=== PATIENT | male | born 1935 | race Caucasian/White ===

== ENCOUNTER → 2016-06-28 | Outpatient (CLI) | payer MEDICARE, OTHER ==
[2016-06-28 11:08] LABS: ALBUMIN 3.5 GM/DL (3.2-5.2); ALBUMIN/GLOBULIN RATIO 1.25 (1.00-1.93); BILIRUBIN,TOTAL 0.3 MG/DL (0.2-1.0); CALCIUM LEVEL 9.2 MG/DL (8.8-10.2); CREATININE FOR GFR 2.53 MG/DL (0.70-1.30); FREE T4 1.12 NG/DL (0.76-1.46); GLOMERULAR FILTRATION RATE 26.1 (>35); POTASSIUM SERUM 4.9 MEQ/L (3.5-5.1); TOTAL PROTEIN 6.3 GM/DL (6.4-8.2)
== END ==
LOC: M LAB 09:52
PROVIDERS: ATTEND Nurse Practitioner Family
DX: N18.4 Chronic kidney disease, stage 4 (severe) (principal); E03.9 Hypothyroidism, unspecified; E11.40 Type 2 diabetes mellitus with diabetic neuropathy, unspecified

== ENCOUNTER → 2016-09-25 | Outpatient (CLI) | payer MEDICARE, OTHER ==
[2016-09-25 10:14] LABS: ALBUMIN 3.7 GM/DL (3.2-5.2); ALBUMIN/GLOBULIN RATIO 1.16 (1.00-1.93); BILIRUBIN,TOTAL 0.4 MG/DL (0.2-1.0); CALCIUM LEVEL 9.8 MG/DL (8.8-10.2); CREATININE FOR GFR 2.59 MG/DL (0.70-1.30); GLOMERULAR FILTRATION RATE 25.4 (>35); TOTAL PROTEIN 6.9 GM/DL (6.4-8.2)
[2016-09-25 10:17] LABS: POTASSIUM SERUM 5.5 MEQ/L (3.5-5.1)
== END ==
LOC: M LAB 09:13
PROVIDERS: ATTEND Nurse Practitioner Family
DX: E11.65 Type 2 diabetes mellitus with hyperglycemia (principal)

== ENCOUNTER → 2017-01-08 | Outpatient (CLI) | payer MEDICARE, OTHER ==
[2017-01-08 10:42] LABS: ALBUMIN 3.5 GM/DL (3.2-5.2); ALBUMIN/GLOBULIN RATIO 1.13 (1.00-1.93); BILIRUBIN,TOTAL 0.3 MG/DL (0.2-1.0); CALCIUM LEVEL 9.1 MG/DL (8.8-10.2); CREATININE FOR GFR 2.41 MG/DL (0.70-1.30); FREE T4 1.2 NG/DL (0.76-1.46); GLOMERULAR FILTRATION RATE 27.6 (>35); POTASSIUM SERUM 4.8 MEQ/L (3.5-5.1); TOTAL PROTEIN 6.6 GM/DL (6.4-8.2)
== END ==
LOC: M LAB 09:41
PROVIDERS: ATTEND Nurse Practitioner Family
DX: E11.65 Type 2 diabetes mellitus with hyperglycemia (principal)

== ENCOUNTER → 2017-04-08 | Outpatient (CLI) | payer MEDICARE, OTHER | LOC: M RAD 10:42 | DX: N18.4 Chronic kidney disease, stage 4 (severe) (principal); E11.22 Type 2 diabetes mellitus with diabetic chronic kidney disease; I15.0 Renovascular hypertension | CPT/HCPCS: 76775 ==

== ENCOUNTER → 2017-04-10 | Outpatient (CLI) | payer MEDICARE, OTHER ==
[2017-04-10 10:01] LABS: HEMOGLOBIN 12.8 g/dl (14.0-18.0); MEAN CORPUSCULAR HEMOGLOBIN 31.8 pg (27.0-33.0); MEAN CORPUSCULAR HGB CONC 33.7 g/dl (32.0-36.5); MEAN CORPUSCULAR VOLUME 94.5 fl (80.0-96.0); PLATELET COUNT, AUTOMATED 323 10^3/uL (150-450); RED BLOOD COUNT 4.02 10^6/uL (4.30-6.10); RED CELL DISTRIBUTION WIDTH 12.9 % (11.5-14.5); WHITE BLOOD COUNT 6.5 10^3/uL (4.0-10.0)
[2017-04-10 10:20] LABS: ALBUMIN 3.8 GM/DL (3.2-5.2); ALBUMIN/GLOBULIN RATIO 1.31 (1.00-1.93); ALKALINE PHOSPHATASE 58 U/L (45-117); ALT/SGPT 26 U/L (12-78); ANION GAP 6 MEQ/L (8-16); AST/SGOT 14 U/L (7-37); BILIRUBIN,TOTAL 0.3 MG/DL (0.2-1.0); BLOOD UREA NITROGEN 57 MG/DL (7-18); CALCIUM LEVEL 9.2 MG/DL (8.8-10.2); CARBON DIOXIDE LEVEL 29 MEQ/L (21-32); CHLORIDE LEVEL 106 MEQ/L (98-107); CHOLESTEROL LEVEL 132 MG/DL (<200); GLOMERULAR FILTRATION RATE 22.2 (>35); GLUCOSE, FASTING 129 MG/DL (83-110); HDL CHOLESTEROL 60 MG/DL (>40); LDL CHOLESTEROL 56.6 MG/DL (<100); NON-HDL-C 72 MG/DL; POTASSIUM SERUM 4.9 MEQ/L (3.5-5.1); SODIUM LEVEL 141 MEQ/L (136-145); TOTAL PROTEIN 6.7 GM/DL (6.4-8.2); TRIGLYCERIDES LEVEL 77 MG/DL (<150)
[2017-04-10 10:51] LABS: ESTIMATED AVERAGE GLUCOSE 148 MG/DL (60-110); HEMOGLOBIN A1c 6.8 %
== END ==
LOC: M LAB 09:22
DX: N18.4 Chronic kidney disease, stage 4 (severe) (principal); E11.65 Type 2 diabetes mellitus with hyperglycemia; M15.0 Primary generalized (osteo)arthritis; E78.4 Other hyperlipidemia
CPT/HCPCS: 80053

== ENCOUNTER → 2017-06-04 | Outpatient (REF) | payer MEDICARE, OTHER ==
[2017-06-04 14:57] LABS: FOLATE > 24.0 NG/ML; VITAMIN B12 LEVEL 522 PG/ML
[2017-06-04 15:02] LABS: FERRITIN 55 NG/ML (26-388); IRON (FE) 97 UG/DL (65-175); PERCENT SATURATION 37.5 % (19.7-50.0); TOTAL IRON BINDING CAPACITY 259 UG/DL (250-450)
== END ==
LOC: M LAB REF 14:13
DX: N18.9 Chronic kidney disease, unspecified (principal); D63.1 Anemia in chronic kidney disease
CPT/HCPCS: 82746

== ENCOUNTER → 2017-08-06 | Outpatient (REF) | payer MEDICARE, OTHER ==
[2017-08-06 14:15] LABS: ANION GAP 9 MEQ/L (8-16); BLOOD UREA NITROGEN 36 MG/DL (7-18); CARBON DIOXIDE LEVEL 29 MEQ/L (21-32); CHLORIDE LEVEL 105 MEQ/L (98-107); CREATININE FOR GFR 2.36 MG/DL (0.70-1.30); FREE T4 1.26 NG/DL (0.76-1.46); GLOMERULAR FILTRATION RATE 28.2 (>35); GLUCOSE, FASTING 104 MG/DL (70-100); POTASSIUM SERUM 4.5 MEQ/L (3.5-5.1); SODIUM LEVEL 143 MEQ/L (136-145); THYROID STIMULATING HORMONE 0.204 uIU/ML (0.358-3.740)
[2017-08-06 14:55] LABS: TOTAL 25(OH) VITAMIN D 31.9 NG/ML (30.0-100.0)
== END ==
LOC: M SFHCPLAZ 11:40
DX: I12.9 Hypertensive chronic kidney disease with stage 1 through stage 4 chronic kidney disease, or unspecified chronic kidney disease (principal); N18.4 Chronic kidney disease, stage 4 (severe); E03.9 Hypothyroidism, unspecified; E83.52 Hypercalcemia
CPT/HCPCS: 84443

== ENCOUNTER 2017-10-29 07:24 | Day surgery (SDC) | payer MEDICARE, OTHER ==
[~2017-10-29 07:24] MED LIST: ACETAMINOPHEN 325 MG TAB PO; PHENYLEPHRINE HCL 10 % OPHTH. SOL 5ML OS
[2017-10-29] MEDS ORDERED: PHENYLEPHRINE 2.5% OPHTH SOL 2ML As Ordered (07:33)
[2017-10-29] MEDS ORDERED: TROPICAMIDE 1% OPHTH SOLN 2ML As Ordered (07:33)
[2017-10-29] MEDS ORDERED: OFLOXACIN 0.3 % (OCUFLOX) OPTH SOL 5ML As Ordered (07:33)
[2017-10-29] MEDS ORDERED: CYCLOPENTOLATE 2% OPHTH SOLN 2ML BTL As Ordered (07:33)
[2017-10-29 07:53] LABS: BEDSIDE GLUCOSE 135 MG/DL (83-110)
[2017-10-29] MEDS: LIDOCAINE 3.5 % 1ML OPHTH TOPICAL GEL OU (07:58)
[2017-10-29] MEDS: TROPICAMIDE 1% OPHTH SOLN 2ML OS (07:58)
[2017-10-29] MEDS: CYCLOPENTOLATE 2% OPHTH SOLN 2ML BTL OS (07:58)
[2017-10-29] MEDS: OFLOXACIN 0.3 % (OCUFLOX) OPTH SOL 5ML OS (07:58)
[2017-10-29] MEDS: PHENYLEPHRINE 2.5% OPHTH SOL 2ML OS (07:59)
[2017-10-29] MEDS: MOXIFLOXACIN IN BSS 0.25MG/0.25ML INTRACAMERAL INJ (OR EYE ONLY)(J2280) As Ordered (08:20)
[2017-10-29] MEDS: HEALON DUET (HEALON 10MG/ML 0.55ML & HEALON ENDOCOAT 30MG/ML 0.85ML) As Ordered (08:20)
[2017-10-29] MEDS: TRIAMCINOLONE PRES FR 40 MG/ML 1ML(TRIESENCE)(OR EYE ONLY)(J3300 PER 1MG) As Ordered (08:20)
[2017-10-29] MEDS: POVIDONE-IODINE 5% OPHTH PREP SOL 30ML As Ordered (08:20)
[2017-10-29] MEDS: LIDOCAINE 1% SDV 5 ML VIAL As Ordered (08:20)
[2017-10-29] MEDS: BSS with VANC/TOB/EPI for EYE CASES IR (08:20)
[2017-10-29] MEDS ORDERED: fentaNYL 100 MCG/2 ML INJECTION (J3010) As Ordered (08:27)
[2017-10-29] MEDS ORDERED: MIDAZOLAM INJ 2 MG/2 ML VIAL (J2250) As Ordered (08:27)
[2017-10-29] MEDS: AcetaZOLAMIDE 500 MG ER CAP PO (09:00)
[2017-10-29] MEDS ORDERED: TRIMETHOBENZAMIDE 300 MG CAP PO (09:00)
== END 2017-10-29 09:16 | disposition home or self-care (01) ==
LOC: M SDC 07:24
DX: H25.9 Unspecified age-related cataract (principal); I10 Essential (primary) hypertension; K21.9 Gastro-esophageal reflux disease without esophagitis; F41.9 Anxiety disorder, unspecified; E11.9 Type 2 diabetes mellitus without complications; E03.9 Hypothyroidism, unspecified; Z79.82 Long term (current) use of aspirin; Z79.899 Other long term (current) drug therapy; Z88.0 Allergy status to penicillin; Z88.8 Allergy status to other drugs, medicaments and biological substances
CPT/HCPCS: 66984

== ENCOUNTER → 2017-11-04 | Outpatient (CLI) | payer MEDICARE, OTHER ==
[2017-11-04 13:11] LABS: TOTAL 25(OH) VITAMIN D 17.6 NG/ML (30.0-100.0)
[2017-11-04 13:12] LABS: ANION GAP 10 MEQ/L (8-16); BLOOD UREA NITROGEN 53 MG/DL (7-18); CALCIUM LEVEL 8.7 MG/DL (8.8-10.2); CARBON DIOXIDE LEVEL 25 MEQ/L (21-32); CHLORIDE LEVEL 107 MEQ/L (98-107); CREATININE FOR GFR 2.62 MG/DL (0.70-1.30); FREE T4 0.98 NG/DL (0.76-1.46); GLUCOSE, FASTING 171 MG/DL (70-100); PTH INTACT 97.2 PG/ML (18.5-88.0); SODIUM LEVEL 142 MEQ/L (136-145); THYROID STIMULATING HORMONE 0.435 uIU/ML (0.358-3.740)
== END ==
LOC: M LAB 12:08
DX: E03.9 Hypothyroidism, unspecified (principal); N18.4 Chronic kidney disease, stage 4 (severe); E83.52 Hypercalcemia
CPT/HCPCS: 84443

== ENCOUNTER → 2018-02-11 | Outpatient (CLI) | payer MEDICARE, OTHER ==
[2018-02-11 15:24] LABS: HEMATOCRIT 38.1 % (42.0-52.0); HEMOGLOBIN 12.8 g/dl (13.5-17.5); MEAN CORPUSCULAR HEMOGLOBIN 31.1 pg (27.0-33.0); MEAN CORPUSCULAR HGB CONC 33.6 g/dl (32.0-36.5); MEAN CORPUSCULAR VOLUME 92.7 fl (80.0-96.0); PLATELET COUNT, AUTOMATED 411 10^3/uL (150-450); RED BLOOD COUNT 4.11 10^6/uL (4.30-6.10); RED CELL DISTRIBUTION WIDTH 12.6 % (11.5-14.5); WHITE BLOOD COUNT 8.4 10^3/uL (4.0-10.0)
[2018-02-11 15:38] LABS: ESTIMATED AVERAGE GLUCOSE 174 MG/DL (60-110); HEMOGLOBIN A1c 7.7 %
[2018-02-11 16:01] LABS: ALBUMIN 3.1 GM/DL (3.2-5.2); ALBUMIN/GLOBULIN RATIO 0.94 (1.00-1.93); ALKALINE PHOSPHATASE 103 U/L (45-117); ALT/SGPT 22 U/L (12-78); ANION GAP 7 MEQ/L (8-16); AST/SGOT 15 U/L (7-37); BILIRUBIN,TOTAL 0.3 MG/DL (0.2-1.0); BLOOD UREA NITROGEN 42 MG/DL (7-18); CALCIUM LEVEL 9.1 MG/DL (8.8-10.2); CARBON DIOXIDE LEVEL 31 MEQ/L (21-32); CHLORIDE LEVEL 98 MEQ/L (98-107); FREE T4 1.06 NG/DL (0.76-1.46); GLOMERULAR FILTRATION RATE 26.4 (>35); GLUCOSE, FASTING 276 MG/DL (70-100); SODIUM LEVEL 136 MEQ/L (136-145); TOTAL PROTEIN 6.4 GM/DL (6.4-8.2)
== END ==
LOC: M LAB 14:49
DX: N18.4 Chronic kidney disease, stage 4 (severe) (principal); I12.9 Hypertensive chronic kidney disease with stage 1 through stage 4 chronic kidney disease, or unspecified chronic kidney disease; E03.9 Hypothyroidism, unspecified; E11.65 Type 2 diabetes mellitus with hyperglycemia; E11.22 Type 2 diabetes mellitus with diabetic chronic kidney disease
CPT/HCPCS: 84443

== ENCOUNTER → 2018-04-20 | Outpatient (CLI) | payer MEDICARE, OTHER ==
[~2018-04-20] MED LIST changes: -ACETAMINOPHEN 325 MG TAB PO; +ASPI1TAB PO; +ATOR40TA75 PO; +BENA25CA4 PO; +BIOT2500 PO; +CALC1CAP31 PO; +CARV3.12 PO; +CLAR10CA3 PO; +CLOB0.0526 EX; +COLA100C5 PO; +CUTI0.053 EX; +ECHI400C2 PO; +EFFE75CA2 PO; +EYECAP PO; +FEBU40TA PO; +FISH7.5C PO; +FLOM0.4C39 PO; +LEVO125T4 PO; +MIRA3350 PO; -PHENYLEPHRINE HCL 10 % OPHTH. SOL 5ML OS; +PREV1CAP PO; +PROB1CAP10 PO; +TIZA4CAP PO; +TORS20TA2 PO; +VANI1CRE5 EX
[2018-04-20 13:13] LABS: FREE T4 1.47 NG/DL (0.76-1.46); THYROID STIMULATING HORMONE 0.058 uIU/ML (0.358-3.740)
== END ==
LOC: M LAB 11:22
PROVIDERS: ATTEND Nurse Practitioner Family
DX: E03.9 Hypothyroidism, unspecified (principal)

== ENCOUNTER → 2018-05-19 | Outpatient (REF) | payer MEDICARE, OTHER | LOC: M LABDRAW1 15:34 → M LAB REF 15:34 | PROVIDERS: ATTEND Internal Medicine Nephrology | DX: Z12.5 Encounter for screening for malignant neoplasm of prostate (principal); M54.5 Low back pain ==

== ENCOUNTER → 2018-05-21 | Outpatient (CLI) | payer MEDICARE, OTHER ==
[2018-05-21 14:26] LABS: ALBUMIN 3.3 GM/DL (3.2-5.2); BILIRUBIN,TOTAL 0.3 MG/DL (0.2-1.0); CALCIUM LEVEL 9.2 MG/DL (8.8-10.2); CREATININE FOR GFR 2.24 MG/DL (0.70-1.30); FREE T4 1.21 NG/DL (0.76-1.46); GLOMERULAR FILTRATION RATE 29.9 (>35); POTASSIUM SERUM 3.9 MEQ/L (3.5-5.1); THYROID STIMULATING HORMONE 0.091 uIU/ML (0.358-3.740); TOTAL PROTEIN 6.2 GM/DL (6.4-8.2)
[2018-05-21 15:10] LABS: HEMOGLOBIN A1c 7.6 %
== END ==
LOC: M LAB 12:31
PROVIDERS: ATTEND Nurse Practitioner Family
DX: E03.9 Hypothyroidism, unspecified (principal); E11.65 Type 2 diabetes mellitus with hyperglycemia; I12.9 Hypertensive chronic kidney disease with stage 1 through stage 4 chronic kidney disease, or unspecified chronic kidney disease; N18.4 Chronic kidney disease, stage 4 (severe)

== ENCOUNTER → 2018-06-04 | Outpatient (REF) | payer MEDICARE, OTHER ==
[2018-06-04 19:13] LABS: ALBUMIN 3.5 GM/DL (3.2-5.2); BILIRUBIN,TOTAL 0.4 MG/DL (0.2-1.0); CALCIUM LEVEL 9.5 MG/DL (8.8-10.2); CREATININE FOR GFR 2.27 MG/DL (0.70-1.30); GLOMERULAR FILTRATION RATE 29.4 (>35); POTASSIUM SERUM 4.4 MEQ/L (3.5-5.1); TOTAL PROTEIN 6.6 GM/DL (6.4-8.2)
[2018-06-04 19:17] LABS: FREE T4 1.33 NG/DL (0.76-1.46); THYROID STIMULATING HORMONE 0.143 uIU/ML (0.358-3.740)
== END ==
LOC: M SFHCPLAZ 15:16
PROVIDERS: ATTEND Nurse Practitioner Family
DX: I12.9 Hypertensive chronic kidney disease with stage 1 through stage 4 chronic kidney disease, or unspecified chronic kidney disease (principal); N18.4 Chronic kidney disease, stage 4 (severe); E11.65 Type 2 diabetes mellitus with hyperglycemia; E03.9 Hypothyroidism, unspecified
CPT/HCPCS: 80053; 83036; 84439; 84443; G0463

== ENCOUNTER → 2018-07-27 | Outpatient (CLI) | payer OTHER ==
[~2018-07-27] MED LIST changes: -ASPI1TAB PO; +ASPI81TA26 PO
--- NOTE | 2018-08-12 01:13 | ECWPNPC ---
PATIENT NAME: FERMIN LEACH : 1935 GENDER: MALE VISIT DATE: 07/27/2018 DISCHARGE DATE: 07/27/18 1450 VISIT LOCKED DATE TIME: PHYSICIAN: LALITA MIDDLETON MD RESOURCE: LALITA MIDDLETON MD REASON FOR APPOINTMENT 1. W/C LBP HISTORY OF PRESENT ILLNESS PAIN SCREENING: PATIENT HAS A COMPLAINT OF ACUTE OR CHRONIC PAIN :YES 83 YEAR OLD MALE PATIENT WITH A HISTORY OF CHRONIC LOW BACK PAIN. THE PATIENT DESCRIBES THE PAIN ACHING, SHARP, AND SHOOTING WITH A PAIN SCORE OF 8-10/10 DEPENDING ON PHYSICAL ACTIVITY. THE PATIENT WAS HURT IN A WORK RELATED INJURY ON 06/29/1986 WHILE WORKING FOR [employer] A [employer] ON [employer] [place] [employer] WHEN HE WAS TRYING TO FIX A MALFUNCTIONING MACHINE AND HE BENT OVER TO FEED SOME STRAPS THROUGH IT, AND HE STRAIGHTENED BACK UP HIS BACK POPPED OUT AND HE HAD DIFFICULTY MOVING. THE PATIENT STATES THE PAIN STARTS IN HIS LOWER BACK AND RADIATES TO HIS RIGHT LEG. THE PATIENT SAYS PHYSICAL THERAPY HELPED IN THE BEGINNING, BUT THE PAIN HAS GOTTEN WORSE. THE PATIENT IS CURRENTLY USING TRAMADOL AND A HEATING PAD TO AID IN PAIN RELIEF. THE PATIENT SAYS THAT HE HAS HAD TROUBLE URINATING RECENTLY. PATIENT DENIES UNEXPLAINABLE WEIGHT LOSS, FEVER, CHILLS, NEW CHANGES ON HIS BOWEL CONTROL. FALL RISK SCREENING: SCREENING :NO FALLS REPORTED IN THE LAST YEAR CURRENT MEDICATIONS TAKING OMEGA 3 1000 MG CAPSULE 1 CAPSULE ORALLY TWICE DAILY TAKING TIZANIDINE HCL 4 MG TABLET 1/2 -1 TABLET NEEDED ORALLY AT BEDTIME, NOTES: NEEDED TAKING ULORIC 40 MG TABLET 1 TABLET ORALLY -- TAKING CALCITRIOL 0.25 MCG CAPSULE 1 CAPSULE ORALLY ONCE A DAY, ,, TAKING PREVACID 30 MG CAPSULE DELAYED RELEASE TAKE ONE CAPSULE BY MOUTH EVERY DAY BEFORE A MEAL TAKING MIRALAX - POWDER 2 TABLESPOON ORALLY DAILY NEEDED TAKING COLACE 100 MG CAPSULE 2-3 CAPSULES ORALLY TWICE A DAY NEEDED TAKING ECHINACEA 400 MG CAPSULE 4 CAPSULES ORALLY THREE TIMES A DAY FOR 2-4 DAYS ON ONSET OF COLD SYMPTOMS, NOTES: NEEDED TAKING CUTIVATE 0.05 % CREAM ARMS AND LEGS EXTERNALLY ONCE A DAY NEEDED TAKING CLOBETASOL PROPIONATE 0.05 % CREAM 1 APPLICATION TO AFFECTED AREA EXTERNALLY AFFECTED AREAS ON BODY ECZEMA TWICE A DAY, NOTES: NEEDED TAKING DIPHENHYDRAMINE . 1 25MG 1 TAB ORAL 2-3 YUNI DAILY NEEDED USE WHEN ALLERGIES ARE BOTHERING HIM, NOTES: NEEDED TAKING BIOTIN 5000 MCG CAPSULE 1 CAPSULE ORALLY ONCE A DAY TAKING AREDS OTC AREDS2- 1 CAP ORALLY TWICE DAILY TAKING DRISDOL 07393 UNIT CAPSULE 1 CAPSULE ORALLY TAKING MAGNESIUM CITRATE - SOLUTION 150 ML ORALLY TWICE A DAY TAKING ASPIRIN 81 MG OTC 1 TAB(S) ORALLY DAILY TAKING TORSEMIDE 20 MG TABLET 1 TABLET ORALLY ONCE A DAY, NOTES: NEPHROLOGY TAKING COREG 3.125MG TABLET ORAL BID TAKING EFFEXOR XR 75 MGS CAPSULE EXTENDED RELEASE 24 HOUR 1 CAPSULE WITH FOOD ORALLY DAILY TAKING LIPITOR 40 MG TABLET 1 TABLET ORALLY ONCE A DAY TAKING FLOMAX 0.4 MG CAPSULE 1 CAPSULE ORALLY ONCE A DAY TAKING TRAMADOL HCL 50 MG TABLET 1 TABLET ORALLY TWICE A DAY NEEDED TAKING SYNTHROID 100 MCG TABLET 1 TABLET ON AN EMPTY STOMACH IN THE MORNING ORALLY ONCE A DAY TAKING LORATADINE 10 MG TABLET 1 TABLET ORALLY ONCE A DAY NOT-TAKING ALPHA LIPOIC ACID 300MGS 1 SOFTGEL TWICE A DAY FOR NEUROPATHY NOT-TAKING VANICREAM OTC CREAM 1 APPLICATION EXTERNALLY NOT ON FACE OVER BODY FOR DRY SKIN NEEDED NOT-TAKING LANCETS - MISCELLANEOUS DIRECTED ONE TOUCH ULTRA DX. 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 HYPERLIPIDEMIA HYPOTHYROIDISM--CENTRAL ( FOLLOW FREE T4, NOT TSH) HYPERTENSION BPH PEYRONIE'S DISEASE ALLERGIES DDD/DJD LOW BACK L/S SPINAL STENOSIS PLASMA CELL GRANULOMA RLL STRESS TEST 2008 VIT D DEFICIENCY ZOSTAVAX 09/17 RT 7TH RIB FX (FALL 06/18, CAT-RELATED) GOUT RT GREAT TOE 11/20 COLOGUARD: NEGATIVE ALLERGIES ZANTAC: CONSTIPATION - SIDE EFFECTS NSAIDS: ELEV BUN, CREAT - SIDE EFFECTS PENICILLIN: HIVES - ALLERGY SURGICAL HISTORY T + A 1947 APPENDECTOMY 1949 TURP 2002 RIGHT SHOULDER REPAIR / 1989 RIGHT LOWER LUNG REMOVAL OF ABSCESS/ 2004 BILATERAL BLEPHAROPLASTY/ 2006 EGD/COLONOSCOPY 2007 RIGHT EYE CATARACT SURGERY 11/2012 CYSTOSCOPY 10/21/2017 LEFT EYE [address] JOHNSON FAMILY HISTORY FATHER: HYPERTENSION, DIAGNOSED WITH HYPERTENSION MOTHER: DIABETES, TYPE II, DIABETES SIBLINGS: BROTHER:DIABETES, TYPE II, BLADER CA, DIABETES, CANCER DAUGHTER(S): DEPRESSION, PSYCHIATRIC CONDITIONS PATERNAL GRAND FATHER: DIABETES, TYPE II, DIABETES REVIEWED, NO CHANGES. SOCIAL HISTORY GENERAL: TOBACCO USE ARE YOU A:FORMER SMOKER FORMER CIGAR SMOKER HOW LONG HAS IT BEEN SINCE YOU LAST SMOKED?1-5 YEARS ADDITIONAL FINDINGS: TOBACCO USERCIGAR SMOKER LATEX QUESTIONNAIRE LATEX ALLERGY : HAVE YOU EVER DEVELOPED ANY TYPE OF REACTION AFTER HANDLING LATEX PRODUCTS SUCH RUBBER GLOVES, CONDOMS, DIAPHRAGMS, BALLOONS, SOCKS, OR UNDERWEAR?NO LATEX ALLERGY : HAVE YOU EVER DEVELOPED ANY TYPE OF REACTION DURING OR AFTER DENTAL APPOINTMENT, VAGINAL/RECTAL EXAMINATION, SURGICAL PROCEDURE, OR ANY OTHER EXPOSURE?NO LATEX RISK : HAVE YOU EVER HAD ANY DIFFICULTY BREATHING OR HIVES AFTER EATING OR HANDLING ANY FRUITS, OR VEGETABLES; SUCH KIWI, BANANAS, STONE FRUITS, OR CHESTNUTSNO LATEX RISK : DO YOU HAVE A PREVIOUS PERSONAL HISTORY OF MORE THAN NINE SURGERIES, SPINA BIFIDA, OR REPEATED CATHERTIZATIONS? NO LATEX RISK : ARE YOU FREQUENTLY EXPOSED TO LATEX PRODUCTS IN YOUR OCCUPATION?NO DATE ASKED : 07/27/2018 LUNG CANCER SCREENING SMOKING STATUS:FORMER SMOKER IS THE PATIENT BETWEEN THE AGE OF 54 AND 76?NO ALCOHOL SCREENING DID YOU HAVE A DRINK CONTAINING ALCOHOL IN THE PAST YEAR?NO POINTS0 INTERPRETATIONNEGATIVE RECREATIONAL DRUG USE DRUG USE?NO CAFFEINE CAFFEINE USE?NO SEXUAL HX HAD SEX IN THE LAST 12 MONTHS (VAGINAL, ORAL, OR ANAL)?NO HAVE YOU EVER HAD AN STD?NO HIV / HEP-C SCREENING HIV TEST OFFERED TO PATIENT:YES DATE OFFERED:07/05/2016 TEST ACCEPTED:NO HEP-C TEST OFFERED TO PATIENT:NO REASON:PATIENT DECLINED CONFUCIANISM CONFUCIANISM NO SAMARITAN BELIEFS THAT WOULD IMPACT HEALTH CARE. LANGUAGE LANGUAGES SPOKEN:PANAMANIAN EDUCATION LEVEL OF EDUCATION:FINISHED HIGH SCHOOL LEARNING BARRIERS / SPECIAL NEEDS CHANGE FROM LAST VISIT?NO BARRIERS TO LEARNING?NO HEARING IMPAIRED?YES VISION IMPAIRED?YES COGNITIVELY IMPAIRED?NO :HEARING AIDES :CORRECTIVE LENSES READINESS TO LEARN?YES LEARNING PREFERENCES?NO LEARNING CAPABILITIES PRESENT?YES EMOTIONAL BARRIERS?NO SPECIAL DEVICES?NO BEHAVIORAL SPECIALIST NEEDED?NO DOMESTIC VIOLENCE DO YOU FEEL SAFE IN YOUR ENVIRONMENT?YES OCCUPATION: RETIRED. DIET: LOW FAT, LOW CHOLESTEROL. EXERCISE: NONE. MARITAL STATUS: --ANIL. OTHERS AT HOME: SPOUSE. PAIN CLINIC PFS, CLERGY, PUBLIC HEALTH REFERRALS HAS THE PATIENT BEEN EDUCATED REGARDING HIS/HER PLAN OF CARE?YES HAS THE PATIENT BEEN EDUCATED REGARDING PAIN, THE RISK FOR PAIN, THE IMPORTANCE OF EFFECTIVE PAIN MANAGEMENT, AND THE PAIN ASSESSMENT PROCESS?YES ADVANCE DIRECTIVE ADVANCE DIRECTIVE DISCUSSED WITH PATIENT:YES HCP IS ANIL LEACH [phone] REVIEWED WITH PATIENT 07/27/18 1224 BV. HOSPITALIZATION/MAJOR DIAGNOSTIC PROCEDURE SURGERY RELATED REVIEW OF SYSTEMS REVIEWED BY: PROVIDER: LALITA MIDDLETON MD . CONSTITUTIONAL: ANY CHANGE IN YOUR MEDICAL CONDITION? NO . CHILLS NO . FEVER NO . INFECTION: DO YOU HAVE NEW INFECTIONS? NO . DO YOU HAVE HISTORY OF MRSA? NO . MUSCULOSKELETAL: ANY NEW PATTERNS OF PAIN OR NUMBNESS? NO . SYTEMIC LUPUS NO . GASTROENTEROLOGY: ANY NEW CHANGE IN BOWEL CONTROL? YES, HAS HAD TROUBLE WITH CONSTIPATION, TAKING OTC CONSTIPATION MEDICATIONS. . BARRETTS ESOPHAGUS NO . CIRRHOSIS NO . HEPATITIS NO . LIVER FAILURE NO . ACID REFLUX YES . UNEXPLAINED WEIGHT LOSS HAS LOST ABOUT 10LBS SINCE JANUARY UNINTENTIONALLY . GENITOURINARY: ANY NEW CHANGE IN BLADDER CONTROL? NO . IS THERE A CHANCE YOU COULD BE ? NO . HEMATOLOGY/LYMPH: DO YOU TAKE ANY BLOOD THINNERS? (FOR EXAMPLE- COUMADIN, PLAVIX, AGGRENOX, PLATEL, PRADAXA, OR XARELTO) NO . WHEN WAS YOUR LAST DOSE? DATE: TIME: . LOW PLATELET COUNT NO . SICKLE CELL DISEASE NO . VON WILLIEBRANDS NO . FACTOR V LEIDEN NO . THALLASEMIA NO . ANEMIA NO . EASY BRUISING NO . NEUROLOGY: HAVE YOU FALLEN IN THE PAST 12 MONTHS? 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 DENIES ANY INJURIES OR ED VISIT. . ANY NEW EXTREMITY NUMBNESS OR WEAKNESS? NO . HEAD INJURY , NO . DEMENTIA NO . CEREBRAL PALSY NO . MULTIPLE SCLEROSIS NO . DIZZINESS NO . HEADACHE NO . STROKES NO . VERTIGO NO . CARDIOLOGY: DO YOU HAVE A PACEMAKER OR DEFIBRILLATOR? NO . ANGINA NO . HEART ATTACK NO . HEART SURGERY NO . CONGESTIVE HEART FAILURE/FLUID OVERLOAD NO . CHEST PAIN NO . HIGH BLOOD PRESSURE NO . IRREGULAR HEART BEAT NO . RESPIRATORY: HAVE YOU BEEN SICK IN THE PAST WEEK? NO . FEVER NO . FLU LIKE SYMPTOMS? NO . CPAP NO . BYPAP NO . ASTHMA NO . EMPHYSEMA NO . CHRONIC LUNG DISEASES NO . SHORTNESS OF BREATH ON EXERTION NO . COUGH NO . SNORING NO . INTEGUMENTARY: DO YOU HAVE ANY RASHES OR OPEN SORES? NO . ALLERGIC/IMMUNO: ARE YOU ALLERGIC TO IV DYE? NO . ANY NEW ALLERGIES? NO . PSYCHIATRIC: DO YOU HAVE THOUGHTS OF HURTING YOURSELF OR SOMEONE ELSE? NO . ARE YOU ABUSED, NEGLECTED, OR IN AN UNSAFE ENVIRONMENT? NO . ENDOCRINOLOGY: ARE YOU DIABETIC? YES, DIET CONTROLLED . THYROID DISORDER HYPOTHYROID . OTHER: DO YOU NEED ANY PRESCRIPTIONS? YES, TRAMADOL . IF YES, PLEASE LIST: ____ . ANY NEW PROBLEMS WITH YOUR MEDICATIONS? NO . WHEN DID YOU LAST EAT? ____ . WHEN DID YOU LAST DRINK? ____ . WHAT DID YOU LAST DRINK? ____ . NAME OF PERSON DRIVING YOU HOME? ____ . DO YOU HAVE ANY OTHER QUESTIONS OR CONCERNS NO . VITAL SIGNS WT 153.4 LBS, HT 67.5 IN, BMI 23.67 INDEX, BP 134/69 MM HG, HR 78 /MIN, RR 18 /MIN, TEMP 97.4 F, OXYGEN SAT % 98%, NA INITIALS SC 12:12, REVIEWED BY: BV. EXAMINATION GENERAL EXAMINATION: PATIENT IS ALERT O X 3 AND COOPERATIVE. LUNGS CLEAR, TO AUSCULTATION. HEART: NO MURMURS OR GALLOPS; FACIAL CRANIAL NERVES ARE GROSSLY NORMAL. GOOD SYMMETRY OF FACIAL MUSCLE MOVEMENT. NORMAL VISUAL MICHELLE. PATIENT IS WALKING SLOWLY. ANTALGIC GAIT. PATIENT IS IN A FLEXED POSITION AND HAS DIFFICULTY STANDING STRAIGHT UP. STRAIGHT LEG RAISE OF THE RIGHT LEG IS POSITIVE AT 50 DEGREES FOR RADICULOPATHY. MRI OF THE LUMBAR SPINE DONE 08/30/2008 SHOWS SEVERE STENOSIS L5-S1, MILD STENOSIS L4-L5 AND BULGING DISCS AT MULTIPLE LEVELS. ASSESSMENTS INTERVERTEBRAL DISC DISORDER WITH RADICULOPATHY OF LUMBAR REGION - M51.16 (PRIMARY) SPINAL STENOSIS OF LUMBAR REGION WITHOUT NEUROGENIC CLAUDICATION - M48.061 TREATMENT INTERVERTEBRAL DISC DISORDER WITH RADICULOPATHY OF LUMBAR REGION CLINICAL NOTES: WE DISCUSSED SEVERAL ISSUES WITH MR. LEACH'S PAIN MANAGEMENT CASE. DUE TO THE LUMBAR RADICULOPATHY, WE DISCUSSED THE OPTION OF DOING A LUMBAR EPIDURAL INJECTION, BUT I WOULD LIKE TO ORDER A NEW LUMBAR MRI FIRST SINCE THE PREVIOUS WAS FROM 10 YEARS AGO. THE PATIENT MAY CONSIDER DIFFERENT MEDICATIONS IN THE FUTURE INCLUDING GABAPENTIN, MOVANTIK, OR INCREASING THE TRAMADOL. THE PATIENT WILL FOLLOW UP IN 1 MONTH TO REVIEW MRI RESULTS AND DISCUSS FURTHER TREATMENT OPTIONS. INSTRUCTIONS WERE GIVEN, QUESTIONS WERE ANSWERED, PATIENT REPORTS UNDERSTANDING AND AGREES WITH THE PLAN. I, JALEEL BRAND, DOCUMENTED THE ABOVE INFORMATION ACTING A SCRIBE FOR DR. MIDDLETON. I HAVE REVIEWED THE ABOVE DOCUMENT, WRITTEN BY JALEEL CASTANEDA AND I VERIFY THAT IT IS ACCURATE.DEAR ROSA VALERA PA-C:THANK YOU FOR YOUR KIND REFERRAL OF FERMIN LEACH. IF YOU WANT TO DISCUSS HER CASE WITH ME, PLEASE CALL ME AT THE PAIN [facility]ENTER [phone].SINCERELY,LALITA MIDDLETON, [facility]. PROCEDURES PN WORKMANS' COMP OPINION IN YOUR OPINION, WAS THE INCIDENT THAT THE PATIENT DESCRIBED THE COMPETENT MEDICAL CAUSE OF THIS INJURY/ILLNESS? YES ARE THE PATIENT'S COMPLAINTS CONSISTENT WITH HIS/HER HISTORY OF THE INJURY/ILLNESS? YES IS THE PATIENT'S HISTORY OF THE INJURY/ILLNESS CONSISTENT WITH YOUR OBJECTIVE FINDING? YES WHAT IS THE PERCENTAGE OF TEMPORARY IMPAIRMENT? MODERATE TO MARKED = 66.7% IS THE PATIENT WORKING? NO DOCTOR ON SITE: LALITA GIRON MD PROCEDURE CODES FA211 ESTABILISHED PATIENT [facility] FACILITY CHARGE G8427 CURRENT MEDS W/DOSAGES DOCUMENTED G8730 PAIN ASSESS POS TOOL F/U PLAN DOC DISPOSITION & COMMUNICATION FOLLOW UP 4 WEEKS (REASON: W/C LOW BACK REVIEW MRI) ELECTRONICALLY SIGNED BY LALITA MIDDLETON MD, MD ON 08/10/2018 AT 06:56 PM EDT DISCLAIMER : THIS IS A VISIT SUMMARY EXTRACTED FROM THE [employer] CHART. IT IS NOT A COPY OF THE [employer] PROGRESS NOTE. MTDD
== END ==
LOC: M PAIN 11:30
PROVIDERS: ATTEND Anesthesiology
DX: M51.16 Intervertebral disc disorders with radiculopathy, lumbar region (principal); M48.061 Spinal stenosis, lumbar region without neurogenic claudication; G89.29 Other chronic pain; E11.22 Type 2 diabetes mellitus with diabetic chronic kidney disease; N18.4 Chronic kidney disease, stage 4 (severe); I12.9 Hypertensive chronic kidney disease with stage 1 through stage 4 chronic kidney disease, or unspecified chronic kidney disease; E03.9 Hypothyroidism, unspecified; E55.9 Vitamin D deficiency, unspecified; K21.9 Gastro-esophageal reflux disease without esophagitis; Z79.82 Long term (current) use of aspirin; Z79.899 Other long term (current) drug therapy; Z88.0 Allergy status to penicillin; Z88.6 Allergy status to analgesic agent; Z88.8 Allergy status to other drugs, medicaments and biological substances; Z87.891 Personal history of nicotine dependence; Z87.39 Personal history of other diseases of the musculoskeletal system and connective tissue

== ENCOUNTER → 2018-08-22 | Outpatient (CLI) | payer OTHER ==
--- NOTE | 2018-08-24 09:20 | REP ---
MR LUMBAR SPINE WITHOUT CONTRAST: HISTORY: Radiculopathy. Decreased signal intensity on T2-weighted images is present in the L2-3 through L5-S1 intervertebral discs. The discs are decreased in height. These findings are consistent with disc degeneration. There is no disc bulge or herniation at the L1-2 level. The L1 nerves exit then neural foramina without compression. A diffuse disc bulge is present at the L2-3 level. There is hypertrophy of the ligamenta flava and posterior articulating facets. These findings produce minimal central canal stenosis. The L2 nerves exit the neural foramina without compression. A diffuse disc bulge and small right paracentral disc protrusion are present at the L3-4 level. There is hypertrophy of the ligamenta flava and posterior articulating facets. These findings produce mild central canal stenosis. The L3 nerves exit the neural foramina without compression. A diffuse disc bulge is present at the L4-5 level. There is hypertrophy of the ligamenta flava and posterior articulating facets. There are two synovial cysts medial to the right L4-5 facet joint. These measure 4 and 5 mm in width. These findings produce severe central canal stenosis. A mild-size right intraforaminal and lateral disc protrusion is present. There is compression of the right L4 nerve in the neural foramen. The left L4 nerve exits the neural foramen without compression. A diffuse disc bulge is present at the L5-S1 level. There is hypertrophy of the ligamenta flava and posterior articulating facets. There are 6 mm of grade 1 spondylolisthesis of L5 on S1. These findings produce severe central canal stenosis. Bilateral L5 pars defects are present. There is compression of the L5 nerves in the neural foramina. The conus medullaris is normal in appearance terminating at the level of the L1-2 intervertebral disc. There is an old compression fracture of the L5 vertebral body with mild height loss. Increased signal intensity on T2-weighted images is present in the endplates of the L2 through L1 vertebral bodies. This represents degenerative change. IMPRESSION: 1. Minimal central canal stenosis at the L2-3 level secondary to disc bulge, ligamentous and facet hypertrophy. 2. Mild central canal stenosis at the L3-4 level secondary to disc bulge, disc protrusion, ligamentous and facet hypertrophy. 3. Severe central canal stenosis at the L4-5 level secondary to disc bulge, ligamentous and facet hypertrophy and synovial cysts. A mild size right intraforaminal and lateral disc protrusion is present. There is compression of the right L4 nerve in the neural foramen. 4. Severe central canal stenosis at the L5-S1 level secondary to disc bulge, ligamentous and facet hypertrophy and grade 1 spondylolisthesis. There is compression of the L5 nerves in the neural foramina. Electronically Signed by Andrzej Churchill MD 08/24/2018 09:47 A
== END ==
LOC: M RAD 08:52
PROVIDERS: ATTEND Anesthesiology
DX: M48.061 Spinal stenosis, lumbar region without neurogenic claudication (principal); M51.26 Other intervertebral disc displacement, lumbar region

== ENCOUNTER → 2018-09-01 | Outpatient (CLI) | payer MEDICARE, OTHER ==
[2018-09-01 11:25] LABS: HEMOGLOBIN A1c 6.7 %
[2018-09-01 11:42] LABS: ALBUMIN 3.2 GM/DL (3.2-5.2); BILIRUBIN,TOTAL 0.4 MG/DL (0.2-1.0); CHOLESTEROL RISK RATIO 2.067 (<5); CREATININE FOR GFR 2.33 MG/DL (0.70-1.30); FREE T4 0.95 NG/DL (0.76-1.46); GLOMERULAR FILTRATION RATE 28.6 (>35); POTASSIUM SERUM 4.4 MEQ/L (3.5-5.1); THYROID STIMULATING HORMONE 5.21 uIU/ML (0.358-3.740); TOTAL PROTEIN 6.7 GM/DL (6.4-8.2)
== END ==
LOC: M LAB 10:35
PROVIDERS: ATTEND Nurse Practitioner Family
DX: Z23 Encounter for immunization (principal); I12.9 Hypertensive chronic kidney disease with stage 1 through stage 4 chronic kidney disease, or unspecified chronic kidney disease; N18.4 Chronic kidney disease, stage 4 (severe); E11.65 Type 2 diabetes mellitus with hyperglycemia; E03.9 Hypothyroidism, unspecified

== ENCOUNTER → 2018-09-14 | Outpatient (CLI) | payer OTHER, MEDICARE ==
--- NOTE | 2018-09-26 23:39 | ECWPNPC ---
PATIENT NAME: FERMIN LEACH : 1935 GENDER: MALE VISIT DATE: 09/14/2018 DISCHARGE DATE: 09/14/18 1231 VISIT LOCKED DATE TIME: PHYSICIAN: LALITA MIDDLETON MD RESOURCE: LALITA MIDDLETON MD REASON FOR APPOINTMENT 1. W/C, REVIEW MRI HISTORY OF PRESENT ILLNESS HISTORY OF PRESENT ILLNESS: PAIN THE PATIENT DESCRIBES THE PAIN... 83 YEAR OLD MALE PATIENT WITH A HISTORY OF CHRONIC LOW BACK AND LEG PAIN. THE PATIENT DESCRIBES THE PAIN BURNING, SHOOTING, SHARP, DAILY, AND INTERMITTENT WITH A PAIN SCORE OF 1-10/10 DEPENDING ON PHYSICAL ACTIVITY. 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 THE PATIENT SAYS HE WAS BENT OVER TO FEED STRAPS THROUGH THE MACHINE AND WHEN HE STRAIGHTENED UP, HIS BACK POPPED OUT AND HE HAD DIFFICULTY MOVING AFTERWARD. THE PATIENT STATES THE PAIN STARTS IN HIS LOW BACK AND RADIATES TO BOTH LEGS. THE PATIENT SAYS THE PAIN HAS BEEN GETTING WORSE SINCE JANUARY 2018. THE PATIENT MENTIONS HE HAS BEEN HAVING TROUBLE URINATING AND DEFECATING. PATIENT DENIES UNEXPLAINABLE WEIGHT LOSS, FEVER, CHILLS, NEW CHANGES ON HIS URINARY OR BOWEL CONTROL. FALL RISK SCREENING: SCREENING :NO FALLS REPORTED IN THE LAST YEAR CURRENT MEDICATIONS TAKING COREG 3.125MG TABLET ORAL BID TAKING TORSEMIDE 20 MG TABLET 1 TABLET ORALLY ONCE A DAY, NOTES: NEPHROLOGY TAKING ASPIRIN 81 MG OTC 1 TAB(S) ORALLY DAILY TAKING LIPITOR 40 MG TABLET 1 TABLET ORALLY ONCE A DAY TAKING OMEGA 3 1000 MG CAPSULE 1 CAPSULE ORALLY TWICE DAILY TAKING EFFEXOR XR 75 MGS CAPSULE EXTENDED RELEASE 24 HOUR 1 CAPSULE WITH FOOD ORALLY DAILY TAKING TIZANIDINE HCL 4 MG TABLET 1/2 -1 TABLET NEEDED ORALLY AT BEDTIME, NOTES: NEEDED TAKING FLOMAX 0.4 MG CAPSULE 1 CAPSULE ORALLY ONCE A DAY TAKING ULORIC 40 MG TABLET 1 TABLET ORALLY -- TAKING PREVACID 30 MG CAPSULE DELAYED RELEASE TAKE ONE CAPSULE BY MOUTH EVERY DAY BEFORE A MEAL TAKING MAGNESIUM CITRATE - SOLUTION 150 ML ORALLY DAILY NEEDED TAKING DRISDOL 52407 UNIT CAPSULE 1 CAPSULE ORALLY TAKING CALCITRIOL 0.25 MCG CAPSULE 1 CAPSULE ORALLY ONCE A DAY, ,, TAKING MIRALAX - POWDER 2 TABLESPOON ORALLY DAILY NEEDED TAKING LORATADINE 10 MG TABLET 1 TABLET ORALLY ONCE A DAY TAKING DIPHENHYDRAMINE . 1 25MG 1 TAB ORAL 2-3 YUNI DAILY NEEDED USE WHEN ALLERGIES ARE BOTHERING HIM, NOTES: NEEDED TAKING ECHINACEA 400 MG CAPSULE 4 CAPSULES ORALLY THREE TIMES A DAY FOR 2-4 DAYS ON ONSET OF COLD SYMPTOMS, NOTES: NEEDED TAKING CUTIVATE 0.05 % CREAM ARMS AND LEGS EXTERNALLY ONCE A DAY NEEDED TAKING CLOBETASOL PROPIONATE 0.05 % CREAM 1 APPLICATION TO AFFECTED AREA EXTERNALLY AFFECTED AREAS ON BODY ECZEMA TWICE A DAY, NOTES: NEEDED TAKING BIOTIN 5000 MCG CAPSULE 1 CAPSULE ORALLY ONCE A DAY TAKING AREDS OTC AREDS2- 1 CAP ORALLY TWICE DAILY TAKING TRAMADOL HCL 50 MG TABLET 1 TABLET ORALLY THREE TIMES A DAY TAKING LANCETS - MISCELLANEOUS DIRECTED ONE TOUCH ULTRA DX. 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 HYPERLIPIDEMIA HYPOTHYROIDISM--CENTRAL ( FOLLOW FREE T4, NOT TSH) HYPERTENSION BPH PEYRONIE'S DISEASE ALLERGIES DDD/DJD LOW BACK L/S SPINAL STENOSIS PLASMA CELL GRANULOMA RLL 4 STRESS TEST 2008 VIT D DEFICIENCY ZOSTAVAX 09/17 RT 7TH RIB FX (FALL 06/18, CAT-RELATED) GOUT RT GREAT TOE 11/20 COLOGUARD: NEGATIVE ALLERGIES ZANTAC: CONSTIPATION - SIDE EFFECTS NSAIDS: ELEV BUN, CREAT - SIDE EFFECTS PENICILLIN: HIVES - ALLERGY SURGICAL HISTORY T + A 1948 APPENDECTOMY 1950 TURP 2002 RIGHT SHOULDER REPAIR / 1989 RIGHT LOWER LUNG REMOVAL OF ABSCESS/ 2004 BILATERAL BLEPHAROPLASTY/ 2006 EGD/COLONOSCOPY 2007 RIGHT EYE CATARACT SURGERY 11/2012 CYSTOSCOPY 10/21/2017 LEFT EYE CATARACT [address]ERY [address]. JOHNSON TOENAIL 1/19 FAMILY HISTORY FATHER: HYPERTENSION, DIAGNOSED WITH HYPERTENSION MOTHER: DIABETES, TYPE II, DIABETES SIBLINGS: BROTHER:DIABETES, TYPE II, BLADER CA, DIABETES, CANCER DAUGHTER(S): DEPRESSION, PSYCHIATRIC CONDITIONS PATERNAL GRAND FATHER: DIABETES, TYPE II, DIABETES REVIEWED, NO CHANGES. SOCIAL HISTORY GENERAL: TOBACCO USE ARE YOU A:FORMER SMOKER FORMER CIGAR SMOKER HOW LONG HAS IT BEEN SINCE YOU LAST SMOKED?1-5 YEARS ADDITIONAL FINDINGS: TOBACCO USERCIGAR SMOKER HIV / HEP-C SCREENING HIV TEST OFFERED TO PATIENT:YES DATE OFFERED:07/05/2016 TEST ACCEPTED:NO HEP-C TEST OFFERED TO PATIENT:NO REASON:PATIENT DECLINED OTHERS AT HOME: SPOUSE. EDUCATION LEVEL OF EDUCATION:FINISHED HIGH SCHOOL DIET: LOW FAT, LOW CHOLESTEROL. LANGUAGE LANGUAGES SPOKEN:MACEDONIAN DOMESTIC VIOLENCE DO YOU FEEL SAFE IN YOUR ENVIRONMENT?YES RECREATIONAL DRUG USE DRUG USE?NO EXERCISE: NONE. LEARNING BARRIERS / SPECIAL NEEDS CHANGE FROM LAST VISIT?NO BARRIERS TO LEARNING?NO HEARING IMPAIRED?YES VISION IMPAIRED?YES COGNITIVELY IMPAIRED?NO :HEARING AIDES :CORRECTIVE LENSES READINESS TO LEARN?YES LEARNING PREFERENCES?NO LEARNING CAPABILITIES PRESENT?YES EMOTIONAL BARRIERS?NO SPECIAL DEVICES?NO CAR BARN LABORER NEEDED?NO LUNG CANCER SCREENING SMOKING STATUS:FORMER SMOKER IS THE PATIENT BETWEEN THE AGE OF 54 AND 76?NO PAIN CLINIC PFS, CLERGY, PUBLIC HEALTH REFERRALS HAS THE PATIENT BEEN EDUCATED REGARDING HIS/HER PLAN OF CARE?YES HAS THE PATIENT BEEN EDUCATED REGARDING PAIN, THE RISK FOR PAIN, THE IMPORTANCE OF EFFECTIVE PAIN MANAGEMENT, AND THE PAIN ASSESSMENT PROCESS?YES LATEX QUESTIONNAIRE LATEX ALLERGY : HAVE YOU EVER DEVELOPED ANY TYPE OF REACTION AFTER HANDLING LATEX PRODUCTS SUCH RUBBER GLOVES, CONDOMS, DIAPHRAGMS, BALLOONS, SOCKS, OR UNDERWEAR?NO LATEX ALLERGY : HAVE YOU EVER DEVELOPED ANY TYPE OF REACTION DURING OR AFTER DENTAL APPOINTMENT, VAGINAL/RECTAL EXAMINATION, SURGICAL PROCEDURE, OR ANY OTHER EXPOSURE?NO DATE ASKED : 07/27/2018 LATEX RISK : HAVE YOU EVER HAD ANY DIFFICULTY BREATHING OR HIVES AFTER EATING OR HANDLING ANY FRUITS, OR VEGETABLES; SUCH KIWI, BANANAS, STONE FRUITS, OR CHESTNUTSNO LATEX RISK : DO YOU HAVE A PREVIOUS PERSONAL HISTORY OF MORE THAN NINE SURGERIES, SPINA BIFIDA, OR REPEATED CATHERTIZATIONS? NO LATEX RISK : ARE YOU FREQUENTLY EXPOSED TO LATEX PRODUCTS IN YOUR OCCUPATION?NO CAFFEINE CAFFEINE USE?NO ADVANCE DIRECTIVE ADVANCE DIRECTIVE DISCUSSED WITH PATIENT:YES HCP IS ANIL LEACH [phone] UATSDIN UATSDIN NO ANGLICAN BELIEFS THAT WOULD IMPACT HEALTH CARE. MARITAL STATUS: --ANIL. ALCOHOL SCREENING DID YOU HAVE A DRINK CONTAINING ALCOHOL IN THE PAST YEAR?NO POINTS0 INTERPRETATIONNEGATIVE OCCUPATION: RETIRED. SEXUAL HX HAD SEX IN THE LAST 12 MONTHS (VAGINAL, ORAL, OR ANAL)?NO HAVE YOU EVER HAD AN STD?NO REVIEWED WITH PATIENT 07/27/18 1224 BV. HOSPITALIZATION/MAJOR DIAGNOSTIC PROCEDURE SURGERY RELATED REVIEW OF SYSTEMS REVIEWED BY: PROVIDER: LALITA MIDDLETON MD . CONSTITUTIONAL: ANY CHANGE IN YOUR MEDICAL CONDITION? NO . CHILLS NO . FEVER NO . INFECTION: DO YOU HAVE NEW INFECTIONS? NO . DO YOU HAVE HISTORY OF MRSA? NO . MUSCULOSKELETAL: ANY NEW PATTERNS OF PAIN OR NUMBNESS? YES, LBP RADIATING DOWN LEGS IS WORSE . GASTROENTEROLOGY: ANY NEW CHANGE IN BOWEL CONTROL? NO . GENITOURINARY: ANY NEW CHANGE IN BLADDER CONTROL? NO . IS THERE A CHANCE YOU COULD BE ? NO . HEMATOLOGY/LYMPH: DO YOU TAKE ANY BLOOD THINNERS? (FOR EXAMPLE- COUMADIN, PLAVIX, AGGRENOX, PLATEL, PRADAXA, OR XARELTO) NO . WHEN WAS YOUR LAST DOSE? DATE: TIME: . NEUROLOGY: HAVE YOU FALLEN IN THE PAST 12 MONTHS? YES, FELL LAST MONTH FROM LOSS OF BALANCE, PT DENIES SEEKING TX . ANY NEW EXTREMITY NUMBNESS OR WEAKNESS? NO . CARDIOLOGY: DO YOU HAVE A PACEMAKER OR DEFIBRILLATOR? NO . RESPIRATORY: HAVE YOU BEEN SICK IN THE PAST WEEK? NO . FEVER NO . FLU LIKE SYMPTOMS? NO . COUGH NO . INTEGUMENTARY: DO YOU HAVE ANY RASHES OR OPEN SORES? NO . ALLERGIC/IMMUNO: ARE YOU ALLERGIC TO IV DYE? NO . ANY NEW ALLERGIES? NO . PSYCHIATRIC: DO YOU HAVE THOUGHTS OF HURTING YOURSELF OR SOMEONE ELSE? NO . ARE YOU ABUSED, NEGLECTED, OR IN AN UNSAFE ENVIRONMENT? NO . ENDOCRINOLOGY: ARE YOU DIABETIC? YES . OTHER: DO YOU NEED ANY PRESCRIPTIONS? YES . IF YES, PLEASE LIST: TRAMADOL 50 MG (3) TIMES A DAY . ANY NEW PROBLEMS WITH YOUR MEDICATIONS? NO . WHEN DID YOU LAST EAT? ____ . WHEN DID YOU LAST DRINK? ____ . WHAT DID YOU LAST DRINK? ____ . NAME OF PERSON DRIVING YOU HOME? ____ . DO YOU HAVE ANY OTHER QUESTIONS OR CONCERNS YES - HOW SOON CAN I EXPECT ACTUAL TREATMENT/PAIN RELIEF TO START? . VITAL SIGNS WT 162.2 LBS, HT 67.5 IN, BMI 25.03 INDEX, BP 136/70 MM HG, HR 76 /MIN, RR 18 /MIN, TEMP 97.6 F, OXYGEN SAT % 96%, NA INITIALS AW 1121, REVIEWED BY: LS. EXAMINATION GENERAL EXAMINATION: PATIENT IS ALERT O X 3 AND COOPERATIVE. ANTALGIC WALK. PATIENT REMAINS IN FLEX POSITION, WITH INCREASED PAIN WHEN STRAIGHT POSITION IS ATTEMPTED. TENDERNESS IN THE LUMBAR SPINE. MRI OF THE LUMBAR SPINE DONE ON 08/22/2018 SHOWS SEVERE SPINAL STENOSIS AT L4-L5 AND L5-S1 LEVELS, BULGING DISCS, AND FACET ARTHROPATHY CHANGES AT MULTIPLE LEVELS. ASSESSMENTS INTERVERTEBRAL DISC DISORDER WITH RADICULOPATHY OF LUMBAR REGION - M51.16 (PRIMARY) INTERVERTEBRAL DISC DISORDER WITH RADICULOPATHY OF LUMBOSACRAL REGION - M51.17 SPINAL STENOSIS OF LUMBAR REGION, UNSPECIFIED WHETHER NEUROGENIC CLAUDICATION PRESENT - M48.061 TREATMENT INTERVERTEBRAL DISC DISORDER WITH RADICULOPATHY OF LUMBAR REGION CLINICAL NOTES: WE DISCUSSED SEVERAL ISSUES WITH MR. LEACH'S PAIN MANAGEMENT CASE. DUE TO THE LUMBAR RADICULOPATHY, I WOULD LIKE TO MOVE FORWARD WITH A LUMBAR EPIDURAL STEROID INJECTION AT THIS TIME. WE DISCUSSED THE BENEFITS, RISKS, AND ALTERNATIVES OF THE INJECTION AND THE PATIENT WOULD LIKE TO PROCEED. I AM LOOKING FOR LONG LASTING PAIN RELIEF FOR THE PATIENT WITH THIS PROCEDURE. THE PATIENT WILL FOLLOW UP IN SEVERAL WEEKS AFTER THE INJECTION. INSTRUCTIONS WERE GIVEN, QUESTIONS WERE ANSWERED, PATIENT REPORTS UNDERSTANDING AND AGREES WITH THE PLAN. I, RANDEE GARCIAS, DOCUMENTED THE ABOVE INFORMATION ACTING A SCRIBE FOR DR. MIDDLETON. I HAVE REVIEWED THE ABOVE DOCUMENT, WRITTEN BY RANDEE CASTANEDA AND I VERIFY THAT IT IS ACCURATE. . PROCEDURES PN WORKMANS' COMP OPINION IN YOUR OPINION, WAS THE INCIDENT THAT THE PATIENT DESCRIBED THE COMPETENT MEDICAL CAUSE OF THIS INJURY/ILLNESS? YES ARE THE PATIENT'S COMPLAINTS CONSISTENT WITH HIS/HER HISTORY OF THE INJURY/ILLNESS? YES IS THE PATIENT'S HISTORY OF THE INJURY/ILLNESS CONSISTENT WITH YOUR OBJECTIVE FINDING? YES WHAT IS THE PERCENTAGE OF TEMPORARY IMPAIRMENT? MODERATE TO MARKED = 66.7% IS THE PATIENT WORKING? NO DOCTOR ON SITE: LALITA GIRON MD PROCEDURE CODES FA211 ESTABILISHED PATIENT [facility] FACILITY CHARGE G8427 CURRENT MEDS W/DOSAGES DOCUMENTED G8730 PAIN ASSESS POS TOOL F/U PLAN DOC DISPOSITION & COMMUNICATION FOLLOW UP 4 WEEKS (REASON: LESI) ELECTRONICALLY SIGNED BY LALITA MIDDLETON MD, MD ON 09/26/2018 AT 04:59 PM EDT DISCLAIMER : THIS IS A VISIT SUMMARY EXTRACTED FROM THE [employer] CHART. IT IS NOT A COPY OF THE [employer] PROGRESS NOTE. AUBREY
== END ==
LOC: M PAIN 11:15
PROVIDERS: ATTEND Anesthesiology
DX: M51.16 Intervertebral disc disorders with radiculopathy, lumbar region (principal); M51.17 Intervertebral disc disorders with radiculopathy, lumbosacral region; M48.061 Spinal stenosis, lumbar region without neurogenic claudication; E11.9 Type 2 diabetes mellitus without complications; E03.9 Hypothyroidism, unspecified; Z79.891 Long term (current) use of opiate analgesic; Z79.899 Other long term (current) drug therapy; Z88.0 Allergy status to penicillin; Z88.8 Allergy status to other drugs, medicaments and biological substances; Z87.891 Personal history of nicotine dependence

== ENCOUNTER → 2018-10-29 | Outpatient (CLI) | payer OTHER ==
[~2018-10-29] MED LIST changes: +ISOVUE-M 200 41% 20ML VIAL (Q9966) As Ordered ONE; +LIDOCAINE 1% SDV INJ 30 ML VIAL As Ordered ONE; +diazePAM 5 MG TAB As Ordered ONE; +methylPREDNISolone SUSP 40 MG/ML (DEPO-medrol) VIAL (J1030) As Ordered ONE
--- NOTE | 2018-10-29 15:07 | REP ---
C-ARM VIEWS, LUMBAR SPINE: CLINICAL HISTORY: Pain. Three C-arm views lumbar spine performed during left lumbar epidural steroid injection by Dr. Barbour. Needle is seen at the lumbosacral junction. A small amount of contrast is injected. 11 seconds fluoroscopy time utilized. Electronically Signed by Tal Farris MD 10/29/2018 05:45 P
--- NOTE | 2018-11-07 00:44 | ECWPNPC ---
PATIENT NAME: FERMIN LEACH : 1935 GENDER: MALE VISIT DATE: 10/29/2018 DISCHARGE DATE: 10/29/18 1325 VISIT LOCKED DATE TIME: PHYSICIAN: LALITA MIDDLETON MD RESOURCE: LALITA MIDDLETON MD REASON FOR APPOINTMENT 1. JACOBO W/C HISTORY OF PRESENT ILLNESS HISTORY OF PRESENT ILLNESS: PAIN THE PATIENT DESCRIBES THE PAIN... FALL RISK SCREENING: SCREENING :NO FALLS REPORTED IN THE LAST YEAR CURRENT MEDICATIONS TAKING COREG 3.125MG TABLET ORAL BID, NOTES: 10-28-181899 TAKING TORSEMIDE 20 MG TABLET 1 TABLET ORALLY ONCE A DAY, NOTES: 10-28-18699 NEPHROLOGY TAKING ASPIRIN 81 MG OTC 1 TAB(S) ORALLY DAILY, NOTES: 1899 TAKING LIPITOR 40 MG TABLET 1 TABLET ORALLY ONCE A DAY, NOTES: 10-28-181899 TAKING OMEGA 3 1000 MG CAPSULE 1 CAPSULE ORALLY TWICE DAILY, NOTES: 10-28-181899 TAKING EFFEXOR XR 75 MGS CAPSULE EXTENDED RELEASE 24 HOUR 1 CAPSULE WITH FOOD ORALLY DAILY, NOTES: 10-28-18699 TAKING FLOMAX 0.4 MG CAPSULE 1 CAPSULE ORALLY ONCE A DAY, NOTES: 10-28-18699 TAKING ULORIC 40 MG TABLET 1 TABLET ORALLY --, NOTES: 10-23-18 TAKING PREVACID 30 MG CAPSULE DELAYED RELEASE TAKE ONE CAPSULE BY MOUTH EVERY DAY BEFORE A MEAL , NOTES: 10-29-18699 TAKING MAGNESIUM CITRATE - SOLUTION 150 ML ORALLY DAILY NEEDED, NOTES: 10-27-18 TAKING DRISDOL 27672 UNIT CAPSULE 1 CAPSULE ORALLY WEEKLY, NOTES: 10-25-18 TAKING CALCITRIOL 0.25 MCG CAPSULE 1 CAPSULE ORALLY ONCE A DAY, ,,, NOTES: 10-28-18699 TAKING DIPHENHYDRAMINE . 1 25MG 1 TAB ORAL 2-3 YUNI DAILY NEEDED USE WHEN ALLERGIES ARE BOTHERING HIM, NOTES: NONE RECENTLY - NEEDED TAKING ECHINACEA 400 MG CAPSULE 4 CAPSULES ORALLY THREE TIMES A DAY FOR 2-4 DAYS ON ONSET OF COLD SYMPTOMS, NOTES: NONE RECENTLY - NEEDED TAKING CUTIVATE 0.05 % CREAM ARMS AND LEGS EXTERNALLY ONCE A DAY NEEDED, NOTES: NONE RECENTLY TAKING CLOBETASOL PROPIONATE 0.05 % CREAM 1 APPLICATION TO AFFECTED AREA EXTERNALLY AFFECTED AREAS ON BODY ECZEMA TWICE A DAY, NOTES: NONE RERCENTLY - NEEDED TAKING BIOTIN 5000 MCG CAPSULE 1 CAPSULE ORALLY ONCE A DAY, NOTES: 10-28-18 0700 TAKING AREDS OTC AREDS2- 1 CAP ORALLY TWICE DAILY, NOTES: 10-28-18 1900 TAKING TRAMADOL HCL 50 MG TABLET 1 TABLET ORALLY THREE TIMES A DAY, NOTES: 10-28-18 1800 TAKING LANCETS - MISCELLANEOUS DIRECTED ONE TOUCH ULTRA DX. E11.65, TEST ONCE DAILY TAKING LEVOTHYROXINE SODIUM 112 MCG TABLET 1 TABLET ON AN EMPTY STOMACH IN THE MORNING ORALLY ONCE A DAY, NOTES: 10-29-18 0600 TAKING VANICREAM - CREAM DIRECTED EXTERNALLY AFTER SHOWER, NOTES: 10-28-18 0800 TAKING SYSTANE 0.4-0.3 % SOLUTION DIRECTED OPHTHALMIC , NOTES: MORE THAN A WEEK NOT-TAKING TIZANIDINE HCL 4 MG TABLET 1/2 -1 TABLET NEEDED ORALLY AT BEDTIME, NOTES: NEEDED NOT-TAKING MIRALAX - POWDER 2 TABLESPOON ORALLY DAILY NEEDED NOT-TAKING LORATADINE 10 MG TABLET 1 TABLET ORALLY ONCE A DAY NOT-TAKING ALPHA LIPOIC ACID 200 MG CAPSULE DIRECTED ORALLY NOT-TAKING COLACE 100 MG CAPSULE 2-3 CAPSULES ORALLY TWICE A DAY NEEDED NOT-TAKING ONE TOUCH ULTRA BLUE STRIPS DIRECTED ONE TOUCH ULTRA TEST STRIPS, DXE11.65 TEST ONCE DAILY NOT-TAKING GLUCOMETER DIRECTED ONE TOUCH ULTRA DX.E11.65, TEST ONCE DAILY MEDICATION LIST REVIEWED AND RECONCILED WITH THE PATIENT PAST MEDICAL HISTORY 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 HYPERLIPIDEMIA HYPOTHYROIDISM--CENTRAL ( FOLLOW FREE T4, NOT TSH) HYPERTENSION BPH PEYRONIE'S DISEASE ALLERGIES DDD/DJD LOW BACK L/S SPINAL STENOSIS PLASMA CELL GRANULOMA RLL STRESS TEST 2008 VIT D DEFICIENCY ZOSTAVAX 09/17 RT 7TH RIB FX (FALL 06/18, CAT-RELATED) GOUT RT GREAT TOE 11/20 COLOGUARD: NEGATIVE ALLERGIES ZANTAC: CONSTIPATION - SIDE EFFECTS NSAIDS: ELEV BUN, CREAT - SIDE EFFECTS PENICILLIN: HIVES - ALLERGY SURGICAL HISTORY T + A 194 APPENDECTOMY 1950 TURP 2002 RIGHT SHOULDER REPAIR / 1989 RIGHT LOWER LUNG REMOVAL OF ABSCESS/ 2004 BILATERAL BLEPHAROPLASTY/ 2006 EGD/COLONOSCOPY 2008 RIGHT EYE CATARACT SURGERY 11/2012 CYSTOSCOPY 10/21/[address] JOHNSON TOENAIL 04/25 FAMILY HISTORY FATHER: HYPERTENSION, DIAGNOSED WITH HYPERTENSION MOTHER: DIABETES, TYPE II, DIABETES SIBLINGS: BROTHER:DIABETES, TYPE II, BLADDER CA, DIABETES, CANCER DAUGHTER(S): DEPRESSION, PSYCHIATRIC CONDITIONS PATERNAL GRAND FATHER: DIABETES, TYPE II, DIABETES REVIEWED, NO CHANGES. SOCIAL HISTORY GENERAL: TOBACCO USE ARE YOU A:FORMER SMOKER FORMER CIGAR SMOKER HOW LONG HAS IT BEEN SINCE YOU LAST SMOKED?1-5 YEARS ADDITIONAL FINDINGS: TOBACCO USERCIGAR SMOKER HIV / HEP-C SCREENING HIV TEST OFFERED TO PATIENT:YES DATE OFFERED:07/05/2016 TEST ACCEPTED:NO HEP-C TEST OFFERED TO PATIENT:NO REASON:PATIENT DECLINED OTHERS AT HOME: SPOUSE. EDUCATION LEVEL OF EDUCATION:FINISHED HIGH SCHOOL DIET: LOW FAT, LOW CHOLESTEROL, LOW SODIUM, LOW POTASSIUM. LANGUAGE LANGUAGES SPOKEN:PERUVIAN DOMESTIC VIOLENCE DO YOU FEEL SAFE IN YOUR ENVIRONMENT?YES RECREATIONAL DRUG USE DRUG USE?NO EXERCISE: NONE. LEARNING BARRIERS / SPECIAL NEEDS CHANGE FROM LAST VISIT?NO BARRIERS TO LEARNING?NO HEARING IMPAIRED?YES VISION IMPAIRED?YES COGNITIVELY IMPAIRED?NO :HEARING AIDES :CORRECTIVE LENSES READINESS TO LEARN?YES LEARNING PREFERENCES?NO LEARNING CAPABILITIES PRESENT?YES EMOTIONAL BARRIERS?NO SPECIAL DEVICES?NO ELECTRICAL INTEGRATOR NEEDED?NO LUNG CANCER SCREENING SMOKING STATUS:FORMER SMOKER IS THE PATIENT BETWEEN THE AGE OF 54 AND 76?NO PAIN CLINIC PFS, CLERGY, PUBLIC HEALTH REFERRALS HAS THE PATIENT BEEN EDUCATED REGARDING HIS/HER PLAN OF CARE?YES HAS THE PATIENT BEEN EDUCATED REGARDING PAIN, THE RISK FOR PAIN, THE IMPORTANCE OF EFFECTIVE PAIN MANAGEMENT, AND THE PAIN ASSESSMENT PROCESS?YES LATEX QUESTIONNAIRE LATEX ALLERGY : HAVE YOU EVER DEVELOPED ANY TYPE OF REACTION AFTER HANDLING LATEX PRODUCTS SUCH RUBBER GLOVES, CONDOMS, DIAPHRAGMS, BALLOONS, SOCKS, OR UNDERWEAR?NO LATEX ALLERGY : HAVE YOU EVER DEVELOPED ANY TYPE OF REACTION DURING OR AFTER DENTAL APPOINTMENT, VAGINAL/RECTAL EXAMINATION, SURGICAL PROCEDURE, OR ANY OTHER EXPOSURE?NO DATE ASKED : 07/27/2018 LATEX RISK : HAVE YOU EVER HAD ANY DIFFICULTY BREATHING OR HIVES AFTER EATING OR HANDLING ANY FRUITS, OR VEGETABLES; SUCH KIWI, BANANAS, STONE FRUITS, OR CHESTNUTSNO LATEX RISK : DO YOU HAVE A PREVIOUS PERSONAL HISTORY OF MORE THAN NINE SURGERIES, SPINA BIFIDA, OR REPEATED CATHERIZATIONS? NO LATEX RISK : ARE YOU FREQUENTLY EXPOSED TO LATEX PRODUCTS IN YOUR OCCUPATION?NO CAFFEINE CAFFEINE USE?NO ADVANCE DIRECTIVE ADVANCE DIRECTIVE DISCUSSED WITH PATIENT:YES HCP IS ANIL LEACH [phone] HINDU [id number] UNITARIAN NO DENOMINATIONAL BELIEFS THAT WOULD IMPACT HEALTH CARE. MARITAL STATUS: --ANIL. ALCOHOL SCREENING DID YOU HAVE A DRINK CONTAINING ALCOHOL IN THE PAST YEAR?NO POINTS0 INTERPRETATIONNEGATIVE OCCUPATION: RETIRED. SEXUAL HX HAD SEX IN THE LAST 12 MONTHS (VAGINAL, ORAL, OR ANAL)?NO HAVE YOU EVER HAD AN STD?NO REVIEWED WITH PATIENT 07/27/18 1224 BV. HOSPITALIZATION/MAJOR DIAGNOSTIC PROCEDURE SURGERY RELATED REVIEW OF SYSTEMS REVIEWED BY: PROVIDER: . CONSTITUTIONAL: ANY CHANGE IN YOUR MEDICAL CONDITION? NO . CHILLS NO . FEVER NO . INFECTION: DO YOU HAVE NEW INFECTIONS? NO . DO YOU HAVE HISTORY OF MRSA? NO . MUSCULOSKELETAL: ANY NEW PATTERNS OF PAIN OR NUMBNESS? YES - PAIN IN LEGS IS WORSE . GASTROENTEROLOGY: ANY NEW CHANGE IN BOWEL CONTROL? YES - CONSTIPATION, MANAGED BY OTHER PROVIDERS . GENITOURINARY: ANY NEW CHANGE IN BLADDER CONTROL? YES - INTERMITTENT INCONTINENCE, FOLLOWED BY PRIMARY CARE PROVIDER . IS THERE A CHANCE YOU COULD BE ? NO . HEMATOLOGY/LYMPH: DO YOU TAKE ANY BLOOD THINNERS? (FOR EXAMPLE- COUMADIN, PLAVIX, AGGRENOX, PLATEL, PRADAXA, OR XARELTO) NO . WHEN WAS YOUR LAST DOSE? DATE: TIME: . NEUROLOGY: HAVE YOU FALLEN IN THE PAST 12 MONTHS? YES . ANY NEW EXTREMITY NUMBNESS OR WEAKNESS? NO . CARDIOLOGY: DO YOU HAVE A PACEMAKER OR DEFIBRILLATOR? NO . RESPIRATORY: HAVE YOU BEEN SICK IN THE PAST WEEK? NO - STATES HAS HAD SINUS CONGESTION FOR ABOUT A MONTH BUT DOES NOT FEEL ILL . FEVER NO . FLU LIKE SYMPTOMS? NO . COUGH NO . INTEGUMENTARY: DO YOU HAVE ANY RASHES OR OPEN SORES? YES - REDDENED AREA BELOW COCCYX . ALLERGIC/IMMUNO: ARE YOU ALLERGIC TO IV DYE? NO . ANY NEW ALLERGIES? NO . PSYCHIATRIC: DO YOU HAVE THOUGHTS OF HURTING YOURSELF OR SOMEONE ELSE? NO . ARE YOU ABUSED, NEGLECTED, OR IN AN UNSAFE ENVIRONMENT? NO . ENDOCRINOLOGY: ARE YOU DIABETIC? YES, FSBS 133 AT 0530 . OTHER: DO YOU NEED ANY PRESCRIPTIONS? NO . IF YES, PLEASE LIST: ____ . ANY NEW PROBLEMS WITH YOUR MEDICATIONS? NO . WHEN DID YOU LAST EAT? 10-28-18 1900 . WHEN DID YOU LAST DRINK? 10-29-18 0800 . WHAT DID YOU LAST DRINK? WATER . NAME OF PERSON DRIVING YOU HOME? ANIL LEACH . DO YOU HAVE ANY OTHER QUESTIONS OR CONCERNS YES - WILL TODAY'S TREATMENT AFFECT MY ABILITY TO WALK? . VITAL SIGNS WT 158.8 LBS, HT 67.5 IN, BMI 24.50 INDEX, BP 141/67 MM HG, HR 79 /MIN, RR 18 /MIN, TEMP 97.4 F, OXYGEN SAT % 99%, NA INITIALS SC 10:14, REVIEWED BY: ABRAHAN. ASSESSMENTS INTERVERTEBRAL DISC DISORDER WITH RADICULOPATHY OF LUMBOSACRAL REGION - M51.17 (PRIMARY) LUMBOSACRAL SPINAL STENOSIS - M48.07 PROCEDURES PN WORKMANS' COMP OPINION IN YOUR OPINION, WAS THE INCIDENT THAT THE PATIENT DESCRIBED THE COMPETENT MEDICAL CAUSE OF THIS INJURY/ILLNESS? YES ARE THE PATIENT'S COMPLAINTS CONSISTENT WITH HIS/HER HISTORY OF THE INJURY/ILLNESS? YES IS THE PATIENT'S HISTORY OF THE INJURY/ILLNESS CONSISTENT WITH YOUR OBJECTIVE FINDING? YES WHAT IS THE PERCENTAGE OF TEMPORARY IMPAIRMENT? MODERATE TO MARKED = 66.7% IS THE PATIENT WORKING? NO DOCTOR ON SITE: LALITA GIRON MD PRE PROCEDURE DIAGNOSIS LUMBOSACRAL DISC DISORDER WITH RADICULOPATHY, LUMBOSACRAL SPINAL STENOSIS POST PROCEDURE DIAGNOSIS LUMBOSACRAL DISC DISORDER WITH RADICULOPATHY , LUMBOSACRAL SPINAL STENOSIS PROCEDURE LUMBAR EPIDURAL STEROID INJECTION UNDER FLUOROSCOPIC GUIDANCE SURGEON DR. LALITA MIDDLETON CARDIAC SPECIALIST NONE ANESTHESIA LOCAL PRE PROCEDURE NOTE THE PATIENT HAS A HISTORY OF CHRONIC LOW BACK PAIN. I EVALUATE THE PATIENT AND REVIEWED THE CHART. I WENT OVER THE RISKS, ALTERNATIVES, AND BENEFITS ASSOCIATED WITH THIS PROCEDURE. THE PATIENT WOULD LIKE TO PROCEED AND GIVE CONSENT TO PERFORMED THE PROCEDURE. THE PATIENT DENIES UNEXPLAINABLE WEIGHT LOSS, FEVER, CHILLS, OR NEW CHANGES IN URINARY OR BOWEL CONTROL. DESCRIPTION OF PROCEDURE THE PATIENT WAS BROUGHT TO THE PROCEDURE ROOM AND PLACED IN THE PRONE POSITION. THE LUMBOSACRAL AREA WAS CLEANED WITH BETADINE SOLUTION AND DRAPED ASEPTICALLY. THE PROCEDURE WAS DONE UNDER STERILE CONDITIONS. I CHECKED LATERALITY AND THE LEVEL WHERE THE PROCEDURE WAS GOING TO BE PERFORMED WITH THE PATIENT AND THE SUPPORTING STAFF AT THE MOMENT OF THE TIME OUT IN THE PROCEDURE ROOM. UNDER FLUOROSCOPIC GUIDANCE, THE TARGET POINT WAS SELECTED AT THE INTERLAMINAR LEVEL OF L5-S1. LIDOCAINE WAS USED TO NUMB THE SKIN AND THE SUBCUTANEOUS TISSUE BELOW IT. EPIDURAL TUOHY NEEDLE, 17-GAUGE, WAS ADVANCED UNDER FLUOROSCOPIC GUIDANCE AND FOLLOWING PATIENT FEEDBACK UNTIL THE EPIDURAL SPACE WAS REACHED, 7 CM DEEP INTO THE SKIN BY THE LOSS OF RESISTANCE TECHNIQUE. ISOVUE M-200 DYE WAS INJECTED SHOWING ADEQUATE SPREAD OF THE DYE. THEN, A SOLUTION OF 3 ML OF NORMAL SALINE WITH DEPO-MEDROL 60 MG WAS INJECTED SLOWLY FOLLOWING PATIENT FEEDBACK. THERE WAS NO EVIDENCE OF BLOOD, PARESTHESIA OR CEREBROSPINAL FLUID DURING THE PROCEDURE. THE PATIENT WAS SENT TO THE RECOVERY ROOM. THE PATIENT WAS MOVING THE EXTREMITIES AND DOING WELL. THERE WAS NO COMPLICATION DURING THE PROCEDURE. FLUOROSCOPY TIME WAS 11 SECONDS. POST PROCEDURE NOTE THE PATIENT WILL BE SEEN IN A FOLLOW UP IN THE NEXT FEW WEEKS. INSTRUCTIONS WERE GIVEN, QUESTIONS WERE ANSWERED, AND THE PATIENT EXPRESSED UNDERSTANDING AND AGREES WITH THE PLAN. I, IZZY BARNETT, DOCUMENTED THE ABOVE INFORMATION ACTING A SCRIBE FOR DR. MIDDLETON. I HAVE REVIEWED THE ABOVE DOCUMENT, WRITTEN BY IZZY CASTANEDA AND I VERIFY THAT IT IS ACCURATE. DIAGNOSTIC IMAGING [facility] FLUORO GUIDE SPINE INJECTION (PAIN)[id number] PROCEDURE CODES 6045F RADXPS IN END [id number] PXD [id number] LUMBAR/SACRAL W/ IMAGING DISPOSITION & COMMUNICATION FOLLOW UP 2 WEEKS ELECTRONICALLY SIGNED BY LALITA MIDDLETON MD, MD ON 11/06/2018 AT 02:11 PM EDT DISCLAIMER : THIS IS A VISIT SUMMARY EXTRACTED FROM THE [employer] CHART. IT IS NOT A COPY OF THE [employer] PROGRESS NOTE. MTDD
== END ==
LOC: M PAIN 10:15
PROVIDERS: ATTEND Anesthesiology
DX: M51.17 Intervertebral disc disorders with radiculopathy, lumbosacral region (principal); M48.07 Spinal stenosis, lumbosacral region; E11.22 Type 2 diabetes mellitus with diabetic chronic kidney disease; N18.4 Chronic kidney disease, stage 4 (severe); E78.5 Hyperlipidemia, unspecified; E03.9 Hypothyroidism, unspecified; M10.071 Idiopathic gout, right ankle and foot; I12.9 Hypertensive chronic kidney disease with stage 1 through stage 4 chronic kidney disease, or unspecified chronic kidney disease; N40.0 Benign prostatic hyperplasia without lower urinary tract symptoms; N48.6 Induration penis plastica; E55.9 Vitamin D deficiency, unspecified; Z87.81 Personal history of (healed) traumatic fracture; Z87.891 Personal history of nicotine dependence; Z98.41 Cataract extraction status, right eye; Z90.49 Acquired absence of other specified parts of digestive tract; Z98.42 Cataract extraction status, left eye; Z88.0 Allergy status to penicillin; Z88.6 Allergy status to analgesic agent; Z88.8 Allergy status to other drugs, medicaments and biological substances; Z79.82 Long term (current) use of aspirin; Z79.891 Long term (current) use of opiate analgesic; Z79.899 Other long term (current) drug therapy
CPT/HCPCS: 62323; J1030; Q9966

== ENCOUNTER → 2018-11-09 | Outpatient (CLI) | payer OTHER ==
[~2018-11-09] MED LIST changes: -FEBU40TA PO; +FEBU40TA4 PO; -ISOVUE-M 200 41% 20ML VIAL (Q9966) As Ordered ONE; -LIDOCAINE 1% SDV INJ 30 ML VIAL As Ordered ONE; -diazePAM 5 MG TAB As Ordered ONE; -methylPREDNISolone SUSP 40 MG/ML (DEPO-medrol) VIAL (J1030) As Ordered ONE
--- NOTE | 2018-11-18 00:33 | ECWPNPC ---
PATIENT NAME: FERMIN LEACH : 1935 GENDER: MALE VISIT DATE: 11/09/2018 DISCHARGE DATE: 11/09/18 1540 VISIT LOCKED DATE TIME: PHYSICIAN: LALITA MIDDLETON MD RESOURCE: LALITA MIDDLETON MD REASON FOR APPOINTMENT 1. W/C, POST PROCEDURE HISTORY OF PRESENT ILLNESS HISTORY OF PRESENT ILLNESS: PAIN THE PATIENT DESCRIBES THE PAIN... 83 YEAR OLD MALE PATIENT WITH A HISTORY OF CHRONIC LOW BACK AND LEG PAIN. THE PATIENT DESCRIBES THE PAIN ACHING, TENDER, DAILY, AND BRIEF WITH A PAIN SCORE OF 4-6/10 DEPENDING ON PHYSICAL ACTIVITY. 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 THE PATIENT STATES HE WAS BENT OVER TO FEED STRAPS THROUGH THE MACHINE AND WHEN HE STRAIGHTENED UP, HIS BACK POPPED OUT AND HE HAD DIFFICULTY MOVING AFTERWARD. THE PATIENT SAYS HIS PAIN BEGINS IN HIS LOW BACK AND RADIATES DOWN BOTH LEGS, BUT HIS RIGHT LEG IS AFFECTED MORE. THE PATIENT RECEIVED A L5-S1 LUMBAR EPIDURAL STEROID INJECTION ON 10/29/2018, WHICH HE SAYS THE INJECTION HAS IMPROVED HIS CONDITION BY MORE THAN 50 PERCENT, WITH INCREASED FUNCTIONALITY AND MOBILITY. PATIENT DENIES UNEXPLAINABLE WEIGHT LOSS, FEVER, CHILLS, NEW CHANGES ON HIS URINARY OR BOWEL CONTROL. FALL RISK SCREENING: SCREENING :ONE FALL WITHOUT INJURY IN THE PAST YEAR STEPPED OFF A CURB CURRENT MEDICATIONS TAKING COREG 3.125MG TABLET ORAL BID, NOTES: 10-28-181899 TAKING TORSEMIDE 20 MG TABLET 1 TABLET ORALLY ONCE A DAY MAY USE IF THERE IS A 3# WT. GAIN, NOTES: 10-28-18699 NEPHROLOGY TAKING ASPIRIN 81 MG OTC 1 TAB(S) ORALLY DAILY, NOTES: 1899 TAKING LIPITOR 40 MG TABLET 1 TABLET ORALLY ONCE A DAY, NOTES: 10-28-181899 TAKING OMEGA 3 1000 MG CAPSULE 1 CAPSULE ORALLY TWICE DAILY, NOTES: 10-28-181899 TAKING EFFEXOR XR 75 MGS CAPSULE EXTENDED RELEASE 24 HOUR 1 CAPSULE WITH FOOD ORALLY DAILY, NOTES: 10-28-18699 TAKING FLOMAX 0.4 MG CAPSULE 1 CAPSULE ORALLY ONCE A DAY, NOTES: 10-28-18699 TAKING ULORIC 40 MG TABLET 1 TABLET ORALLY --, NOTES: 10-23-18 TAKING PREVACID 30 MG CAPSULE DELAYED RELEASE TAKE ONE CAPSULE BY MOUTH EVERY DAY BEFORE A MEAL , NOTES: 10-29-18699 TAKING MAGNESIUM CITRATE - SOLUTION 150 ML ORALLY DAILY NEEDED, NOTES: 10-27-18 TAKING DRISDOL 20418 UNIT CAPSULE 1 CAPSULE ORALLY WEEKLY, NOTES: 10-25-18 TAKING CALCITRIOL 0.25 MCG CAPSULE 1 CAPSULE ORALLY ONCE A DAY, ,,, NOTES: 10-28-18699 TAKING DIPHENHYDRAMINE . 1 25MG 1 TAB ORAL 2-3 YUNI DAILY NEEDED USE WHEN ALLERGIES ARE BOTHERING HIM, NOTES: NONE RECENTLY - NEEDED TAKING ECHINACEA 400 MG CAPSULE 4 CAPSULES ORALLY THREE TIMES A DAY FOR 2-4 DAYS ON ONSET OF COLD SYMPTOMS, NOTES: NONE RECENTLY - NEEDED TAKING CUTIVATE 0.05 % CREAM ARMS AND LEGS EXTERNALLY ONCE A DAY NEEDED, NOTES: NONE RECENTLY TAKING CLOBETASOL PROPIONATE 0.05 % CREAM 1 APPLICATION TO AFFECTED AREA EXTERNALLY AFFECTED AREAS ON BODY ECZEMA TWICE A DAY, NOTES: NONE RERCENTLY - NEEDED TAKING BIOTIN 5000 MCG CAPSULE 1 CAPSULE ORALLY ONCE A DAY, NOTES: 10-28-18699 TAKING AREDS OTC AREDS2- 1 CAP ORALLY TWICE DAILY, NOTES: 10-28-18 190 TAKING TRAMADOL HCL 50 MG TABLET 1 TABLET ORALLY THREE TIMES DAILY NEEDED, NOTES: 10-28-18 1800 TAKING LANCETS - MISCELLANEOUS DIRECTED ONE TOUCH ULTRA DX. E11.65, TEST ONCE DAILY TAKING LEVOTHYROXINE SODIUM 112 MCG TABLET 1 TABLET ON AN EMPTY STOMACH IN THE MORNING ORALLY ONCE A DAY, NOTES: 10-29-18 06 TAKING VANICREAM - CREAM DIRECTED EXTERNALLY AFTER SHOWER, NOTES: 10-28-18 08 TAKING SYSTANE 0.4-0.3 % SOLUTION DIRECTED OPHTHALMIC , NOTES: MORE THAN A WEEK TAKING MIRALAX - POWDER 2 TABLESPOON ORALLY DAILY NEEDED TAKING LORATADINE 10 MG TABLET 1 TABLET ORALLY ONCE A DAY TAKING ONE TOUCH ULTRA BLUE STRIPS DIRECTED ONE TOUCH ULTRA TEST STRIPS, DXE11.65 TEST ONCE DAILY TAKING GLUCOMETER DIRECTED ONE TOUCH ULTRA DX.E11.65, TEST ONCE DAILY DISCONTINUED TIZANIDINE HCL 4 MG TABLET 1/2 -1 TABLET NEEDED ORALLY AT BEDTIME, NOTES: NEEDED DISCONTINUED ALPHA LIPOIC ACID 200 MG CAPSULE DIRECTED ORALLY DISCONTINUED COLACE 100 MG CAPSULE 2-3 CAPSULES ORALLY TWICE A DAY NEEDED MEDICATION LIST REVIEWED AND RECONCILED WITH THE PATIENT PAST MEDICAL HISTORY 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 HYPERLIPIDEMIA HYPOTHYROIDISM--CENTRAL ( FOLLOW FREE T4, NOT TSH) HYPERTENSION BPH PEYRONIE'S DISEASE ALLERGIES DDD/DJD LOW BACK L/S SPINAL STENOSIS PLASMA CELL GRANULOMA RLL STRESS TEST 2008 VIT D DEFICIENCY ZOSTAVAX 09/17 RT 7TH RIB FX (FALL 06/18, CAT-RELATED) GOUT RT GREAT TOE 11/20 COLOGUARD: NEGATIVE ALLERGIES ZANTAC: CONSTIPATION - SIDE EFFECTS NSAIDS: ELEV BUN, CREAT - SIDE EFFECTS PENICILLIN: HIVES - ALLERGY SURGICAL HISTORY T + A 1947 APPENDECTOMY 1949 TURP 2002 RIGHT SHOULDER REPAIR / 1989 RIGHT LOWER LUNG REMOVAL OF ABSCESS/ 2004 BILATERAL BLEPHAROPLASTY/ 2006 EGD/COLONOSCOPY 2007 RIGHT EYE CATARACT SURGERY 11/2012 CYSTOSCOPY 10/21/[address] JOHNSON TOENAIL 04/25 FAMILY HISTORY FATHER: HYPERTENSION, DIAGNOSED WITH HYPERTENSION MOTHER: DIABETES, TYPE II, DIABETES SIBLINGS: BROTHER:DIABETES, TYPE II, BLADDER CA, DIABETES, CANCER DAUGHTER(S): DEPRESSION, PSYCHIATRIC CONDITIONS PATERNAL GRAND FATHER: DIABETES, TYPE II, DIABETES REVIEWED, NO CHANGES. SOCIAL HISTORY GENERAL: TOBACCO USE ARE YOU A:FORMER SMOKER FORMER CIGAR SMOKER HOW LONG HAS IT BEEN SINCE YOU LAST SMOKED?1-5 YEARS ADDITIONAL FINDINGS: TOBACCO USERCIGAR SMOKER HIV / HEP-C SCREENING HIV TEST OFFERED TO PATIENT:YES DATE OFFERED:07/05/2016 TEST ACCEPTED:NO HEP-C TEST OFFERED TO PATIENT:NO REASON:PATIENT DECLINED OTHERS AT HOME: SPOUSE. EDUCATION LEVEL OF EDUCATION:FINISHED HIGH SCHOOL DIET: LOW FAT, LOW CHOLESTEROL, LOW SODIUM, LOW POTASSIUM. LANGUAGE LANGUAGES SPOKEN:AZERI DOMESTIC VIOLENCE DO YOU FEEL SAFE IN YOUR ENVIRONMENT?YES RECREATIONAL DRUG USE DRUG USE?NO EXERCISE: NONE. LEARNING BARRIERS / SPECIAL NEEDS CHANGE FROM LAST VISIT?NO BARRIERS TO LEARNING?NO HEARING IMPAIRED?YES VISION IMPAIRED?YES COGNITIVELY IMPAIRED?NO :HEARING AIDES :CORRECTIVE LENSES READINESS TO LEARN?YES LEARNING PREFERENCES?NO LEARNING CAPABILITIES PRESENT?YES EMOTIONAL BARRIERS?NO SPECIAL DEVICES?NO CLIENT RELATIONSHIP EXECUTIVE NEEDED?NO LUNG CANCER SCREENING SMOKING STATUS:FORMER SMOKER IS THE PATIENT BETWEEN THE AGE OF 54 AND 77?NO PAIN CLINIC PFS, CLERGY, PUBLIC HEALTH REFERRALS HAS THE PATIENT BEEN EDUCATED REGARDING HIS/HER PLAN OF CARE?YES HAS THE PATIENT BEEN EDUCATED REGARDING PAIN, THE RISK FOR PAIN, THE IMPORTANCE OF EFFECTIVE PAIN MANAGEMENT, AND THE PAIN ASSESSMENT PROCESS?YES LATEX QUESTIONNAIRE LATEX ALLERGY : HAVE YOU EVER DEVELOPED ANY TYPE OF REACTION AFTER HANDLING LATEX PRODUCTS SUCH RUBBER GLOVES, CONDOMS, DIAPHRAGMS, BALLOONS, SOCKS, OR UNDERWEAR?NO LATEX ALLERGY : HAVE YOU EVER DEVELOPED ANY TYPE OF REACTION DURING OR AFTER DENTAL APPOINTMENT, VAGINAL/RECTAL EXAMINATION, SURGICAL PROCEDURE, OR ANY OTHER EXPOSURE?NO LATEX RISK : HAVE YOU EVER HAD ANY DIFFICULTY BREATHING OR HIVES AFTER EATING OR HANDLING ANY FRUITS, OR VEGETABLES; SUCH KIWI, BANANAS, STONE FRUITS, OR CHESTNUTSNO LATEX RISK : DO YOU HAVE A PREVIOUS PERSONAL HISTORY OF MORE THAN NINE SURGERIES, SPINA BIFIDA, OR REPEATED CATHERIZATIONS? NO LATEX RISK : ARE YOU FREQUENTLY EXPOSED TO LATEX PRODUCTS IN YOUR OCCUPATION?NO DATE ASKED : 11/09/2018 CAFFEINE CAFFEINE USE?NO ADVANCE DIRECTIVE ADVANCE DIRECTIVE DISCUSSED WITH PATIENT:YES HCP IS ANIL HANY [phone] SCIENTOLOGIST [id number] UNITARIAN NO ISLAM BELIEFS THAT WOULD IMPACT HEALTH CARE. MARITAL STATUS: --ANIL. ALCOHOL SCREENING DID YOU HAVE A DRINK CONTAINING ALCOHOL IN THE PAST YEAR?NO POINTS0 INTERPRETATIONNEGATIVE OCCUPATION: RETIRED. SEXUAL HX HAD SEX IN THE LAST 12 MONTHS (VAGINAL, ORAL, OR ANAL)?NO HAVE YOU EVER HAD AN STD?NO REVIEWED WITH PATIENT 07/27/18 1224 BV. HOSPITALIZATION/MAJOR DIAGNOSTIC PROCEDURE SURGERY RELATED REVIEW OF SYSTEMS REVIEWED BY: PROVIDER: LALITA MIDDLETON MD . CONSTITUTIONAL: ANY CHANGE IN YOUR MEDICAL CONDITION? NO . CHILLS NO . FEVER NO . INFECTION: DO YOU HAVE NEW INFECTIONS? NO . DO YOU HAVE HISTORY OF MRSA? NO . MUSCULOSKELETAL: ANY NEW PATTERNS OF PAIN OR NUMBNESS? YES, NOT SEVERE . GASTROENTEROLOGY: ANY NEW CHANGE IN BOWEL CONTROL? YES . GENITOURINARY: ANY NEW CHANGE IN BLADDER CONTROL? YES,URGENCY . IS THERE A CHANCE YOU COULD BE ? NO . HEMATOLOGY/LYMPH: DO YOU TAKE ANY BLOOD THINNERS? (FOR EXAMPLE- COUMADIN, PLAVIX, AGGRENOX, PLATEL, PRADAXA, OR XARELTO) NO . WHEN WAS YOUR LAST DOSE? DATE: TIME: . NEUROLOGY: HAVE YOU FALLEN IN THE PAST 12 MONTHS? NO . ANY NEW EXTREMITY NUMBNESS OR WEAKNESS? NO . CARDIOLOGY: DO YOU HAVE A PACEMAKER OR DEFIBRILLATOR? NO . RESPIRATORY: HAVE YOU BEEN SICK IN THE PAST WEEK? NO . FEVER NO . FLU LIKE SYMPTOMS? NO . COUGH NO . INTEGUMENTARY: DO YOU HAVE ANY RASHES OR OPEN SORES? NO . ALLERGIC/IMMUNO: ARE YOU ALLERGIC TO IV DYE? NO . ANY NEW ALLERGIES? NO . PSYCHIATRIC: DO YOU HAVE THOUGHTS OF HURTING YOURSELF OR SOMEONE ELSE? NO . ARE YOU ABUSED, NEGLECTED, OR IN AN UNSAFE ENVIRONMENT? NO . ENDOCRINOLOGY: ARE YOU DIABETIC? YES . OTHER: DO YOU NEED ANY PRESCRIPTIONS? YES . IF YES, PLEASE LIST: ____TRAMADOL . ANY NEW PROBLEMS WITH YOUR MEDICATIONS? NO . WHEN DID YOU LAST EAT? ____ . WHEN DID YOU LAST DRINK? ____ . WHAT DID YOU LAST DRINK? ____ . NAME OF PERSON DRIVING YOU HOME? ____ . DO YOU HAVE ANY OTHER QUESTIONS OR CONCERNS CAN'T REMEMBER . VITAL SIGNS WT 158.8 LBS, HT 67.5 IN, BMI 24.50 INDEX, BP 134/68 MM HG, HR 68 /MIN, RR 18 /MIN, TEMP 97.6 F, OXYGEN SAT % 96%, SAFE IN ENV? (Y/N) YES, NA INITIALS AW 1421, REVIEWED BY: VD. EXAMINATION GENERAL EXAMINATION: PATIENT IS ALERT O X 3 AND COOPERATIVE. MRI OF THE LUMBAR SPINE DONE ON 08/22/2018 SHOWS DISC PROTRUSION AND SPINAL STENOSIS. ASSESSMENTS SPINAL STENOSIS OF LUMBAR REGION, UNSPECIFIED WHETHER NEUROGENIC CLAUDICATION PRESENT - M48.061 (PRIMARY) INTERVERTEBRAL DISC DISORDER WITH RADICULOPATHY OF LUMBAR REGION - M51.16 INTERVERTEBRAL DISC DISORDER WITH RADICULOPATHY OF LUMBOSACRAL REGION - M51.17 TREATMENT SPINAL STENOSIS OF LUMBAR REGION, UNSPECIFIED WHETHER NEUROGENIC CLAUDICATION PRESENT CLINICAL NOTES: WE DISCUSSED SEVERAL ISSUES WITH MR. LEACH'S PAIN MANAGEMENT CASE. THE PATIENT SAYS HE HAS TRIED PHYSICAL THERAPY AND WAS INSTRUCTED OF EXERCISES HE CAN DO AT HOME, WHICH HE SAYS IS HELPING WITH HIS PAIN. THE PATIENT IS RECEIVING GOOD PAIN RELIEF FROM THE LUMBAR EPIDURAL INJECTION DONE ON 10/29/2018, AND HE SAYS HE DOES NOT NEED ANY FURTHER INTERVENTION FOR THE MOMENT. THE PATIENT WILL FOLLOW UP WITH THE NURSE PRACTITIONER IN 2 MONTHS, BUT WAS ADVISED TO CALL IF HE NEEDS TO BE SEEN SOONER. INSTRUCTIONS WERE GIVEN, QUESTIONS WERE ANSWERED, PATIENT REPORTS UNDERSTANDING AND AGREES WITH THE PLAN. I, RANDEE GARCIAS, DOCUMENTED THE ABOVE INFORMATION ACTING A SCRIBE FOR DR. MIDDLETON. I HAVE REVIEWED THE ABOVE DOCUMENT, WRITTEN BY RANDEE CASTANEDA AND I VERIFY THAT IT IS ACCURATE. . PROCEDURES PN WORKMANS' COMP OPINION IN YOUR OPINION, WAS THE INCIDENT THAT THE PATIENT DESCRIBED THE COMPETENT MEDICAL CAUSE OF THIS INJURY/ILLNESS? YES ARE THE PATIENT'S COMPLAINTS CONSISTENT WITH HIS/HER HISTORY OF THE INJURY/ILLNESS? YES IS THE PATIENT'S HISTORY OF THE INJURY/ILLNESS CONSISTENT WITH YOUR OBJECTIVE FINDING? YES WHAT IS THE PERCENTAGE OF TEMPORARY IMPAIRMENT? MODERATE TO MARKED = 66.7% IS THE PATIENT WORKING? NO DOCTOR ON SITE: LALITA GIRON MD PROCEDURE CODES FA211 ESTABILISHED PATIENT [facility] FACILITY CHARGE G8427 CURRENT MEDS W/DOSAGES DOCUMENTED G8730 PAIN ASSESS POS TOOL F/U PLAN DOC DISPOSITION & COMMUNICATION FOLLOW UP 2 MONTHS (REASON: W/ MANAGER LPN) ELECTRONICALLY SIGNED BY LALITA MIDDLETON MD, MD ON 11/17/2018 AT 12:53 PM EDT DISCLAIMER : THIS IS A VISIT SUMMARY EXTRACTED FROM THE [employer] CHART. IT IS NOT A COPY OF THE [employer] PROGRESS NOTE. AUBREY
== END ==
LOC: M PAIN 14:15
PROVIDERS: ATTEND Anesthesiology
DX: M48.061 Spinal stenosis, lumbar region without neurogenic claudication (principal); M51.16 Intervertebral disc disorders with radiculopathy, lumbar region; M51.17 Intervertebral disc disorders with radiculopathy, lumbosacral region; G89.29 Other chronic pain; E11.9 Type 2 diabetes mellitus without complications; I12.9 Hypertensive chronic kidney disease with stage 1 through stage 4 chronic kidney disease, or unspecified chronic kidney disease; N18.4 Chronic kidney disease, stage 4 (severe); E78.5 Hyperlipidemia, unspecified; E03.9 Hypothyroidism, unspecified; E55.9 Vitamin D deficiency, unspecified; Z87.891 Personal history of nicotine dependence; Z88.0 Allergy status to penicillin; Z88.6 Allergy status to analgesic agent; Z88.8 Allergy status to other drugs, medicaments and biological substances; Z79.82 Long term (current) use of aspirin; Z79.899 Other long term (current) drug therapy

== ENCOUNTER → 2019-01-08 | Outpatient (CLI) | payer MEDICARE, OTHER ==
[~2019-01-08] MED LIST changes: +SYST1SOL4 OP; +TRAM50TA2 PO; +VITA1CAP25 PO; +magnesium citrate PO
[2019-01-08 12:42] LABS: CALCIUM LEVEL 9.3 MG/DL (8.8-10.2); CREATININE FOR GFR 2.3 MG/DL (0.70-1.30); FREE T4 1.11 NG/DL (0.76-1.46); POTASSIUM SERUM 4.3 MEQ/L (3.5-5.1); THYROID STIMULATING HORMONE 0.728 uIU/ML (0.358-3.740)
== END ==
LOC: M LAB 09:27
PROVIDERS: ATTEND Family Medicine
DX: E03.8 Other specified hypothyroidism (principal); E11.40 Type 2 diabetes mellitus with diabetic neuropathy, unspecified

== ENCOUNTER 2019-01-11 17:45 | Emergency (ER) | payer MEDICARE, OTHER ==
[~2019-01-11] VITALS: Ht 177.8 cm; Wt 75.2 kg
[~2019-01-11 17:45] MED LIST changes: -SYST1SOL4 OP; -TRAM50TA2 PO; -VITA1CAP25 PO; -magnesium citrate PO
[2019-01-11] MEDS ORDERED: VITA1CAP25 PO (18:50)
[2019-01-11] MEDS ORDERED: magnesium citrate PO (18:50)
[2019-01-11] MEDS ORDERED: SYST1SOL4 OP (18:50)
[2019-01-11] MEDS ORDERED: TRAM50TA2 PO (18:50)
[2019-01-11 19:06] LABS: BASO % 0.3 % (0.0-1.0); EOS # 0.5 10^3/uL (0.0-0.5); HEMOGLOBIN 12.1 g/dl (13.5-17.5); LYMPH # 1.4 10^3/uL (1.5-5.0); LYMPH % 20.7 % (24.0-44.0); MEAN CORPUSCULAR HEMOGLOBIN 32.1 pg (27.0-33.0); MEAN CORPUSCULAR HGB CONC 33.6 g/dl (32.0-36.5); MEAN CORPUSCULAR VOLUME 95.5 fl (80.0-96.0); MONO # 0.6 10^3/uL (0.0-0.8); NEUTROPHILS # 4.2 10^3/uL (1.5-8.5); NEUTROPHILS % 62.7 % (36.0-66.0); PLATELET COUNT, AUTOMATED 279 10^3/uL (150-450); RED BLOOD COUNT 3.77 10^6/uL (4.30-6.10); WHITE BLOOD COUNT 6.7 10^3/uL (4.0-10.0)
[2019-01-11 19:20] LABS: INR 1.08; PROTHROMBIN TIME 13.7 SECONDS (11.8-14.0)
[2019-01-11 19:21] LABS: PARTIAL THROMBOPLASTIN TIME 25.9 SECONDS (25.0-38.4)
[2019-01-11 19:37] LABS: ALBUMIN 3.1 GM/DL (3.2-5.2); ALT/SGPT 28 U/L (12-78); BILIRUBIN,DIRECT < 0.1 MG/DL (0.0-0.2); BILIRUBIN,TOTAL 0.2 MG/DL (0.2-1.0); BLOOD UREA NITROGEN 45 MG/DL (7-18); CALCIUM LEVEL 8.7 MG/DL (8.8-10.2); CARBON DIOXIDE LEVEL 35 MEQ/L (21-32); CHLORIDE LEVEL 100 MEQ/L (98-107); CK-MB VALUE MASS 2.8 NG/ML (<3.6); CPK CREATINE PHOSPHOKINASE 54 U/L (39-308); CREATININE FOR GFR 2.36 MG/DL (0.70-1.30); FREE T4 1.06 NG/DL (0.76-1.46); GLOMERULAR FILTRATION RATE 28.1 (>35); GLUCOSE, FASTING 187 MG/DL (70-100); MB/CK RELATIVE INDEX 5.19 (< OR =4); NT-PRO BNP 147 PG/ML (<450); POTASSIUM SERUM 3.8 MEQ/L (3.5-5.1); SODIUM LEVEL 141 MEQ/L (136-145); THYROID STIMULATING HORMONE 0.543 uIU/ML (0.358-3.740); TOTAL PROTEIN 6.3 GM/DL (6.4-8.2); TROPONIN I < 0.02 NG/ML (< 0.10)
[2019-01-11 19:45] VITALS: BP 158/70
--- NOTE | 2019-01-12 01:00 | ECGEPIP ---
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
--- NOTE | 2019-01-12 08:06 | REP ---
PA and lateral chest: Comparison is 02/01/2007. There are postsurgical changes on the right compatible with right lower lobectomy, unchanged, consisting of right hilar, suprahilar clips, right rib deformities and volume loss and the thorax. The lung waddell are clear. Cardiac size is normal. The liam, mediastinum, skeletal structures otherwise are unremarkable. Impression: There are no acute cardiopulmonary findings. Right lower lobectomy postsurgical changes are unchanged. Electronically Signed by Tal Avendano MD 01/12/2019 07:57 A
== END 2019-01-11 20:04 | disposition home or self-care (01) ==
LOC: M ED 17:45
DX: N18.9 Chronic kidney disease, unspecified (principal); I12.9 Hypertensive chronic kidney disease with stage 1 through stage 4 chronic kidney disease, or unspecified chronic kidney disease; M54.9 Dorsalgia, unspecified; G89.29 Other chronic pain; N40.0 Benign prostatic hyperplasia without lower urinary tract symptoms; Z85.46 Personal history of malignant neoplasm of prostate; Z90.89 Acquired absence of other organs; Z79.899 Other long term (current) drug therapy; Z88.6 Allergy status to analgesic agent; Z88.0 Allergy status to penicillin; Z88.8 Allergy status to other drugs, medicaments and biological substances

== ENCOUNTER → 2019-01-12 | Outpatient (CLI) | payer OTHER ==
[~2019-01-12] MED LIST changes: +SYST1SOL4 OP; +TRAM50TA2 PO; +VITA1CAP25 PO; +magnesium citrate PO
--- NOTE | 2019-01-25 11:35 | ECWPNPC ---
PATIENT NAME: FERMIN LEACH : 1935 GENDER: MALE VISIT DATE: 01/12/2019 DISCHARGE DATE: 01/12/19 1400 VISIT LOCKED DATE TIME: PHYSICIAN: HOLLIE PARDO RESOURCE: HOLLIE PARDO REASON FOR APPOINTMENT 1. W/C BACK HISTORY OF PRESENT ILLNESS HISTORY OF PRESENT ILLNESS: PAIN THE PATIENT DESCRIBES THE PAIN... THE PATIENT DESCRIBES THE PAIN... 83-YEAR-OLD MALE IN FOR 2 MONTHS POST LESI FOLLOW-UP. HE RATES HIS PAIN CURRENTLY AT A 3 OUT OF 10 AND DESCRIBES IT ACHING AND TENDER. HE FEELS THE LESI WAS HELPFUL IN ALLEVIATING HIS SYMPTOMS FOR THE PAST FEW MONTHS. HE DOES ADMIT THAT HIS PAIN IS STARTING TO RETURN. 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 THE PATIENT STATES HE WAS BENT OVER TO FEED STRAPS THROUGH THE MACHINE AND WHEN HE STRAIGHTENED UP, HIS BACK POPPED OUT AND HE HAD DIFFICULTY MOVING AFTERWARD. THE PATIENT SAYS HIS PAIN BEGINS IN HIS LOW BACK AND RADIATES DOWN BOTH LEGS, BUT HIS RIGHT LEG IS AFFECTED MORE. THE PATIENT RECEIVED A L5-S1 LUMBAR EPIDURAL STEROID INJECTION ON 10/29/2018, WHICH HE SAYS THE INJECTION HAS IMPROVED HIS CONDITION BY MORE THAN 50 PERCENT, WITH INCREASED FUNCTIONALITY AND MOBILITY. FALL RISK SCREENING: SCREENING :NO FALLS REPORTED IN THE LAST YEAR CURRENT MEDICATIONS TAKING COREG 3.125MG TABLET ORAL BID TAKING TORSEMIDE 20 MG TABLET 1 TABLET ORALLY ONCE A DAY MAY USE IF THERE IS A 3# WT. GAIN TAKING ASPIRIN 81 MG OTC 1 TAB(S) ORALLY DAILY TAKING LIPITOR 40 MG TABLET 1 TABLET ORALLY ONCE A DAY TAKING OMEGA 3 1000 MG CAPSULE 1 CAPSULE ORALLY TWICE DAILY TAKING LEVOTHYROXINE SODIUM 112 MCG TABLET 1 TABLET ON AN EMPTY STOMACH IN THE MORNING ORALLY ONCE A DAY TAKING TRAMADOL HCL 50 MG TABLET 1 TABLET ORALLY THREE TIMES DAILY NEEDED TAKING EFFEXOR XR 75 MGS CAPSULE EXTENDED RELEASE 24 HOUR 1 CAPSULE WITH FOOD ORALLY DAILY TAKING FLOMAX 0.4 MG CAPSULE 1 CAPSULE ORALLY ONCE A DAY TAKING ULORIC 40 MG TABLET 1 TABLET ORALLY -- TAKING PREVACID 30 MG CAPSULE DELAYED RELEASE TAKE ONE CAPSULE BY MOUTH EVERY DAY BEFORE A MEAL TAKING MAGNESIUM CITRATE - SOLUTION 150 ML ORALLY DAILY NEEDED TAKING MIRALAX - POWDER 2 TABLESPOON ORALLY DAILY NEEDED TAKING DRISDOL 58559 UNIT CAPSULE 1 CAPSULE ORALLY WEEKLY TAKING CALCITRIOL 0.25 MCG CAPSULE 1 CAPSULE ORALLY ONCE A DAY, M,W,F TAKING CLOBETASOL PROPIONATE 0.05 % CREAM 1 APPLICATION TO AFFECTED AREA EXTERNALLY AFFECTED AREAS ON BODY ECZEMA TWICE A DAY TAKING LORATADINE 10 MG TABLET 1 TABLET ORALLY ONCE A DAY TAKING DIPHENHYDRAMINE . 1 25MG 1 TAB ORAL 2-3 YUNI DAILY NEEDED USE WHEN ALLERGIES ARE BOTHERING HIM TAKING ECHINACEA 400 MG CAPSULE 4 CAPSULES ORALLY THREE TIMES A DAY FOR 2-4 DAYS ON ONSET OF COLD SYMPTOMS TAKING CUTIVATE 0.05 % CREAM ARMS AND LEGS EXTERNALLY ONCE A DAY NEEDED TAKING BIOTIN 5000 MCG CAPSULE 1 CAPSULE ORALLY ONCE A DAY TAKING AREDS OTC AREDS2- 1 CAP ORALLY TWICE DAILY TAKING SYSTANE 0.4-0.3 % SOLUTION DIRECTED OPHTHALMIC TAKING VANICREAM - CREAM DIRECTED EXTERNALLY AFTER SHOWER TAKING GLUCOMETER DIRECTED ONE TOUCH ULTRA DX.E11.65, TEST ONCE DAILY TAKING ONE TOUCH ULTRA BLUE STRIPS DIRECTED - ONE TOUCH ULTRA TEST STRIPS, DXE11.65 TEST ONCE DAILY TAKING LANCETS - MISCELLANEOUS DIRECTED ONE TOUCH ULTRA DX. 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 HYPERLIPIDEMIA HYPOTHYROIDISM--CENTRAL ( FOLLOW FREE T4, NOT TSH) HYPERTENSION BPH PEYRONIE'S DISEASE ALLERGIES DDD/DJD LOW BACK L/S SPINAL STENOSIS PLASMA CELL GRANULOMA RLL 4 STRESS TEST 2008 VIT D DEFICIENCY ZOSTAVAX 09/17 RT 7TH RIB FX (FALL 06/18, CAT-RELATED) GOUT RT GREAT TOE 11/20 COLOGUARD: NEGATIVE ALLERGIES ZANTAC: CONSTIPATION - SIDE EFFECTS NSAIDS: ELEV BUN, CREAT - SIDE EFFECTS PENICILLIN: HIVES - ALLERGY SURGICAL HISTORY T + A 1948 APPENDECTOMY 1950 TURP 2002 RIGHT SHOULDER REPAIR / 1989 RIGHT LOWER LUNG REMOVAL OF ABSCESS/ 2004 BILATERAL BLEPHAROPLASTY/ 2006 EGD/COLONOSCOPY 2007 RIGHT EYE CATARACT SURGERY 11/2012 CYSTOSCOPY 10/21/2017 LEFT EYE [address]AR[address]ERY [address]. JOHNSON TOENAIL 04/25 FAMILY HISTORY FATHER: HYPERTENSION, DIAGNOSED WITH HYPERTENSION MOTHER: DIABETES, TYPE II, DIABETES SIBLINGS: BROTHER:DIABETES, TYPE II, BLADDER CA, DIABETES, OTHER MALIGNANT NEOPLASM OF UNSPECIFIED SITE DAUGHTER(S): DEPRESSION, UNSPECIFIED NONPSYCHOTIC MENTAL DISORDER FOLLOWING ORGANIC BRAIN DAMAGE PATERNAL GRAND FATHER: DIABETES, TYPE II, DIABETES REVIEWED, NO CHANGES. SOCIAL HISTORY GENERAL: TOBACCO USE ARE YOU A:FORMER SMOKER FORMER CIGAR SMOKER HOW LONG HAS IT BEEN SINCE YOU LAST SMOKED?1-5 YEARS ADDITIONAL FINDINGS: TOBACCO USERCIGAR SMOKER HIV / HEP-C SCREENING HIV TEST OFFERED TO PATIENT:YES DATE OFFERED:07/05/2016 TEST ACCEPTED:NO HEP-C TEST OFFERED TO PATIENT:NO REASON:PATIENT DECLINED OTHERS AT HOME: SPOUSE. EDUCATION LEVEL OF EDUCATION:FINISHED HIGH SCHOOL DIET: LOW FAT, LOW CHOLESTEROL, LOW SODIUM, LOW POTASSIUM. LANGUAGE LANGUAGES SPOKEN:MACANESE DOMESTIC VIOLENCE DO YOU FEEL SAFE IN YOUR ENVIRONMENT?YES RECREATIONAL DRUG USE DRUG USE?NO EXERCISE: NONE. LEARNING BARRIERS / SPECIAL NEEDS CHANGE FROM LAST VISIT?NO BARRIERS TO LEARNING?NO HEARING IMPAIRED?YES VISION IMPAIRED?YES COGNITIVELY IMPAIRED?NO :HEARING AIDES :CORRECTIVE LENSES READINESS TO LEARN?YES LEARNING PREFERENCES?NO LEARNING CAPABILITIES PRESENT?YES EMOTIONAL BARRIERS?NO SPECIAL DEVICES?NO FAA CERTIFIED POWERPLANT MECHANIC NEEDED?NO LUNG CANCER SCREENING SMOKING STATUS:FORMER SMOKER IS THE PATIENT BETWEEN THE AGE OF 54 AND 76?NO PAIN CLINIC PFS, CLERGY, PUBLIC HEALTH REFERRALS HAS THE PATIENT BEEN EDUCATED REGARDING HIS/HER PLAN OF CARE?YES HAS THE PATIENT BEEN EDUCATED REGARDING PAIN, THE RISK FOR PAIN, THE IMPORTANCE OF EFFECTIVE PAIN MANAGEMENT, AND THE PAIN ASSESSMENT PROCESS?YES LATEX QUESTIONNAIRE LATEX ALLERGY : HAVE YOU EVER DEVELOPED ANY TYPE OF REACTION AFTER HANDLING LATEX PRODUCTS SUCH RUBBER GLOVES, CONDOMS, DIAPHRAGMS, BALLOONS, SOCKS, OR UNDERWEAR?NO LATEX ALLERGY : HAVE YOU EVER DEVELOPED ANY TYPE OF REACTION DURING OR AFTER DENTAL APPOINTMENT, VAGINAL/RECTAL EXAMINATION, SURGICAL PROCEDURE, OR ANY OTHER EXPOSURE?NO DATE ASKED : 11/09/2018 LATEX RISK : HAVE YOU EVER HAD ANY DIFFICULTY BREATHING OR HIVES AFTER EATING OR HANDLING ANY FRUITS, OR VEGETABLES; SUCH KIWI, BANANAS, STONE FRUITS, OR CHESTNUTSNO LATEX RISK : DO YOU HAVE A PREVIOUS PERSONAL HISTORY OF MORE THAN NINE SURGERIES, SPINA BIFIDA, OR REPEATED CATHERIZATIONS? NO LATEX RISK : ARE YOU FREQUENTLY EXPOSED TO LATEX PRODUCTS IN YOUR OCCUPATION?NO CAFFEINE CAFFEINE USE?NO ADVANCE DIRECTIVE ADVANCE DIRECTIVE DISCUSSED WITH PATIENT:YES HCP IS ANIL LEACH [phone] [employer] [id number] UNITARIAN NO LATTER-DAY BELIEFS THAT WOULD IMPACT HEALTH CARE. MARITAL STATUS: --ANIL. ALCOHOL SCREENING DID YOU HAVE A DRINK CONTAINING ALCOHOL IN THE PAST YEAR?NO POINTS0 INTERPRETATIONNEGATIVE OCCUPATION: RETIRED. SEXUAL HX HAD SEX IN THE LAST 12 MONTHS (VAGINAL, ORAL, OR ANAL)?NO HAVE YOU EVER HAD AN STD?NO REVIEWED WITH PATIENT 07/27/18 1224 BV REVIEWED WITH PT 01/12/19 1323 NLJ. HOSPITALIZATION/MAJOR DIAGNOSTIC PROCEDURE SURGERY RELATED REVIEW OF SYSTEMS REVIEWED BY: PROVIDER: NOMI PARDO ELECTROPHYSIOLOGIST-Enzo . CONSTITUTIONAL: ANY CHANGE IN YOUR MEDICAL CONDITION? NO . CHILLS NO . FEVER NO . INFECTION: DO YOU HAVE NEW INFECTIONS? NO . DO YOU HAVE HISTORY OF MRSA? NO . MUSCULOSKELETAL: ANY NEW PATTERNS OF PAIN OR NUMBNESS? YES- STATES THE PAIN IS STARTING TO COME BACK TO PRE LESI STATUS, SATTES IT IS NOT YET BACK TO PRE PROCEDURE LEVEL . GASTROENTEROLOGY: ANY NEW CHANGE IN BOWEL CONTROL? NO . GENITOURINARY: ANY NEW CHANGE IN BLADDER CONTROL? YES- STATES HE WAS SEEN IN THE ER YESTERDAY FOR INABILITY TO URINATE, STATES HE IS ABLE TO GO NOW LONG HE CONCENTRATES ON RELAXING TO GO . IS THERE A CHANCE YOU COULD BE ? NO . HEMATOLOGY/LYMPH: DO YOU TAKE ANY BLOOD THINNERS? (FOR EXAMPLE- COUMADIN, PLAVIX, AGGRENOX, PLATEL, PRADAXA, OR XARELTO) NO . WHEN WAS YOUR LAST DOSE? DATE: TIME: . NEUROLOGY: HAVE YOU FALLEN IN THE PAST 12 MONTHS? YES- STATES HE HAS FALLEN BUT STATES HE HAS HAD NO INJURIES . ANY NEW EXTREMITY NUMBNESS OR WEAKNESS? NO . CARDIOLOGY: DO YOU HAVE A PACEMAKER OR DEFIBRILLATOR? NO . RESPIRATORY: HAVE YOU BEEN SICK IN THE PAST WEEK? NO . FEVER NO . FLU LIKE SYMPTOMS? NO . COUGH NO . INTEGUMENTARY: DO YOU HAVE ANY RASHES OR OPEN SORES? NO . ALLERGIC/IMMUNO: ARE YOU ALLERGIC TO IV DYE? NO . ANY NEW ALLERGIES? NO . PSYCHIATRIC: DO YOU HAVE THOUGHTS OF HURTING YOURSELF OR SOMEONE ELSE? NO . ARE YOU ABUSED, NEGLECTED, OR IN AN UNSAFE ENVIRONMENT? NO . ENDOCRINOLOGY: ARE YOU DIABETIC? YES . OTHER: DO YOU NEED ANY PRESCRIPTIONS? YES . IF YES, PLEASE LIST: ____TRAMADOL . ANY NEW PROBLEMS WITH YOUR MEDICATIONS? NO . WHEN DID YOU LAST EAT? ____ . WHEN DID YOU LAST DRINK? ____ . WHAT DID YOU LAST DRINK? ____ . NAME OF PERSON DRIVING YOU HOME? ____ . DO YOU HAVE ANY OTHER QUESTIONS OR CONCERNS YES- FLU SHOT DEC 2018, STATES HE IS INTERSTED IN HAVING ANOTHER LESI . VITAL SIGNS WT 163.8 LBS, HT 67.5 IN, BMI 25.27 INDEX, BP 122/61 MM HG, HR 71 /MIN, RR 18 /MIN, TEMP 96.8 F, OXYGEN SAT % 98%, SAFE IN ENV? (Y/N) YES, NA INITIALS AW 1327, REVIEWED BY: NLSimone. EXAMINATION GENERAL EXAMINATION: GENERALNO ACUTE DISTRESS, WELL NOURISHED AND HYDRATED. PSYCHAPPROPRIATE MOOD AND AFFECT . LUNGS:CLEAR TO AUSCULTATION BILATERALLY, NO WHEEZES, RHONCHI, RALES. HEART:NO MURMURS, REGULAR RATE AND RHYTHM. BACK:DENIES POINT TENDERNESS ALONG LUMBAR SPINE, STARTING SKIN SHOWS NO ERYTHEMA, ECCHYMOSIS, INCREASED WARMTH, AND/OR SKIN RASHES NOTED. . MUSCULOSKELETAL:EQUAL STRENGTH OF THE LOWER EXTREMITY BILATERALLY . ASSESSMENTS INTERVERTEBRAL DISC DISORDER WITH RADICULOPATHY OF LUMBOSACRAL REGION - M51.17 (PRIMARY) TREATMENT INTERVERTEBRAL DISC DISORDER WITH RADICULOPATHY OF LUMBOSACRAL REGION NOTES: LESI L5-S1 . CLINICAL NOTES: 83-YEAR-OLD MALE IN FOR POST LESI FOLLOW-UP. GIVEN PRESENTING SYMPTOMS AND RESULTS OF PHYSICAL EXAMINATION RECOMMENDED REPEAT LESI WITH POSTPROCEDURAL FOLLOW-UP. PATIENT HAS EXPRESSED UNDERSTANDING OF AND WAS IN AGREEMENT WITH TREATMENT PLAN. GIVEN TIME TO ASK QUESTIONS AND EXPRESS CONCERNS.. PROCEDURES PN WORKMANS' COMP OPINION IN YOUR OPINION, WAS THE INCIDENT THAT THE PATIENT DESCRIBED THE COMPETENT MEDICAL CAUSE OF THIS INJURY/ILLNESS? YES ARE THE PATIENT'S COMPLAINTS CONSISTENT WITH HIS/HER HISTORY OF THE INJURY/ILLNESS? YES IS THE PATIENT'S HISTORY OF THE INJURY/ILLNESS CONSISTENT WITH YOUR OBJECTIVE FINDING? YES WHAT IS THE PERCENTAGE OF TEMPORARY IMPAIRMENT? MODERATE TO MARKED = 66.7% IS THE PATIENT WORKING? NO DOCTOR ON SITE: LALITA GIRON MD PREVENTIVE MEDICINE PAIN CLINIC TEACHING: PROCEDURE TEACHING LUMBAR EPIDURAL STEROID INJECTION INFORMATION PRINTED AND REVIEWED WITH PT 01/12/19 0112 FELIX. PROCEDURE CODES FA211 ESTABILISHED PATIENT [facility]AC[facility] CHARGE DISPOSITION & COMMUNICATION FOLLOW UP POSTPROCEDURE (REASON: LESI L5-S1) ELECTRONICALLY SIGNED BY SOFÍA BARRON ON 01/13/2019 AT 09:20 AM EDT DISCLAIMER : THIS IS A VISIT SUMMARY EXTRACTED FROM THE [email or web address] CHART. IT IS NOT A COPY OF THE [email or web address] PROGRESS NOTE. AUBREY
== END ==
LOC: M PAIN 13:00
PROVIDERS: ATTEND Family Medicine
DX: M51.17 Intervertebral disc disorders with radiculopathy, lumbosacral region (principal); E11.9 Type 2 diabetes mellitus without complications; E78.5 Hyperlipidemia, unspecified; E03.9 Hypothyroidism, unspecified; I10 Essential (primary) hypertension; E55.9 Vitamin D deficiency, unspecified; Z87.891 Personal history of nicotine dependence; Z88.0 Allergy status to penicillin; Z88.6 Allergy status to analgesic agent; Z88.8 Allergy status to other drugs, medicaments and biological substances; Z79.82 Long term (current) use of aspirin; Z79.899 Other long term (current) drug therapy

== ENCOUNTER → 2019-03-18 | Outpatient (CLI) | payer OTHER ==
[~2019-03-18] MED LIST changes: +ISOVUE-M 300 61% 15ML VIAL (Q9967) As Ordered ONE; +LIDOCAINE 1% SDV INJ 30 ML VIAL As Ordered ONE; +diazePAM 5 MG TAB As Ordered ONE; +methylPREDNISolone SUSP 40 MG/ML (DEPO-medrol) VIAL (J1030) As Ordered ONE
--- NOTE | 2019-03-18 14:11 | REP ---
Partial lumbar spine series: Three views . History: Injection procedure for pain. 16 seconds of fluoroscopy time is reported. Findings: A sequence of three fluoroscopically obtained last image hold procedural spot radiographs of the lumbar spine document needle position and contrast injection associated with injection procedure. Electronically Signed by Lester Kauffman MD 03/18/2019 02:03 P
--- NOTE | 2019-03-24 03:38 | ECWPNPC ---
PATIENT NAME: FERMIN LEACH : 1935 GENDER: MALE VISIT DATE: 03/18/2019 DISCHARGE DATE: 03/18/19 1401 VISIT LOCKED DATE TIME: PHYSICIAN: LALITA MIDDLETON MD RESOURCE: LALITA MIDDLETON MD REASON FOR APPOINTMENT 1. LESI L4-L5 HISTORY OF PRESENT ILLNESS HISTORY OF PRESENT ILLNESS: PAIN THE PATIENT DESCRIBES THE PAIN... FALL RISK SCREENING: SCREENING :NO FALLS REPORTED IN THE LAST YEAR CURRENT MEDICATIONS TAKING COREG 3.125MG TABLET ORAL BID, NOTES: 03/17/19 TAKING TORSEMIDE 20 MG TABLET 1 TABLET ORALLY ONCE A DAY MAY USE IF THERE IS A 3# WT. GAIN, NOTES: 03/17/19 TAKING LIPITOR 40 MG TABLET 1 TABLET ORALLY ONCE A DAY, NOTES: 03/17/19 TAKING OMEGA 3 1000 MG CAPSULE 1 CAPSULE ORALLY TWICE DAILY, NOTES: NONE LATELY TAKING LEVOTHYROXINE SODIUM 112 MCG TABLET 1 TABLET ON AN EMPTY STOMACH IN THE MORNING ORALLY ONCE A DAY, NOTES: 03/17/19 TAKING EFFEXOR XR 75 MGS CAPSULE EXTENDED RELEASE 24 HOUR 1 CAPSULE WITH FOOD ORALLY DAILY, NOTES: 03/17/19 TAKING ULORIC 40 MG TABLET 1 TABLET ORALLY M-W-, NOTES: 3 DAYS AGO TAKING PREVACID 30 MG CAPSULE DELAYED RELEASE TAKE ONE CAPSULE BY MOUTH EVERY DAY BEFORE A MEAL , NOTES: 03/17/19 TAKING MAGNESIUM CITRATE - SOLUTION 150 ML ORALLY DAILY NEEDED, NOTES: TAKING DRISDOL 24882 UNIT CAPSULE 1 CAPSULE ORALLY WEEKLY, NOTES: FRIDAY TAKING CALCITRIOL 0.25 MCG CAPSULE 1 CAPSULE ORALLY ONCE A DAY, M,W,F, NOTES: 03/17/19 TAKING CLOBETASOL PROPIONATE 0.05 % CREAM 1 APPLICATION TO AFFECTED AREA EXTERNALLY AFFECTED AREAS ON BODY ECZEMA TWICE A DAY, NOTES: NONE LATELY TAKING ECHINACEA 400 MG CAPSULE 4 CAPSULES ORALLY THREE TIMES A DAY FOR 2-4 DAYS ON ONSET OF COLD SYMPTOMS, NOTES: 03/17/19 TAKING CUTIVATE 0.05 % CREAM ARMS AND LEGS EXTERNALLY ONCE A DAY NEEDED, NOTES: NONE LATELY TAKING BIOTIN 5000 MCG CAPSULE 1 CAPSULE ORALLY ONCE A DAY, NOTES: 03/17/19 TAKING AREDS OTC AREDS2- 1 CAP ORALLY TWICE DAILY, NOTES: 03/17/19 TAKING SYSTANE 0.4-0.3 % SOLUTION DIRECTED OPHTHALMIC , NOTES: 03/16/19 TAKING VANICREAM - CREAM DIRECTED EXTERNALLY AFTER SHOWER, NOTES: NONE LATELY TAKING GLUCOMETER DIRECTED ONE TOUCH ULTRA DX.E11.65, TEST ONCE DAILY TAKING ONE TOUCH ULTRA BLUE STRIPS DIRECTED - ONE TOUCH ULTRA TEST STRIPS, DXE11.65 TEST ONCE DAILY TAKING LANCETS - MISCELLANEOUS DIRECTED ONE TOUCH ULTRA DX. E11.65 , TEST ONCE DAILY TAKING FLOMAX 0.4 MG CAPSULE TAKE ONE CAPSULE BY MOUTH ONCE A DAY , NOTES: 03/17/19 TAKING TRAMADOL HCL 50 MG TABLET 1 TABLET ORALLY, WORKER'S COMPENSATION THREE TIMES A DAY NEEDED, MDD=3, NOTES: 03/17/19 TAKING MIRALAX - POWDER 2 TABLESPOON ORALLY DAILY NEEDED, NOTES: NONE LATELY TAKING LORATADINE 10 MG TABLET 1 TABLET ORALLY ONCE A DAY, NOTES: NONE LATELY TAKING DIPHENHYDRAMINE . 1 25MG 1 TAB ORAL 2-3 YUNI DAILY NEEDED USE WHEN ALLERGIES ARE BOTHERING HIM, NOTES: NONE LATELY TAKING MOVANTIK 12.5 MG TABLET 1 TABLET IN THE MORNING ORALLY ONCE A DAY NEEDED, NOTES: NONE LATELY NOT-TAKING ASPIRIN 81 MG OTC 1 TAB(S) ORALLY DAILY DISCONTINUED EFFEXOR XR 75 MG CAPSULE EXTENDED RELEASE 24 HOUR TAKE ONE CAPSULE BY MOUTH DAILY WITH FOOD , NOTES: DUPLICATE DISCONTINUED MIRALAX - POWDER 1 CAP ORALLY TWICE DAILY NEEDED DISCONTINUED SENOKOT S 8.6-50 MG TABLET 1 TABLET IN THE EVENING NEEDED ORALLY TWICE DAILY NEEDED MEDICATION LIST REVIEWED AND RECONCILED WITH THE PATIENT PAST MEDICAL HISTORY 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 HYPERLIPIDEMIA HYPOTHYROIDISM--CENTRAL ( FOLLOW FREE T4, NOT TSH) HYPERTENSION BPH PEYRONIE'S DISEASE ALLERGIES DDD/DJD LOW BACK L/S SPINAL STENOSIS PLASMA CELL GRANULOMA RLL 4/00 STRESS TEST 2008 VIT D DEFICIENCY ZOSTAVAX 09/17 RT 7TH RIB FX (FALL 06/18, CAT-RELATED) GOUT RT GREAT TOE 11/20 COLOGUARD: NEGATIVE PRE-CANCER LESIONS REMOVED FROM BILAT EARS ALLERGIES ZANTAC: CONSTIPATION - SIDE EFFECTS NSAIDS: ELEV BUN, CREAT - SIDE EFFECTS PENICILLIN: HIVES - ALLERGY SURGICAL HISTORY T + A 194 APPENDECTOMY 1950 TURP 2002 RIGHT SHOULDER REPAIR / 1989 RIGHT LOWER LUNG REMOVAL OF ABSCESS/ 2004 BILATERAL BLEPHAROPLASTY/ 2006 EGD/COLONOSCOPY 2007 RIGHT EYE CATARACT SURGERY 11/2012 CYSTOSCOPY 10/21/[address]YE [address] JOHNSON TOENAIL 04/25 FAMILY HISTORY FATHER: , HYPERTENSION, DIAGNOSED WITH HYPERTENSION MOTHER: , DIABETES, TYPE II, DIABETES SIBLINGS: BROTHER:DIABETES, TYPE II, BLADDER CA, DIABETES, OTHER MALIGNANT NEOPLASM OF UNSPECIFIED SITE DAUGHTER(S): DEPRESSION, UNSPECIFIED NONPSYCHOTIC MENTAL DISORDER FOLLOWING ORGANIC BRAIN DAMAGE PATERNAL GRAND FATHER: DIABETES, TYPE II, DIABETES REVIEWED, NO CHANGES. SOCIAL HISTORY GENERAL: TOBACCO USE ARE YOU A:FORMER SMOKER FORMER CIGAR SMOKER HOW LONG HAS IT BEEN SINCE YOU LAST SMOKED?1-5 YEARS ADDITIONAL FINDINGS: TOBACCO USERCIGAR SMOKER HIV / HEP-C SCREENING HIV TEST OFFERED TO PATIENT:YES DATE OFFERED:07/05/2016 TEST ACCEPTED:NO HEP-C TEST OFFERED TO PATIENT:NO REASON:PATIENT DECLINED OTHERS AT HOME: SPOUSE. EDUCATION LEVEL OF EDUCATION:FINISHED HIGH SCHOOL DIET: LOW FAT, LOW CHOLESTEROL, LOW SODIUM, LOW POTASSIUM. LANGUAGE LANGUAGES SPOKEN:LITHUANIAN DOMESTIC VIOLENCE DO YOU FEEL SAFE IN YOUR ENVIRONMENT?YES RECREATIONAL DRUG USE DRUG USE?NO EXERCISE: NONE. LEARNING BARRIERS / SPECIAL NEEDS CHANGE FROM LAST VISIT?NO BARRIERS TO LEARNING?NO HEARING IMPAIRED?YES VISION IMPAIRED?YES COGNITIVELY IMPAIRED?NO :HEARING AIDES :CORRECTIVE LENSES READINESS TO LEARN?YES LEARNING PREFERENCES?NO LEARNING CAPABILITIES PRESENT?YES EMOTIONAL BARRIERS?NO SPECIAL DEVICES?NO MATCH UP PERSON NEEDED?NO LUNG CANCER SCREENING SMOKING STATUS:FORMER SMOKER IS THE PATIENT BETWEEN THE AGE OF 54 AND 76?NO PAIN CLINIC PFS, CLERGY, PUBLIC HEALTH REFERRALS HAS THE PATIENT BEEN EDUCATED REGARDING HIS/HER PLAN OF CARE?YES HAS THE PATIENT BEEN EDUCATED REGARDING PAIN, THE RISK FOR PAIN, THE IMPORTANCE OF EFFECTIVE PAIN MANAGEMENT, AND THE PAIN ASSESSMENT PROCESS?YES LATEX QUESTIONNAIRE LATEX ALLERGY : HAVE YOU EVER DEVELOPED ANY TYPE OF REACTION AFTER HANDLING LATEX PRODUCTS SUCH RUBBER GLOVES, CONDOMS, DIAPHRAGMS, BALLOONS, SOCKS, OR UNDERWEAR?NO LATEX ALLERGY : HAVE YOU EVER DEVELOPED ANY TYPE OF REACTION DURING OR AFTER DENTAL APPOINTMENT, VAGINAL/RECTAL EXAMINATION, SURGICAL PROCEDURE, OR ANY OTHER EXPOSURE?NO LATEX RISK : HAVE YOU EVER HAD ANY DIFFICULTY BREATHING OR HIVES AFTER EATING OR HANDLING ANY FRUITS, OR VEGETABLES; SUCH KIWI, BANANAS, STONE FRUITS, OR CHESTNUTSNO LATEX RISK : DO YOU HAVE A PREVIOUS PERSONAL HISTORY OF MORE THAN NINE SURGERIES, SPINA BIFIDA, OR REPEATED CATHERIZATIONS? NO LATEX RISK : ARE YOU FREQUENTLY EXPOSED TO LATEX PRODUCTS IN YOUR OCCUPATION?NO DATE ASKED : 11/09/2018 CAFFEINE CAFFEINE USE?NO ADVANCE DIRECTIVE ADVANCE DIRECTIVE DISCUSSED WITH PATIENT:YES HCP IS ANIL LEACH [phone] [employer] [id number] UNITARIAN NO PENTECOSTALISM BELIEFS THAT WOULD IMPACT HEALTH CARE. MARITAL STATUS: --ANIL. ALCOHOL SCREENING DID YOU HAVE A DRINK CONTAINING ALCOHOL IN THE PAST YEAR?NO POINTS0 INTERPRETATIONNEGATIVE OCCUPATION: RETIRED. SEXUAL HX HAD SEX IN THE LAST 12 MONTHS (VAGINAL, ORAL, OR ANAL)?NO HAVE YOU EVER HAD AN STD?NO REVIEWED WITH PATIENT 07/27/18 1224 BV REVIEWED WITH PT 01/12/19 1323 NLPRESCREENING 03-09-19 KEG. HOSPITALIZATION/MAJOR DIAGNOSTIC PROCEDURE SURGERY RELATED PNEUMONIA 1974 REVIEW OF SYSTEMS REVIEWED BY: PROVIDER: . CONSTITUTIONAL: ANY CHANGE IN YOUR MEDICAL CONDITION? NO . CHILLS NO . FEVER NO . INFECTION: DO YOU HAVE NEW INFECTIONS? NO . DO YOU HAVE HISTORY OF MRSA? NO . MUSCULOSKELETAL: ANY NEW PATTERNS OF PAIN OR NUMBNESS? NO . GASTROENTEROLOGY: ANY NEW CHANGE IN BOWEL CONTROL? NO . GENITOURINARY: ANY NEW CHANGE IN BLADDER CONTROL? NO . IS THERE A CHANCE YOU COULD BE ? NO . HEMATOLOGY/LYMPH: DO YOU TAKE ANY BLOOD THINNERS? (FOR EXAMPLE- COUMADIN, PLAVIX, AGGRENOX, PLATEL, PRADAXA, OR XARELTO) NO . WHEN WAS YOUR LAST DOSE? DATE: TIME: . NEUROLOGY: HAVE YOU FALLEN IN THE PAST 12 MONTHS? YES, PRIOR TO LAST VISIT . ANY NEW EXTREMITY NUMBNESS OR WEAKNESS? NO . CARDIOLOGY: DO YOU HAVE A PACEMAKER OR DEFIBRILLATOR? NO . RESPIRATORY: HAVE YOU BEEN SICK IN THE PAST WEEK? NO . FEVER NO . FLU LIKE SYMPTOMS? NO . COUGH NO . INTEGUMENTARY: DO YOU HAVE ANY RASHES OR OPEN SORES? YES, LEFT EAR LESION REMOVED 03/15/19. DR. MIDDLETON EXAMINED AND OKAY TO PROCEED WITH THE PROCEDURE . ALLERGIC/IMMUNO: ARE YOU ALLERGIC TO IV DYE? NO . ANY NEW ALLERGIES? NO . PSYCHIATRIC: DO YOU HAVE THOUGHTS OF HURTING YOURSELF OR SOMEONE ELSE? NO . ARE YOU ABUSED, NEGLECTED, OR IN AN UNSAFE ENVIRONMENT? NO . ENDOCRINOLOGY: ARE YOU DIABETIC? YES, FS 133 03/18/19 AM . OTHER: DO YOU NEED ANY PRESCRIPTIONS? NO . IF YES, PLEASE LIST: ____ . ANY NEW PROBLEMS WITH YOUR MEDICATIONS? NO . WHEN DID YOU LAST EAT? 03/17/19 1545 . WHEN DID YOU LAST DRINK? 03/18/19 0800 . WHAT DID YOU LAST DRINK? WATER . NAME OF PERSON DRIVING YOU HOME? ANIL . DO YOU HAVE ANY OTHER QUESTIONS OR CONCERNS NO . VITAL SIGNS WT 167.6 LBS, HT 67.5 IN, BMI 25.86 INDEX, BP 126/59 MM HG, HR 77 /MIN, RR 18 /MIN, TEMP 97.7 F, OXYGEN SAT % 99%, NA INITIALS SC 11:11, REVIEWED BY: ANKIT. ASSESSMENTS INTERVERTEBRAL DISC DISORDERS WITH RADICULOPATHY, LUMBAR REGION - M51.16 (PRIMARY) PROCEDURES PRE PROCEDURE DIAGNOSIS LUMBAR DISC DISORDER WITH RADICULOPATHY POST PROCEDURE DIAGNOSIS LUMBAR DISC DISORDER WITH RADICULOPATHY PROCEDURE LUMBAR EPIDURAL STEROID INJECTION UNDER FLUOROSCOPIC GUIDANCE SURGEON DR. LALITA MIDDLETON DEBEAKER NONE ANESTHESIA LOCAL PRE PROCEDURE NOTE THE PATIENT HAS A HISTORY OF CHRONIC LOW BACK PAIN. I EVALUATED THE PATIENT AND REVIEWED THE CHART. I WENT OVER THE RISKS, ALTERNATIVES, AND BENEFITS ASSOCIATED WITH THIS PROCEDURE. THE PATIENT WOULD LIKE TO PROCEED AND GIVES CONSENT TO PERFORM THE PROCEDURE. THE PATIENT DENIES UNEXPLAINABLE WEIGHT LOSS, FEVER, CHILLS, OR NEW CHANGES IN URINARY OR BOWEL CONTROL. DESCRIPTION OF PROCEDURE THE PATIENT WAS BROUGHT TO THE PROCEDURE ROOM AND PLACED IN THE PRONE POSITION. THE LUMBOSACRAL AREA WAS CLEANED WITH BETADINE SOLUTION AND DRAPED ASEPTICALLY. THE PROCEDURE WAS DONE UNDER STERILE CONDITIONS. I CHECKED LATERALITY AND THE LEVEL WHERE THE PROCEDURE WAS GOING TO BE PERFORMED WITH THE PATIENT AND THE SUPPORTING STAFF AT THE MOMENT OF THE TIME OUT IN THE PROCEDURE ROOM. UNDER FLUOROSCOPIC GUIDANCE, THE TARGET POINT WAS SELECTED AT THE INTERLAMINAR LEVEL OF L4-L5. LIDOCAINE WAS USED TO NUMB THE SKIN AND THE SUBCUTANEOUS TISSUE BELOW IT. EPIDURAL TUOHY NEEDLE, 17-GAUGE, WAS ADVANCED UNDER FLUOROSCOPIC GUIDANCE AND FOLLOWING PATIENT FEEDBACK UNTIL THE EPIDURAL SPACE WAS REACHED, 7 CM DEEP INTO THE SKIN BY THE LOSS OF RESISTANCE TECHNIQUE. ISOVUE M DYE 30%, 0.25 ML, WAS INJECTED SHOWING ADEQUATE SPREAD OF THE DYE. THEN, A SOLUTION OF 3 ML OF NORMAL SALINE WITH DEPO-MEDROL 60 MG WAS INJECTED SLOWLY FOLLOWING PATIENT FEEDBACK. THERE WAS NO EVIDENCE OF BLOOD, PARESTHESIA OR CEREBROSPINAL FLUID DURING THE PROCEDURE. THE PATIENT WAS SENT TO THE RECOVERY ROOM. THE PATIENT WAS MOVING THE EXTREMITIES AND DOING WELL. THERE WAS NO COMPLICATION DURING THE PROCEDURE. FLUOROSCOPY TIME WAS 15 SECONDS. POST PROCEDURE NOTE I AM LOOKING FOR LONG LASTING PAIN RELIEF WITH THIS INTERVENTION. THE PATIENT WILL BE SEEN IN A FOLLOW UP IN THE NEXT FEW WEEKS. INSTRUCTIONS WERE GIVEN, QUESTIONS WERE ANSWERED, AND THE PATIENT EXPRESSED UNDERSTANDING AND AGREES WITH THE PLAN. I, RANDEE GARCIAS, DOCUMENTED THE ABOVE INFORMATION ACTING A SCRIBE FOR DR. MIDDLETON. I HAVE REVIEWED THE ABOVE DOCUMENT, WRITTEN BY RANDEE GARCIAS SCRIBRoz AND I VERIFY THAT IT IS ACCURATE. DIAGNOSTIC IMAGING [facility] FLUORO GUIDE SPINE INJECTION (PAIN)[id number] PROCEDURE CODES 28561 LUMBAR/SACRAL W/ IMAGING 6045F RADXPS IN END [id number] PXD DISPOSITION & COMMUNICATION FOLLOW UP 2 WEEKS ELECTRONICALLY SIGNED BY LALITA MIDDLETON MD, MD ON 03/23/2019 AT 03:32 PM EST DISCLAIMER : THIS IS A VISIT SUMMARY EXTRACTED FROM THE [employer] CHART. IT IS NOT A COPY OF THE [employer] PROGRESS NOTE. MTDD
== END ==
LOC: M PAIN 10:30
PROVIDERS: ATTEND Anesthesiology
DX: M51.16 Intervertebral disc disorders with radiculopathy, lumbar region (principal); E11.9 Type 2 diabetes mellitus without complications; E78.5 Hyperlipidemia, unspecified; E03.9 Hypothyroidism, unspecified; I10 Essential (primary) hypertension; E55.9 Vitamin D deficiency, unspecified; F17.290 Nicotine dependence, other tobacco product, uncomplicated; Z88.0 Allergy status to penicillin; Z88.6 Allergy status to analgesic agent; Z88.8 Allergy status to other drugs, medicaments and biological substances; Z79.899 Other long term (current) drug therapy
CPT/HCPCS: 62323; J1030; Q9967

== ENCOUNTER → 2019-04-12 | Outpatient (CLI) | payer OTHER ==
[~2019-04-12] MED LIST changes: -ISOVUE-M 300 61% 15ML VIAL (Q9967) As Ordered ONE; -LIDOCAINE 1% SDV INJ 30 ML VIAL As Ordered ONE; -diazePAM 5 MG TAB As Ordered ONE; -methylPREDNISolone SUSP 40 MG/ML (DEPO-medrol) VIAL (J1030) As Ordered ONE
--- NOTE | 2019-04-14 03:13 | ECWPNPC ---
PATIENT NAME: FERMIN LEACH : 1935 GENDER: MALE VISIT DATE: 04/12/2019 DISCHARGE DATE: 04/12/19 1114 VISIT LOCKED DATE TIME: PHYSICIAN: HOLLIE PARDO RESOURCE: HOLLIE PARDO REASON FOR APPOINTMENT 1. POST LESI HISTORY OF PRESENT ILLNESS HISTORY OF PRESENT ILLNESS: PAIN THE PATIENT DESCRIBES THE PAIN... 84-YEAR-OLD MALE IN FOR POST LESI FOLLOW-UP. HE RATES HIS PAIN CURRENTLY AT A 2-3 OUT OF 10 AND DECRIBES IT ACHING, AND SORE. HE RATES HIS PAIN PREPROCEDURE AT A 4/10 AND POSTPROCEDURE AT A 1/2-2 OUT OF 10. HE FURTHER STATES THE PROCEDURE CONTINUES TO HELP HIM TODAY. FALL RISK SCREENING: SCREENING :NO FALLS REPORTED IN THE LAST YEAR CURRENT MEDICATIONS TAKING COREG 3.125MG TABLET ORAL BID, NOTES: 03/17/19 TAKING TORSEMIDE 20 MG TABLET 1 TABLET ORALLY ONCE A DAY MAY USE IF THERE IS A 3# WT. GAIN, NOTES: 03/17/19 TAKING LIPITOR 40 MG TABLET 1 TABLET ORALLY ONCE A DAY, NOTES: 03/17/19 TAKING OMEGA 3 1000 MG CAPSULE 1 CAPSULE ORALLY TWICE DAILY, NOTES: NONE LATELY TAKING LEVOTHYROXINE SODIUM 112 MCG TABLET 1 TABLET ON AN EMPTY STOMACH IN THE MORNING ORALLY ONCE A DAY, NOTES: 03/17/19 TAKING EFFEXOR XR 75 MGS CAPSULE EXTENDED RELEASE 24 HOUR 1 CAPSULE WITH FOOD ORALLY DAILY, NOTES: 03/17/19 TAKING ULORIC 40 MG TABLET 1 TABLET ORALLY --, NOTES: 3 DAYS AGO TAKING PREVACID 30 MG CAPSULE DELAYED RELEASE TAKE ONE CAPSULE BY MOUTH EVERY DAY BEFORE A MEAL , NOTES: 03/17/19 TAKING MAGNESIUM CITRATE - SOLUTION 150 ML ORALLY DAILY NEEDED, NOTES: TAKING DRISDOL 38853 UNIT CAPSULE 1 CAPSULE ORALLY WEEKLY, NOTES: FRIDAY TAKING CALCITRIOL 0.25 MCG CAPSULE 1 CAPSULE ORALLY ONCE A DAY, M,,F, NOTES: 03/17/19 TAKING CLOBETASOL PROPIONATE 0.05 % CREAM 1 APPLICATION TO AFFECTED AREA EXTERNALLY AFFECTED AREAS ON BODY ECZEMA TWICE A DAY, NOTES: NONE LATELY TAKING ECHINACEA 400 MG CAPSULE 4 CAPSULES ORALLY THREE TIMES A DAY FOR 2-4 DAYS ON ONSET OF COLD SYMPTOMS, NOTES: 03/17/19 TAKING CUTIVATE 0.05 % CREAM ARMS AND LEGS EXTERNALLY ONCE A DAY NEEDED, NOTES: NONE LATELY TAKING BIOTIN 5000 MCG CAPSULE 1 CAPSULE ORALLY ONCE A DAY, NOTES: 03/17/19 TAKING AREDS OTC AREDS2- 1 CAP ORALLY TWICE DAILY, NOTES: 03/17/19 TAKING SYSTANE 0.4-0.3 % SOLUTION DIRECTED OPHTHALMIC , NOTES: 03/16/19 TAKING VANICREAM - CREAM DIRECTED EXTERNALLY AFTER SHOWER, NOTES: NONE LATELY TAKING GLUCOMETER DIRECTED ONE TOUCH ULTRA DX.E11.65, TEST ONCE DAILY TAKING ONE TOUCH ULTRA BLUE STRIPS DIRECTED - ONE TOUCH ULTRA TEST STRIPS, DXE11.65 TEST ONCE DAILY TAKING LANCETS - MISCELLANEOUS DIRECTED ONE TOUCH ULTRA DX. E11.65 , TEST ONCE DAILY TAKING FLOMAX 0.4 MG CAPSULE TAKE ONE CAPSULE BY MOUTH ONCE A DAY , NOTES: 03/17/19 TAKING TRAMADOL HCL 50 MG TABLET 1 TABLET ORALLY, WORKER'S COMPENSATION THREE TIMES A DAY NEEDED, MDD=3, NOTES: 03/17/19 TAKING LORATADINE 10 MG TABLET 1 TABLET ORALLY ONCE A DAY, NOTES: NONE LATELY TAKING DIPHENHYDRAMINE . 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 HYPERLIPIDEMIA HYPOTHYROIDISM--CENTRAL ( FOLLOW FREE T4, NOT TSH) HYPERTENSION BPH PEYRONIE'S DISEASE ALLERGIES DDD/DJD LOW BACK L/S SPINAL STENOSIS PLASMA CELL GRANULOMA RLL STRESS TEST 2008 VIT D DEFICIENCY ZOSTAVAX 09/17 RT 7TH RIB FX (FALL 06/18, CAT-RELATED) GOUT RT GREAT TOE 11/20 COLOGUARD: NEGATIVE PRE-CANCER LESIONS REMOVED FROM BILAT EARS ALLERGIES ZANTAC: CONSTIPATION - SIDE EFFECTS NSAIDS: ELEV BUN, CREAT - SIDE EFFECTS PENICILLIN: HIVES - ALLERGY SURGICAL HISTORY T + A 1947 APPENDECTOMY 1949 TURMyriam BRAMBILA 2002 RIGHT SHOULDER REPAIR / 1989 RIGHT LOWER LUNG REMOVAL OF ABSCESS/ 2004 BILATERAL BLEPHAROPLASTY/ 2006 EGD/COLONOSCOPY 2007 RIGHT EYE CATARACT SURGERY 11/2012 CYSTOSCOPY 10/21/[address] JOHNSON TOENAIL 04/25 FAMILY HISTORY FATHER: , HYPERTENSION, DIAGNOSED WITH HYPERTENSION MOTHER: , DIABETES, TYPE II, DIABETES SIBLINGS: BROTHER:DIABETES, TYPE II, BLADDER CA, DIABETES, OTHER MALIGNANT NEOPLASM OF UNSPECIFIED SITE DAUGHTER(S): DEPRESSION, UNSPECIFIED NONPSYCHOTIC MENTAL DISORDER FOLLOWING ORGANIC BRAIN DAMAGE PATERNAL GRAND FATHER: DIABETES, TYPE II, DIABETES REVIEWED, NO CHANGES. SOCIAL HISTORY GENERAL: TOBACCO USE ARE YOU A:FORMER SMOKER FORMER CIGAR SMOKER HOW LONG HAS IT BEEN SINCE YOU LAST SMOKED?1-5 YEARS ADDITIONAL FINDINGS: TOBACCO USERCIGAR SMOKER HIV / HEP-C SCREENING HIV TEST OFFERED TO PATIENT:YES DATE OFFERED:07/05/2016 TEST ACCEPTED:NO HEP-C TEST OFFERED TO PATIENT:NO REASON:PATIENT DECLINED OTHERS AT HOME: SPOUSE. EDUCATION LEVEL OF EDUCATION:FINISHED HIGH SCHOOL DIET: LOW FAT, LOW CHOLESTEROL, LOW SODIUM, LOW POTASSIUM. LANGUAGE LANGUAGES SPOKEN:MACEDONIAN DOMESTIC VIOLENCE DO YOU FEEL SAFE IN YOUR ENVIRONMENT?YES RECREATIONAL DRUG USE DRUG USE?NO EXERCISE: NONE. LEARNING BARRIERS / SPECIAL NEEDS CHANGE FROM LAST VISIT?NO BARRIERS TO LEARNING?NO HEARING IMPAIRED?YES VISION IMPAIRED?YES COGNITIVELY IMPAIRED?NO :HEARING AIDES :CORRECTIVE LENSES READINESS TO LEARN?YES LEARNING PREFERENCES?NO LEARNING CAPABILITIES PRESENT?YES EMOTIONAL BARRIERS?NO SPECIAL DEVICES?NO SUPERVISOR FISH BAIT PROCESSING NEEDED?NO LUNG CANCER SCREENING SMOKING STATUS:FORMER SMOKER IS THE PATIENT BETWEEN THE AGE OF 54 AND 76?NO PAIN CLINIC PFS, CLERGY, PUBLIC HEALTH REFERRALS HAS THE PATIENT BEEN EDUCATED REGARDING HIS/HER PLAN OF CARE?YES HAS THE PATIENT BEEN EDUCATED REGARDING PAIN, THE RISK FOR PAIN, THE IMPORTANCE OF EFFECTIVE PAIN MANAGEMENT, AND THE PAIN ASSESSMENT PROCESS?YES LATEX QUESTIONNAIRE LATEX ALLERGY : HAVE YOU EVER DEVELOPED ANY TYPE OF REACTION AFTER HANDLING LATEX PRODUCTS SUCH RUBBER GLOVES, CONDOMS, DIAPHRAGMS, BALLOONS, SOCKS, OR UNDERWEAR?NO LATEX ALLERGY : HAVE YOU EVER DEVELOPED ANY TYPE OF REACTION DURING OR AFTER DENTAL APPOINTMENT, VAGINAL/RECTAL EXAMINATION, SURGICAL PROCEDURE, OR ANY OTHER EXPOSURE?NO DATE ASKED : 11/09/2018 LATEX RISK : HAVE YOU EVER HAD ANY DIFFICULTY BREATHING OR HIVES AFTER EATING OR HANDLING ANY FRUITS, OR VEGETABLES; SUCH KIWI, BANANAS, STONE FRUITS, OR CHESTNUTSNO LATEX RISK : DO YOU HAVE A PREVIOUS PERSONAL HISTORY OF MORE THAN NINE SURGERIES, SPINA BIFIDA, OR REPEATED CATHERIZATIONS? NO LATEX RISK : ARE YOU FREQUENTLY EXPOSED TO LATEX PRODUCTS IN YOUR OCCUPATION?NO CAFFEINE CAFFEINE USE?NO ADVANCE DIRECTIVE ADVANCE DIRECTIVE DISCUSSED WITH PATIENT:YES HCP IS ANIL LEACH [phone] JEW [id number] UNITARIAN NO MANDAEISM BELIEFS THAT WOULD IMPACT HEALTH CARE. MARITAL STATUS: --ANIL. ALCOHOL SCREENING DID YOU HAVE A DRINK CONTAINING ALCOHOL IN THE PAST YEAR?NO POINTS0 INTERPRETATIONNEGATIVE OCCUPATION: RETIRED. SEXUAL HX HAD SEX IN THE LAST 12 MONTHS (VAGINAL, ORAL, OR ANAL)?NO HAVE YOU EVER HAD AN STD?NO REVIEWED WITH PATIENT 07/27/18 1224 BV REVIEWED WITH PT 01/12/19 1323 NLPRESCREENING 03-09-19 KEG REVIEWED WITH PATIENT 04/12/2019 LAS. HOSPITALIZATION/MAJOR DIAGNOSTIC PROCEDURE SURGERY RELATED PNEUMONIA 1974 REVIEW OF SYSTEMS REVIEWED BY: PROVIDER: NOMI PARDO LEAD MANUFACTURING ENGINEERING TECH-Enzo . CONSTITUTIONAL: ANY CHANGE IN YOUR MEDICAL CONDITION? NO . CHILLS NO . FEVER NO . INFECTION: DO YOU HAVE NEW INFECTIONS? NO . DO YOU HAVE HISTORY OF MRSA? NO . MUSCULOSKELETAL: ANY NEW PATTERNS OF PAIN OR NUMBNESS? NO . GASTROENTEROLOGY: ANY NEW CHANGE IN BOWEL CONTROL? NO . GENITOURINARY: ANY NEW CHANGE IN BLADDER CONTROL? NO . IS THERE A CHANCE YOU COULD BE ? NO . HEMATOLOGY/LYMPH: DO YOU TAKE ANY BLOOD THINNERS? (FOR EXAMPLE- COUMADIN, PLAVIX, AGGRENOX, PLATEL, PRADAXA, OR XARELTO) NO . WHEN WAS YOUR LAST DOSE? DATE: TIME: . NEUROLOGY: HAVE YOU FALLEN IN THE PAST 12 MONTHS? YES PT REPORTS HE FELL LAST FALL, ALREADY REPORTED. . ANY NEW EXTREMITY NUMBNESS OR WEAKNESS? NO . CARDIOLOGY: DO YOU HAVE A PACEMAKER OR DEFIBRILLATOR? NO . RESPIRATORY: HAVE YOU BEEN SICK IN THE PAST WEEK? NO . FEVER NO . FLU LIKE SYMPTOMS? NO . COUGH NO . INTEGUMENTARY: DO YOU HAVE ANY RASHES OR OPEN SORES? NO . ALLERGIC/IMMUNO: ARE YOU ALLERGIC TO IV DYE? NO . ANY NEW ALLERGIES? NO . PSYCHIATRIC: DO YOU HAVE THOUGHTS OF HURTING YOURSELF OR SOMEONE ELSE? NO . ARE YOU ABUSED, NEGLECTED, OR IN AN UNSAFE ENVIRONMENT? NO . ENDOCRINOLOGY: ARE YOU DIABETIC? NO . OTHER: DO YOU NEED ANY PRESCRIPTIONS? NO . IF YES, PLEASE LIST: ____ . ANY NEW PROBLEMS WITH YOUR MEDICATIONS? NO . WHEN DID YOU LAST EAT? ____ . WHEN DID YOU LAST DRINK? ____ . WHAT DID YOU LAST DRINK? ____ . NAME OF PERSON DRIVING YOU HOME? ____ . DO YOU HAVE ANY OTHER QUESTIONS OR CONCERNS NO . VITAL SIGNS WT 168.2 LBS, HT 67.5 IN, BMI 25.95 INDEX, BP 139/83 MM HG, HR 75 /MIN, RR 18 /MIN, TEMP 96.1 F, OXYGEN SAT % 98%, SAFE IN ENV? (Y/N) YES, REVIEWED BY: AKIKO. EXAMINATION GENERAL EXAMINATION: GENERALNO ACUTE DISTRESS, WELL NOURISHED AND HYDRATED. PSYCHAPPROPRIATE MOOD AND AFFECT . LUNGS:CLEAR TO AUSCULTATION BILATERALLY, NO WHEEZES, RHONCHI, RALES. HEART:NO MURMURS, REGULAR RATE AND RHYTHM. ASSESSMENTS INTERVERTEBRAL DISC DISORDER WITH RADICULOPATHY OF LUMBAR REGION - M51.16 (PRIMARY) TREATMENT INTERVERTEBRAL DISC DISORDER WITH RADICULOPATHY OF LUMBAR REGION CLINICAL NOTES: 84-YEAR-OLD MALE IN FOR POST LESI FOLLOW-UP. GIVEN PRESENTING SYMPTOMS AND RESULTS OF PHYSICAL EXAMINATION RECOMMENDED FOLLOW-UP IN ONE MONTH. PATIENT WILL CALL SHOULD HE FEEL THE APPOINTMENT HAS NOT NEEDED. PATIENT HAS EXPRESSED UNDERSTANDING OF AND WAS IN AGREEMENT WITH TREATMENT PLAN. GIVEN TIME TO ASK QUESTIONS AND EXPRESS CONCERNS. PROCEDURE CODES FA211 ESTABILISHED PATIENT [facility] CHARGE DISPOSITION & COMMUNICATION FOLLOW UP 4 WEEKS (REASON: LOW BACK PAIN) ELECTRONICALLY SIGNED BY SOFÍA BARRON ON 04/13/2019 AT 09:22 AM EST DISCLAIMER : THIS IS A VISIT SUMMARY EXTRACTED FROM THE [employer] CHART. IT IS NOT A COPY OF THE [employer] PROGRESS NOTE. AUBREY
== END ==
LOC: M PAIN 10:15
PROVIDERS: ATTEND Family Medicine
DX: M51.16 Intervertebral disc disorders with radiculopathy, lumbar region (principal)

== ENCOUNTER → 2019-05-12 | Outpatient (CLI) | payer OTHER ==
--- NOTE | 2019-05-13 23:55 | ECWPNPC ---
PATIENT NAME: FERMIN LEACH : 1935 GENDER: MALE VISIT DATE: 05/12/2019 DISCHARGE DATE: 05/12/19 1213 VISIT LOCKED DATE TIME: PHYSICIAN: HOLLIE PARDO RESOURCE: HOLLIE PARDO REASON FOR APPOINTMENT 1. W/C LOW BACK HISTORY OF PRESENT ILLNESS HISTORY OF PRESENT ILLNESS: PAIN THE PATIENT DESCRIBES THE PAIN... 84 YEAR OLD MALE IN FOR WORKERS COMP CHORNIC PAIN FOLLOW UP. HE RATES HIS PAIN AT A 5/10 CURRENTLY AND DESCRIBES IT ACHING, SORE, AND TENDER. HE WOULD LIKE TO DISCUSS A REPEAT LESI HIS PAIN IS STARTING TO RETURN. 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 THE PATIENT STATES HE WAS BENT OVER TO FEED STRAPS THROUGH THE MACHINE AND WHEN HE STRAIGHTENED UP, HIS BACK POPPED OUT AND HE HAD DIFFICULTY MOVING AFTERWARD. THE PATIENT SAYS HIS PAIN BEGINS IN HIS LOW BACK AND RADIATES DOWN BOTH LEGS, BUT HIS RIGHT LEG IS AFFECTED MORE. THE PATIENT RECEIVED A L5-S1 LUMBAR EPIDURAL STEROID INJECTION ON03/18/19, WHICH HE SAYS THE INJECTION HAS IMPROVED HIS CONDITION BY MORE THAN 50 PERCENT, WITH INCREASED FUNCTIONALITY AND MOBILITY. FALL RISK SCREENING: SCREENING :NO FALLS REPORTED IN THE LAST YEAR CURRENT MEDICATIONS TAKING COREG 3.125MG TABLET ORAL BID TAKING TORSEMIDE 20 MG TABLET 1 TABLET ORALLY ONCE A DAY MAY USE IF THERE IS A 3# WT. GAIN TAKING OMEGA 3 1000 MG CAPSULE 1 CAPSULE ORALLY TWICE DAILY TAKING LEVOTHYROXINE SODIUM 112 MCG TABLET 1 TABLET ON AN EMPTY STOMACH IN THE MORNING ORALLY ONCE A DAY TAKING EFFEXOR XR 75 MGS CAPSULE EXTENDED RELEASE 24 HOUR 1 CAPSULE WITH FOOD ORALLY DAILY TAKING ULORIC 40 MG TABLET 1 TABLET ORALLY -- TAKING MAGNESIUM CITRATE - SOLUTION 150 ML ORALLY DAILY NEEDED TAKING DRISDOL 73050 UNIT CAPSULE 1 CAPSULE ORALLY WEEKLY TAKING CALCITRIOL 0.25 MCG CAPSULE 1 CAPSULE ORALLY ONCE A DAY, M,W,F TAKING CLOBETASOL PROPIONATE 0.05 % CREAM 1 APPLICATION TO AFFECTED AREA EXTERNALLY AFFECTED AREAS ON BODY ECZEMA TWICE A DAY TAKING ECHINACEA 400 MG CAPSULE 4 CAPSULES ORALLY THREE TIMES A DAY FOR 2-4 DAYS ON ONSET OF COLD SYMPTOMS TAKING CUTIVATE 0.05 % CREAM ARMS AND LEGS EXTERNALLY ONCE A DAY NEEDED TAKING BIOTIN 5000 MCG CAPSULE 1 CAPSULE ORALLY ONCE A DAY TAKING AREDS OTC AREDS2- 1 CAP ORALLY TWICE DAILY TAKING SYSTANE 0.4-0.3 % SOLUTION DIRECTED OPHTHALMIC TAKING VANICREAM - CREAM DIRECTED EXTERNALLY AFTER SHOWER TAKING GLUCOMETER DIRECTED ONE TOUCH ULTRA DX.E11.65, TEST ONCE DAILY TAKING ONE TOUCH ULTRA BLUE STRIPS DIRECTED - ONE TOUCH ULTRA TEST STRIPS, DXE11.65 TEST ONCE DAILY TAKING LANCETS - MISCELLANEOUS DIRECTED ONE TOUCH ULTRA DX. E11.65 , TEST ONCE DAILY TAKING FLOMAX 0.4 MG CAPSULE TAKE ONE CAPSULE BY MOUTH ONCE A DAY TAKING TRAMADOL HCL 50 MG TABLET 1 TABLET ORALLY, WORKER'S COMPENSATION THREE TIMES A DAY NEEDED, MDD=3 TAKING LORATADINE 10 MG TABLET 1 TABLET ORALLY ONCE A DAY TAKING DIPHENHYDRAMINE . 1 25MG 1 TAB ORAL 2-3 YUNI DAILY NEEDED USE WHEN ALLERGIES ARE BOTHERING HIM TAKING ASPIRIN 81 MG OTC 1 TAB(S) ORALLY DAILY TAKING LIPITOR 40 MG TABLET TAKE ONE TABLET BY MOUTH DAILY TAKING PREVACID 30 MG CAPSULE DELAYED RELEASE TAKE ONE CAPSULE BY MOUTH EVERY DAY BEFORE A MEAL TAKING FLUTICASONE PROPIONATE 0.05 % CREAM 1 APPLICATION EXTERNALLY ONCE A DAY TAKING ASPIR-LOW 81 MG TABLET DELAYED RELEASE DIRECTED ORALLY NOT-TAKING MIRALAX - POWDER 2 TABLESPOON ORALLY DAILY NEEDED, NOTES: NONE LATELY NOT-TAKING MOVANTIK 12.5 MG TABLET 1 TABLET IN THE MORNING ORALLY ONCE A DAY NEEDED, NOTES: NONE LATELY MEDICATION LIST REVIEWED AND RECONCILED WITH THE PATIENT PAST MEDICAL HISTORY 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 HYPERLIPIDEMIA HYPOTHYROIDISM--CENTRAL ( FOLLOW FREE T4, NOT TSH) HYPERTENSION BPH PEYRONIE'S DISEASE ALLERGIES DDD/DJD LOW BACK L/S SPINAL STENOSIS PLASMA CELL GRANULOMA RLL 4 STRESS TEST 2008 VIT D DEFICIENCY ZOSTAVAX 09/17 RT 7TH RIB FX (FALL 06/18, CAT-RELATED) GOUT RT GREAT TOE 11/20 COLOGUARD: NEGATIVE PRE-CANCER LESIONS REMOVED FROM BILAT EARS ALLERGIES ZANTAC: CONSTIPATION - SIDE EFFECTS NSAIDS: ELEV BUN, CREAT - SIDE EFFECTS PENICILLIN: HIVES - ALLERGY SURGICAL HISTORY T + A 1947 APPENDECTOMY 1949 TURP 2002 RIGHT SHOULDER REPAIR / 1989 RIGHT LOWER LUNG REMOVAL OF ABSCESS/ 2004 BILATERAL BLEPHAROPLASTY/ 2006 EGD/COLONOSCOPY 2007 RIGHT EYE CATARACT SURGERY 11/2012 CYSTOSCOPY 10/21/[address] LEFT EYE CAT[address]ERY [address]. JOHNSON TOENAIL 04/25 BACK SKIN BX 04/2019 FAMILY HISTORY FATHER: , HYPERTENSION, DIAGNOSED WITH HYPERTENSION MOTHER: , DIABETES, TYPE II, DIABETES SIBLINGS: BROTHER:DIABETES, TYPE II, BLADDER CA, DIABETES, OTHER MALIGNANT NEOPLASM OF UNSPECIFIED SITE DAUGHTER(S): DEPRESSION, UNSPECIFIED NONPSYCHOTIC MENTAL DISORDER FOLLOWING ORGANIC BRAIN DAMAGE PATERNAL GRAND FATHER: DIABETES, TYPE II, DIABETES REVIEWED, NO CHANGES. SOCIAL HISTORY GENERAL: TOBACCO USE ARE YOU A:FORMER SMOKER FORMER CIGAR SMOKER HOW LONG HAS IT BEEN SINCE YOU LAST SMOKED?1-5 YEARS ADDITIONAL FINDINGS: TOBACCO USERCIGAR SMOKER HIV / HEP-C SCREENING HIV TEST OFFERED TO PATIENT:YES DATE OFFERED:07/05/2016 TEST ACCEPTED:NO HEP-C TEST OFFERED TO PATIENT:NO REASON:PATIENT DECLINED OTHERS AT HOME: SPOUSE. EDUCATION LEVEL OF EDUCATION:FINISHED HIGH SCHOOL DIET: LOW FAT, LOW CHOLESTEROL, LOW SODIUM, LOW POTASSIUM. LANGUAGE LANGUAGES SPOKEN:KHMER DOMESTIC VIOLENCE DO YOU FEEL SAFE IN YOUR ENVIRONMENT?YES RECREATIONAL DRUG USE DRUG USE?NO EXERCISE: NONE. LEARNING BARRIERS / SPECIAL NEEDS CHANGE FROM LAST VISIT?NO BARRIERS TO LEARNING?NO HEARING IMPAIRED?YES VISION IMPAIRED?YES COGNITIVELY IMPAIRED?NO :HEARING AIDES :CORRECTIVE LENSES READINESS TO LEARN?YES LEARNING PREFERENCES?NO LEARNING CAPABILITIES PRESENT?YES EMOTIONAL BARRIERS?NO SPECIAL DEVICES?NO CURRICULUM MANAGER NEEDED?NO LUNG CANCER SCREENING SMOKING STATUS:FORMER SMOKER IS THE PATIENT BETWEEN THE AGE OF 54 AND 76?NO PAIN CLINIC PFS, CLERGY, PUBLIC HEALTH REFERRALS HAS THE PATIENT BEEN EDUCATED REGARDING HIS/HER PLAN OF CARE?YES HAS THE PATIENT BEEN EDUCATED REGARDING PAIN, THE RISK FOR PAIN, THE IMPORTANCE OF EFFECTIVE PAIN MANAGEMENT, AND THE PAIN ASSESSMENT PROCESS?YES LATEX QUESTIONNAIRE LATEX ALLERGY : HAVE YOU EVER DEVELOPED ANY TYPE OF REACTION AFTER HANDLING LATEX PRODUCTS SUCH RUBBER GLOVES, CONDOMS, DIAPHRAGMS, BALLOONS, SOCKS, OR UNDERWEAR?NO LATEX ALLERGY : HAVE YOU EVER DEVELOPED ANY TYPE OF REACTION DURING OR AFTER DENTAL APPOINTMENT, VAGINAL/RECTAL EXAMINATION, SURGICAL PROCEDURE, OR ANY OTHER EXPOSURE?NO DATE ASKED : 11/09/2018 LATEX RISK : HAVE YOU EVER HAD ANY DIFFICULTY BREATHING OR HIVES AFTER EATING OR HANDLING ANY FRUITS, OR VEGETABLES; SUCH KIWI, BANANAS, STONE FRUITS, OR CHESTNUTSNO LATEX RISK : DO YOU HAVE A PREVIOUS PERSONAL HISTORY OF MORE THAN NINE SURGERIES, SPINA BIFIDA, OR REPEATED CATHERIZATIONS? NO LATEX RISK : ARE YOU FREQUENTLY EXPOSED TO LATEX PRODUCTS IN YOUR OCCUPATION?NO CAFFEINE CAFFEINE USE?NO ADVANCE DIRECTIVE ADVANCE DIRECTIVE DISCUSSED WITH PATIENT:YES HCP IS ANIL LEACH [phone] CHURCH [id number] UNITARIAN NO BAPTIST BELIEFS THAT WOULD IMPACT HEALTH CARE. MARITAL STATUS: --ANIL. ALCOHOL SCREENING DID YOU HAVE A DRINK CONTAINING ALCOHOL IN THE PAST YEAR?NO POINTS0 INTERPRETATIONNEGATIVE OCCUPATION: RETIRED. SEXUAL HX HAD SEX IN THE LAST 12 MONTHS (VAGINAL, ORAL, OR ANAL)?NO HAVE YOU EVER HAD AN STD?NO REVIEWED WITH PATIENT 07/27/18 1224 BV REVIEWED WITH PT 01/12/19 1323 NLPRESCREENING 03-09-19 KEG REVIEWED WITH PATIENT 04/12/2019 LAS. HOSPITALIZATION/MAJOR DIAGNOSTIC PROCEDURE SURGERY RELATED PNEUMONIA 1974 REVIEW OF SYSTEMS REVIEWED BY: PROVIDER: NOMI PARDO EVENT MARKETING INTERN-C . CONSTITUTIONAL: ANY CHANGE IN YOUR MEDICAL CONDITION? NO . CHILLS NO . FEVER NO . INFECTION: DO YOU HAVE NEW INFECTIONS? NO . DO YOU HAVE HISTORY OF MRSA? NO . MUSCULOSKELETAL: ANY NEW PATTERNS OF PAIN OR NUMBNESS? NO . GASTROENTEROLOGY: ANY NEW CHANGE IN BOWEL CONTROL? NO . GENITOURINARY: ANY NEW CHANGE IN BLADDER CONTROL? NO . IS THERE A CHANCE YOU COULD BE ? NO . HEMATOLOGY/LYMPH: DO YOU TAKE ANY BLOOD THINNERS? (FOR EXAMPLE- COUMADIN, PLAVIX, AGGRENOX, PLATEL, PRADAXA, OR XARELTO) NO . WHEN WAS YOUR LAST DOSE? DATE: TIME: . NEUROLOGY: HAVE YOU FALLEN IN THE PAST 12 MONTHS? YES, PRIOR TO LAST VISIT . ANY NEW EXTREMITY NUMBNESS OR WEAKNESS? NO . CARDIOLOGY: DO YOU HAVE A PACEMAKER OR DEFIBRILLATOR? NO . RESPIRATORY: HAVE YOU BEEN SICK IN THE PAST WEEK? NO . FEVER NO . FLU LIKE SYMPTOMS? NO . COUGH NO . INTEGUMENTARY: DO YOU HAVE ANY RASHES OR OPEN SORES? YES, HEALING INCISION TO BACK . ALLERGIC/IMMUNO: ARE YOU ALLERGIC TO IV DYE? NO . ANY NEW ALLERGIES? NO . PSYCHIATRIC: DO YOU HAVE THOUGHTS OF HURTING YOURSELF OR SOMEONE ELSE? NO . ARE YOU ABUSED, NEGLECTED, OR IN AN UNSAFE ENVIRONMENT? NO . ENDOCRINOLOGY: ARE YOU DIABETIC? YES . OTHER: DO YOU NEED ANY PRESCRIPTIONS? YES, TRAMADOL? . IF YES, PLEASE LIST: ____ . ANY NEW PROBLEMS WITH YOUR MEDICATIONS? NO . WHEN DID YOU LAST EAT? ____ . WHEN DID YOU LAST DRINK? ____ . WHAT DID YOU LAST DRINK? ____ . NAME OF PERSON DRIVING YOU HOME? ____ . DO YOU HAVE ANY OTHER QUESTIONS OR CONCERNS WHAT IS MY TX PLAN MOVING FORWARD? . VITAL SIGNS WT 168 LBS, HT 67.5 IN, BMI 25.92 INDEX, BP 135/60 MM HG, HR 73 /MIN, RR 16 /MIN, TEMP 97.8 F, OXYGEN SAT % 97, REVIEWED BY: ANKIT. EXAMINATION GENERAL EXAMINATION: GENERALNO ACUTE DISTRESS, WELL NOURISHED AND HYDRATED. PSYCHAPPROPRIATE MOOD AND AFFECT . LUNGS:CLEAR TO AUSCULTATION BILATERALLY, NO WHEEZES, RHONCHI, RALES. HEART:NO MURMURS, REGULAR RATE AND RHYTHM. BACK:POINT TENDER ALONG LUMBAR SPINE, SURROUNDING SKIN SHOWS NO ERYTHEMA, ECCHYMOSIS, INCREASED WARMTH, AND/OR SKIN ERUPTIONS NOTED. . MUSCULOSKELETAL:WEAKNESS OF THE LEFT LLE NOTED. RLE WNL . ASSESSMENTS INTERVERTEBRAL DISC DISORDER WITH RADICULOPATHY OF LUMBOSACRAL REGION - M51.17 (PRIMARY) TREATMENT INTERVERTEBRAL DISC DISORDER WITH RADICULOPATHY OF LUMBOSACRAL REGION NOTES: LESI L5-S1. CLINICAL NOTES: 84-YEAR-OLD MALE IN FOR CHRONIC PAIN FOLLOW-UP. GIVEN PRESENTING SYMPTOMS AND RESULTS OF PHYSICAL EXAMINATION RECOMMENDED LESI L5-S1 WITH POSTPROCEDURAL FOLLOW-UP. PATIENT HAS EXPRESSED UNDERSTANDING OF AND WAS IN AGREEMENT WITH TREATMENT PLAN. GIVEN TIME TO ASK QUESTIONS AND EXPRESS CONCERNS., ISTOP REGISTRY REVIEWED AND DEMONSTRATES COMPLLIANCE. (REF # [id number] ) BRINGS IN MEDICATIONS WHICH IS APPROPRIATE FOR WHAT WAS DISPENSED. RECENT URINE TOXICOLOGY REVIEWED. NO UNAUTHORIZED MEDICATIONS. NO ILLICIT SUBSTANCES AND PRESCRIBED MEDICATIONS WERE PRESENT. PROCEDURES PN WORKMANS' COMP OPINION IN YOUR OPINION, WAS THE INCIDENT THAT THE PATIENT DESCRIBED THE COMPETENT MEDICAL CAUSE OF THIS INJURY/ILLNESS? YES ARE THE PATIENT'S COMPLAINTS CONSISTENT WITH HIS/HER HISTORY OF THE INJURY/ILLNESS? YES IS THE PATIENT'S HISTORY OF THE INJURY/ILLNESS CONSISTENT WITH YOUR OBJECTIVE FINDING? YES WHAT IS THE PERCENTAGE OF TEMPORARY IMPAIRMENT? MODERATE TO MARKED = 66.7% IS THE PATIENT WORKING? NO DOCTOR ON SITE: LALITA GIRON MD PROCEDURE CODES FA211 ESTABILISHED PATIENT [facility] CHARGE DISPOSITION & COMMUNICATION FOLLOW UP POSTPROCEDURE (REASON: LESI L5-S1) ELECTRONICALLY SIGNED BY SOFÍA BARRON ON 05/13/2019 AT 08:49 AM EST DISCLAIMER : THIS IS A VISIT SUMMARY EXTRACTED FROM THE [employer] CHART. IT IS NOT A COPY OF THE [employer] PROGRESS NOTE. AUBREY
== END ==
LOC: M PAIN 11:30
PROVIDERS: ATTEND Family Medicine
DX: M51.17 Intervertebral disc disorders with radiculopathy, lumbosacral region (principal); G89.29 Other chronic pain; E11.9 Type 2 diabetes mellitus without complications; E78.5 Hyperlipidemia, unspecified; E03.9 Hypothyroidism, unspecified; I10 Essential (primary) hypertension; E55.9 Vitamin D deficiency, unspecified; F17.290 Nicotine dependence, other tobacco product, uncomplicated; Z88.0 Allergy status to penicillin; Z88.6 Allergy status to analgesic agent; Z88.8 Allergy status to other drugs, medicaments and biological substances; Z79.82 Long term (current) use of aspirin; Z79.899 Other long term (current) drug therapy

== ENCOUNTER → 2019-06-22 | Outpatient (CLI) | payer OTHER ==
[~2019-06-22] MED LIST changes: +ISOVUE-M 300 61% 15ML VIAL (Q9967) As Ordered ONE; +LIDOCAINE 1% SDV INJ 30 ML VIAL As Ordered ONE; +diazePAM 2 MG TAB As Ordered ONE; +methylPREDNISolone SUSP 40 MG/ML (DEPO-medrol) VIAL (J1030) As Ordered ONE
--- NOTE | 2019-06-22 16:30 | REP ---
Partial lumbar spine series: Three views . History: Injection procedure for pain. 10 seconds of fluoroscopy time is reported. Findings: A sequence of three fluoroscopically obtained last image hold procedural spot radiographs of the lumbar spine document needle position and contrast injection associated with injection procedure. Electronically Signed by Lester Kauffman MD 06/22/2019 04:21 P
--- NOTE | 2019-07-02 02:59 | ECWPNPC ---
PATIENT NAME: FERMIN LEACH : 1935 GENDER: MALE VISIT DATE: 06/22/2019 DISCHARGE DATE: 06/22/19 1551 VISIT LOCKED DATE TIME: PHYSICIAN: LALITA MIDDLETON MD RESOURCE: LALITA MIDDLETON MD REASON FOR APPOINTMENT 1. W/C LESI L4-L5 HISTORY OF PRESENT ILLNESS HISTORY OF PRESENT ILLNESS: PAIN THE PATIENT DESCRIBES THE PAIN... FALL RISK SCREENING: SCREENING :NO FALLS REPORTED IN THE LAST YEAR CURRENT MEDICATIONS TAKING COREG 3.125MG TABLET ORAL BID, NOTES: 06/22/19699 TAKING TORSEMIDE 20 MG TABLET 1 TABLET ORALLY ONCE A DAY MAY USE IF THERE IS A 3# WT. GAIN, NOTES: 06/22/19699 TAKING OMEGA 3 1000 MG CAPSULE 1 CAPSULE ORALLY TWICE DAILY, NOTES: 2-3 DAYS TAKING LEVOTHYROXINE SODIUM 112 MCG TABLET 1 TABLET ON AN EMPTY STOMACH IN THE MORNING ORALLY ONCE A DAY, NOTES: 06/22/19699 TAKING EFFEXOR XR 75 MGS CAPSULE EXTENDED RELEASE 24 HOUR 1 CAPSULE WITH FOOD ORALLY DAILY, NOTES: 06/22/19699 TAKING ULORIC 40 MG TABLET 1 TABLET ORALLY M-W-F, NOTES: 06/21/19699 TAKING MAGNESIUM CITRATE - SOLUTION 150 ML ORALLY DAILY NEEDED, NOTES: 06/21/19699 TAKING DRISDOL 67534 UNIT CAPSULE 1 CAPSULE ORALLY WEEKLY, NOTES: 06/20/19 TAKING CALCITRIOL 0.25 MCG CAPSULE 1 CAPSULE ORALLY ONCE A DAY, M,W,F, NOTES: 06/20/19 TAKING CLOBETASOL PROPIONATE 0.05 % CREAM 1 APPLICATION TO AFFECTED AREA EXTERNALLY AFFECTED AREAS ON BODY ECZEMA TWICE A DAY, NOTES: NONE RECENTLY TAKING ECHINACEA 400 MG CAPSULE 4 CAPSULES ORALLY THREE TIMES A DAY FOR 2-4 DAYS ON ONSET OF COLD SYMPTOMS, NOTES: 06/21/191999 TAKING CUTIVATE 0.05 % CREAM ARMS AND LEGS EXTERNALLY ONCE A DAY NEEDED, NOTES: NONE RECENTLY TAKING BIOTIN 5000 MCG CAPSULE 1 CAPSULE ORALLY ONCE A DAY, NOTES: 06/22/19699 TAKING AREDS OTC AREDS2- 1 CAP ORALLY TWICE DAILY, NOTES: 06/22/19699 TAKING SYSTANE 0.4-0.3 % SOLUTION DIRECTED OPHTHALMIC , NOTES: NONE RECENTLY TAKING VANICREAM - CREAM DIRECTED EXTERNALLY AFTER SHOWER, NOTES: 06/21/19 0800 TAKING GLUCOMETER DIRECTED ONE TOUCH ULTRA DX.E11.65, TEST ONCE DAILY TAKING FLOMAX 0.4 MG CAPSULE TAKE ONE CAPSULE BY MOUTH ONCE A DAY , NOTES: 06/21/191999 TAKING TRAMADOL HCL 50 MG TABLET 1 TABLET ORALLY, WORKER'S COMPENSATION THREE TIMES A DAY NEEDED, MDD=3, NOTES: 06/22/19 0700 TAKING LORATADINE 10 MG TABLET 1 TABLET ORALLY ONCE A DAY, NOTES: NONE ARECENTLY TAKING ASPIRIN 81 MG OTC 1 TAB(S) ORALLY DAILY, NOTES: 2-3 DAYS AGO TAKING LIPITOR 40 MG TABLET TAKE ONE TABLET BY MOUTH DAILY , NOTES: 06/21/191999 TAKING PREVACID 30 MG CAPSULE DELAYED RELEASE TAKE ONE CAPSULE BY MOUTH EVERY DAY BEFORE A MEAL , NOTES: 06/22/19699 TAKING FLUTICASONE PROPIONATE 0.05 % CREAM 1 APPLICATION EXTERNALLY ONCE A DAY, NOTES: NONE RECENTLY TAKING LANCETS - MISCELLANEOUS DIRECTED ONE TOUCH ULTRA DX. E11.65 , TEST ONCE DAILY TAKING ONE TOUCH ULTRA BLUE STRIPS DIRECTED - ONE TOUCH ULTRA TEST STRIPS, DXE11.65 TEST ONCE DAILY NOT-TAKING DIPHENHYDRAMINE . 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 HYPERLIPIDEMIA HYPOTHYROIDISM--CENTRAL ( FOLLOW FREE T4, NOT TSH) HYPERTENSION BPH PEYRONIE'S DISEASE ALLERGIES DDD/DJD LOW BACK L/S SPINAL STENOSIS PLASMA CELL GRANULOMA RLL 4 STRESS TEST 2008 VIT D DEFICIENCY ZOSTAVAX 09/17 RT 7TH RIB FX (FALL 06/18, CAT-RELATED) GOUT RT GREAT TOE 11/20 COLOGUARD: NEGATIVE PRE-CANCER LESIONS REMOVED FROM BILAT EARS ALLERGIES ZANTAC: CONSTIPATION - SIDE EFFECTS NSAIDS: ELEV BUN, CREAT - SIDE EFFECTS PENICILLIN: HIVES - ALLERGY SURGICAL HISTORY T + A 1948 APPENDECTOMY 1950 TURP 2002 RIGHT SHOULDER REPAIR / 1989 RIGHT LOWER LUNG REMOVAL OF ABSCESS/ 2004 BILATERAL BLEPHAROPLASTY/ 2006 EGD/COLONOSCOPY 2007 RIGHT EYE CATARACT SURGERY 11/2012 CYSTOSCOPY 10/21/2017 LEFT EYE CATARACT SURGERY DR. JOHNSON TOENAIL 04/25 BACK SKIN BX 04/2019 FAMILY HISTORY FATHER: , HYPERTENSION, DIAGNOSED WITH HYPERTENSION MOTHER: , DIABETES, TYPE II, DIABETES SIBLINGS: BROTHER:DIABETES, TYPE II, BLADDER CA, OTHER MALIGNANT NEOPLASM OF UNSPECIFIED SITE, DIABETES DAUGHTER(S): DEPRESSION, UNSPECIFIED NONPSYCHOTIC MENTAL DISORDER FOLLOWING ORGANIC BRAIN DAMAGE PATERNAL GRAND FATHER: DIABETES, TYPE II, DIABETES REVIEWED, NO CHANGES. SOCIAL HISTORY GENERAL: TOBACCO USE ARE YOU A:FORMER SMOKER FORMER CIGAR SMOKER HOW LONG HAS IT BEEN SINCE YOU LAST SMOKED?1-5 YEARS ADDITIONAL FINDINGS: TOBACCO USERCIGAR SMOKER HIV / HEP-C SCREENING HIV TEST OFFERED TO PATIENT:YES DATE OFFERED:07/05/2016 TEST ACCEPTED:NO HEP-C TEST OFFERED TO PATIENT:NO REASON:PATIENT DECLINED OTHERS AT HOME: SPOUSE. EDUCATION LEVEL OF EDUCATION:FINISHED HIGH SCHOOL DIET: LOW FAT, LOW CHOLESTEROL, LOW SODIUM, LOW POTASSIUM. LANGUAGE LANGUAGES SPOKEN:[place] DOMESTIC VIOLENCE DO YOU FEEL SAFE IN YOUR ENVIRONMENT?YES RECREATIONAL DRUG USE DRUG USE?NO EXERCISE: NONE. LEARNING BARRIERS / SPECIAL NEEDS CHANGE FROM LAST VISIT?NO BARRIERS TO LEARNING?NO HEARING IMPAIRED?YES VISION IMPAIRED?YES COGNITIVELY IMPAIRED?NO :HEARING AIDES :CORRECTIVE LENSES READINESS TO LEARN?YES LEARNING PREFERENCES?NO LEARNING CAPABILITIES PRESENT?YES EMOTIONAL BARRIERS?NO SPECIAL DEVICES?NO COTTON BAG SEWER NEEDED?NO LUNG CANCER SCREENING SMOKING STATUS:FORMER SMOKER IS THE PATIENT BETWEEN THE AGE OF 54 AND 76?NO PAIN CLINIC PFS, CLERGY, PUBLIC HEALTH REFERRALS HAS THE PATIENT BEEN EDUCATED REGARDING HIS/HER PLAN OF CARE?YES HAS THE PATIENT BEEN EDUCATED REGARDING PAIN, THE RISK FOR PAIN, THE IMPORTANCE OF EFFECTIVE PAIN MANAGEMENT, AND THE PAIN ASSESSMENT PROCESS?YES LATEX QUESTIONNAIRE LATEX ALLERGY : HAVE YOU EVER DEVELOPED ANY TYPE OF REACTION AFTER HANDLING LATEX PRODUCTS SUCH RUBBER GLOVES, CONDOMS, DIAPHRAGMS, BALLOONS, SOCKS, OR UNDERWEAR?NO LATEX ALLERGY : HAVE YOU EVER DEVELOPED ANY TYPE OF REACTION DURING OR AFTER DENTAL APPOINTMENT, VAGINAL/RECTAL EXAMINATION, SURGICAL PROCEDURE, OR ANY OTHER EXPOSURE?NO DATE ASKED : 11/09/2018 LATEX RISK : HAVE YOU EVER HAD ANY DIFFICULTY BREATHING OR HIVES AFTER EATING OR HANDLING ANY FRUITS, OR VEGETABLES; SUCH KIWI, BANANAS, STONE FRUITS, OR CHESTNUTSNO LATEX RISK : DO YOU HAVE A PREVIOUS PERSONAL HISTORY OF MORE THAN NINE SURGERIES, SPINA BIFIDA, OR REPEATED CATHERIZATIONS? NO LATEX RISK : ARE YOU FREQUENTLY EXPOSED TO LATEX PRODUCTS IN YOUR OCCUPATION?NO CAFFEINE CAFFEINE USE?NO ADVANCE DIRECTIVE ADVANCE DIRECTIVE DISCUSSED WITH PATIENT:YES HCP IS ANIL LEACH [phone] HINDU [id number] UNITARIAN NO UATSDIN BELIEFS THAT WOULD IMPACT HEALTH CARE. MARITAL STATUS: --ANIL. ALCOHOL SCREENING DID YOU HAVE A DRINK CONTAINING ALCOHOL IN THE PAST YEAR?NO POINTS0 INTERPRETATIONNEGATIVE OCCUPATION: RETIRED. SEXUAL HX HAD SEX IN THE LAST 12 MONTHS (VAGINAL, ORAL, OR ANAL)?NO HAVE YOU EVER HAD AN STD?NO REVIEWED WITH PATIENT 07/27/18 1224 BV REVIEWED WITH PT 01/12/19 1323 NLPRESCREENING 03-09-19 KEG REVIEWED WITH PATIENT 04/12/2019 LAS. HOSPITALIZATION/MAJOR DIAGNOSTIC PROCEDURE SURGERY RELATED PNEUMONIA 1974 REVIEW OF SYSTEMS REVIEWED BY: PROVIDER: . CONSTITUTIONAL: ANY CHANGE IN YOUR MEDICAL CONDITION? NO . CHILLS NO . FEVER NO . INFECTION: DO YOU HAVE NEW INFECTIONS? NO . DO YOU HAVE HISTORY OF MRSA? NO . MUSCULOSKELETAL: ANY NEW PATTERNS OF PAIN OR NUMBNESS? YES - LEFT HIP PAIN . GASTROENTEROLOGY: ANY NEW CHANGE IN BOWEL CONTROL? NO . GENITOURINARY: ANY NEW CHANGE IN BLADDER CONTROL? NO . IS THERE A CHANCE YOU COULD BE ? NO . HEMATOLOGY/LYMPH: DO YOU TAKE ANY BLOOD THINNERS? (FOR EXAMPLE- COUMADIN, PLAVIX, AGGRENOX, PLATEL, PRADAXA, OR XARELTO) NO . WHEN WAS YOUR LAST DOSE? DATE: TIME: . NEUROLOGY: HAVE YOU FALLEN IN THE PAST 12 MONTHS? YES . ANY NEW EXTREMITY NUMBNESS OR WEAKNESS? NO . CARDIOLOGY: DO YOU HAVE A PACEMAKER OR DEFIBRILLATOR? NO . RESPIRATORY: HAVE YOU BEEN SICK IN THE PAST WEEK? NO . FEVER NO . FLU LIKE SYMPTOMS? NO . COUGH NO . INTEGUMENTARY: DO YOU HAVE ANY RASHES OR OPEN SORES? NO . ALLERGIC/IMMUNO: ARE YOU ALLERGIC TO IV DYE? NO . ANY NEW ALLERGIES? NO . PSYCHIATRIC: DO YOU HAVE THOUGHTS OF HURTING YOURSELF OR SOMEONE ELSE? NO . ARE YOU ABUSED, NEGLECTED, OR IN AN UNSAFE ENVIRONMENT? NO . ENDOCRINOLOGY: ARE YOU DIABETIC? YES . OTHER: DO YOU NEED ANY PRESCRIPTIONS? NO . IF YES, PLEASE LIST: ____ . ANY NEW PROBLEMS WITH YOUR MEDICATIONS? NO . WHEN DID YOU LAST EAT? 06/22/19 0700 . WHEN DID YOU LAST DRINK? 06/22/1999 0700 . WHAT DID YOU LAST DRINK? WATER . NAME OF PERSON DRIVING YOU HOME? ANILLOU LEACH . DO YOU HAVE ANY OTHER QUESTIONS OR CONCERNS NO . VITAL SIGNS WT 167.8 LBS, HT 67.5 IN, BMI 25.89 INDEX, BP 146/66 MM HG, HR 69 /MIN, RR 16 /MIN, TEMP 97.2 F, OXYGEN SAT % 100, REVIEWED BY: ABRAHAN. ASSESSMENTS INTERVERTEBRAL DISC DISORDERS WITH RADICULOPATHY, LUMBAR REGION - M51.16 (PRIMARY) PROCEDURES PN WORKMANS' COMP OPINION IN YOUR OPINION, WAS THE INCIDENT THAT THE PATIENT DESCRIBED THE COMPETENT MEDICAL CAUSE OF THIS INJURY/ILLNESS? YES ARE THE PATIENT'S COMPLAINTS CONSISTENT WITH HIS/HER HISTORY OF THE INJURY/ILLNESS? YES IS THE PATIENT'S HISTORY OF THE INJURY/ILLNESS CONSISTENT WITH YOUR OBJECTIVE FINDING? YES WHAT IS THE PERCENTAGE OF TEMPORARY IMPAIRMENT? MODERATE TO MARKED = 66.7% IS THE PATIENT WORKING? NO DOCTOR ON SITE: LALITA GIRON MD PRE PROCEDURE DIAGNOSIS LUMBAR SPINAL STENOSIS, LUMBAR DISC DISORDER WITH RADICULOPATHY POST PROCEDURE DIAGNOSIS LUMBAR SPINAL STENOSIS, LUMBAR DISC DISORDER WITH RADICULOPATHY PROCEDURE LUMBAR EPIDURAL STEROID INJECTION UNDER FLUOROSCOPIC GUIDANCE SURGEON DR. LALITA MIDDLETON DROP SHIPMENT CLERK NONE ANESTHESIA LOCAL PRE PROCEDURE NOTE THE PATIENT HAS A HISTORY OF CHRONIC LOW BACK PAIN. I EVALUATED THE PATIENT AND REVIEWED THE CHART. I WENT OVER THE RISKS, ALTERNATIVES, AND BENEFITS ASSOCIATED WITH THIS PROCEDURE. THE PATIENT WOULD LIKE TO PROCEED AND GIVE CONSENT TO PERFORMED THE PROCEDURE. THE PATIENT DENIES UNEXPLAINABLE WEIGHT LOSS, FEVER, CHILLS, OR NEW CHANGES IN URINARY OR BOWEL CONTROL. DESCRIPTION OF PROCEDURE THE PATIENT WAS BROUGHT TO THE PROCEDURE ROOM AND PLACED IN THE PRONE POSITION. THE LUMBOSACRAL AREA WAS CLEANED WITH BETADINE SOLUTION AND DRAPED ASEPTICALLY. THE PROCEDURE WAS DONE UNDER STERILE CONDITIONS. I CHECKED LATERALITY AND THE LEVEL WHERE THE PROCEDURE WAS GOING TO BE PERFORMED WITH THE PATIENT AND THE SUPPORTING STAFF AT THE MOMENT OF THE TIME OUT IN THE PROCEDURE ROOM. UNDER FLUOROSCOPIC GUIDANCE, THE TARGET POINT WAS SELECTED AT THE INTERLAMINAR LEVEL OF L4-L5. LIDOCAINE WAS USED TO NUMB THE SKIN AND THE SUBCUTANEOUS TISSUE BELOW IT. EPIDURAL TUOHY NEEDLE, 17-GAUGE, WAS ADVANCED UNDER FLUOROSCOPIC GUIDANCE AND FOLLOWING PATIENT FEEDBACK UNTIL THE EPIDURAL SPACE WAS REACHED, 7 CM DEEP INTO THE SKIN BY THE LOSS OF RESISTANCE TECHNIQUE. ISOVUE M DYE 30%, 0.25 ML, WAS INJECTED SHOWING ADEQUATE SPREAD OF THE DYE. THEN, A SOLUTION OF 3 ML OF NORMAL SALINE WITH DEPO-MEDROL 60 MG WAS INJECTED SLOWLY FOLLOWING PATIENT FEEDBACK. THERE WAS NO EVIDENCE OF BLOOD, PARESTHESIA OR CEREBROSPINAL FLUID DURING THE PROCEDURE. THE PATIENT WAS SENT TO THE RECOVERY ROOM. THE PATIENT WAS MOVING THE EXTREMITIES AND DOING WELL. THERE WAS NO COMPLICATION DURING THE PROCEDURE. FLUOROSCOPY TIME WAS 10 SECONDS. POST PROCEDURE NOTE THE PATIENT WILL BE SEEN IN A FOLLOW UP IN THE NEXT FEW WEEKS. I AM LOOKING FOR LONG LASTING PAIN RELIEF FOR THE PATIENT WITH THIS INJECTION. INSTRUCTIONS WERE GIVEN, QUESTIONS WERE ANSWERED, AND THE PATIENT EXPRESSED UNDERSTANDING AND AGREES WITH THE PLAN. I, RANDEE GARCIAS, DOCUMENTED THE ABOVE INFORMATION ACTING A SCRIBE FOR DR. MIDDLETON. I HAVE REVIEWED THE ABOVE DOCUMENT, WRITTEN BY RANDEE CASTANEDA AND I VERIFY THAT IT IS ACCURATE. DIAGNOSTIC IMAGING [facility] FLUORO GUIDE SPINE INJECTION (PAIN)[id number] PROCEDURE CODES 73678 LUMBAR/SACRAL W/ IMAGING 6045F RADXPS IN END [id number] PXD DISPOSITION & COMMUNICATION FOLLOW UP 2 WEEKS ELECTRONICALLY SIGNED BY LALITA MIDDLETON MD, MD ON 07/01/2019 AT 12:36 PM EDT DISCLAIMER : THIS IS A VISIT SUMMARY EXTRACTED FROM THE [employer] CHART. IT IS NOT A COPY OF THE [employer] PROGRESS NOTE. MTDD
== END ==
LOC: M PAIN 13:00
PROVIDERS: ATTEND Anesthesiology
DX: M51.16 Intervertebral disc disorders with radiculopathy, lumbar region (principal); E11.9 Type 2 diabetes mellitus without complications; E78.5 Hyperlipidemia, unspecified; E03.9 Hypothyroidism, unspecified; I10 Essential (primary) hypertension; E55.9 Vitamin D deficiency, unspecified; Z87.891 Personal history of nicotine dependence; Z88.0 Allergy status to penicillin; Z88.6 Allergy status to analgesic agent; Z88.8 Allergy status to other drugs, medicaments and biological substances; Z79.82 Long term (current) use of aspirin; Z79.899 Other long term (current) drug therapy
CPT/HCPCS: 62323; J1030; Q9967

== ENCOUNTER → 2019-06-24 | Outpatient (CLI) | payer MEDICARE, OTHER ==
[~2019-06-24] MED LIST changes: -ISOVUE-M 300 61% 15ML VIAL (Q9967) As Ordered ONE; -LIDOCAINE 1% SDV INJ 30 ML VIAL As Ordered ONE; -diazePAM 2 MG TAB As Ordered ONE; -methylPREDNISolone SUSP 40 MG/ML (DEPO-medrol) VIAL (J1030) As Ordered ONE
--- NOTE | 2019-06-26 00:41 | ECGEPIP ---
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
== END ==
LOC: M EKG 14:20
PROVIDERS: ATTEND Anesthesiology
DX: I49.9 Cardiac arrhythmia, unspecified (principal)

== ENCOUNTER → 2019-07-09 | Outpatient (CLI) | payer OTHER | LOC: M PAIN 11:45 | PROVIDERS: ATTEND Family Medicine | DX: Z53.20 Procedure and treatment not carried out because of patient's decision for unspecified reasons (principal) ==

== ENCOUNTER → 2019-07-26 | Outpatient (CLI) | payer MEDICARE, OTHER ==
[2019-07-26 12:24] LABS: HEMOGLOBIN 13.8 g/dl (13.5-17.5); MEAN CORPUSCULAR HEMOGLOBIN 32.1 pg (27.0-33.0); MEAN CORPUSCULAR HGB CONC 34.5 g/dl (32.0-36.5); PLATELET COUNT, AUTOMATED 294 10^3/uL (150-450)
[2019-07-26 12:47] LABS: ALBUMIN 3.5 GM/DL (3.2-5.2); BILIRUBIN,TOTAL 0.4 MG/DL (0.2-1.0); CALCIUM LEVEL 9.2 MG/DL (8.8-10.2); CHOLESTEROL RISK RATIO 2.056 (<5); CREATININE FOR GFR 2.54 MG/DL (0.70-1.30); GLOMERULAR FILTRATION RATE 25.8 (>35); POTASSIUM SERUM 4.4 MEQ/L (3.5-5.1); TOTAL PROTEIN 6.9 GM/DL (6.4-8.2)
[2019-07-26 12:53] LABS: HEMOGLOBIN A1c 7.3 %
== END ==
LOC: M LAB 12:02
PROVIDERS: ATTEND Family Medicine
DX: N18.4 Chronic kidney disease, stage 4 (severe) (principal); E11.40 Type 2 diabetes mellitus with diabetic neuropathy, unspecified; E78.2 Mixed hyperlipidemia

== ENCOUNTER → 2019-08-10 | Outpatient (CLI) | payer OTHER ==
[~2019-08-10] MED LIST changes: +ASPI-161 PO; +BACI1CAP PO; +BIOT1CAP PO; +CIPR-249 PO; +CIPR-250 PO; +CLOB5CR TOP; -CUTI0.053 EX; +CUTI0.053 EXT; +FEBU40TA2; +FINA5TAB2; +FINA5TAB2 PO; +MAGN1.743 PO; +OMEG100010 PO; +PRES10CA2 PO; +SYNT112T2 PO; -SYST1SOL4 OP; +SYST1SOL4 OU; -VANI1CRE5 EX; +VANI1CRE5 EXT; +VITA1CAP25; +VITA50005 PO
--- NOTE | 2019-08-12 01:03 | ECWPNPC ---
PATIENT NAME: FERMIN LEACH : 1935 GENDER: MALE VISIT DATE: 08/10/2019 DISCHARGE DATE: 08/10/19 1203 VISIT LOCKED DATE TIME: PHYSICIAN: HOLLIE PARDO RESOURCE: HOLLIE PARDO REASON FOR APPOINTMENT 1. [id number]. PAT COMPLETED HISTORY OF PRESENT ILLNESS HISTORY OF PRESENT ILLNESS: PAIN THE PATIENT DESCRIBES THE PAINDURING THE LAST MONTH SEVERITY - PAIN SCORE OF4/10 LOCATIONSLOWER BACK QUALITYACHING DURATIONINTERMITTENT PAIN IS INCREASED BY:ACTIVITIES, PROLONGED STANDING PAIN IS DECREASED BY:SITTING TRAMADOL PERMISSION REQUESTED AND RECEIVED FROM PATIENT TO PERFORM TELEHEALTH VISIT. 84-YEAR-OLD MALE IN FOR WORKER'S COMP. CHRONIC PAIN FOLLOW-UP. PATIENT HAD A RECENT LESI AND RATED HIS PAIN PREPROCEDURE AT A 4-5 OUT OF 10 AND POSTPROCEDURE AT A 2 AND HALF TO 3 OUT OF 10. HE FURTHER STATES HE FEELS LIKE IT HELPED HIS RIGHT SIDE. 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 FALL RISK SCREENING: SCREENING :NO FALLS REPORTED IN THE LAST YEAR CURRENT MEDICATIONS TAKING COREG 3.125MG TABLET ORAL BID, NOTES: 06/22/19699 TAKING TORSEMIDE 20 MG TABLET 1 TABLET ORALLY ONCE A DAY MAY USE IF THERE IS A 3# WT. GAIN, NOTES: 06/22/19699 TAKING OMEGA 3 1000 MG CAPSULE 1 CAPSULE ORALLY TWICE DAILY, NOTES: 2-3 DAYS TAKING EFFEXOR XR 75 MGS CAPSULE EXTENDED RELEASE 24 HOUR 1 CAPSULE WITH FOOD ORALLY DAILY, NOTES: 06/22/19699 TAKING ULORIC 40 MG TABLET 1 TABLET ORALLY -W-, NOTES: 06/21/19699 TAKING MAGNESIUM CITRATE - SOLUTION 150 ML ORALLY DAILY NEEDED, NOTES: 06/21/19699 TAKING DRISDOL 42819 UNIT CAPSULE 1 CAPSULE ORALLY WEEKLY, NOTES: 06/20/19 TAKING CALCITRIOL 0.25 MCG CAPSULE 1 CAPSULE ORALLY ONCE A DAY, M,W,F, NOTES: 06/20/19 TAKING CLOBETASOL PROPIONATE 0.05 % CREAM 1 APPLICATION TO AFFECTED AREA EXTERNALLY AFFECTED AREAS ON BODY ECZEMA TWICE A DAY, NOTES: NONE RECENTLY TAKING ECHINACEA 400 MG CAPSULE 4 CAPSULES ORALLY THREE TIMES A DAY FOR 2-4 DAYS ON ONSET OF COLD SYMPTOMS, NOTES: 06/21/191999 TAKING CUTIVATE 0.05 % CREAM ARMS AND LEGS EXTERNALLY ONCE A DAY NEEDED, NOTES: NONE RECENTLY TAKING BIOTIN 5000 MCG CAPSULE 1 CAPSULE ORALLY ONCE A DAY, NOTES: 06/22/19699 TAKING AREDS OTC AREDS2- 1 CAP ORALLY TWICE DAILY, NOTES: 06/22/19699 TAKING SYSTANE 0.4-0.3 % SOLUTION DIRECTED OPHTHALMIC , NOTES: NONE RECENTLY TAKING VANICREAM - CREAM DIRECTED EXTERNALLY AFTER SHOWER, NOTES: 06/21/19799 TAKING GLUCOMETER DIRECTED ONE TOUCH ULTRA DX.E11.65, TEST ONCE DAILY TAKING FLOMAX 0.4 MG CAPSULE TAKE ONE CAPSULE BY MOUTH ONCE A DAY , NOTES: 06/21/191999 TAKING TRAMADOL HCL 50 MG TABLET 1 TABLET ORALLY, WORKER'S COMPENSATION THREE TIMES A DAY NEEDED, MDD=3, NOTES: 06/22/19699 TAKING LORATADINE 10 MG TABLET 1 TABLET ORALLY ONCE A DAY, NOTES: NONE ARECENTLY TAKING ASPIRIN 81 MG OTC 1 TAB(S) ORALLY DAILY, NOTES: 2-3 DAYS AGO TAKING LIPITOR 40 MG TABLET TAKE ONE TABLET BY MOUTH DAILY , NOTES: 06/21/191999 TAKING PREVACID 30 MG CAPSULE DELAYED RELEASE TAKE ONE CAPSULE BY MOUTH EVERY DAY BEFORE A MEAL , NOTES: 06/22/19699 TAKING FLUTICASONE PROPIONATE 0.05 % CREAM 1 APPLICATION EXTERNALLY ONCE A DAY, NOTES: NONE RECENTLY TAKING LANCETS - MISCELLANEOUS DIRECTED ONE TOUCH ULTRA DX. E11.65 , TEST ONCE DAILY TAKING ONE TOUCH ULTRA BLUE STRIPS DIRECTED - ONE TOUCH ULTRA TEST STRIPS, DXE11.65 TEST ONCE DAILY TAKING LEVOTHYROXINE SODIUM 112 MCG TABLET 1 TABLET ON AN EMPTY STOMACH IN THE MORNING ORALLY ONCE A DAY TAKING PROSCAR 5 MG TABLET 1 TABLET ORALLY ONCE A DAY NOT-TAKING DIPHENHYDRAMINE . 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 HYPERLIPIDEMIA HYPOTHYROIDISM--CENTRAL ( FOLLOW FREE T4, NOT TSH) HYPERTENSION BPH PEYRONIE'S DISEASE ALLERGIES DDD/DJD LOW BACK L/S SPINAL STENOSIS PLASMA CELL GRANULOMA RLL STRESS TEST 2009 VIT D DEFICIENCY ZOSTAVAX 09/17 RT 7TH RIB FX (FALL 06/18, CAT-RELATED) GOUT RT GREAT TOE 11/20 COLOGUARD: NEGATIVE PRE-CANCER LESIONS REMOVED FROM BILAT EARS ALLERGIES ZANTAC: CONSTIPATION - SIDE EFFECTS NSAIDS: ELEV BUN, CREAT - SIDE EFFECTS PENICILLIN: HIVES - ALLERGY SURGICAL HISTORY T + A 194 APPENDECTOMY 1950 TURP 2002 RIGHT SHOULDER REPAIR / 1989 RIGHT LOWER LUNG REMOVAL OF ABSCESS/ 2004 BILATERAL BLEPHAROPLASTY/ 2006 EGD/COLONOSCOPY 2007 RIGHT EYE CATARACT SURGERY 11/2012 CYSTOSCOPY 10/21/2017 LEFT EYE CATARACT SUR[address]ERY DR. JOHNSON TOENAIL 04/25 BACK SKIN BX 04/2019 FAMILY HISTORY FATHER: , HYPERTENSION, DIAGNOSED WITH HYPERTENSION MOTHER: , DIABETES, TYPE II, DIABETES SIBLINGS: BROTHER:DIABETES, TYPE II, BLADDER CA, DIABETES, OTHER MALIGNANT NEOPLASM OF UNSPECIFIED SITE DAUGHTER(S): DEPRESSION, UNSPECIFIED NONPSYCHOTIC MENTAL DISORDER FOLLOWING ORGANIC BRAIN DAMAGE PATERNAL GRAND FATHER: DIABETES, TYPE II, DIABETES REVIEWED, NO CHANGES. SOCIAL HISTORY GENERAL: TOBACCO USE ARE YOU A:FORMER SMOKER FORMER CIGAR SMOKER HOW LONG HAS IT BEEN SINCE YOU LAST SMOKED?1-5 YEARS ADDITIONAL FINDINGS: TOBACCO USERCIGAR SMOKER LATEX QUESTIONNAIRE LATEX ALLERGY : HAVE YOU EVER DEVELOPED ANY TYPE OF REACTION AFTER HANDLING LATEX PRODUCTS SUCH RUBBER GLOVES, CONDOMS, DIAPHRAGMS, BALLOONS, SOCKS, OR UNDERWEAR?NO LATEX ALLERGY : HAVE YOU EVER DEVELOPED ANY TYPE OF REACTION DURING OR AFTER DENTAL APPOINTMENT, VAGINAL/RECTAL EXAMINATION, SURGICAL PROCEDURE, OR ANY OTHER EXPOSURE?NO DATE ASKED : 11/09/2018 LATEX RISK : HAVE YOU EVER HAD ANY DIFFICULTY BREATHING OR HIVES AFTER EATING OR HANDLING ANY FRUITS, OR VEGETABLES; SUCH KIWI, BANANAS, STONE FRUITS, OR CHESTNUTSNO LATEX RISK : DO YOU HAVE A PREVIOUS PERSONAL HISTORY OF MORE THAN NINE SURGERIES, SPINA BIFIDA, OR REPEATED CATHERIZATIONS? NO LATEX RISK : ARE YOU FREQUENTLY EXPOSED TO LATEX PRODUCTS IN YOUR OCCUPATION?NO LUNG CANCER SCREENING SMOKING STATUS:FORMER SMOKER IS THE PATIENT BETWEEN THE AGE OF 54 AND 76?NO ALCOHOL SCREENING DID YOU HAVE A DRINK CONTAINING ALCOHOL IN THE PAST YEAR?NO POINTS0 INTERPRETATIONNEGATIVE RECREATIONAL DRUG USE DRUG USE?NO CAFFEINE CAFFEINE USE?NO SEXUAL HX HAD SEX IN THE LAST 12 MONTHS (VAGINAL, ORAL, OR ANAL)?NO HAVE YOU EVER HAD AN STD?NO HIV / HEP-C SCREENING HIV TEST OFFERED TO PATIENT:YES DATE OFFERED:07/05/2016 TEST ACCEPTED:NO HEP-C TEST OFFERED TO PATIENT:NO REASON:PATIENT DECLINED MUSLIM [id number] UNITARIAN NO RESTORATIONIST BELIEFS THAT WOULD IMPACT HEALTH CARE. LANGUAGE LANGUAGES SPOKEN:[place]OLOF EDUCATION LEVEL OF EDUCATION:FINISHED HIGH SCHOOL LEARNING BARRIERS / SPECIAL NEEDS CHANGE FROM LAST VISIT?NO BARRIERS TO LEARNING?NO HEARING IMPAIRED?YES VISION IMPAIRED?YES COGNITIVELY IMPAIRED?NO :HEARING AIDES :CORRECTIVE LENSES READINESS TO LEARN?YES LEARNING PREFERENCES?NO LEARNING CAPABILITIES PRESENT?YES EMOTIONAL BARRIERS?NO SPECIAL DEVICES?NO LOCKSTITCH HEMMER NEEDED?NO DOMESTIC VIOLENCE DO YOU FEEL SAFE IN YOUR ENVIRONMENT?YES OCCUPATION: RETIRED. DIET: LOW FAT, LOW CHOLESTEROL, LOW SODIUM, LOW POTASSIUM. EXERCISE: NONE. MARITAL STATUS: --ANIL. OTHERS AT HOME: SPOUSE. PAIN CLINIC PFS, CLERGY, PUBLIC HEALTH REFERRALS HAS THE PATIENT BEEN EDUCATED REGARDING HIS/HER PLAN OF CARE?YES HAS THE PATIENT BEEN EDUCATED REGARDING PAIN, THE RISK FOR PAIN, THE IMPORTANCE OF EFFECTIVE PAIN MANAGEMENT, AND THE PAIN ASSESSMENT PROCESS?YES ADVANCE DIRECTIVE ADVANCE DIRECTIVE DISCUSSED WITH PATIENT:YES HCP IS ANIL LEACH [phone] REVIEWED WITH PATIENT 07/27/18 1224 BV REVIEWED WITH PT 01/12/19 1323 NLPRESCREENING 03-09-19 KEG REVIEWED WITH PATIENT 04/12/2019 LAS. HOSPITALIZATION/MAJOR DIAGNOSTIC PROCEDURE SURGERY RELATED PNEUMONIA 1974 REVIEW OF SYSTEMS REVIEWED BY: PROVIDER: NOMI PARDO SIGNAL TOWER DIRECTOR-C . CONSTITUTIONAL: ANY CHANGE IN YOUR MEDICAL CONDITION? NO . CHILLS NO . FEVER NO . INFECTION: DO YOU HAVE NEW INFECTIONS? NO . DO YOU HAVE HISTORY OF MRSA? NO . MUSCULOSKELETAL: ANY NEW PATTERNS OF PAIN OR NUMBNESS? NO . GASTROENTEROLOGY: ANY NEW CHANGE IN BOWEL CONTROL? NO . GENITOURINARY: ANY NEW CHANGE IN BLADDER CONTROL? NO . IS THERE A CHANCE YOU COULD BE ? NO . HEMATOLOGY/LYMPH: DO YOU TAKE ANY BLOOD THINNERS? (FOR EXAMPLE- COUMADIN, PLAVIX, AGGRENOX, PLATEL, PRADAXA, OR XARELTO) NO . WHEN WAS YOUR LAST DOSE? DATE: TIME: . NEUROLOGY: HAVE YOU FALLEN IN THE PAST 12 MONTHS? NO . ANY NEW EXTREMITY NUMBNESS OR WEAKNESS? NO . CARDIOLOGY: DO YOU HAVE A PACEMAKER OR DEFIBRILLATOR? NO . RESPIRATORY: HAVE YOU BEEN SICK IN THE PAST WEEK? NO . FEVER NO . FLU LIKE SYMPTOMS? NO . COUGH NO . INTEGUMENTARY: DO YOU HAVE ANY RASHES OR OPEN SORES? NO . ALLERGIC/IMMUNO: ARE YOU ALLERGIC TO IV DYE? NO . ANY NEW ALLERGIES? NO . PSYCHIATRIC: DO YOU HAVE THOUGHTS OF HURTING YOURSELF OR SOMEONE ELSE? NO . ARE YOU ABUSED, NEGLECTED, OR IN AN UNSAFE ENVIRONMENT? NO . ENDOCRINOLOGY: ARE YOU DIABETIC? NO . OTHER: DO YOU NEED ANY PRESCRIPTIONS? NO . IF YES, PLEASE LIST: ____ . ANY NEW PROBLEMS WITH YOUR MEDICATIONS? NO . WHEN DID YOU LAST EAT? ____ . WHEN DID YOU LAST DRINK? ____ . WHAT DID YOU LAST DRINK? ____ . NAME OF PERSON DRIVING YOU HOME? ____ . DO YOU HAVE ANY OTHER QUESTIONS OR CONCERNS NO . EXAMINATION GENERAL EXAMINATION: GENERALNO ACUTE DISTRESS, WELL NOURISHED AND HYDRATED. PSYCHAPPROPRIATE MOOD AND AFFECT , ORIENTED X 3. ASSESSMENTS INTERVERTEBRAL DISC DISORDERS WITH RADICULOPATHY, LUMBAR REGION - M51.16 (PRIMARY) TREATMENT INTERVERTEBRAL DISC DISORDERS WITH RADICULOPATHY, LUMBAR REGION CLINICAL NOTES: 84-YEAR-OLD MALE IN FOR WORKER'S COMP. POST LESI FOLLOW-UP. GIVEN PRESENTING SYMPTOMS RECOMMEND FOLLOW-UP IN CLINIC IN 4 WEEKS. PATIENT HAS EXPRESSED UNDERSTANDING OF AND WAS IN AGREEMENT WITH TREATMENT PLAN. GIVEN TIME TO ASK QUESTIONS AND EXPRESS CONCERNS. TELEHEALTH VISIT PERFORMED VIA ZOOM. TIME SPENT WITH PATIENT 10 MINUTES. OTHERS NOTES: VITALS NOT OBTAINED DUE TO VIRTUAL VISIT, PRE SCREENING COMPLETED 08/09/19, NA. PROCEDURES PN WORKMANS' COMP OPINION IN YOUR OPINION, WAS THE INCIDENT THAT THE PATIENT DESCRIBED THE COMPETENT MEDICAL CAUSE OF THIS INJURY/ILLNESS? YES ARE THE PATIENT'S COMPLAINTS CONSISTENT WITH HIS/HER HISTORY OF THE INJURY/ILLNESS? YES IS THE PATIENT'S HISTORY OF THE INJURY/ILLNESS CONSISTENT WITH YOUR OBJECTIVE FINDING? YES WHAT IS THE PERCENTAGE OF TEMPORARY IMPAIRMENT? MODERATE TO MARKED = 66.7% IS THE PATIENT WORKING? NO DOCTOR ON SITE: LALITA GIRON MD DISPOSITION & COMMUNICATION FOLLOW UP 4 WEEKS (REASON: BACK PAIN/WORKER'S COMP., IN CLINIC) ELECTRONICALLY SIGNED BY SOFÍA BARRON ON 08/11/2019 AT 11:18 AM EDT DISCLAIMER : THIS IS A VISIT SUMMARY EXTRACTED FROM THE [employer] CHART. IT IS NOT A COPY OF THE [employer] PROGRESS NOTE. AUBREY
== END ==
LOC: M PAIN 10:45 → M TMPAIN 10:45
PROVIDERS: ATTEND Family Medicine
DX: M51.16 Intervertebral disc disorders with radiculopathy, lumbar region (principal); E11.9 Type 2 diabetes mellitus without complications; E03.9 Hypothyroidism, unspecified; N18.4 Chronic kidney disease, stage 4 (severe); Z79.82 Long term (current) use of aspirin; Z79.891 Long term (current) use of opiate analgesic; Z79.899 Other long term (current) drug therapy; Z88.0 Allergy status to penicillin; Z88.8 Allergy status to other drugs, medicaments and biological substances; Z87.891 Personal history of nicotine dependence

== ENCOUNTER → 2019-09-06 | Outpatient (CLI) | payer OTHER ==
[~2019-09-06] MED LIST changes: -ASPI-161 PO; -BACI1CAP PO; -BIOT1CAP PO; -CIPR-249 PO; -CIPR-250 PO; -CLOB5CR TOP; +CUTI0.053 EX; -CUTI0.053 EXT; -FEBU40TA2; -FINA5TAB2; -FINA5TAB2 PO; -MAGN1.743 PO; -OMEG100010 PO; -PRES10CA2 PO; -SYNT112T2 PO; +SYST1SOL4 OP; -SYST1SOL4 OU; +VANI1CRE5 EX; -VANI1CRE5 EXT; -VITA1CAP25; -VITA50005 PO
--- NOTE | 2019-09-08 01:41 | ECWPNPC ---
PATIENT NAME: FERMIN LEACH : 1935 GENDER: MALE VISIT DATE: 09/06/2019 DISCHARGE DATE: 09/06/19 1203 VISIT LOCKED DATE TIME: PHYSICIAN: HOLLIE PARDO RESOURCE: HOLLIE PARDO REASON FOR APPOINTMENT 1. W/C BACK PAIN HISTORY OF PRESENT ILLNESS GENERAL: -84-YEAR-OLD MALE IN FOR WORKER'S COMP. CHRONIC PAIN FOLLOW-UP. HE RATES HIS PAIN CURRENTLY AT A 2-3 OUT OF 10 AND DESCRIBES IT AN ACHE. HE CONTINUES TO FEEL LIKE THE PROCEDURE HE HAD BACK IN MARCH CONTINUES TO HELP HIM TODAY. 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 PAIN SCREENING: PATIENT HAS A COMPLAINT OF ACUTE OR CHRONIC PAIN :YES LOCATION OF PAIN:LOW BACK INTENSITY OF PAIN (SCALE OF 1 TO 10):3 WHAT DOES YOUR PAIN FEEL LIKE:ACHING DURATION:CONTINOUS, CONSTANT, ALL DAY, MAINLY DURING THE NIGHT PAIN IS INCREASED BY:ACTIVITIES PAIN IS DECREASED BY:USE OF PAIN MEDICATIONS LEVEL OF RELIEF FROM PAIN TREATMENTS IN THE PAST:50% PAIN HAS INTERFERED WITH THE FOLLOWING:BATHING/DRESSING, MOOD, WALKING ABILITY, RELATIONSHIP WITH OTHERS, ENJOYMENT OF LIFE PLAN/GOALS/TREATMENT/INTERVENTION/FOLLOW UP:SEE PLAN FALL RISK SCREENING: SCREENING :NO FALLS REPORTED IN THE LAST YEAR DEPRESSION SCREENING: PHQ-2 (2015 EDITION) LITTLE INTEREST OR PLEASURE IN DOING THINGS?NOT AT ALL FEELING DOWN, DEPRESSED, OR HOPELESS?NOT AT ALL TOTAL SCORE0 PAIN CENTER INTAKE QUESTIONS: DO YOU HAVE A HISTORY OF MRSA? :NO DO YOU TAKE A BLOOD THINNERS? :NO DO YOU HAVE ANY BLEEDING DISORDERS? :NO ANY NEW NUMBNESS OR WEAKNESS IN YOUR LEGS OR ARMS? :NO ANY PACEMAKER,DEFIBRILLATOR, OR DORSAL COLUMN STIMULATOR? :NO DO YOU HAVE ANY RASHES OR OPEN SORES? :NO ARE YOU ALLERGIC TO IV DYE? :NO ARE YOU DIABETIC? :YES ANY NEW PROBLEMS WITH YOUR MEDICATIONS? :NO HAVE YOU RECEIVED A VACCINE IN THE PAST 30 DAYS? :NO DO YOU PLAN TO RECEIVE A VACCINE IN THE NEXT 21 DAYS? :NO DO YOU NEED ANY PRESCRIPTION? :YES TRAMADOL DO YOU TAKE ANY IMMUNOSUPPRESSIVE MEDICATIONS? :NO NURSING NOTE: -. CURRENT MEDICATIONS TAKING COREG 3.125MG TABLET ORAL BID TAKING TORSEMIDE 20 MG TABLET 1 TABLET ORALLY ONCE A DAY MAY USE IF THERE IS A 3# WT. GAIN TAKING ASPIRIN 81 MG OTC 1 TABLET ORALLY ONCE A DAY TAKING LIPITOR 40 MG TABLET 1 TABLET ORALLY ONCE A DAY TAKING OMEGA 3 1000 MG CAPSULE 1 CAPSULE ORALLY TWICE A DAY TAKING LEVOTHYROXINE SODIUM 112 MCG TABLET 1 TABLET ON AN EMPTY STOMACH IN THE MORNING ORALLY ONCE A DAY TAKING EFFEXOR XR 75 MGS CAPSULE EXTENDED RELEASE 24 HOUR 1 CAPSULE WITH FOOD ORALLY ONCE A DAY TAKING TRAMADOL HCL 50 MG TABLET 1 TABLET ORALLY, WORKER'S COMPENSATION THREE TIMES A DAY NEEDED, MDD=3 TAKING ULORIC 40 MG TABLET 1 TABLET ORALLY -- TAKING FLOMAX 0.4 MG CAPSULE 1 CAPSULE ORALLY ONCE A DAY TAKING PROSCAR 5 MG TABLET 1 TABLET ORALLY ONCE A DAY TAKING DRISDOL 10704 UNIT CAPSULE 1 CAPSULE ORALLY ONCE A WEEK TAKING CALCITRIOL 0.25 MCG CAPSULE 1 CAPSULE ORALLY ONCE A DAY, M, TAKING MAGNESIUM CITRATE - SOLUTION 150 ML ORALLY DAILY NEEDED TAKING PREVACID 30 MG CAPSULE DELAYED RELEASE 1 CAPSULE ORALLY ONCE A DAY TAKING LORATADINE 10 MG TABLET 1 TABLET ORALLY ONCE A DAY TAKING FLUTICASONE PROPIONATE 0.05 % CREAM 1 APPLICATION EXTERNALLY ONCE A DAY TAKING VANICREAM - CREAM DIRECTED EXTERNALLY AFTER SHOWER TAKING CLOBETASOL PROPIONATE 0.05 % CREAM 1 APPLICATION TO AFFECTED AREA EXTERNALLY AFFECTED AREAS ON BODY ECZEMA TWICE A DAY TAKING ECHINACEA 400 MG CAPSULE 4 CAPSULES ORALLY THREE TIMES A DAY FOR 2-4 DAYS ON ONSET OF COLD SYMPTOMS TAKING CUTIVATE 0.05 % CREAM ARMS AND LEGS EXTERNALLY ONCE A DAY NEEDED TAKING BIOTIN 5000 MCG CAPSULE 1 CAPSULE ORALLY ONCE A DAY TAKING AREDS OTC AREDS2- 1 CAP ORALLY TWICE A DAY TAKING SYSTANE 0.4-0.3 % SOLUTION DIRECTED OPHTHALMIC TAKING LANCETS - MISCELLANEOUS DIRECTED ONE TOUCH ULTRA DX. E11.65 , TEST ONCE DAILY TAKING GLUCOMETER DIRECTED ONE TOUCH ULTRA DX.E11.65, TEST ONCE DAILY TAKING ONE TOUCH ULTRA BLUE STRIPS DIRECTED - ONE TOUCH ULTRA TEST STRIPS, DXE11.65 TEST ONCE DAILY TAKING PROSCAR 5 MG TABLET 1 TABLET ORALLY ONCE A DAY NOT-TAKING DIPHENHYDRAMINE . 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 JOHNSON TOENAIL 04/25 BACK SKIN BX 04/2019 FAMILY HISTORY FATHER: , HYPERTENSION, DIAGNOSED WITH HYPERTENSION MOTHER: , DIABETES, TYPE II, DIABETES SIBLINGS: BROTHER:DIABETES, TYPE II, BLADDER CA, DIABETES, OTHER MALIGNANT NEOPLASM OF UNSPECIFIED SITE DAUGHTER(S): DEPRESSION, UNSPECIFIED NONPSYCHOTIC MENTAL DISORDER FOLLOWING ORGANIC BRAIN DAMAGE PATERNAL GRAND FATHER: DIABETES, TYPE II, DIABETES REVIEWED, NO CHANGES. SOCIAL HISTORY GENERAL: TOBACCO USE ARE YOU A:FORMER SMOKER FORMER CIGAR SMOKER HOW LONG HAS IT BEEN SINCE YOU LAST SMOKED?1-5 YEARS ADDITIONAL FINDINGS: TOBACCO USERCIGAR SMOKER LATEX QUESTIONNAIRE LATEX ALLERGY : HAVE YOU EVER DEVELOPED ANY TYPE OF REACTION AFTER HANDLING LATEX PRODUCTS SUCH RUBBER GLOVES, CONDOMS, DIAPHRAGMS, BALLOONS, SOCKS, OR UNDERWEAR?NO LATEX ALLERGY : HAVE YOU EVER DEVELOPED ANY TYPE OF REACTION DURING OR AFTER DENTAL APPOINTMENT, VAGINAL/RECTAL EXAMINATION, SURGICAL PROCEDURE, OR ANY OTHER EXPOSURE?NO DATE ASKED : 11/09/2018 LATEX RISK : HAVE YOU EVER HAD ANY DIFFICULTY BREATHING OR HIVES AFTER EATING OR HANDLING ANY FRUITS, OR VEGETABLES; SUCH KIWI, BANANAS, STONE FRUITS, OR CHESTNUTSNO LATEX RISK : DO YOU HAVE A PREVIOUS PERSONAL HISTORY OF MORE THAN NINE SURGERIES, SPINA BIFIDA, OR REPEATED CATHERIZATIONS? NO LATEX RISK : ARE YOU FREQUENTLY EXPOSED TO LATEX PRODUCTS IN YOUR OCCUPATION?NO LUNG CANCER SCREENING SMOKING STATUS:FORMER SMOKER IS THE PATIENT BETWEEN THE AGE OF 54 AND 76?NO ALCOHOL SCREENING DID YOU HAVE A DRINK CONTAINING ALCOHOL IN THE PAST YEAR?NO POINTS0 INTERPRETATIONNEGATIVE RECREATIONAL DRUG USE DRUG USE?NO CAFFEINE CAFFEINE USE?NO SEXUAL HX HAD SEX IN THE LAST 12 MONTHS (VAGINAL, ORAL, OR ANAL)?NO HAVE YOU EVER HAD AN STD?NO HIV / HEP-C SCREENING HIV TEST OFFERED TO PATIENT:YES DATE OFFERED:07/05/2016 TEST ACCEPTED:NO HEP-C TEST OFFERED TO PATIENT:NO REASON:PATIENT DECLINED SIKHISM [id number] UNITARIAN NO SCIENTOLOGY BELIEFS THAT WOULD IMPACT HEALTH CARE. LANGUAGE LANGUAGES SPOKEN:LUXEMBOURGER EDUCATION LEVEL OF EDUCATION:FINISHED HIGH SCHOOL LEARNING BARRIERS / SPECIAL NEEDS CHANGE FROM LAST VISIT?NO BARRIERS TO LEARNING?NO HEARING IMPAIRED?YES VISION IMPAIRED?YES COGNITIVELY IMPAIRED?NO :HEARING AIDES :CORRECTIVE LENSES READINESS TO LEARN?YES LEARNING PREFERENCES?NO LEARNING CAPABILITIES PRESENT?YES EMOTIONAL BARRIERS?NO SPECIAL DEVICES?NO NURSING HOME ASSISTANT ADMINISTRATOR NEEDED?NO DOMESTIC VIOLENCE DO YOU FEEL SAFE IN YOUR ENVIRONMENT?YES OCCUPATION: RETIRED. DIET: LOW FAT, LOW CHOLESTEROL, LOW SODIUM, LOW POTASSIUM. EXERCISE: NONE. MARITAL STATUS: --ANIL. OTHERS AT HOME: SPOUSE. PAIN CLINIC PFS, CLERGY, PUBLIC HEALTH REFERRALS HAS THE PATIENT BEEN EDUCATED REGARDING HIS/HER PLAN OF CARE?YES HAS THE PATIENT BEEN EDUCATED REGARDING PAIN, THE RISK FOR PAIN, THE IMPORTANCE OF EFFECTIVE PAIN MANAGEMENT, AND THE PAIN ASSESSMENT PROCESS?YES ADVANCE DIRECTIVE ADVANCE DIRECTIVE DISCUSSED WITH PATIENT:YES HCP IS ANIL LEACH [phone] HOSPITALIZATION/MAJOR DIAGNOSTIC PROCEDURE SURGERY RELATED PNEUMONIA 1974 REVIEW OF SYSTEMS CONSTITUTIONAL: ANY RECENT FEVER OR ILLNESS NO . CHILLS NO . GASTROENTEROLOGY: BOWEL INCONTINENCE NO . ANY NEW CHANGE IN BOWEL CONTROL? NO . ABDOMINAL PAIN NO . CONSTIPATION NO . GENITOURINARY: ANY NEW CHANGE IN BLADDER CONTROL? NO . IS THERE A CHANCE YOU COULD BE ? NO . URINARY INCONTINENCE NO . CARDIOLOGY: CHEST PRESSURE NO . CHEST PAIN NO . RESPIRATORY: COUGH NO . SHORTNESS OF BREATH NO . VITAL SIGNS WT 165.8 LBS, HT 67.5 IN, BMI 25.58 INDEX, BP 138/66 MM HG, HR 75 /MIN, RR 18 /MIN, TEMP 96.5 F, OXYGEN SAT % 99%, BLOOD GLUCOSE LEVEL 178 THIS AM, SAFE IN ENV? (Y/N) YES, [place] INITIALS TL [id number] [place]UMADU LEARNING SPECIALIST. EXAMINATION GENERAL EXAMINATION: GENERALNO ACUTE DISTRESS, WELL NOURISHED AND HYDRATED. PSYCHAPPROPRIATE MOOD AND AFFECT . LUNGS:CLEAR TO AUSCULTATION BILATERALLY, NO WHEEZES, RHONCHI, RALES. HEART:NO MURMURS, REGULAR RATE AND RHYTHM. ASSESSMENTS INTERVERTEBRAL DISC DISORDER WITH RADICULOPATHY OF LUMBOSACRAL REGION - M51.17 (PRIMARY) TREATMENT INTERVERTEBRAL DISC DISORDER WITH RADICULOPATHY OF LUMBOSACRAL REGION CLINICAL NOTES: 84-YEAR-OLD MALE IN FOR WORKER'S COMP. CHRONIC PAIN FOLLOW-UP. GIVEN PRESENTING SYMPTOMS RECOMMEND FOLLOW-UP IN CLINIC IN 2 MONTHS. PATIENT HAS EXPRESSED UNDERSTANDING OF AND WAS IN AGREEMENT WITH TREATMENT PLAN. GIVEN TIME TO ASK QUESTIONS AND EXPRESS CONCERNS. PROCEDURES PN WORKMANS' COMP OPINION IN YOUR OPINION, WAS THE INCIDENT THAT THE PATIENT DESCRIBED THE COMPETENT MEDICAL CAUSE OF THIS INJURY/ILLNESS? YES ARE THE PATIENT'S COMPLAINTS CONSISTENT WITH HIS/HER HISTORY OF THE INJURY/ILLNESS? YES IS THE PATIENT'S HISTORY OF THE INJURY/ILLNESS CONSISTENT WITH YOUR OBJECTIVE FINDING? YES WHAT IS THE PERCENTAGE OF TEMPORARY IMPAIRMENT? MODERATE TO MARKED = 66.7% IS THE PATIENT WORKING? NO DOCTOR ON SITE: LALITA GIRON MD DISPOSITION & COMMUNICATION FOLLOW UP 2 MONTHS (REASON: WORKER'S COMP. BACK PAIN) ELECTRONICALLY SIGNED BY SOFÍA BARRON ON 09/07/2019 AT 02:39 PM EDT DISCLAIMER : THIS IS A VISIT SUMMARY EXTRACTED FROM THE [employer] CHART. IT IS NOT A COPY OF THE [email or web address] PROGRESS NOTE. AUBREY
== END ==
LOC: M PAIN 11:15
PROVIDERS: ATTEND Family Medicine
DX: M51.17 Intervertebral disc disorders with radiculopathy, lumbosacral region (principal); E11.9 Type 2 diabetes mellitus without complications; Z79.891 Long term (current) use of opiate analgesic; Z79.899 Other long term (current) drug therapy; Z88.0 Allergy status to penicillin; Z88.8 Allergy status to other drugs, medicaments and biological substances; Z87.891 Personal history of nicotine dependence

== ENCOUNTER 2019-10-19 13:44 | Inpatient (IN) | payer MEDICARE, OTHER ==
[~2019-10-19] VITALS: Ht 177.8 cm; Wt 76.0 kg
[~2019-10-19 13:44] MED LIST changes: -CUTI0.053 EX; +CUTI0.053 EXT; -SYST1SOL4 OP; +SYST1SOL4 OU; -VANI1CRE5 EX; +VANI1CRE5 EXT
[2019-10-19] MEDS ORDERED: FEBU40TA2 (14:17)
[2019-10-19] MEDS ORDERED: FINA5TAB2 (14:17)
[2019-10-19] MEDS ORDERED: VITA1CAP25 (14:17)
[2019-10-19 15:44] LABS: HEMOGLOBIN 13.2 g/dl (13.5-17.5); MEAN CORPUSCULAR HEMOGLOBIN 30.9 pg (27.0-33.0); MEAN CORPUSCULAR VOLUME 93.7 fl (80.0-96.0); PLATELET COUNT, AUTOMATED 288 10^3/uL (150-450); RED BLOOD COUNT 4.27 10^6/uL (4.30-6.10); WHITE BLOOD COUNT 6.4 10^3/uL (4.0-10.0)
[2019-10-19] MEDS ORDERED: CIPR-249 PO (18:31)
[2019-10-19] MEDS ORDERED: NS 1,000 ML IV ONE (19:30)
[2019-10-19] MEDS: CARVedilol 3.125 MG TAB PO SCH (21:00)
--- NOTE | 2019-10-20 01:13 | HPEPDOC ---
General Date of Admission Oct 19, 2019 at 13:45 Date of Service: Oct 20, 2019 Chief Complaint The patient is a 84-year-old male who presented to the hospital with left groin pain History of Present Illness Patient is an 84-year-old male with a PMHx of HTN, DLP, DM2 (not on medications), Hypothyroidism, CKD3, BPH, Chronic back pain, Vitamin D deficiency, Gout, Hx of Plasma cell granuloma / Lung abscess s/p RLL resection, who presented to the hospital with complaints of left groin pain. Patient reported that he has been experiencing left groin pain since yesterday. Noted the pain started upper abdomen and radiated down to left groin. He notes discomfort with urination that started today. Patient denies any blood in his urine. Denies any recent fevers or chills. Patient reported associated nausea without vomiting. Denies any chest pain, shortness of breath or palpitations. Denies any constipation or diarrhea. Is unsure of any changes in his weight or appetite. ER providers had initially contacted urology for instructions, patient was instructed to have follow-up with urologys office and continue with oral hydration. However, upon discharge patient was having difficulty with ambulation and hospitalist service was contacted for admission. Patient is a poor historian and the majority of information was collected from medical record as well as his , who was present at the bedside. Home Medications Scheduled Aspirin (Aspirin EC) 81 Mg Tab, 81 MG PO DAILY, (Reported) Atorvastatin Calcium (Atorvastatin Calcium) 40 Mg Tab, 40 MG PO DAILY, (Reported) Biotin (Biotin) 2,500 Mcg Cap, 5,000 MCG PO DAILY, (Reported) Calcitriol (Calcitriol) 0.25 Mcg Cap, 0.25 MCG PO --, (Reported) Carvedilol (Carvedilol) 3.125 Mg Tab, 3.125 MG PO BID, (Reported) Cholecalciferol (Vitamin D3) (Vitamin D3) 50,000 Unit Capsule, 1 CAP PO Q7D, (Reported) Ciprofloxacin HCl (Cipro) 500 Mg Tablet, 500 MG PO DAILY Clobetasol Propionate (Clobetasol Propionate) 0.05 % Aer, 0.05 % EX BIDP, (Reported) Lansoprazole (Prevacid) 30 Mg Cap, 30 MG PO DAILY, (Reported) Levothyroxine Sodium (Levothyroxine Sodium) 125 Mcg Tab, 112 MCG PO DAILY, (Reported) Multivitamins (Eye Vitamins) 1 Cap Cap, 1 CAP PO BID, (Reported) [place]-3/Dha/Epa/Fish Oil (Fish Oil EC 1,000 mg Softgel) 1 Cap Cap, 1 CAP PO BID, (Reported) Tamsulosin HCl (Flomax) 0.4 Mg Cap, 0.4 MG PO DAILY, (Reported) Torsemide (Torsemide) 20 Mg Tab, 20 MG PO DAILY, (Reported) Venlafaxine HCl (Effexor Xr) 75 Mg Cap, 75 MG PO DAILY, (Reported) Scheduled PRN Diphenhydramine HCl (Benadryl) 25 Mg Cap, 25 MG PO BIDP PRN for RASH/ITCHING, (Reported) Echinacea (Echinacea) 400 Mg Cap, 400 MG PO QIDP PRN for COLD SX, (Reported) Emollient Base (Vanicream) 1 Cre Cre, 1 CRE EX DAILYPRN PRN for DRY SKIN, (Reported) Fluticasone Propionate (Cutivate) 0.05 % Lot, 0.05 % EX BIDP PRN for RASH, (Reported) Loratadine (Claritin) 10 Mg Cap, 10 MG PO DAILYPRN PRN for CONGESTION, (Rep orted) Propylene Glycol/Peg 400/Pf (Systane 0.3-0.4% Eye Drop) 1 Each Droperette, 1 DROP OP QID PRN for DRY EYES, (Reported) Tramadol HCl (Tramadol HCl) 50 Mg Tablet, 1 TAB PO TIDP PRN for pain, (Reported) [magnesium citrate] , 6 OZ PO DAILYPRN PRN for CONSTIPATION, (Reported) Miscellaneous Medications Cholecalciferol (Vitamin D3) (Vitamin D3) 1,250 Mcg Capsule, (Reported) Febuxostat (Febuxostat) 40 Mg Tablet, (Reported) Finasteride (Finasteride) 5 Mg Tablet, (Reported) Allergies Coded Allergies: Penicillins (Verified Allergy, Intermediate, RASH, 01/11/19) NSAIDS (Non-Steroidal Anti-Inflamma (Verified Adverse Reaction, Intermediate, DESTROYED HIS KIDNEYS, 01/11/19) ranitidine (Verified Adverse Reaction, Mild, CONSTIPATION, 01/11/19) Past Medical History Medical History HTN, DLP, DM2 (not on medications), Hypothyroidism, CKD3, BPH, Chronic back pain, Vitamin D deficiency, Gout, 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 Brown 2004 Bilateral blepharoplasty 2006 EGD and colonoscopy 2008 Left cataract surgery 2018 Right cataract surgery 2012 Back skin biopsy 2019 Family History - Family history was reviewed and is noncontributory Social History - Denies the use of alcohol, tobacco or illicit drugs - Denies recent travel or sick contacts - Lives with [] - Occupation [] Review of Systems Other systems 10 point review of systems complete, all negative otherwise stated in HPI Vital Signs - Vitals: BP 106/51, HR 92, RR 16, Sat 96%RA, Temp 98.3 - General: Sitting up in commode, Speaking in full sentences, AAOx3 - HEENT: NC, AT, PERRLA - CVS: RRR, +S1S2 - Lungs: Fair air entry bilaterally, No appreciable wheezing / rales / rhonchi - Abdomen: Soft, Non-distended, Non-tender - Extremities: 1-2+ pitting edema bilaterally, No calf tenderness - Neuro: No focal motor or sensory deficit - Skin: No visible rashes Laboratory Data Labs 24H Laboratory Tests 2 10/19/19 15:10: Nucleated Red Blood Cells % (auto) 0.0 10/19/19 15:15: VR-Rsy-P-Type Natriuretic Peptide 186 10/19/19 15:56: POC Glucose (Misc Panel) 167H, POC Sodium (Misc Panel) 140, POC Potassium (Misc Panel) 4.0, POC Chloride (Misc Panel) 97L, POC Total CO2 (Misc Panel) 29.0H, POC Blood Urea Nitrogen (Misc Panel 38H, POC Ionized Calcium (Misc Panel) 4.9, POC Creatinine (Misc Panel) 2.6H, POC Hematocrit (Misc Panel) 42.0 10/19/19 16:47: Urine Color STRAW, Urine Appearance CLEAR, Urine pH 7.0, Urine Specific [place] 1.004, Urine Protein NEGATIVE, Urine Glucose (UA) NEGATIVE, Urine Ketones NEGATIVE, Urine Blood 3+H, Urine Nitrite NEGATIVE, Urine Bilirubin NEGATIVE, Urine Urobilinogen 0.2, Urine Leukocyte Esterase 3+H, Urine WBC (Auto) 82H, Urine RBC (Auto) 115H, Urine Hyaline Casts (Auto) 1, Urine Bacteria (Auto) 1+H, Urine Squamous Epithelial Cells 0, Urine Sperm (Auto) 10/19/19 21:41: Bedside Glucose (Misc Panel) 131H CBC/BMP Laboratory Tests 10/19/19 15:10 Microbiology Microbiology 10/19/19 Urine Culture, Received Pending Plan / VTE VTE Prophylaxis Ordered?: Yes Plan Plan Left inguinal pain - likely 2/2 ureteral stone with mild left sided hydronephrosis - Patient presented to the emergency room with complaints of left-sided inguinal pain - Currently hemodynamically stable and afebrile - No leukocytosis - UA consistent with stone / possible infection - CT abdomen / pelvis 10/19: 5mm stone distal left ureter with mild left hydro - Will check Urine cultures / Blood cultures - Will c/w IV fluid hydration and empirically start Ceftriaxone - c/w Tamsulosin / Dutasteride - Will adjust dose of Tramadol from outpatient setting - Case discussed with urology; currently no indications for intervention at this time Weakness / Instability - Orthostatic vital signs were negative - Will c/w gentle IV fluid hydration - Will start PT / OT in AM - Patients was present at the bedside was provided information about his baseline activity - Patient has chronic back pain and received joint injections and uses 2 canes to ambulate LE swelling - Patient was advised by his primary care provider that he may have congestive heart failure - BNP normal - Will check CXR / ECHO - Hold diuretics for now; will need to be resumed within 24 hours HTN - BP at lower limits of normal - Hold Torsemide - Will c/w BP medications with hold parameters DLP - Continue with statin DM2 - Currently not on medications - c/ consistent carbohydrate diet Hypothyroidism - c/w Levothyroxine CKD3 - Cr baseline of 2.3 2.5; currently at 2.6 - Will avoid nephrotoxic medications - c/w Gentle IV fluid hydration BPH - Continue with tamsulosin and dutasteride Chronic back pain - Patient follows with the pain clinic as an outpatient - Will adjust dose of tramadol Vitamin D deficiency - Continue with supplementation Gout - c/w Allopurinol Hx of Plasma cell granuloma / Lung abscess - s/p RLL resection with Dr. Brown GERD - Will c/w PPI DVT prophylaxis - Will start Heparin LANDEN ROSSI MD Oct 20, 2019 01:12
[2019-10-20] MEDS ORDERED: BIOT1CAP PO (01:36)
[2019-10-20] MEDS ORDERED: OMEG100010 PO (01:36)
[2019-10-20] MEDS ORDERED: TORS20TA2 PO (01:36)
[2019-10-20] MEDS ORDERED: FINA5TAB2 PO (01:36)
[2019-10-20] MEDS ORDERED: SYNT112T2 PO (01:36)
[2019-10-20] MEDS ORDERED: PRES10CA2 PO (01:36)
[2019-10-20] MEDS ORDERED: ASPI-161 PO (01:36)
[2019-10-20] MEDS ORDERED: FEBU40TA4 PO (01:36)
[2019-10-20] MEDS ORDERED: VITA50005 PO (01:36)
[2019-10-20] MEDS ORDERED: TRAM50TA2 PO (01:36)
[2019-10-20] MEDS ORDERED: MAGN1.743 PO (01:36)
[2019-10-20] MEDS ORDERED: CLOB5CR TOP (01:36)
[2019-10-20] MEDS: NS 1,000 ML IV SCH ×2 (01:58→13:21)
[2019-10-20] MEDS: cefTRIAXone SOD 1 GM in D5W MINI-BAG PLUS 50 ML IV SCH (01:58)
--- NOTE | 2019-10-20 02:10 | REP ---
CT ABDOMEN AND PELVIS WITHOUT CONTRAST: CT abdomen and pelvis performed without oral or IV contrast. Sagittal and coronal reconstruction images are performed. Calcified granulomas seen in the left lower lobe. There are interstitial fibrotic changes bilaterally. Several tiny calcified granulomas are seen in the liver and spleen. Adrenal glands demonstrate no mass. Pancreas is grossly unremarkable. There are three calcific densities in the right pelvicalyceal system measuring up to 8 mm in diameter. There are four calcific densities in the left pelvicalyceal system with maximum diameter 6 mm. There is a 5 mm calculus in the distal left ureter with mild left hydroureteronephrosis. Bladder is moderately distended with no calculus or wall thickening. There is mild atherosclerotic calcification of the abdominal aorta without aneurysm. There is no adenopathy. There is no free air or free fluid. There is no bowel wall thickening. There is sigmoid diverticulosis without evidence of acute diverticulitis. There are degenerative changes of the spine. There is an old compression deformity of L5. There is an area of smooth pleural thickening and mild calcification posteriorly inferiorly right hemithorax. IMPRESSION: 5 mm calculus distal left ureter with mild left hydroureteronephrosis. Bilateral intrarenal calculi. Electronically Signed by Tal Farris MD 10/20/2019 10:55 P
[2019-10-20] MEDS ORDERED: LORATADINE 10 MG TAB PO PRN (02:15)
[2019-10-20] MEDS ORDERED: VANICREAM MOISTURIZING SKIN CREAM 113GM TUBE TOP PRN (02:15)
[2019-10-20] MEDS ORDERED: MAGNESIUM CITRATE 300 ML BTL PO PRN (02:15)
[2019-10-20] MEDS ORDERED: CLOBETASOL PROPIONATE EMOLLIENT 0.05% CR 60 GM TOP PRN (02:15)
[2019-10-20 02:25] VITALS: BP 119/58
[2019-10-20 03:19] LABS: CALCIUM LEVEL 8.7 MG/DL (8.8-10.2); CREATININE FOR GFR 2.78 MG/DL (0.70-1.30); GLOMERULAR FILTRATION RATE 23.2 (>35); POTASSIUM SERUM 3.7 MEQ/L (3.5-5.1)
[2019-10-20] MEDS: FINASTERIDE 5 MG TAB PO SCH ×2 (03:19→21:11)
[2019-10-20] MEDS: traMADol 50 MG TAB PO PRN ×2 (03:20→21:12)
[2019-10-20] MEDS: TAMSULOSIN 0.4 MG CAP PO SCH ×2 (03:20→21:11)
[2019-10-20] MEDS: ASPIRIN 81 MG ENTERIC TAB PO SCH ×2 (03:20→21:11)
[2019-10-20] MEDS: ATORVASTATIN 20 MG TAB PO SCH ×2 (03:20→21:11)
[2019-10-20] MEDS: LEVOTHYROXINE 112MCG TABLET (0.112MG) PO SCH (05:43)
[2019-10-20] MEDS: HEPARIN SOD (PORCINE) 5000UNITS/ML VIAL (J1644 PER 1000UNITS) SC SCH ×3 (05:43→21:11)
[2019-10-20 06:00] VITALS: BP 117/59
[2019-10-20] MEDS ORDERED: ACETAMINOPHEN TAB 650MG DOSE (2X325MG) PO PRN (06:00)
[2019-10-20] MEDS: CARVedilol 3.125 MG TAB PO SCH ×2 (08:24→21:12)
[2019-10-20] MEDS: OMEPRAZOLE 20 MG CAP PO SCH (08:25)
[2019-10-20] MEDS: FEBUXOSTAT 40 MG TABLET (ULORIC) PO SCH (08:25)
[2019-10-20] MEDS: VENLAFAXINE **XR** 75MG CAPSULE PO SCH (08:25)
--- NOTE | 2019-10-20 10:21 | REP ---
CHEST, TWO VIEWS: COMPARISON: 01/11/2019 Two views of the chest are performed. There is mild elevation of the right hemidiaphragm with mild bibasilar fibrotic scarring. No acute infiltrate is seen. The heart is normal in size. The mediastinal silhouette is unchanged. There are multiple mediastinal clips present. There are degenerative changes of the spine. IMPRESSION: Stable chronic findings with no evidence of acute pulmonary disease. Electronically Signed by Tal Farris MD 10/20/2019 11:19 P
[2019-10-20 14:00] VITALS: BP 103/55
--- NOTE | 2019-10-20 20:29 | IPNPDOC ---
Text Note Date of Service The patient was seen on 10/20/19. NOTE Called and informed about positive blood cultures at 8:15PM; gram positive cocci in chains - Called lab and confirmed only 1 of 2 bottles positive - Patient is hemodynamically stable / Afebrile currently - No leukocytosis on admission - Will continue with current antibiotics; Ceftriaxone - Will repeat blood cultures x 2 sets now / CBC / Lactic acid VS,Fishbone, I+O VS, Fishbone, I+O Laboratory Tests 10/20/19 02:51 Vital Signs Date Time Temp Pulse Resp B/P (MAP) Pulse Ox O2 Delivery O2 Flow Rate FiO2 10/20/19 14:00 97.5 83 17 103/55 (71) 96 Room Air I&O- Last 24 Hours up to 6 AM 10/20/19 06:00 Intake Total 2120 ml Output Total 1650 ml Balance 470 ml LANDEN ROSSI MD Oct 20, 2019 20:29
[2019-10-20 22:00] VITALS: BP 127/62
[2019-10-21] MEDS: NS 1,000 ML IV SCH (01:30)
[2019-10-21] MEDS: cefTRIAXone SOD 1 GM in D5W MINI-BAG PLUS 50 ML IV SCH (01:31)
[2019-10-21] MEDS: LEVOTHYROXINE 112MCG TABLET (0.112MG) PO SCH (06:19)
[2019-10-21] MEDS: HEPARIN SOD (PORCINE) 5000UNITS/ML VIAL (J1644 PER 1000UNITS) SC SCH ×3 (06:19→21:51)
[2019-10-21] MEDS: traMADol 50 MG TAB PO PRN (06:19)
[2019-10-21 06:26] VITALS: BP 120/57
[2019-10-21] MEDS: CARVedilol 3.125 MG TAB PO SCH ×2 (07:48→21:51)
[2019-10-21] MEDS: VENLAFAXINE **XR** 75MG CAPSULE PO SCH (07:48)
[2019-10-21] MEDS: OMEPRAZOLE 20 MG CAP PO SCH (07:48)
[2019-10-21 07:57] LABS: BASO % 0.1 % (0.0-1.0); EOS # 0.1 10^3/uL (0.0-0.5); EOS % 0.5 % (0.0-3.0); HEMATOCRIT 35.2 % (42.0-52.0); HEMOGLOBIN 11.8 g/dl (13.5-17.5); LYMPH # 0.3 10^3/uL (1.5-5.0); LYMPH % 3.2 % (24.0-44.0); MEAN CORPUSCULAR HEMOGLOBIN 31.4 pg (27.0-33.0); MEAN CORPUSCULAR HGB CONC 33.5 g/dl (32.0-36.5); MEAN CORPUSCULAR VOLUME 93.6 fl (80.0-96.0); MONO # 0.3 10^3/uL (0.0-0.8); MONO % 3.2 % (0.0-5.0); NEUTROPHILS # 9.7 10^3/uL (1.5-8.5); NEUTROPHILS % 91.2 % (36.0-66.0); PLATELET COUNT, AUTOMATED 198 10^3/uL (150-450); RED BLOOD COUNT 3.76 10^6/uL (4.30-6.10); WHITE BLOOD COUNT 10.6 10^3/uL (4.0-10.0)
[2019-10-21 08:06] LABS: CALCIUM LEVEL 8.3 MG/DL (8.8-10.2); CREATININE FOR GFR 2.53 MG/DL (0.70-1.30); GLOMERULAR FILTRATION RATE 25.9 (>35); MAGNESIUM LEVEL 2.2 MG/DL (1.8-2.4); POTASSIUM SERUM 4.7 MEQ/L (3.5-5.1)
[2019-10-21 14:00] VITALS: BP 135/80
--- NOTE | 2019-10-21 14:02 | IPNPDOC ---
Date Seen The patient was seen on 10/21/19. Progress Note 84 y/o M initially presented to hospital for left groin area pain, found to have small renal stone, was admitted for UTI and found to have bacteremia. Pt was seen and examined at bedside. Pt c/o generalized weakness PHYSICAL EXAMINATION: GENERAL: Comfortable Neck- supple CARDIOVASCULAR: Regular rate and rhythm RESPIRATORY: clear to ascultation ABDOMINAL:soft, non tender, bowel sounds + EXTREMITIES: mild b/l lower extremities edema NEUROLOGICAL: No focal deficit PSYCHOLOGICAL: mood normal ASSESSMENT AND PLAN: 84 y/o M with nephrolithiasis, UTI, one episode of urinary retention and bacteremia Labs and imaging studies reviewed Plan 1. UTI will continue iv ceftriaxone for now 2. Bacteremia suspected source UTI iv ceftriaxone will f/u final and repeat blood culture 3. episode of urinary retention s/p gaona catheter will perform voiding trials 4. Left inguinal pain - likely 2/2 ureteral stone with mild left sided hydronephrosis passed stone during this hospitalization sent to lab o/p urology referral c/w Tamsulosin / Dutasteride Will adjust dose of Tramadol from outpatient setting Case discussed with urology; currently no indications for intervention at this time 5. Weakness / Instability Orthostatic vital signs were negative PT / OT 6. chronic back pain home meds 7. LE swelling Patient was advised by his primary care provider that he may have congestive heart failure BNP normal Hold diuretics for now; will need to be resumed 8. HTN Hold Torsemide Will c/w BP medications with hold parameters 9. DLP Continue with statin 10. DM2 Currently not on medications c/ consistent carbohydrate diet 11. Hypothyroidism Levothyroxine 12. CKD3 avoid nephrotoxic medications 13. BPH Continue with tamsulosin and dutasteride 14. 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 GERD PPI DVT prophylaxis - Heparin VS, I&O, 24H, Fishbone Vital Signs/I&O Vital Signs Date Time Temp Pulse Resp B/P (MAP) Pulse Ox O2 Delivery O2 Flow Rate FiO2 10/21/19 07:48 80 120/57 10/21/19 06:49 18 Room Air 10/21/19 06:26 99.6 96 I&O- Last 24 Hours up to 6 AM 10/21/19 06:00 Intake Total 2170 ml Output Total 400 ml Balance 1770 ml Laboratory Data 24H LABS Laboratory Tests 2 10/20/19 21:21: Lactic Acid Level 1.7 10/20/19 22:10: Methicillin-Resist S.aureus DNA PCR NOT DETECTED 10/21/19 06:49: Anion Gap 8, Glomerular Filtration Rate 25.9L, Calcium Level 8.3L, Magnesium Level 2.2 10/21/19 07:41: Immature Granulocyte % (Auto) 1.8, Neutrophils (%) (Auto) 91.2H, Lymphocytes (%) (Auto) 3.2L, Monocytes (%) (Auto) 3.2, Eosinophils (%) (Auto) 0.5, Basophils (%) (Auto) 0.1, Neutrophils # (Auto) 9.7H, Lymphocytes # (Auto) 0.3L, Monocytes # (Auto) 0.3, Eosinophils # (Auto) 0.1, Basophils # (Auto) 0.0, Nucleated Red Blood Cells % (auto) 0.0 CBC/BMP Laboratory Tests 10/21/19 06:49 10/21/19 07:41 Microbiology Microbiology 10/20/19 Blood Culture, Received Pending 10/20/19 Blood Culture, Received Pending 10/20/19 Blood Culture - Preliminary, Resulted 10/20/19 Blood Culture - Preliminary, Resulted No growth after 24 hours . All specim... 10/19/19 Urine Culture - Final, Complete Enterococcus Faecalis JENNY FERGUSON MD Oct 21, 2019 14:02
[2019-10-21 20:00] VITALS: BP 137/81
[2019-10-21] MEDS: TAMSULOSIN 0.4 MG CAP PO SCH (21:50)
[2019-10-21] MEDS: ATORVASTATIN 20 MG TAB PO SCH (21:50)
[2019-10-21] MEDS: ASPIRIN 81 MG ENTERIC TAB PO SCH (21:50)
[2019-10-21] MEDS: FINASTERIDE 5 MG TAB PO SCH (21:50)
[2019-10-22] MEDS: cefTRIAXone SOD 1 GM in D5W MINI-BAG PLUS 50 ML IV SCH (00:59)
[2019-10-22 04:59] VITALS: BP 134/68
[2019-10-22] MEDS: HEPARIN SOD (PORCINE) 5000UNITS/ML VIAL (J1644 PER 1000UNITS) SC SCH ×2 (05:42→14:00)
[2019-10-22] MEDS: LEVOTHYROXINE 112MCG TABLET (0.112MG) PO SCH (05:42)
[2019-10-22 07:35] LABS: BASO % 0.2 % (0.0-1.0); EOS # 0.4 10^3/uL (0.0-0.5); HEMATOCRIT 32.6 % (42.0-52.0); HEMOGLOBIN 10.7 g/dl (13.5-17.5); LYMPH # 0.8 10^3/uL (1.5-5.0); LYMPH % 13.1 % (24.0-44.0); MEAN CORPUSCULAR HEMOGLOBIN 30.7 pg (27.0-33.0); MEAN CORPUSCULAR HGB CONC 32.8 g/dl (32.0-36.5); MEAN CORPUSCULAR VOLUME 93.4 fl (80.0-96.0); MONO # 0.4 10^3/uL (0.0-0.8); MONO % 6.8 % (0.0-5.0); NEUTROPHILS # 4.6 10^3/uL (1.5-8.5); NEUTROPHILS % 73.3 % (36.0-66.0); PLATELET COUNT, AUTOMATED 177 10^3/uL (150-450); RED BLOOD COUNT 3.49 10^6/uL (4.30-6.10); WHITE BLOOD COUNT 6.2 10^3/uL (4.0-10.0)
[2019-10-22 07:58] LABS: CALCIUM LEVEL 8.7 MG/DL (8.8-10.2); CREATININE FOR GFR 2.35 MG/DL (0.70-1.30); GLOMERULAR FILTRATION RATE 28.2 (>35); MAGNESIUM LEVEL 2.1 MG/DL (1.8-2.4); POTASSIUM SERUM 4.1 MEQ/L (3.5-5.1)
[2019-10-22 08:14] VITALS: BP 134/68
[2019-10-22] MEDS: CARVedilol 3.125 MG TAB PO SCH (08:14)
[2019-10-22] MEDS: FEBUXOSTAT 40 MG TABLET (ULORIC) PO SCH (08:16)
[2019-10-22] MEDS: VENLAFAXINE **XR** 75MG CAPSULE PO SCH (08:16)
[2019-10-22] MEDS: OMEPRAZOLE 20 MG CAP PO SCH (08:16)
[2019-10-22] MEDS: traMADol 50 MG TAB PO PRN (08:17)
[2019-10-22] MEDS ORDERED: CALCITRIOL 0.25 MCG CAP (S0169) PO SCH (09:00)
[2019-10-22] MEDS ORDERED: CIPROFLOXACIN 200 MG in IV 1 EA IV SCH (11:00)
[2019-10-22] MEDS ORDERED: BACI1CAP PO ×2 (11:40→15:22)
[2019-10-22] MEDS ORDERED: CIPR-250 PO ×2 (11:40→15:22)
[2019-10-22 14:00] VITALS: BP 139/68
--- NOTE | 2019-10-23 14:14 | ECHO ---
DATE OF STUDY: 10/21/2019 DATE OF : 1935 REFERRING PROVIDER: Dr. Shawn Tompkins PATIENT LOCATION: Room 5143 REASON FOR STUDY: Edema. 2-D MEASUREMENTS: IVS: 1.2 cm LVPW: 1.2 cm LV: 3.7 cm Aorta: 3.5 cm LA: 3.3 cm IVC: 1.2 cm DOPPLER MEASUREMENTS: Peak velocity across the aortic valve: 1.1 m/s Peak velocity across the LVOT: 0.6 m/s 2-D COMMENTS: 1. Normal left ventricular size, wall thickness, and normal global left ventricular systolic function. The estimated left ventricular systolic ejection fraction is 60-65%. 2. Normal left atrium. Normal right atrium and right ventricle. 3. The atrial septum appeared to be normal without evidence of defect or shunt. 4. Normal aortic root. 5. No pericardial effusion seen. 6. The aortic valve, mitral valve and tricuspid valve appeared to be normal. The pulmonic valve also appeared to be normal in limited views. The proximal pulmonary artery branches were not well visualized. 7. The inferior vena cava was normal in size, central venous pressure is most likely normal. DOPPLER: Only trace mitral regurgitation detected. Abnormal relaxation pattern was noted across the mitral valve leaflets as well as the mitral annulus consistent with features of grade 1 left ventricular diastolic dysfunction. IMPRESSION: 1. Normal global left ventricular systolic function. There are some features of grade 1 left ventricular diastolic dysfunction manifested by abnormal relaxation. 2. Trace mitral regurgitation. 3. The study was technically limited due to poor acoustic window.
== END 2019-10-22 15:35 | disposition home or self-care (01) | DRG 690 ==
LOC: M ED 13:44 → M ED INP 13:45 → ENRESERV 10-20 01:53 → M MS5PR 10-20 02:26 → OBSVTOIN 10-21 13:49 → INTOOBSV 10-21 13:49
PROVIDERS: ADMIT Internal Medicine; ATTEND Internal Medicine
DX: N39.0 Urinary tract infection, site not specified (principal); R78.81 Bacteremia; I12.9 Hypertensive chronic kidney disease with stage 1 through stage 4 chronic kidney disease, or unspecified chronic kidney disease; R53.1 Weakness; E78.5 Hyperlipidemia, unspecified; E11.9 Type 2 diabetes mellitus without complications; E03.9 Hypothyroidism, unspecified; N18.3 Chronic kidney disease, stage 3 (moderate); N40.1 Benign prostatic hyperplasia with lower urinary tract symptoms; N13.1 Hydronephrosis with ureteral stricture, not elsewhere classified; E55.9 Vitamin D deficiency, unspecified; M10.9 Gout, unspecified; R33.9 Retention of urine, unspecified; B95.2 Enterococcus as the cause of diseases classified elsewhere; Z79.899 Other long term (current) drug therapy; Z88.0 Allergy status to penicillin; Z88.5 Allergy status to narcotic agent; Z79.82 Long term (current) use of aspirin; Z88.8 Allergy status to other drugs, medicaments and biological substances; Z90.2 Acquired absence of lung [part of]; Z98.41 Cataract extraction status, right eye; Z98.42 Cataract extraction status, left eye

== ENCOUNTER → 2019-11-03 | Outpatient (CLI) | payer MEDICARE, OTHER ==
[~2019-11-03] MED LIST changes: +ASPI-161 PO; +BACI1CAP PO; +BIOT1CAP PO; +CIPR-249 PO; +CIPR-250 PO; +CLOB5CR TOP; +FEBU40TA2; +FINA5TAB2; +FINA5TAB2 PO; +MAGN1.743 PO; +OMEG100010 PO; +PRES10CA2 PO; +SYNT112T2 PO; +VITA1CAP25; +VITA50005 PO
[2019-11-29 16:04] LABS: HEMATOCRIT 38.3 % (42.0-52.0); HEMOGLOBIN 12.2 g/dl (13.5-17.5); MEAN CORPUSCULAR HEMOGLOBIN 31.2 pg (27.0-33.0); MEAN CORPUSCULAR HGB CONC 31.9 g/dl (32.0-36.5); PLATELET COUNT, AUTOMATED 447 10^3/uL (150-450); RED BLOOD COUNT 3.91 10^6/uL (4.30-6.10); WHITE BLOOD COUNT 6.5 10^3/uL (4.0-10.0)
[2019-12-12 13:30] LABS: ALBUMIN 3.3 GM/DL (3.2-5.2); BILIRUBIN,TOTAL 0.3 MG/DL (0.2-1.0); CREATININE FOR GFR 2.5 MG/DL (0.70-1.30); FREE T4 1.07 NG/DL (0.76-1.46); GLOMERULAR FILTRATION RATE 26.3 (>35); HEMOGLOBIN A1c 6.9 %; POTASSIUM SERUM 4.3 MEQ/L (3.5-5.1); THYROID STIMULATING HORMONE 2.38 uIU/ML (0.358-3.740); TOTAL PROTEIN 6.6 GM/DL (6.4-8.2)
== END ==
LOC: M LAB 11:19
PROVIDERS: ATTEND Family Medicine
DX: R41.3 Other amnesia (principal); E11.40 Type 2 diabetes mellitus with diabetic neuropathy, unspecified; E03.8 Other specified hypothyroidism

== ENCOUNTER → 2019-11-08 | Outpatient (CLI) | payer MEDICARE, OTHER | LOC: M PAIN 09:45 | PROVIDERS: ATTEND Family Medicine | DX: M51.17 Intervertebral disc disorders with radiculopathy, lumbosacral region (principal) ==

== ENCOUNTER → 2019-12-03 | Outpatient (REF) | payer MEDICARE, OTHER ==
[2019-12-03 18:31] LABS: APPEARANCE, URINE CLEAR (CLEAR); BACTERIA, URINE AUTO NEGATIVE (NEGATIVE); BILIRUBIN, URINE AUTO NEGATIVE (NEGATIVE); BLOOD, URINE BLOOD NEGATIVE (NEGATIVE); COLOR, URINE STRAW (YELLOW); GLUCOSE, URINE (UA) AUTO 1+ mg/dL (NEGATIVE); KETONE, URINE AUTO NEGATIVE (NEGATIVE); LEUKOCYTE ESTERASE, URINE AUTO 1+ (NEGATIVE); MUCUS, URINE SMALL (NEGATIVE); NITRITE, URINE AUTO NEGATIVE (NEGATIVE); PROTEIN, URINE AUTO NEGATIVE (NEGATIVE); RBC, URINE AUTO 2 /HPF (0-3); SPECIFIC GRAVITY URINE AUTO 1.005 (1.002-1.035); SQUAMOUS EPITHELIAL CELL UR AU 0 /HPF (0-6); UROBILINOGEN, URINE AUTO 0.2 mg/dL (0.0-2.0); WBC, URINE AUTO 19 /HPF (0-3)
== END ==
LOC: M SMT 17:24
PROVIDERS: ATTEND Nurse Practitioner Women's Health
DX: N20.0 Calculus of kidney (principal)

== ENCOUNTER → 2019-12-07 | Outpatient (CLI) | payer MEDICARE, OTHER ==
--- NOTE | 2020-01-03 10:37 | REP ---
ABDOMINAL RADIOGRAPH: CLINICAL: Renal calculus. TECHNIQUE: Single supine view of the abdomen and pelvis. FINDINGS: Evaluation of the urinary tract system is severely limited due to overlying bowel gas pattern. Moderate fecal stasis noted. No obvious urinary tract calcifications identified. Skeletal structures demonstrate age related degenerative changes. IMPRESSION: 1. Moderate fecal stasis. 2. Limited evaluation of the urinary tract system cannot exclude small intrarenal calculi. MTDD
== END ==
LOC: M RAD 13:40
PROVIDERS: ATTEND Nurse Practitioner Women's Health
DX: N20.0 Calculus of kidney (principal)

== ENCOUNTER → 2019-12-23 | Outpatient (CLI) | payer MEDICARE, OTHER | LOC: M PAIN 13:12 | PROVIDERS: ATTEND Family Medicine | DX: M51.17 Intervertebral disc disorders with radiculopathy, lumbosacral region (principal) ==

== ENCOUNTER → 2019-12-31 | Outpatient (REF) | payer MEDICARE, OTHER ==
[2019-12-31 14:26] LABS: APPEARANCE, URINE CLEAR (CLEAR); BACTERIA, URINE AUTO NEGATIVE (NEGATIVE); BILIRUBIN, URINE AUTO NEGATIVE (NEGATIVE); BLOOD, URINE BLOOD NEGATIVE (NEGATIVE); COLOR, URINE STRAW (YELLOW); GLUCOSE, URINE (UA) AUTO NEGATIVE (NEGATIVE); KETONE, URINE AUTO NEGATIVE (NEGATIVE); LEUKOCYTE ESTERASE, URINE AUTO 1+ (NEGATIVE); MUCUS, URINE SMALL (NEGATIVE); NITRITE, URINE AUTO NEGATIVE (NEGATIVE); PROTEIN, URINE AUTO NEGATIVE (NEGATIVE); RBC, URINE AUTO 1 /HPF (0-3); SPECIFIC GRAVITY URINE AUTO 1.006 (1.002-1.035); SQUAMOUS EPITHELIAL CELL UR AU 0 /HPF (0-6); UROBILINOGEN, URINE AUTO 0.2 mg/dL (0.0-2.0); WBC, URINE AUTO 3 /HPF (0-3)
== END ==
LOC: M SMT 13:06
PROVIDERS: ATTEND Nurse Practitioner Family
DX: R30.0 Dysuria (principal)

== ENCOUNTER → 2020-01-20 | Outpatient (CLI) | payer OTHER ==
--- NOTE | 2020-01-24 09:46 | ECWPNPC ---
PATIENT NAME: FERMIN LEACH : 1935 GENDER: MALE VISIT DATE: 01/20/2020 DISCHARGE DATE: 01/20/20 1201 VISIT LOCKED DATE TIME: PHYSICIAN: HOLLIE PARDO PHYSICIAN PAGER NO: ACTIVE RESOURCE: HOLLIE PARDO REASON FOR APPOINTMENT 1. BACK HISTORY OF PRESENT ILLNESS GENERAL: - 84-YEAR-OLD MALE IN FOR CHRONIC PAIN FOLLOW-UP. HE RATES HIS PAIN CURRENTLY AT A 1 OUT OF 10 AND DESCRIBES IT ACHING. 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 FALL RISK SCREENING: SCREENING :ONE FALL WITHOUT INJURY IN THE PAST YEAR PAIN SCREENING: PATIENT HAS A COMPLAINT OF ACUTE OR CHRONIC PAIN :YES LOCATION OF PAIN:LEG(S) INTENSITY OF PAIN (SCALE OF 1 TO 10):1 WHAT DOES YOUR PAIN FEEL LIKE:ACHING DURATION:INTERMITTENT PAIN IS INCREASED BY:ACTIVITIES PAIN IS DECREASED BY:USE OF PAIN MEDICATIONS TREATMENT/MEDICATIONS USED TO MANAGE PAIN:OPIOIDS LEVEL OF RELIEF FROM PAIN TREATMENTS IN THE PAST:75% PAIN HAS INTERFERED WITH THE FOLLOWING:BATHING/DRESSING, WALKING ABILITY, HOUSEWORK, ENJOYMENT OF LIFE, TOILETING NURSING NOTE: -. PAIN CENTER INTAKE QUESTIONS: DO YOU HAVE A HISTORY OF MRSA? :NO DO YOU TAKE A BLOOD THINNERS? :NO DO YOU HAVE ANY BLEEDING DISORDERS? :NO ANY NEW NUMBNESS OR WEAKNESS IN YOUR LEGS OR ARMS? :NO ANY PACEMAKER,DEFIBRILLATOR, OR DORSAL COLUMN STIMULATOR? :NO DO YOU HAVE ANY RASHES OR OPEN SORES? :NO ARE YOU ALLERGIC TO IV DYE? :NO ARE YOU DIABETIC? :YES ANY NEW PROBLEMS WITH YOUR MEDICATIONS? :NO HAVE YOU RECEIVED A VACCINE IN THE PAST 30 DAYS? :YES IF SO WHAT VACCINE AND WHEN? 12/23/19 FLU VACCINE DO YOU PLAN TO RECEIVE A VACCINE IN THE NEXT 21 DAYS? :NO DO YOU NEED ANY PRESCRIPTION? :YES TRAMADOL [facility] DO YOU TAKE ANY IMMUNOSUPPRESSIVE MEDICATIONS? :NO IS THERE A CHANCE YOU COULD BE ? :NO ARE YOU BREAST FEEDING? :NO CURRENT MEDICATIONS TAKING COREG 3.125MG TABLET ORAL BID TAKING TORSEMIDE 20 MG TABLET 1 TABLET ORALLY ONCE A DAY MAY USE IF THERE IS A 3# WT. GAIN TAKING LIPITOR 40 MG TABLET 1 TABLET ORALLY ONCE A DAY TAKING OMEGA 3 1000 MG CAPSULE 1 CAPSULE ORALLY TWICE A DAY TAKING LEVOTHYROXINE SODIUM 112 MCG TABLET 1 TABLET ON AN EMPTY STOMACH IN THE MORNING ORALLY ONCE A DAY TAKING CALCITRIOL 0.25 MCG CAPSULE 1 CAPSULE ORALLY ONCE A DAY, M,F TAKING DRISDOL 46549 UNIT CAPSULE 1 CAPSULE ORALLY ONCE A WEEK TAKING PREVACID 30 MG CAPSULE DELAYED RELEASE 1 CAPSULE ORALLY ONCE A DAY TAKING MAGNESIUM CITRATE - SOLUTION 150 ML ORALLY DAILY NEEDED TAKING EFFEXOR XR 75 MGS CAPSULE EXTENDED RELEASE 24 HOUR 1 CAPSULE WITH FOOD ORALLY ONCE A DAY TAKING ULORIC 40 MG TABLET 1 TABLET ORALLY -W- TAKING PROSCAR 5 MG TABLET 1 TABLET ORALLY ONCE A DAY TAKING FLOMAX 0.4 MG CAPSULE 1 CAPSULE ORALLY ONCE A DAY TAKING TRAMADOL HCL 50 MG TABLET 1 TABLET ORALLY, WORKER'S COMPENSATION THREE TIMES A DAY NEEDED, MDD=3 TAKING LORATADINE 10 MG TABLET 1 TABLET ORALLY ONCE A DAY TAKING CLOBETASOL PROPIONATE 0.05 % CREAM 1 APPLICATION TO AFFECTED AREA EXTERNALLY AFFECTED AREAS ON BODY ECZEMA TWICE A DAY TAKING AREDS OTC AREDS2- 1 CAP ORALLY TWICE A DAY TAKING SYSTANE 0.4-0.3 % SOLUTION DIRECTED OPHTHALMIC TAKING VANICREAM - CREAM DIRECTED EXTERNALLY AFTER SHOWER TAKING ECHINACEA 400 MG CAPSULE 4 CAPSULES ORALLY THREE TIMES A DAY FOR 2-4 DAYS ON ONSET OF COLD SYMPTOMS TAKING LANCETS - MISCELLANEOUS DIRECTED ONE TOUCH ULTRA DX. 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 HYPERLIPIDEMIA HYPOTHYROIDISM--CENTRAL ( FOLLOW FREE T4, NOT TSH) HYPERTENSION BPH PEYRONIE'S DISEASE ALLERGIES DDD/DJD LOW BACK L/S SPINAL STENOSIS PLASMA CELL GRANULOMA RLL STRESS TEST 2008 VIT D DEFICIENCY ZOSTAVAX 09/17 RT 7TH RIB FX (FALL 06/18, CAT-RELATED) GOUT RT GREAT TOE 11/20 COLOGUARD: NEGATIVE PRE-CANCER LESIONS REMOVED FROM BILAT EARS ALLERGIES ZANTAC: CONSTIPATION - SIDE EFFECTS NSAIDS: ELEV BUN, CREAT - SIDE EFFECTS PENICILLIN: HIVES - ALLERGY SURGICAL HISTORY T + A 1948 APPENDECTOMY 1950 TURP 2002 RIGHT SHOULDER REPAIR / 1989 RIGHT LOWER LUNG REMOVAL OF ABSCESS/ 2004 BILATERAL BLEPHAROPLASTY/ 2006 EGD/COLONOSCOPY 2007 RIGHT EYE CATARACT SURGERY 11/2012 CYSTOSCOPY 10/21/[address] JOHNSON TOENAIL 04/25 BACK SKIN BX 04/2019 FAMILY HISTORY FATHER: , HYPERTENSION, DIAGNOSED WITH HYPERTENSION MOTHER: , DIABETES, TYPE II, DIABETES SIBLINGS: BROTHER:DIABETES, TYPE II, BLADDER CA, DIABETES, OTHER MALIGNANT NEOPLASM OF UNSPECIFIED SITE DAUGHTER(S): DEPRESSION, UNSPECIFIED NONPSYCHOTIC MENTAL DISORDER FOLLOWING ORGANIC BRAIN DAMAGE PATERNAL GRAND FATHER: DIABETES, TYPE II, DIABETES REVIEWED, NO CHANGES. SOCIAL HISTORY GENERAL: TOBACCO USE ARE YOU A:FORMER SMOKER FORMER CIGAR SMOKER HOW LONG HAS IT BEEN SINCE YOU LAST SMOKED?1-5 YEARS ADDITIONAL FINDINGS: TOBACCO USERCIGAR SMOKER LATEX QUESTIONNAIRE LATEX ALLERGY : HAVE YOU EVER DEVELOPED ANY TYPE OF REACTION AFTER HANDLING LATEX PRODUCTS SUCH RUBBER GLOVES, CONDOMS, DIAPHRAGMS, BALLOONS, SOCKS, OR UNDERWEAR?NO LATEX ALLERGY : HAVE YOU EVER DEVELOPED ANY TYPE OF REACTION DURING OR AFTER DENTAL APPOINTMENT, VAGINAL/RECTAL EXAMINATION, SURGICAL PROCEDURE, OR ANY OTHER EXPOSURE?NO LATEX RISK : HAVE YOU EVER HAD ANY DIFFICULTY BREATHING OR HIVES AFTER EATING OR HANDLING ANY FRUITS, OR VEGETABLES; SUCH KIWI, BANANAS, STONE FRUITS, OR CHESTNUTSNO LATEX RISK : DO YOU HAVE A PREVIOUS PERSONAL HISTORY OF MORE THAN NINE SURGERIES, SPINA BIFIDA, OR REPEATED CATHERIZATIONS? NO LATEX RISK : ARE YOU FREQUENTLY EXPOSED TO LATEX PRODUCTS IN YOUR OCCUPATION?NO DATE ASKED : 01/20/2020 LUNG CANCER SCREENING SMOKING STATUS:FORMER SMOKER IS THE PATIENT BETWEEN THE AGE OF 54 AND 76?NO ALCOHOL SCREENING DID YOU HAVE A DRINK CONTAINING ALCOHOL IN THE PAST YEAR?NO POINTS0 INTERPRETATIONNEGATIVE RECREATIONAL DRUG USE DRUG USE?NO CAFFEINE CAFFEINE USE?NO SEXUAL HX HAD SEX IN THE LAST 12 MONTHS (VAGINAL, ORAL, OR ANAL)?NO HAVE YOU EVER HAD AN STD?NO HIV / HEP-C SCREENING HIV TEST OFFERED TO PATIENT:YES DATE OFFERED:07/05/2016 TEST ACCEPTED:NO HEP-C TEST OFFERED TO PATIENT:NO REASON: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 LANGUAGE LANGUAGES SPOKEN:GREEK EDUCATION LEVEL OF EDUCATION:FINISHED HIGH SCHOOL LEARNING BARRIERS / SPECIAL NEEDS CHANGE FROM LAST VISIT?NO BARRIERS TO LEARNING?NO HEARING IMPAIRED?YES VISION IMPAIRED?YES COGNITIVELY IMPAIRED?NO :HEARING AIDES :CORRECTIVE LENSES READINESS TO LEARN?YES LEARNING PREFERENCES?NO LEARNING CAPABILITIES PRESENT?YES EMOTIONAL BARRIERS?NO SPECIAL DEVICES?NO CAFETERIA WORKER NEEDED?NO DOMESTIC VIOLENCE DO YOU FEEL SAFE IN YOUR ENVIRONMENT?YES OCCUPATION: RETIRED. DIET: LOW FAT, LOW CHOLESTEROL, LOW SODIUM, LOW POTASSIUM. EXERCISE: NONE. MARITAL STATUS: --ANIL. OTHERS AT HOME: SPOUSE. PAIN CLINIC PFS, CLERGY, PUBLIC HEALTH REFERRALS HAS THE PATIENT BEEN EDUCATED REGARDING HIS/HER PLAN OF CARE?YES HAS THE PATIENT BEEN EDUCATED REGARDING PAIN, THE RISK FOR PAIN, THE IMPORTANCE OF EFFECTIVE PAIN MANAGEMENT, AND THE PAIN ASSESSMENT PROCESS?YES ADVANCE DIRECTIVE ADVANCE DIRECTIVE DISCUSSED WITH PATIENT:YES HCP IS ANIL LEACH [phone] HOSPITALIZATION/MAJOR DIAGNOSTIC PROCEDURE SURGERY RELATED PNEUMONIA 1974 URINARY TRACT INFECTION 10/2019 REVIEW OF SYSTEMS CONSTITUTIONAL: ANY RECENT FEVER NO . CHILLS NO . WEIGHT CHANGE OF UNKNOWN REASONS NO . GASTROENTEROLOGY: NEW UNEXPLAINABLE CHANGES IN BOWEL CONTROL NO . CONSTIPATION NO . GENITOURINARY: ANY NEW CHANGE IN BLADDER CONTROL? NO . NEUROLOGY: NEW ONSET DIZZINESS OR NEUROLOGICAL CHANGES NOT MENTIONED NO . NEW NUMBNESS OR PAIN PATTERNS NOT MENTIONED AND PERTINENT TO TODAY'S VISIT NO . CARDIOLOGY: NEW CHEST PRESSURE NO . NEW CHEST PAIN NO . RESPIRATORY: UNEXPLAINABLE COUGH NO . NEW SHORTNESS OF BREATH NO . VITAL SIGNS WT 167.4 LBS, HT 67.5 IN, BMI 25.83 INDEX, BP 122/70 MM HG, HR 74 /MIN, RR 18 /MIN, TEMP 97.5 F, OXYGEN SAT % 99%, NA INITIALS SC 11:15, REVIEWED BY: EM. EXAMINATION GENERAL EXAMINATION: GENERALNO ACUTE DISTRESS, WELL NOURISHED AND HYDRATED. PSYCHAPPROPRIATE MOOD AND AFFECT . LUNGS:CLEAR TO AUSCULTATION BILATERALLY, NO WHEEZES, RHONCHI, RALES. HEART:NO MURMURS, REGULAR RATE AND RHYTHM. ASSESSMENTS INTERVERTEBRAL DISC DISORDER WITH RADICULOPATHY OF LUMBOSACRAL REGION - M51.17 (PRIMARY) TREATMENT INTERVERTEBRAL DISC DISORDER WITH RADICULOPATHY OF LUMBOSACRAL REGION CLINICAL NOTES: 84-YEAR-OLD MALE IN FOR WORKER'S COMP. CHRONIC PAIN FOLLOW-UP. GIVEN PRESENTING SYMPTOMS RECOMMEND FOLLOW-UP IN CLINIC IN 2 MONTHS. PATIENT HAS EXPRESSED UNDERSTANDING OF AND WAS IN AGREEMENT WITH TREATMENT PLAN. GIVEN TIME TO ASK QUESTIONS AND EXPRESS CONCERNS. PROCEDURE CODES FA211 ESTABILISHED PATIENT [facility] CHARGE DISPOSITION & COMMUNICATION FOLLOW UP 2 MONTHS (REASON: BACK PAIN) ELECTRONICALLY SIGNED BY SOFÍA BARRON ON 01/24/2020 AT 09:44 AM EDT DISCLAIMER : THIS IS A VISIT SUMMARY EXTRACTED FROM THE [facility] CHART. IT IS NOT A COPY OF THE [employer] PROGRESS NOTE. AUBREY
--- NOTE | 2020-01-24 09:47 | ECWPNPC ---
PATIENT NAME: FERMIN LEACH : 1935 GENDER: MALE VISIT DATE: 01/20/2020 DISCHARGE DATE: 01/20/20 1201 VISIT LOCKED DATE TIME: PHYSICIAN: HOLLIE PARDO PHYSICIAN PAGER NO: ACTIVE RESOURCE: HOLLIE PARDO REASON FOR APPOINTMENT 1. BACK HISTORY OF PRESENT ILLNESS GENERAL: - 84-YEAR-OLD MALE IN FOR CHRONIC PAIN FOLLOW-UP. HE RATES HIS PAIN CURRENTLY AT A 1 OUT OF 10 AND DESCRIBES IT ACHING. 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 FALL RISK SCREENING: SCREENING :ONE FALL WITHOUT INJURY IN THE PAST YEAR PAIN SCREENING: PATIENT HAS A COMPLAINT OF ACUTE OR CHRONIC PAIN :YES LOCATION OF PAIN:LEG(S) INTENSITY OF PAIN (SCALE OF 1 TO 10):1 WHAT DOES YOUR PAIN FEEL LIKE:ACHING DURATION:INTERMITTENT PAIN IS INCREASED BY:ACTIVITIES PAIN IS DECREASED BY:USE OF PAIN MEDICATIONS TREATMENT/MEDICATIONS USED TO MANAGE PAIN:OPIOIDS LEVEL OF RELIEF FROM PAIN TREATMENTS IN THE PAST:75% PAIN HAS INTERFERED WITH THE FOLLOWING:BATHING/DRESSING, WALKING ABILITY, HOUSEWORK, ENJOYMENT OF LIFE, TOILETING NURSING NOTE: -. PAIN CENTER INTAKE QUESTIONS: DO YOU HAVE A HISTORY OF MRSA? :NO DO YOU TAKE A BLOOD THINNERS? :NO DO YOU HAVE ANY BLEEDING DISORDERS? :NO ANY NEW NUMBNESS OR WEAKNESS IN YOUR LEGS OR ARMS? :NO ANY PACEMAKER,DEFIBRILLATOR, OR DORSAL COLUMN STIMULATOR? :NO DO YOU HAVE ANY RASHES OR OPEN SORES? :NO ARE YOU ALLERGIC TO IV DYE? :NO ARE YOU DIABETIC? :YES ANY NEW PROBLEMS WITH YOUR MEDICATIONS? :NO HAVE YOU RECEIVED A VACCINE IN THE PAST 30 DAYS? :YES IF SO WHAT VACCINE AND WHEN? 12/23/19 FLU VACCINE DO YOU PLAN TO RECEIVE A VACCINE IN THE NEXT 21 DAYS? :NO DO YOU NEED ANY PRESCRIPTION? :YES TRAMADOL [facility] DO YOU TAKE ANY IMMUNOSUPPRESSIVE MEDICATIONS? :NO IS THERE A CHANCE YOU COULD BE ? :NO ARE YOU BREAST FEEDING? :NO CURRENT MEDICATIONS TAKING COREG 3.125MG TABLET ORAL BID TAKING TORSEMIDE 20 MG TABLET 1 TABLET ORALLY ONCE A DAY MAY USE IF THERE IS A 3# WT. GAIN TAKING LIPITOR 40 MG TABLET 1 TABLET ORALLY ONCE A DAY TAKING OMEGA 3 1000 MG CAPSULE 1 CAPSULE ORALLY TWICE A DAY TAKING LEVOTHYROXINE SODIUM 112 MCG TABLET 1 TABLET ON AN EMPTY STOMACH IN THE MORNING ORALLY ONCE A DAY TAKING CALCITRIOL 0.25 MCG CAPSULE 1 CAPSULE ORALLY ONCE A DAY, M,F TAKING DRISDOL 81197 UNIT CAPSULE 1 CAPSULE ORALLY ONCE A WEEK TAKING PREVACID 30 MG CAPSULE DELAYED RELEASE 1 CAPSULE ORALLY ONCE A DAY TAKING MAGNESIUM CITRATE - SOLUTION 150 ML ORALLY DAILY NEEDED TAKING EFFEXOR XR 75 MGS CAPSULE EXTENDED RELEASE 24 HOUR 1 CAPSULE WITH FOOD ORALLY ONCE A DAY TAKING ULORIC 40 MG TABLET 1 TABLET ORALLY -W- TAKING PROSCAR 5 MG TABLET 1 TABLET ORALLY ONCE A DAY TAKING FLOMAX 0.4 MG CAPSULE 1 CAPSULE ORALLY ONCE A DAY TAKING TRAMADOL HCL 50 MG TABLET 1 TABLET ORALLY, WORKER'S COMPENSATION THREE TIMES A DAY NEEDED, MDD=3 TAKING LORATADINE 10 MG TABLET 1 TABLET ORALLY ONCE A DAY TAKING CLOBETASOL PROPIONATE 0.05 % CREAM 1 APPLICATION TO AFFECTED AREA EXTERNALLY AFFECTED AREAS ON BODY ECZEMA TWICE A DAY TAKING AREDS OTC AREDS2- 1 CAP ORALLY TWICE A DAY TAKING SYSTANE 0.4-0.3 % SOLUTION DIRECTED OPHTHALMIC TAKING VANICREAM - CREAM DIRECTED EXTERNALLY AFTER SHOWER TAKING ECHINACEA 400 MG CAPSULE 4 CAPSULES ORALLY THREE TIMES A DAY FOR 2-4 DAYS ON ONSET OF COLD SYMPTOMS TAKING LANCETS - MISCELLANEOUS DIRECTED ONE TOUCH ULTRA DX. 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 HYPERLIPIDEMIA HYPOTHYROIDISM--CENTRAL ( FOLLOW FREE T4, NOT TSH) HYPERTENSION BPH PEYRONIE'S DISEASE ALLERGIES DDD/DJD LOW BACK L/S SPINAL STENOSIS PLASMA CELL GRANULOMA RLL STRESS TEST 2008 VIT D DEFICIENCY ZOSTAVAX 09/17 RT 7TH RIB FX (FALL 06/18, CAT-RELATED) GOUT RT GREAT TOE 11/20 COLOGUARD: NEGATIVE PRE-CANCER LESIONS REMOVED FROM BILAT EARS ALLERGIES ZANTAC: CONSTIPATION - SIDE EFFECTS NSAIDS: ELEV BUN, CREAT - SIDE EFFECTS PENICILLIN: HIVES - ALLERGY SURGICAL HISTORY T + A 1948 APPENDECTOMY 1950 TURP 2002 RIGHT SHOULDER REPAIR / 1989 RIGHT LOWER LUNG REMOVAL OF ABSCESS/ 2004 BILATERAL BLEPHAROPLASTY/ 2006 EGD/COLONOSCOPY 2007 RIGHT EYE CATARACT SURGERY 11/2012 CYSTOSCOPY 10/21/2017 LEFT EYE CATARACT SUR[address]ERY [address] JOHNSON TOENAIL 04/25 BACK SKIN BX 04/2019 FAMILY HISTORY FATHER: , HYPERTENSION, DIAGNOSED WITH HYPERTENSION MOTHER: , DIABETES, TYPE II, DIABETES SIBLINGS: BROTHER:DIABETES, TYPE II, BLADDER CA, DIABETES, OTHER MALIGNANT NEOPLASM OF UNSPECIFIED SITE DAUGHTER(S): DEPRESSION, UNSPECIFIED NONPSYCHOTIC MENTAL DISORDER FOLLOWING ORGANIC BRAIN DAMAGE PATERNAL GRAND FATHER: DIABETES, TYPE II, DIABETES REVIEWED, NO CHANGES. SOCIAL HISTORY GENERAL: TOBACCO USE ARE YOU A:FORMER SMOKER FORMER CIGAR SMOKER HOW LONG HAS IT BEEN SINCE YOU LAST SMOKED?1-5 YEARS ADDITIONAL FINDINGS: TOBACCO USERCIGAR SMOKER LATEX QUESTIONNAIRE LATEX ALLERGY : HAVE YOU EVER DEVELOPED ANY TYPE OF REACTION AFTER HANDLING LATEX PRODUCTS SUCH RUBBER GLOVES, CONDOMS, DIAPHRAGMS, BALLOONS, SOCKS, OR UNDERWEAR?NO LATEX ALLERGY : HAVE YOU EVER DEVELOPED ANY TYPE OF REACTION DURING OR AFTER DENTAL APPOINTMENT, VAGINAL/RECTAL EXAMINATION, SURGICAL PROCEDURE, OR ANY OTHER EXPOSURE?NO LATEX RISK : HAVE YOU EVER HAD ANY DIFFICULTY BREATHING OR HIVES AFTER EATING OR HANDLING ANY FRUITS, OR VEGETABLES; SUCH KIWI, BANANAS, STONE FRUITS, OR CHESTNUTSNO LATEX RISK : DO YOU HAVE A PREVIOUS PERSONAL HISTORY OF MORE THAN NINE SURGERIES, SPINA BIFIDA, OR REPEATED CATHERIZATIONS? NO LATEX RISK : ARE YOU FREQUENTLY EXPOSED TO LATEX PRODUCTS IN YOUR OCCUPATION?NO DATE ASKED : 01/20/2020 LUNG CANCER SCREENING SMOKING STATUS:FORMER SMOKER IS THE PATIENT BETWEEN THE AGE OF 54 AND 76?NO ALCOHOL SCREENING DID YOU HAVE A DRINK CONTAINING ALCOHOL IN THE PAST YEAR?NO POINTS0 INTERPRETATIONNEGATIVE RECREATIONAL DRUG USE DRUG USE?NO CAFFEINE CAFFEINE USE?NO SEXUAL HX HAD SEX IN THE LAST 12 MONTHS (VAGINAL, ORAL, OR ANAL)?NO HAVE YOU EVER HAD AN STD?NO HIV / HEP-C SCREENING HIV TEST OFFERED TO PATIENT:YES DATE OFFERED:07/05/2016 TEST ACCEPTED:NO HEP-C TEST OFFERED TO PATIENT:NO REASON:PATIENT DECLINED ISLAM [id number] UNITARIAN NO RESTORATIONIST BELIEFS THAT WOULD IMPACT HEALTH CARE. LANGUAGE LANGUAGES SPOKEN:LAO EDUCATION LEVEL OF EDUCATION:FINISHED HIGH SCHOOL LEARNING BARRIERS / SPECIAL NEEDS CHANGE FROM LAST VISIT?NO BARRIERS TO LEARNING?NO HEARING IMPAIRED?YES VISION IMPAIRED?YES COGNITIVELY IMPAIRED?NO :HEARING AIDES :CORRECTIVE LENSES READINESS TO LEARN?YES LEARNING PREFERENCES?NO LEARNING CAPABILITIES PRESENT?YES EMOTIONAL BARRIERS?NO SPECIAL DEVICES?NO WASHER REPAIRMAN NEEDED?NO DOMESTIC VIOLENCE DO YOU FEEL SAFE IN YOUR ENVIRONMENT?YES OCCUPATION: RETIRED. DIET: LOW FAT, LOW CHOLESTEROL, LOW SODIUM, LOW POTASSIUM. EXERCISE: NONE. MARITAL STATUS: --ANIL. OTHERS AT HOME: SPOUSE. PAIN CLINIC PFS, CLERGY, PUBLIC HEALTH REFERRALS HAS THE PATIENT BEEN EDUCATED REGARDING HIS/HER PLAN OF CARE?YES HAS THE PATIENT BEEN EDUCATED REGARDING PAIN, THE RISK FOR PAIN, THE IMPORTANCE OF EFFECTIVE PAIN MANAGEMENT, AND THE PAIN ASSESSMENT PROCESS?YES ADVANCE DIRECTIVE ADVANCE DIRECTIVE DISCUSSED WITH PATIENT:YES HCP IS ANIL LEACH [phone] HOSPITALIZATION/MAJOR DIAGNOSTIC PROCEDURE SURGERY RELATED PNEUMONIA 1974 URINARY TRACT INFECTION 10/2019 REVIEW OF SYSTEMS CONSTITUTIONAL: ANY RECENT FEVER NO . CHILLS NO . WEIGHT CHANGE OF UNKNOWN REASONS NO . GASTROENTEROLOGY: NEW UNEXPLAINABLE CHANGES IN BOWEL CONTROL NO . CONSTIPATION NO . GENITOURINARY: ANY NEW CHANGE IN BLADDER CONTROL? NO . NEUROLOGY: NEW ONSET DIZZINESS OR NEUROLOGICAL CHANGES NOT MENTIONED NO . NEW NUMBNESS OR PAIN PATTERNS NOT MENTIONED AND PERTINENT TO TODAY'S VISIT NO . CARDIOLOGY: NEW CHEST PRESSURE NO . NEW CHEST PAIN NO . RESPIRATORY: UNEXPLAINABLE COUGH NO . NEW SHORTNESS OF BREATH NO . VITAL SIGNS WT 167.4 LBS, HT 67.5 IN, BMI 25.83 INDEX, BP 122/70 MM HG, HR 74 /MIN, RR 18 /MIN, TEMP 97.5 F, OXYGEN SAT % 99%, NA INITIALS SC 11:15, REVIEWED BY: EM. EXAMINATION GENERAL EXAMINATION: GENERALNO ACUTE DISTRESS, WELL NOURISHED AND HYDRATED. PSYCHAPPROPRIATE MOOD AND AFFECT . LUNGS:CLEAR TO AUSCULTATION BILATERALLY, NO WHEEZES, RHONCHI, RALES. HEART:NO MURMURS, REGULAR RATE AND RHYTHM. ASSESSMENTS INTERVERTEBRAL DISC DISORDER WITH RADICULOPATHY OF LUMBOSACRAL REGION - M51.17 (PRIMARY) TREATMENT INTERVERTEBRAL DISC DISORDER WITH RADICULOPATHY OF LUMBOSACRAL REGION CLINICAL NOTES: 84-YEAR-OLD MALE IN FOR WORKER'S COMP. CHRONIC PAIN FOLLOW-UP. GIVEN PRESENTING SYMPTOMS RECOMMEND FOLLOW-UP IN CLINIC IN 2 MONTHS. PATIENT HAS EXPRESSED UNDERSTANDING OF AND WAS IN AGREEMENT WITH TREATMENT PLAN. GIVEN TIME TO ASK QUESTIONS AND EXPRESS CONCERNS. PROCEDURE CODES FA211 ESTABILISHED PATIENT [facility] CHARGE DISPOSITION & COMMUNICATION FOLLOW UP 2 MONTHS (REASON: BACK PAIN) ELECTRONICALLY SIGNED BY SOFÍA BARRON ON 01/24/2020 AT 09:44 AM EDT DISCLAIMER : THIS IS A VISIT SUMMARY EXTRACTED FROM THE [employer] CHART. IT IS NOT A COPY OF THE [employer] PROGRESS NOTE. AUBREY
== END ==
LOC: M PAIN 11:15
PROVIDERS: ATTEND Family Medicine
DX: M51.17 Intervertebral disc disorders with radiculopathy, lumbosacral region (principal); G89.29 Other chronic pain; E11.9 Type 2 diabetes mellitus without complications; E78.5 Hyperlipidemia, unspecified; E03.9 Hypothyroidism, unspecified; I10 Essential (primary) hypertension; E55.9 Vitamin D deficiency, unspecified; F17.290 Nicotine dependence, other tobacco product, uncomplicated; Z88.0 Allergy status to penicillin; Z88.6 Allergy status to analgesic agent; Z88.8 Allergy status to other drugs, medicaments and biological substances; Z79.899 Other long term (current) drug therapy

== ENCOUNTER → 2020-03-20 | Outpatient (CLI) | payer OTHER, MEDICARE ==
--- NOTE | 2020-03-22 06:35 | ECWPNPC ---
PATIENT NAME: FERMIN LEACH : 1935 GENDER: MALE VISIT DATE: 03/20/2020 DISCHARGE DATE: 03/20/20 1450 VISIT LOCKED DATE TIME: PHYSICIAN: HOLLIE PARDO PHYSICIAN PAGER NO: ACTIVE RESOURCE: HOLLIE PARDO REASON FOR APPOINTMENT 1. BACK PAIN HISTORY OF PRESENT ILLNESS FALL RISK SCREENING: SCREENING :ONE FALL WITHOUT INJURY IN THE PAST YEAR 84-YEAR-OLD MALE IN FOR WORKER'S COMP. CHRONIC PAIN FOLLOW-UP. HE RATES HIS PAIN CURRENTLY AT A 2 OUT OF 10 AND DESCRIBES IT ACHING. PATIENT HAS HAD LUMBAR EPIDURALS IN THE PAST WITH GOOD RESULTS AND WOULD LIKE TO DISCUSS REPEAT PROCEDURES TODAY WITH A GOAL OF INCREASED FUNCTIONALITY AND DECREASED PAIN. 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 PAIN SCREENING: PATIENT HAS A COMPLAINT OF ACUTE OR CHRONIC PAIN :YES LOCATION OF PAIN:LOW BACK, LEG(S) INTENSITY OF PAIN (SCALE OF 1 TO 10):2 WHAT DOES YOUR PAIN FEEL LIKE:ACHING DURATION:INTERMITTENT PAIN IS INCREASED BY:ACTIVITIES PAIN IS DECREASED BY:USE OF PAIN MEDICATIONS TREATMENT/MEDICATIONS USED TO MANAGE PAIN:OPIOIDS LEVEL OF RELIEF FROM PAIN TREATMENTS IN THE PAST:75% PAIN HAS INTERFERED WITH THE FOLLOWING:BATHING/DRESSING, WALKING ABILITY, HOUSEWORK, ENJOYMENT OF LIFE, TOILETING PLAN/GOALS/TREATMENT/INTERVENTION/FOLLOW UP:SEE PLAN PAIN CENTER INTAKE QUESTIONS: DO YOU HAVE A HISTORY OF MRSA? :NO DO YOU TAKE A BLOOD THINNERS? :NO DO YOU HAVE ANY BLEEDING DISORDERS? :NO ANY NEW NUMBNESS OR WEAKNESS IN YOUR LEGS OR ARMS? :NO ANY PACEMAKER,DEFIBRILLATOR, OR DORSAL COLUMN STIMULATOR? :NO DO YOU HAVE ANY RASHES OR OPEN SORES? :NO ARE YOU ALLERGIC TO IV DYE? :NO ARE YOU DIABETIC? :YES ANY NEW PROBLEMS WITH YOUR MEDICATIONS? :NO HAVE YOU RECEIVED A VACCINE IN THE PAST 30 DAYS? :NO DO YOU PLAN TO RECEIVE A VACCINE IN THE NEXT 21 DAYS? :NO DO YOU NEED ANY PRESCRIPTION? :YES TRAMADOL [facility] DO YOU TAKE ANY IMMUNOSUPPRESSIVE MEDICATIONS? :NO IS THERE A CHANCE YOU COULD BE ? :NO ARE YOU BREAST FEEDING? :NO CURRENT MEDICATIONS TAKING COREG 3.125MG TABLET ORAL BID TAKING TORSEMIDE 20 MG TABLET 1 TABLET ORALLY ONCE A DAY MAY USE IF THERE IS A 3# WT. GAIN TAKING LIPITOR 40 MG TABLET 1 TABLET ORALLY ONCE A DAY TAKING LEVOTHYROXINE SODIUM 112 MCG TABLET 1 TABLET ON AN EMPTY STOMACH IN THE MORNING ORALLY ONCE A DAY TAKING CALCITRIOL 0.25 MCG CAPSULE 1 CAPSULE ORALLY ONCE A DAY, M,F, NOTES: TWICE A WEEK TAKING DRISDOL [id number] UNIT CAPSULE 1 CAPSULE ORALLY ONCE A WEEK, NOTES: ONCE A WEEK TAKING PREVACID 30 MG CAPSULE DELAYED RELEASE 1 CAPSULE ORALLY ONCE A DAY TAKING ULORIC 40 MG TABLET 1 TABLET ORALLY -W- TAKING PROSCAR 5 MG TABLET 1 TABLET ORALLY ONCE A DAY TAKING FLOMAX 0.4 MG CAPSULE 1 CAPSULE ORALLY ONCE A DAY TAKING LORATADINE 10 MG TABLET 1 TABLET ORALLY ONCE A DAY TAKING CLOBETASOL PROPIONATE 0.05 % CREAM 1 APPLICATION TO AFFECTED AREA EXTERNALLY AFFECTED AREAS ON BODY ECZEMA TWICE A DAY TAKING AREDS OTC AREDS2- 1 CAP ORALLY TWICE A DAY TAKING SYSTANE 0.4-0.3 % SOLUTION DIRECTED OPHTHALMIC TAKING VANICREAM - CREAM DIRECTED EXTERNALLY AFTER SHOWER TAKING ECHINACEA 400 MG CAPSULE 4 CAPSULES ORALLY THREE TIMES A DAY FOR 2-4 DAYS ON ONSET OF COLD SYMPTOMS TAKING LANCETS - MISCELLANEOUS DIRECTED ONE TOUCH ULTRA DX. E11.65 , TEST ONCE DAILY TAKING GLUCOMETER DIRECTED ONE TOUCH ULTRA DX.E11.65, TEST ONCE DAILY TAKING ONE TOUCH ULTRA BLUE STRIPS DIRECTED - ONE TOUCH ULTRA TEST STRIPS, DXE11.65 TEST ONCE DAILY TAKING PHYSICAL THERAPY EVALUATE AND TREAT PHYSICAL THERAPY MECHANICAL EVAL & TX FOR WEAKNESS IN LEGS AND LOSS OF BALANCE DX=M48.06, R29.898 (TO FIZZICAL THERAPY) 3 X/WK X TAKING TAMSULOSIN HCL 0.4 MG CAPSULE 2 CAPSULE ORALLY ONCE A DAY TAKING TRAMADOL HCL 50 MG TABLET 1 TABLET ORALLY, WORKER'S COMPENSATION THREE TIMES A DAY NEEDED, MDD=3 TAKING PHYSICAL THERAPY EVALUATE AND TREAT PHYSICAL THERAPY FOR LEG WEAKNESS, LOSS OF BALANCE, R29.898 3 X/WK X TAKING EFFEXOR XR 75 MGS CAPSULE EXTENDED RELEASE 24 HOUR 1 CAPSULE WITH FOOD ORALLY ONCE A DAY NOT-TAKING OMEGA 3 1000 MG CAPSULE 1 CAPSULE ORALLY TWICE A DAY NOT-TAKING MAGNESIUM CITRATE - SOLUTION 150 ML ORALLY DAILY NEEDED NOT-TAKING CIPROFLOXACIN HCL 250 MG TABLET 1 TABLET ORALLY EVERY 12 HRS X 7 DAYS NOT-TAKING BACILLUS COAGULANS-INULIN 1 CAPSULE 1 CAP ORALLY WITH MEALS X 7 DAYS NOT-TAKING ASPIRIN 81 MG OTC 1 TABLET ORALLY ONCE A DAY MEDICATION LIST REVIEWED AND RECONCILED WITH THE PATIENT PAST MEDICAL HISTORY 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 HYPERLIPIDEMIA HYPOTHYROIDISM--CENTRAL ( FOLLOW FREE T4, NOT TSH) HYPERTENSION BPH PEYRONIE'S DISEASE ALLERGIES DDD/DJD LOW BACK L/S SPINAL STENOSIS PLASMA CELL GRANULOMA RLL STRESS TEST 2008 VIT D DEFICIENCY ZOSTAVAX 09/17 RT 7TH RIB FX (FALL 06/18, CAT-RELATED) GOUT RT GREAT TOE 11/20 COLOGUARD: NEGATIVE PRE-CANCER LESIONS REMOVED FROM BILAT EARS ALLERGIES ZANTAC: CONSTIPATION - SIDE EFFECTS NSAIDS: ELEV BUN, CREAT - SIDE EFFECTS PENICILLIN: HIVES - ALLERGY SURGICAL HISTORY T + A 1947 APPENDECTOMY 1949 TURP 2002 RIGHT SHOULDER REPAIR / 1989 RIGHT LOWER LUNG REMOVAL OF ABSCESS/ 2004 BILATERAL BLEPHAROPLASTY/ 2006 EGD/COLONOSCOPY 2007 RIGHT EYE CATARACT SURGERY 11/2012 CYSTOSCOPY 10/21/[address] LEFT EYE CAT[address] JOHNSON TOENAIL 04/25 BACK SKIN BX 04/2019 CYSTOSCOPY 01/26/20 FAMILY HISTORY FATHER: , HYPERTENSION, DIAGNOSED WITH HYPERTENSION MOTHER: , DIABETES, TYPE II, DIABETES SIBLINGS: BROTHER:DIABETES, TYPE II, BLADDER CA, DIABETES, OTHER MALIGNANT NEOPLASM OF UNSPECIFIED SITE DAUGHTER(S): DEPRESSION, UNSPECIFIED NONPSYCHOTIC MENTAL DISORDER FOLLOWING ORGANIC BRAIN DAMAGE PATERNAL GRAND FATHER: DIABETES, TYPE II, DIABETES REVIEWED, NO CHANGES. SOCIAL HISTORY GENERAL: TOBACCO USE ARE YOU A:FORMER SMOKER FORMER CIGAR SMOKER HOW LONG HAS IT BEEN SINCE YOU LAST SMOKED?1-5 YEARS ADDITIONAL FINDINGS: TOBACCO USERCIGAR SMOKER LATEX QUESTIONNAIRE LATEX ALLERGY : HAVE YOU EVER DEVELOPED ANY TYPE OF REACTION AFTER HANDLING LATEX PRODUCTS SUCH RUBBER GLOVES, CONDOMS, DIAPHRAGMS, BALLOONS, SOCKS, OR UNDERWEAR?NO LATEX ALLERGY : HAVE YOU EVER DEVELOPED ANY TYPE OF REACTION DURING OR AFTER DENTAL APPOINTMENT, VAGINAL/RECTAL EXAMINATION, SURGICAL PROCEDURE, OR ANY OTHER EXPOSURE?NO LATEX RISK : HAVE YOU EVER HAD ANY DIFFICULTY BREATHING OR HIVES AFTER EATING OR HANDLING ANY FRUITS, OR VEGETABLES; SUCH KIWI, BANANAS, STONE FRUITS, OR CHESTNUTSNO LATEX RISK : DO YOU HAVE A PREVIOUS PERSONAL HISTORY OF MORE THAN NINE SURGERIES, SPINA BIFIDA, OR REPEATED CATHERIZATIONS? NO LATEX RISK : ARE YOU FREQUENTLY EXPOSED TO LATEX PRODUCTS IN YOUR OCCUPATION?NO DATE ASKED : 03/20/2020 LUNG CANCER SCREENING SMOKING STATUS:FORMER SMOKER IS THE PATIENT BETWEEN THE AGE OF 54 AND 76?NO ALCOHOL SCREENING DID YOU HAVE A DRINK CONTAINING ALCOHOL IN THE PAST YEAR?NO POINTS0 INTERPRETATIONNEGATIVE RECREATIONAL DRUG USE DRUG USE?NO CAFFEINE CAFFEINE USE?NO SEXUAL HX HAD SEX IN THE LAST 12 MONTHS (VAGINAL, ORAL, OR ANAL)?NO HAVE YOU EVER HAD AN STD?NO HIV / HEP-C SCREENING HIV TEST OFFERED TO PATIENT:YES DATE OFFERED:07/05/2016 TEST ACCEPTED:NO HEP-C TEST OFFERED TO PATIENT:NO REASON:PATIENT DECLINED RESTORATIONISM [id number] UNITARIAN NO BUDDHISM BELIEFS THAT WOULD IMPACT HEALTH CARE. LANGUAGE LANGUAGES SPOKEN:HUNGARIAN EDUCATION LEVEL OF EDUCATION:FINISHED HIGH SCHOOL LEARNING BARRIERS / SPECIAL NEEDS CHANGE FROM LAST VISIT?NO BARRIERS TO LEARNING?NO HEARING IMPAIRED?YES VISION IMPAIRED?YES COGNITIVELY IMPAIRED?NO :HEARING AIDES :CORRECTIVE LENSES READINESS TO LEARN?YES LEARNING PREFERENCES?NO LEARNING CAPABILITIES PRESENT?YES EMOTIONAL BARRIERS?NO SPECIAL DEVICES?NO OB/GYN NEEDED?NO DOMESTIC VIOLENCE DO YOU FEEL SAFE IN YOUR ENVIRONMENT?YES OCCUPATION: RETIRED. DIET: LOW FAT, LOW CHOLESTEROL, LOW SODIUM, LOW POTASSIUM. EXERCISE: NONE. MARITAL STATUS: --ANIL. OTHERS AT HOME: SPOUSE. PAIN CLINIC PFS, CLERGY, PUBLIC HEALTH REFERRALS HAS THE PATIENT BEEN EDUCATED REGARDING HIS/HER PLAN OF CARE?YES HAS THE PATIENT BEEN EDUCATED REGARDING PAIN, THE RISK FOR PAIN, THE IMPORTANCE OF EFFECTIVE PAIN MANAGEMENT, AND THE PAIN ASSESSMENT PROCESS?YES ADVANCE DIRECTIVE ADVANCE DIRECTIVE DISCUSSED WITH PATIENT:YES HCP IS ANIL LEACH [phone] HOSPITALIZATION/MAJOR DIAGNOSTIC PROCEDURE SURGERY RELATED PNEUMONIA 1974 URINARY TRACT INFECTION 10/2019 REVIEW OF SYSTEMS CONSTITUTIONAL: ANY RECENT FEVER NO . CHILLS NO . WEIGHT CHANGE OF UNKNOWN REASONS NO . GASTROENTEROLOGY: NEW UNEXPLAINABLE CHANGES IN BOWEL CONTROL NO . CONSTIPATION NO . GENITOURINARY: ANY NEW CHANGE IN BLADDER CONTROL? NO . NEUROLOGY: NEW ONSET DIZZINESS OR NEUROLOGICAL CHANGES NOT MENTIONED NO . NEW NUMBNESS OR PAIN PATTERNS NOT MENTIONED AND PERTINENT TO TODAY'S VISIT NO . CARDIOLOGY: NEW CHEST PRESSURE NO . NEW CHEST PAIN NO . RESPIRATORY: UNEXPLAINABLE COUGH NO . NEW SHORTNESS OF BREATH NO . VITAL SIGNS WT 172.4 LBS, HT 67.5 IN, BMI 26.60 INDEX, BP 161/74 MM HG, HR 73 /MIN, RR 18 /MIN, TEMP 97.1 F, OXYGEN SAT % 98%, SAFE IN ENV? (Y/N) YES, NA INITIALS AW 1403, REVIEWED BY: MALENA MORROW RN BSN. EXAMINATION GENERAL EXAMINATION: GENERALNO ACUTE DISTRESS, WELL NOURISHED AND HYDRATED. PSYCHAPPROPRIATE MOOD AND AFFECT . LUNGS:CLEAR TO AUSCULTATION BILATERALLY, NO WHEEZES, RHONCHI, RALES. BACK: DENIES TENDERNESS ALONG LUMBAR SPINE, SURROUNDING SKIN SHOWS NO ERYTHEMA, ECCHYMOSIS, INCREASED WARMTH, AND/OR SKIN ERUPTIONS NOTED. . MUSCULOSKELETAL:NOTABLE WEAKNESS OF THE LEFT LOWER EXTREMITY RIGHT LOWER EXTREMITY WITHIN NORMAL LIMITS. . ASSESSMENTS INTERVERTEBRAL DISC DISORDER WITH RADICULOPATHY OF LUMBOSACRAL REGION - M51.17 (PRIMARY) TREATMENT INTERVERTEBRAL DISC DISORDER WITH RADICULOPATHY OF LUMBOSACRAL REGION NOTES: 84 YEAR OLD MALE IN FOR CHRONIC PAIN FOLLOW UP. GIVEN PRESENTING SYMPTOMS AND RESULTS OF PHYSICAL EXAMINATION RECOMMEND LUMBAR EPIDURAL STEROID INJECTION L4-L5, L5-S1 WITH POST PROCEDURAL FOLLOW UP. PATIENT HAS EXPRESSED UNDERSTANDING OF AND WAS IN AGREEMENT WITH TREATMENT PLAN. GIVEN TIME TO ASK QUESTIONS AND EXPRESS CONCERNS. 03/20/20 1430 PATIENT AND SPOUSE EDUCATED ON LUMBAR EPIDURAL STEROID INJECTION VIA HANDOUT, DISCUSSED PRE PROCEDURE INSTRUCTIONS, PATIENT VERBALIZED UNDERSTANDING. PROCEDURES PN WORKMANS' COMP OPINION IN YOUR OPINION, WAS THE INCIDENT THAT THE PATIENT DESCRIBED THE COMPETENT MEDICAL CAUSE OF THIS INJURY/ILLNESS? YES ARE THE PATIENT'S COMPLAINTS CONSISTENT WITH HIS/HER HISTORY OF THE INJURY/ILLNESS? YES IS THE PATIENT'S HISTORY OF THE INJURY/ILLNESS CONSISTENT WITH YOUR OBJECTIVE FINDING? YES WHAT IS THE PERCENTAGE OF TEMPORARY IMPAIRMENT? MODERATE TO MARKED = 66.7% IS THE PATIENT WORKING? NO DOCTOR ON SITE: LALITA GIRON MD PROCEDURE CODES FA211 ESTABILISHED PATIENT [facility] CHARGE DISPOSITION & COMMUNICATION FOLLOW UP POST PROCEDURE (REASON: LUMBAR STEROID INJECTION L4-L5, L5-S1) ELECTRONICALLY SIGNED BY SOFÍA BARRON ON 03/21/2020 AT 08:53 AM EST DISCLAIMER : THIS IS A VISIT SUMMARY EXTRACTED FROM THE [employer] CHART. IT IS NOT A COPY OF THE [employer] PROGRESS NOTE. MTDD
== END ==
LOC: M PAIN 13:45
PROVIDERS: ATTEND Family Medicine
DX: M51.17 Intervertebral disc disorders with radiculopathy, lumbosacral region (principal); G89.29 Other chronic pain; E11.9 Type 2 diabetes mellitus without complications; E03.9 Hypothyroidism, unspecified; E55.9 Vitamin D deficiency, unspecified; F17.290 Nicotine dependence, other tobacco product, uncomplicated; Z88.0 Allergy status to penicillin; Z88.6 Allergy status to analgesic agent; Z88.8 Allergy status to other drugs, medicaments and biological substances; Z79.899 Other long term (current) drug therapy

== ENCOUNTER → 2020-04-26 | Outpatient (CLI) | payer OTHER, MEDICARE | LOC: M LABSMTC 10:55 | PROVIDERS: ATTEND Anesthesiology | DX: Z20.822 Contact with and (suspected) exposure to COVID-19 (principal) ==

== ENCOUNTER → 2020-06-01 | Outpatient (CLI) | payer OTHER, MEDICARE | LOC: M LABSMTC 10:23 | PROVIDERS: ATTEND Anesthesiology | DX: Z11.52 Encounter for screening for COVID-19 (principal) ==

== ENCOUNTER → 2020-06-06 | Outpatient (CLI) | payer OTHER ==
[~2020-06-06] MED LIST changes: +ISOVUE-M 300 61% 15ML VIAL As Ordered ONE; +LIDOCAINE 1% SDV 30ML VIAL As Ordered ONE; +diazePAM 2 MG TAB As Ordered ONE; +diphenhydrAMINE 25MG CAP As Ordered ONE; +methylPREDNISolone SUSP 40MG/ML 1ML VIAL (DEPO MEDROL) As Ordered ONE
--- NOTE | 2020-06-06 13:45 | REP ---
INDICATION: LUMBAR EPIDURAL STEROID INJECTION. COMPARISON: None. TECHNIQUE: Intraoperative fluoroscopic imaging using portable C-arm technique. FINDINGS: Catheter and contrast overlies lumbar epidural space. Total fluoroscopic time 24 seconds. IMPRESSION: Images consistent with lumbar epidural injection. <Electronically signed by Matt Becerra > 06/06/20 [id number]
--- NOTE | 2020-06-07 03:25 | ECWPNPC ---
PATIENT NAME: FERMIN LEACH : 1935 GENDER: MALE VISIT DATE: 06/06/2020 DISCHARGE DATE: 06/06/20 1439 VISIT LOCKED DATE TIME: PHYSICIAN: LALITA MIDDLETON MD PHYSICIAN PAGER NO: ACTIVE RESOURCE: LALITA MIDDLETON MD REASON FOR APPOINTMENT 1. LUMBAR EPIDURAL STEROID INJECTION HISTORY OF PRESENT ILLNESS ASTHMA: GENERAL: -. FALL RISK SCREENING: SCREENING :NO FALLS REPORTED IN THE LAST YEAR PAIN SCREENING: PATIENT HAS A COMPLAINT OF ACUTE OR CHRONIC PAIN :YES LOCATION OF PAIN:LOW BACK INTENSITY OF PAIN (SCALE OF 1 TO 10):6 WHAT DOES YOUR PAIN FEEL LIKE:ACHING, STABBING DURATION:CONTINOUS, CONSTANT PAIN IS INCREASED BY:ACTIVITIES PAIN IS DECREASED BY:USE OF PAIN MEDICATIONS, SITTING NURSING NOTE: WITH PATIENT DUE TO PT'S HISTORY OF MEMORY LOSS. PAIN CENTER INTAKE QUESTIONS: DO YOU HAVE A HISTORY OF MRSA? :NO DO YOU TAKE A BLOOD THINNERS? :NO DO YOU HAVE ANY BLEEDING DISORDERS? :NO ANY NEW NUMBNESS OR WEAKNESS IN YOUR LEGS OR ARMS? :NO ANY PACEMAKER,DEFIBRILLATOR, OR DORSAL COLUMN STIMULATOR? :NO DO YOU HAVE ANY RASHES OR OPEN SORES? :NO ARE YOU ALLERGIC TO IV DYE? :NO ARE YOU DIABETIC? :YES FSBS 157 THIS A.M. ANY NEW PROBLEMS WITH YOUR MEDICATIONS? :NO HAVE YOU RECEIVED A VACCINE IN THE PAST 30 DAYS? :YES IF SO WHAT VACCINE AND WHEN? SECOND COVID 05/20/20 DO YOU PLAN TO RECEIVE A VACCINE IN THE NEXT 21 DAYS? :NO DO YOU TAKE ANY IMMUNOSUPPRESSIVE MEDICATIONS? :NO ANY HISTORY OF SEIZURES? :NO ANY HISTORY OF CARDIAC ISSUES OR EVENTS? :NO DO YOU HAVE ANY KIDNEY OR LIVER DISEASE? :YES CKD IV DO YOU HAVE SLEEP APNEA? :NO ANY RECENT HEAD INJURY? :NO DO YOU HAVE ANY NEW INFECTIONS? :NO IS THERE A CHANCE YOU COULD BE ? :NO ARE YOU BREAST FEEDING? :NO WHEN DID YOU LAST EAT? : 06/07 539 WHEN DID YOU LAST DRINK? : 06/07 939 WHAT DID YOU LAST DRINK? : WATER NAME OF PERSON DRIVING YOU HOME? : -ANIL DO YOU HAVE ANY OTHER QUESTIONS OR CONCERNS? : - CURRENT MEDICATIONS TAKING COREG 3.125MG TABLET ORAL BID TAKING TORSEMIDE 20 MG TABLET 1 TABLET ORALLY TWICE DAILY TAKING LEVOTHYROXINE SODIUM 112 MCG TABLET 1 TABLET ON AN EMPTY STOMACH IN THE MORNING ORALLY ONCE A DAY TAKING CALCITRIOL 0.25 MCG CAPSULE 1 CAPSULE ORALLY ONCE A DAY, M,, NOTES: TWICE A WEEK TAKING DRISDOL 07298 UNIT CAPSULE 1 CAPSULE ORALLY ONCE A WEEK, NOTES: ONCE A WEEK TAKING PREVACID 30 MG CAPSULE DELAYED RELEASE 1 CAPSULE ORALLY ONCE A DAY TAKING ULORIC 40 MG TABLET 1 TABLET ORALLY -W- TAKING PROSCAR 5 MG TABLET 1 TABLET ORALLY ONCE A DAY TAKING LORATADINE 10 MG TABLET 1 TABLET ORALLY ONCE A DAY TAKING CLOBETASOL PROPIONATE 0.05 % CREAM 1 APPLICATION TO AFFECTED AREA EXTERNALLY AFFECTED AREAS ON BODY ECZEMA TWICE A DAY TAKING AREDS OTC AREDS2- 1 CAP ORALLY TWICE A DAY TAKING SYSTANE 0.4-0.3 % SOLUTION DIRECTED OPHTHALMIC TAKING VANICREAM - CREAM DIRECTED EXTERNALLY AFTER SHOWER TAKING ECHINACEA 400 MG CAPSULE 4 CAPSULES ORALLY THREE TIMES A DAY FOR 2-4 DAYS ON ONSET OF COLD SYMPTOMS TAKING PHYSICAL THERAPY EVALUATE AND TREAT PHYSICAL THERAPY MECHANICAL EVAL & TX FOR WEAKNESS IN LEGS AND LOSS OF BALANCE DX=M48.06, R29.898 (TO FIZZICAL THERAPY) 3 X/WK X TAKING TAMSULOSIN HCL 0.4 MG CAPSULE 2 CAPSULE ORALLY ONCE A DAY TAKING PHYSICAL THERAPY EVALUATE AND TREAT PHYSICAL THERAPY FOR LEG WEAKNESS, LOSS OF BALANCE, R29.898 3 X/WK X TAKING EFFEXOR XR 75 MGS CAPSULE EXTENDED RELEASE 24 HOUR 1 CAPSULE WITH FOOD ORALLY ONCE A DAY TAKING TRAMADOL HCL 50 MG TABLET 1 TABLET ORALLY, WORKER'S COMPENSATION THREE TIMES A DAY NEEDED, MDD=3, NOTES: 06/06/20 @ 0500 TAKING LIPITOR 40 MG TABLET TAKE ONE TABLET BY MOUTH DAILY NOT-TAKING LANCETS - MISCELLANEOUS DIRECTED ONE TOUCH ULTRA DX. E11.65 , TEST ONCE DAILY NOT-TAKING GLUCOMETER DIRECTED ONE TOUCH ULTRA DX.E11.65, TEST ONCE DAILY NOT-TAKING ONE TOUCH ULTRA BLUE STRIPS DIRECTED - ONE TOUCH ULTRA TEST STRIPS, DXE11.65 TEST ONCE DAILY NOT-TAKING FLOMAX 0.4 MG CAPSULE 1 CAPSULE ORALLY ONCE A DAY NOT-TAKING OMEGA 3 1000 MG CAPSULE 1 CAPSULE ORALLY TWICE A DAY NOT-TAKING MAGNESIUM CITRATE - SOLUTION 150 ML ORALLY DAILY NEEDED NOT-TAKING CIPROFLOXACIN HCL 250 MG TABLET 1 TABLET ORALLY EVERY 12 HRS X 7 DAYS NOT-TAKING BACILLUS COAGULANS-INULIN 1 CAPSULE 1 CAP ORALLY WITH MEALS X 7 DAYS NOT-TAKING ASPIRIN 81 MG OTC 1 TABLET ORALLY ONCE A DAY MEDICATION LIST REVIEWED AND RECONCILED WITH THE PATIENT PAST MEDICAL HISTORY 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 HYPERLIPIDEMIA HYPOTHYROIDISM--CENTRAL ( FOLLOW FREE T4, NOT TSH) HYPERTENSION BPH PEYRONIE'S DISEASE ALLERGIES DDD/DJD LOW BACK L/S SPINAL STENOSIS PLASMA CELL GRANULOMA RLL STRESS TEST 2008 VIT D DEFICIENCY ZOSTAVAX 09/17 RT 7TH RIB FX (FALL 06/18, CAT-RELATED) GOUT RT GREAT TOE 11/20 COLOGUARD: NEGATIVE PRE-CANCER LESIONS REMOVED FROM BILAT EARS MEMORY LOSS OR IMPAIRMENT ALLERGIES ZANTAC: CONSTIPATION - SIDE EFFECTS NSAIDS: ELEV BUN, CREAT - SIDE EFFECTS PENICILLIN: HIVES - ALLERGY SURGICAL HISTORY T + A 1947 APPENDECTOMY 1949 TURP 2002 RIGHT SHOULDER REPAIR / 1989 RIGHT LOWER LUNG REMOVAL OF ABSCESS/ 2004 BILATERAL BLEPHAROPLASTY/ 2006 EGD/COLONOSCOPY 2007 RIGHT EYE CATARACT SURGERY 11/2012 CYSTOSCOPY 10/21/2017 LEFT EYE [address]ACT [address] JOHNSON TOENAIL 04/25 BACK SKIN BX 04/2019 CYSTOSCOPY 01/26/20 SOCIAL HISTORY GENERAL: TOBACCO USE ARE YOU A:FORMER SMOKER FORMER CIGAR SMOKER HOW LONG HAS IT BEEN SINCE YOU LAST SMOKED?1-5 YEARS ADDITIONAL FINDINGS: TOBACCO USERCIGAR SMOKER LATEX QUESTIONNAIRE LATEX ALLERGY : HAVE YOU EVER DEVELOPED ANY TYPE OF REACTION AFTER HANDLING LATEX PRODUCTS SUCH RUBBER GLOVES, CONDOMS, DIAPHRAGMS, BALLOONS, SOCKS, OR UNDERWEAR?NO LATEX ALLERGY : HAVE YOU EVER DEVELOPED ANY TYPE OF REACTION DURING OR AFTER DENTAL APPOINTMENT, VAGINAL/RECTAL EXAMINATION, SURGICAL PROCEDURE, OR ANY OTHER EXPOSURE?NO DATE ASKED : 05/03/2020 LATEX RISK : HAVE YOU EVER HAD ANY DIFFICULTY BREATHING OR HIVES AFTER EATING OR HANDLING ANY FRUITS, OR VEGETABLES; SUCH KIWI, BANANAS, STONE FRUITS, OR CHESTNUTSNO LATEX RISK : DO YOU HAVE A PREVIOUS PERSONAL HISTORY OF MORE THAN NINE SURGERIES, SPINA BIFIDA, OR REPEATED CATHERIZATIONS? NO LATEX RISK : ARE YOU FREQUENTLY EXPOSED TO LATEX PRODUCTS IN YOUR OCCUPATION?NO LUNG CANCER SCREENING SMOKING STATUS:FORMER SMOKER IS THE PATIENT BETWEEN THE AGE OF 54 AND 76?NO ALCOHOL SCREENING DID YOU HAVE A DRINK CONTAINING ALCOHOL IN THE PAST YEAR?NO POINTS0 INTERPRETATIONNEGATIVE RECREATIONAL DRUG USE DRUG USE?NO CAFFEINE CAFFEINE USE?NO SEXUAL HX HAD SEX IN THE LAST 12 MONTHS (VAGINAL, ORAL, OR ANAL)?NO HAVE YOU EVER HAD AN STD?NO HIV / HEP-C SCREENING HIV TEST OFFERED TO PATIENT:YES DATE OFFERED:07/05/2016 TEST ACCEPTED:NO HEP-C TEST OFFERED TO PATIENT:NO REASON:PATIENT DECLINED QUAKER [id number] UNITARIAN NO BAHAI BELIEFS THAT WOULD IMPACT HEALTH CARE. LANGUAGE LANGUAGES SPOKEN:[place] EDUCATION LEVEL OF EDUCATION:FINISHED HIGH SCHOOL LEARNING BARRIERS / SPECIAL NEEDS CHANGE FROM LAST VISIT?NO BARRIERS TO LEARNING?NO HEARING IMPAIRED?YES VISION IMPAIRED?YES COGNITIVELY IMPAIRED?NO :HEARING AIDES :CORRECTIVE LENSES READINESS TO LEARN?YES LEARNING PREFERENCES?NO LEARNING CAPABILITIES PRESENT?YES EMOTIONAL BARRIERS?NO SPECIAL DEVICES?NO BURR GRINDER NEEDED?NO DOMESTIC VIOLENCE DO YOU FEEL SAFE IN YOUR ENVIRONMENT?YES OCCUPATION: RETIRED. DIET: LOW FAT, LOW CHOLESTEROL, LOW SODIUM, LOW POTASSIUM. EXERCISE: NONE. MARITAL STATUS: --ANIL. OTHERS AT HOME: SPOUSE. - HAS THE PATIENT BEEN EDUCATED REGARDING HIS/HER PLAN OF CARE?YES HAS THE PATIENT BEEN EDUCATED REGARDING PAIN, THE RISK FOR PAIN, THE IMPORTANCE OF EFFECTIVE PAIN MANAGEMENT, AND THE PAIN ASSESSMENT PROCESS?YES ADVANCE DIRECTIVE ADVANCE DIRECTIVE DISCUSSED WITH PATIENT:YES HCP IS ANIL LEACH [phone] HOSPITALIZATION/MAJOR DIAGNOSTIC PROCEDURE SURGERY RELATED PNEUMONIA 1974 URINARY TRACT INFECTION 10/2019 VITAL SIGNS WT 172.6 LBS, HT 67.5 IN, BMI 26.63 INDEX, BP 129/65 MM HG, HR 79 /MIN, RR 18 /MIN, TEMP 96.3 F, OXYGEN SAT % 98%, SAFE IN ENV? (Y/N) Y, NA INITIALS SC 11:38, REVIEWED BY: Kilo NINA RN. EXAMINATION GENERAL EXAMINATION: THE PATIENT IS ALERT, ORIENTED TIMES THREE AND COOPERATIVE. LUNGS ARE CLEAR TO AUSCULTATION. HEART SHOWS REGULAR RHYTHM, NO MURMURS AND NO GALLOPS. ASSESSMENTS INTERVERTEBRAL DISC DISORDERS WITH RADICULOPATHY, LUMBAR REGION - M51.16 (PRIMARY) TREATMENT INTERVERTEBRAL DISC DISORDERS WITH RADICULOPATHY, LUMBAR REGION [facility] FLUORO GUIDE SPINE INJECTION (PAIN)[id number] MEDICATION: VALIUM TAB 2MG ORALLY (DIAZEPAM)JAMAR TOSCANO 06/06/2020 12:13:34 PM > VERIFIED. SERENA NINA 06/06/2020 12:14:48 PM > ADMINISTERED COMPLETION OF PROCEDURAL VISIT WHEN MEETS CRITERIA MED: PAIN BENADRYL TAB 25MG ORALLY DIPHENHYDRAMINEDSERENA JONES 06/06/2020 2:05:53 PM > VERIFIED @ 1402 IZZY GARCIA 06/06/2020 2:11:06 PM > ADMINISTERED AT 1405 NOTES: 06/06/20 1405 DURING THE PROCEDURE AFIIB WAS NOTED ON THE WATER CARTER. I SAW NO CARDIAC HISTORY NOTED. PT WAS ASYPMTOMATIC AND DR. MIDDLETON WAS AWARE. I SPOKE WITH PATIENT'S AFTER THE PROCEDURE WHO STATED THAT SHE THOUGHT HE DID THIS LAST YEAR WITH HIS PROCEDURE AND THAT HE HAD AN EKG DONE THAT WAS INCONCULSIVE. I REVIEWED THE NOTES FROM 06/22/19 WHICH NOTED THE AFIB AND THAT DR. ROTHMAN WAS NOTIFIED AT THAT TIME. A 12 LEAD EKG HAD BEEN ORDERED. DR. MIDDLETON WANTED PATIENT TO F/U WITH DR. ROTHMAN. I CALLED THE OFFICE TO MAKE AND APPOINTMENT FOR F/U-APPT. 06/13/20 @ 1300- AWARE. ALSO AT 1350 IT WAS NOTED THAT PATIENT WAS RED ON THE TORSO, FORHEAD AND ARMS. NO RAISED AREAS OR HIVES NOTED. PT DENIES SOB OR ITCHING AT THIS TIME BUT STATED HE WAS ITCHING A LITTLE ON THE CHEST WHILE IIN THE PROCEDURE ROOM. DR. MIDDLETON AWARE AND ORDERED BENADRYL. Kilo NINA RN 1431 REDDENED AREA ON ABDOMEN, FOREHEAD AND ARMS HAS RESOLVED. PT DENIES ITCHING, SOB OR CHEST DISCOMFORT. DR. MIDDLETON AWARE AND OKAY FOR PATIENT TO GO HOME. Kilo NINA RN . OTHERS NOTES: PAT DONE 06/05/20 Roz DURAND, CAN CRIMPER. PROCEDURES PAIN NURSING RECORD PROCEDURE IN ROOM 1249 VIA STRETCHER, PHYSICIAN IN ROOM 1307, START 1312, FINISH 1322, PHYSICIAN OUT OF ROOM 1324, OUT OF ROOM 1331, ECG NORMAL SINUS ARRHYTHMIA AND AFIB ALSO NOTED DR. MIDDLETON AWARE, PATIENT SHIELDED YES, SAFETY STRAP YES, PREP BETADINE BY Yesika LINK RN, DRESSING TEGADERM BY DR. MIDDLETON LOC: SERENA NINA 06/06/2020 11:59:29 AM > 1. ALERT, ORIENTED KELLE,SERENA 06/06/2020 2:37:11 PM > 1. ALERT, ORIENTED RESP: KELLE,SERENA 06/06/2020 11:59:36 AM > 1. REGULAR, NO DYSPNEA KELLE,SERENA 06/06/2020 2:37:18 PM > 1. REGULAR, NO DYSPNEA COLOR: KELLE,SERENA 06/06/2020 11:59:43 AM > 1. PINK KELLE,SERENA 06/06/2020 2:37:25 PM > 1. PINK SKIN: KELLESERENA 06/06/2020 11:59:49 AM > 1. WARM, DRY KELLE,SERENA 06/06/2020 2:37:38 PM > 1. WARM, DRY POSITION: KELLE,SERENA 06/06/2020 11:59:53 AM > 5. SITTING KELLESERENA 06/06/2020 12:50:49 PM > 1. PRONE KELLESERENA 06/06/2020 2:37:44 PM > 5. SITTING VITALS: KELLE,SERENA 06/06/2020 12:54:55 PM >142/79,73,16,95% KELLESERENA 06/06/2020 1:05:57 PM > 134/75,72,18,100% KELLE,SERENA 06/06/2020 1:15:52 PM > 162/78,71,18,100% KELLESERENA 06/06/2020 1:25:50 PM > 162/87,70,16,100% KELLESERENA 06/06/2020 1::30:51 PM> 159/86,65,16, 100% KELLE,SERENA 06/06/2020 1:53:13 PM > 148/70,72,16,100% KELLE,SERENA 06/06/2020 2:28:20 PM > 147/66,63,18,100% NOTES Kilo NINA RN COMPLETION OF PROCEDURE APPOINTMENT: POST PAIN 2, DRESSING SITE DRY AND INTACT, IV N/A, GAIT STEADY, TEACHING COMPLETED, PATIENT ACKNOWLEDGES UNDERSTANDING YES, PROCEDURE APPOINTMENT COMPLETED AT 1438 PN WORKMANS' COMP OPINION IN YOUR OPINION, WAS THE INCIDENT THAT THE PATIENT DESCRIBED THE COMPETENT MEDICAL CAUSE OF THIS INJURY/ILLNESS? YES ARE THE PATIENT'S COMPLAINTS CONSISTENT WITH HIS/HER HISTORY OF THE INJURY/ILLNESS? YES IS THE PATIENT'S HISTORY OF THE INJURY/ILLNESS CONSISTENT WITH YOUR OBJECTIVE FINDING? YES WHAT IS THE PERCENTAGE OF TEMPORARY IMPAIRMENT? MODERATE TO MARKED = 66.7% . IS THE PATIENT WORKING? NO . DOCTOR ON SITE: LALITA GIRON MD PRE PROCEDURE DIAGNOSIS LUMBAR DISC DISORDER WITH RADICULOPATHY POST PROCEDURE DIAGNOSIS LUMBAR DISC DISORDER WITH RADICULOPATHY PROCEDURE LUMBAR EPIDURAL STEROID INJECTION UNDER FLUOROSCOPIC GUIDANCE SURGEON DR. LALITA MIDDLETON GUEST EXPERIENCE MANAGER NONE ANESTHESIA LOCAL PRE PROCEDURE NOTE THE PATIENT HAS A HISTORY OF CHRONIC LOW BACK PAIN. I EVALUATED THE PATIENT AND REVIEWED THE CHART. I WENT OVER THE RISKS, ALTERNATIVES, AND BENEFITS ASSOCIATED WITH THIS PROCEDURE. THE PATIENT WOULD LIKE TO PROCEED AND GIVE CONSENT TO PERFORMED THE PROCEDURE. THE PATIENT DENIES UNEXPLAINABLE WEIGHT LOSS, FEVER, CHILLS, OR NEW CHANGES IN URINARY OR BOWEL CONTROL. THE PATIENT IS COVID-19 NEGATIVE DESCRIPTION OF PROCEDURE THE PATIENT WAS BROUGHT TO THE PROCEDURE ROOM AND PLACED IN THE PRONE POSITION. THE LUMBOSACRAL AREA WAS CLEANED WITH BETADINE SOLUTION AND DRAPED ASEPTICALLY. THE PROCEDURE WAS DONE UNDER STERILE CONDITIONS. A TIMEOUT WAS PERFORMED WHERE THE CONSENTED SITE WAS VERIFIED WITH EVERYONE IN THE ROOM. UNDER FLUOROSCOPIC GUIDANCE, THE TARGET POINT WAS SELECTED AT THE INTERLAMINAR LEVEL OF L4-L5. I CONFIRMED AGAIN THE SITE OF TARGET. LIDOCAINE WAS USED TO NUMB THE SKIN AND THE SUBCUTANEOUS TISSUE BELOW IT. EPIDURAL TUOHY NEEDLE, 17-GAUGE, WAS ADVANCED UNDER FLUOROSCOPIC GUIDANCE AND FOLLOWING PATIENT FEEDBACK UNTIL THE EPIDURAL SPACE WAS REACHED 6 CM DEEP INTO THE SKIN BY THE LOSS OF RESISTANCE TECHNIQUE. ISOVUE-M DYE 30%, 0.25 ML, WAS INJECTED SHOWING ADEQUATE SPREAD OF THE DYE. THEN, A SOLUTION OF 3 ML OF NORMAL SALINE WITH DEPO-MEDROL 40 MG WAS INJECTED SLOWLY FOLLOWING PATIENT FEEDBACK. THE MEDICATIONS WERE VERIFIED WITH THE NURSE. THERE WAS NO EVIDENCE OF BLOOD, PARESTHESIA OR CEREBROSPINAL FLUID DURING THE PROCEDURE. THE PATIENT WAS SENT TO THE RECOVERY ROOM. THE PATIENT WAS MOVING THE EXTREMITIES AND DOING WELL. THERE WERE NO COMPLICATIONS DURING THE PROCEDURE. ESTIMATED BLOOD LOSS WAS LESS THAN 5 ML. FLUOROSCOPY TIME WAS 24 SECONDS POST PROCEDURE NOTE THE PATIENT HAS A HARD LIGAMENTUM FLAVUM, I REMEMBER THIS HAPPENING BEFORE. I AM LOOKING FOR LONG LASTING PAIN RELIEF. DEPENDING ON THE RESULTS, CONSIDER A RIGHT TRANSFORAMINAL L3-L4, L4-L5, L5-S1. DEPENDING ON THE RESULTS OF THAT, HE MAY BE A CANDIDATE FOR MILD/ VERTIFLEX. ALSO, DURING THE PROCEDURE, THE PATIENT HAD AN ARRHYTHMIA. THE PATIENT WAS STABLE, BUT WE WILL CALL THE OFFICE OF THE PRIMARY SO THEY CAN SEE THE PATIENT. THE PATIENT DEVELOPED A RASH. THE PATIENT SHOULD ALWAYS HAVE BENADRYL BEFORE PROCEDURES. THE PATIENT WILL BE SEEN IN A FOLLOW UP IN THE NEXT FEW WEEKS. I AM LOOKING FOR LONG LASTING RELIEF FOR THE PATIENT WITH THIS INTERVENTION. INSTRUCTIONS WERE GIVEN, QUESTIONS WERE ANSWERED, AND THE PATIENT EXPRESSED UNDERSTANDING AND AGREES WITH THE PLAN. I, EDGARDO SAMUEL, DOCUMENTED THE ABOVE INFORMATION ACTING A SCRIBE FOR DR. MIDDLETON. I HAVE REVIEWED THE ABOVE DOCUMENT, WRITTEN BY EDGARDO SAMUEL, WASHERY BOSS, AND I VERIFY THAT IT IS ACCURATE PROCEDURE CODES 12792 LUMBAR/SACRAL W/ IMAGING DISPOSITION & COMMUNICATION FOLLOW UP FOLLOW UP WITH [employer] ACCOUNTS SUPERVISOR (REASON: POST LUMBAR EPIDURAL STEROID INJECTION) ELECTRONICALLY SIGNED BY LALITA MIDDLETON MD, MD ON 06/06/2020 AT 04:26 PM EST DISCLAIMER : THIS IS A VISIT SUMMARY EXTRACTED FROM THE [employer] CHART. IT IS NOT A COPY OF THE [employer] PROGRESS NOTE. AUBREY
== END ==
LOC: M PAIN 11:40
PROVIDERS: ATTEND Anesthesiology
DX: M51.16 Intervertebral disc disorders with radiculopathy, lumbar region (principal); E11.22 Type 2 diabetes mellitus with diabetic chronic kidney disease; N18.4 Chronic kidney disease, stage 4 (severe); E78.5 Hyperlipidemia, unspecified; E03.9 Hypothyroidism, unspecified; I12.9 Hypertensive chronic kidney disease with stage 1 through stage 4 chronic kidney disease, or unspecified chronic kidney disease; N40.0 Benign prostatic hyperplasia without lower urinary tract symptoms; E55.9 Vitamin D deficiency, unspecified; Z87.891 Personal history of nicotine dependence; Z79.891 Long term (current) use of opiate analgesic; Z79.899 Other long term (current) drug therapy; Z88.0 Allergy status to penicillin; Z88.6 Allergy status to analgesic agent; Z88.8 Allergy status to other drugs, medicaments and biological substances
CPT/HCPCS: 62323; J1030; Q9967

== ENCOUNTER → 2020-06-13 | Outpatient (REF) | payer MEDICARE, OTHER ==
[~2020-06-13] MED LIST changes: -ISOVUE-M 300 61% 15ML VIAL As Ordered ONE; -LIDOCAINE 1% SDV 30ML VIAL As Ordered ONE; -diazePAM 2 MG TAB As Ordered ONE; -diphenhydrAMINE 25MG CAP As Ordered ONE; -methylPREDNISolone SUSP 40MG/ML 1ML VIAL (DEPO MEDROL) As Ordered ONE
[2020-06-13 16:55] LABS: HEMATOCRIT 42.4 % (42.0-52.0); HEMOGLOBIN 13.9 g/dl (13.5-17.5); MEAN CORPUSCULAR HGB CONC 32.8 g/dl (32.0-36.5); MEAN CORPUSCULAR VOLUME 94.6 fl (80.0-96.0); PLATELET COUNT, AUTOMATED 342 10^3/uL (150-450); RED BLOOD COUNT 4.48 10^6/uL (4.30-6.10); WHITE BLOOD COUNT 8.4 10^3/uL (4.0-10.0)
[2020-06-13 17:05] LABS: ALBUMIN 3.8 GM/DL (3.2-5.2); BILIRUBIN,TOTAL 0.5 MG/DL (0.2-1.0); CHOLESTEROL RISK RATIO 2.21 (<5); CREATININE FOR GFR 3.02 MG/DL (0.70-1.30); FREE T4 1.1 NG/DL (0.76-1.46); GLOMERULAR FILTRATION RATE 21.1 (>35); POTASSIUM SERUM 4.7 MEQ/L (3.5-5.1); THYROID STIMULATING HORMONE 0.159 uIU/ML (0.358-3.740); TOTAL PROTEIN 7.1 GM/DL (6.4-8.2)
[2020-06-13 17:07] LABS: FOLATE 23.6 NG/ML (>5.4)
== END ==
LOC: M SFHCADAM 13:49
PROVIDERS: ATTEND Family Medicine
DX: R41.3 Other amnesia (principal); E11.40 Type 2 diabetes mellitus with diabetic neuropathy, unspecified; E03.8 Other specified hypothyroidism; E78.2 Mixed hyperlipidemia
CPT/HCPCS: 80053; 80061; 82607; 82746; 83036; 84439; 84443; 85027; G0463

== ENCOUNTER → 2020-06-21 | Outpatient (CLI) | payer OTHER ==
--- NOTE | 2020-06-23 06:41 | ECWPNPC ---
PATIENT NAME: FERMIN LEACH : 1935 GENDER: MALE VISIT DATE: 06/21/2020 DISCHARGE DATE: 06/21/20 1524 VISIT LOCKED DATE TIME: PHYSICIAN: HOLLIE PARDO PHYSICIAN PAGER NO: ACTIVE RESOURCE: HOLLIE PARDO REASON FOR APPOINTMENT 1. POST LUMBAR EPIDURAL STEROID INJECTION L4-L5, L5-S1 HISTORY OF PRESENT ILLNESS PAIN CENTER INTAKE QUESTIONS: 85-YEAR-OLD MALE IN FOR POST LUMBAR EPIDURAL STEROID INJECTION FOLLOW-UP. PATIENT FEELS THE PROCEDURE WAS SUCCESSFUL RATING HIS PAIN PREPROCEDURE AT A 6 OUT OF 10 AND POSTPROCEDURE AT A 2 OUT OF 10. HE FURTHER STATES THE PROCEDURE ALLOWS HIM TO BE MORE MOBILE. 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 GENERAL: -. FALL RISK SCREENING: SCREENING : NO FALLS REPORTED IN THE LAST YEAR. PAIN SCREENING: PATIENT HAS A COMPLAINT OF ACUTE OR CHRONIC PAIN :YES LOCATION OF PAIN:LOW BACK INTENSITY OF PAIN (SCALE OF 1 TO 10):3 WHAT DOES YOUR PAIN FEEL LIKE:ACHING, CONTINOUS, SHARP DURATION:CONTINOUS PAIN IS INCREASED BY:ACTIVITIES, PROLONGED STANDING PAIN IS DECREASED BY:USE OF PAIN MEDICATIONS, OTHERS HEAT, INJECTIONS HELP TREMENDOUSLY NURSING NOTE: -. CURRENT MEDICATIONS TAKING COREG 3.125MG TABLET ORAL BID TAKING TORSEMIDE 20 MG TABLET 1 TABLET ORALLY ONCE DAILY, NOTES: CAN TAKE A SECOND DOSE IF WEIGHT INCREASSES BY 5 LBS. TAKING LEVOTHYROXINE SODIUM 112 MCG TABLET 1 TABLET ON AN EMPTY STOMACH IN THE MORNING ORALLY ONCE A DAY TAKING CALCITRIOL 0.25 MCG CAPSULE 1 CAPSULE ORALLY ONCE A DAY, ,, NOTES: TWICE A WEEK TAKING DRISDOL 88010 UNIT CAPSULE 1 CAPSULE ORALLY ONCE A WEEK, NOTES: ONCE A WEEK TAKING PREVACID 30 MG CAPSULE DELAYED RELEASE 1 CAPSULE ORALLY ONCE A DAY TAKING ULORIC 40 MG TABLET 1 TABLET ORALLY -- TAKING PROSCAR 5 MG TABLET 1 TABLET ORALLY ONCE A DAY TAKING LORATADINE 10 MG TABLET 1 TABLET ORALLY ONCE A DAY TAKING CLOBETASOL PROPIONATE 0.05 % CREAM 1 APPLICATION TO AFFECTED AREA EXTERNALLY AFFECTED AREAS ON BODY ECZEMA TWICE A DAY TAKING AREDS OTC AREDS2- 1 CAP ORALLY TWICE A DAY TAKING SYSTANE 0.4-0.3 % SOLUTION DIRECTED OPHTHALMIC TAKING VANICREAM - CREAM DIRECTED EXTERNALLY AFTER SHOWER TAKING ECHINACEA 400 MG CAPSULE 4 CAPSULES ORALLY THREE TIMES A DAY FOR 2-4 DAYS ON ONSET OF COLD SYMPTOMS TAKING PHYSICAL THERAPY EVALUATE AND TREAT PHYSICAL THERAPY MECHANICAL EVAL & TX FOR WEAKNESS IN LEGS AND LOSS OF BALANCE DX=M48.06, R29.898 (TO FIZZICAL THERAPY) 3 X/WK X TAKING TAMSULOSIN HCL 0.4 MG CAPSULE 2 CAPSULE ORALLY ONCE A DAY TAKING PHYSICAL THERAPY EVALUATE AND TREAT PHYSICAL THERAPY FOR LEG WEAKNESS, LOSS OF BALANCE, R29.898 3 X/WK X TAKING EFFEXOR XR 75 MGS CAPSULE EXTENDED RELEASE 24 HOUR 1 CAPSULE WITH FOOD ORALLY ONCE A DAY TAKING TRAMADOL HCL 50 MG TABLET 1 TABLET ORALLY, WORKER'S COMPENSATION THREE TIMES A DAY NEEDED, MDD=3, NOTES: 06/06/20 @ 0500 TAKING LIPITOR 40 MG TABLET TAKE ONE TABLET BY MOUTH DAILY TAKING LANCETS - MISCELLANEOUS DIRECTED ONE TOUCH ULTRA DX. E11.65 , TEST ONCE DAILY TAKING ONE TOUCH ULTRA BLUE STRIPS DIRECTED - ONE TOUCH ULTRA TEST STRIPS, DXE11.65 TEST ONCE DAILY TAKING GLUCOMETER DIRECTED ONE TOUCH ULTRA DX.E11.65, TEST ONCE DAILY TAKING FLOMAX 0.4 MG CAPSULE 1 CAPSULE ORALLY TWICE DAILY NOT-TAKING OMEGA 3 1000 MG CAPSULE 1 CAPSULE ORALLY TWICE A DAY NOT-TAKING MAGNESIUM CITRATE - SOLUTION 150 ML ORALLY DAILY NEEDED NOT-TAKING CIPROFLOXACIN HCL 250 MG TABLET 1 TABLET ORALLY EVERY 12 HRS X 7 DAYS NOT-TAKING BACILLUS COAGULANS-INULIN 1 CAPSULE 1 CAP ORALLY WITH MEALS X 7 DAYS NOT-TAKING ASPIRIN 81 MG OTC 1 TABLET ORALLY ONCE A DAY MEDICATION LIST REVIEWED AND RECONCILED WITH THE PATIENT PAST MEDICAL HISTORY 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 HYPERLIPIDEMIA HYPOTHYROIDISM--CENTRAL ( FOLLOW FREE T4, NOT TSH) HYPERTENSION BPH PEYRONIE'S DISEASE ALLERGIES DDD/DJD LOW BACK L/S SPINAL STENOSIS PLASMA CELL GRANULOMA RLL STRESS TEST 2008 VIT D DEFICIENCY ZOSTAVAX 09/17 RT 7TH RIB FX (FALL 06/18, CAT-RELATED) GOUT RT GREAT TOE 11/20 COLOGUARD: NEGATIVE PRE-CANCER LESIONS REMOVED FROM BILAT EARS MEMORY LOSS OR IMPAIRMENT ALLERGIES ZANTAC: CONSTIPATION - SIDE EFFECTS NSAIDS: ELEV BUN, CREAT - SIDE EFFECTS PENICILLIN: HIVES - ALLERGY SOCIAL HISTORY GENERAL: TOBACCO USE ARE YOU A:FORMER SMOKER FORMER CIGAR SMOKER HOW LONG HAS IT BEEN SINCE YOU LAST SMOKED?1-5 YEARS ADDITIONAL FINDINGS: TOBACCO USERCIGAR SMOKER LATEX QUESTIONNAIRE LATEX ALLERGY : HAVE YOU EVER DEVELOPED ANY TYPE OF REACTION AFTER HANDLING LATEX PRODUCTS SUCH RUBBER GLOVES, CONDOMS, DIAPHRAGMS, BALLOONS, SOCKS, OR UNDERWEAR?NO LATEX ALLERGY : HAVE YOU EVER DEVELOPED ANY TYPE OF REACTION DURING OR AFTER DENTAL APPOINTMENT, VAGINAL/RECTAL EXAMINATION, SURGICAL PROCEDURE, OR ANY OTHER EXPOSURE?NO LATEX RISK : HAVE YOU EVER HAD ANY DIFFICULTY BREATHING OR HIVES AFTER EATING OR HANDLING ANY FRUITS, OR VEGETABLES; SUCH KIWI, BANANAS, STONE FRUITS, OR CHESTNUTSNO LATEX RISK : DO YOU HAVE A PREVIOUS PERSONAL HISTORY OF MORE THAN NINE SURGERIES, SPINA BIFIDA, OR REPEATED CATHERIZATIONS? NO LATEX RISK : ARE YOU FREQUENTLY EXPOSED TO LATEX PRODUCTS IN YOUR OCCUPATION?NO DATE ASKED : 06/21/2020 ALCOHOL USE: NO. LUNG CANCER SCREENING SMOKING STATUS:FORMER SMOKER IS THE PATIENT BETWEEN THE AGE OF 54 AND 76?NO ALCOHOL SCREENING DID YOU HAVE A DRINK CONTAINING ALCOHOL IN THE PAST YEAR?NO POINTS0 INTERPRETATIONNEGATIVE RECREATIONAL DRUG USE DRUG USE?NO CAFFEINE CAFFEINE USE?NO SEXUAL HX HAD SEX IN THE LAST 12 MONTHS (VAGINAL, ORAL, OR ANAL)?NO HAVE YOU EVER HAD AN STD?NO HIV / HEP-C SCREENING HIV TEST OFFERED TO PATIENT:YES DATE OFFERED:07/05/2016 TEST ACCEPTED:NO HEP-C TEST OFFERED TO PATIENT:NO REASON:PATIENT DECLINED MORAVIAN [id number] UNITARIAN NO ZOROASTRIANISM BELIEFS THAT WOULD IMPACT HEALTH CARE. LANGUAGE LANGUAGES SPOKEN:OCCITAN EDUCATION LEVEL OF EDUCATION:FINISHED HIGH SCHOOL LEARNING BARRIERS / SPECIAL NEEDS CHANGE FROM LAST VISIT?NO BARRIERS TO LEARNING?NO HEARING IMPAIRED?YES :HEARING AIDES VISION IMPAIRED?YES :CORRECTIVE LENSES COGNITIVELY IMPAIRED?NO READINESS TO LEARN?YES LEARNING PREFERENCES?NO LEARNING CAPABILITIES PRESENT?YES EMOTIONAL BARRIERS?NO SPECIAL DEVICES?YES :OTHER WALKING STICK RESIDENTIAL ROOFER NEEDED?NO DOMESTIC VIOLENCE DO YOU FEEL SAFE IN YOUR ENVIRONMENT?YES OCCUPATION: RETIRED. DIET: LOW FAT, LOW CHOLESTEROL, LOW SODIUM, LOW POTASSIUM. EXERCISE: NONE. MARITAL STATUS: --ANIL. OTHERS AT HOME: SPOUSE. - HAS THE PATIENT BEEN EDUCATED REGARDING HIS/HER PLAN OF CARE?YES HAS THE PATIENT BEEN EDUCATED REGARDING PAIN, THE RISK FOR PAIN, THE IMPORTANCE OF EFFECTIVE PAIN MANAGEMENT, AND THE PAIN ASSESSMENT PROCESS?YES ADVANCE DIRECTIVE ADVANCE DIRECTIVE DISCUSSED WITH PATIENT:YES HCP IS ANIL LEACH [phone] REVIEW OF SYSTEMS CONSTITUTIONAL: ANY RECENT FEVER NO . CHILLS NO . WEIGHT CHANGE OF UNKNOWN REASONS NO . GASTROENTEROLOGY: NEW UNEXPLAINABLE CHANGES IN BOWEL CONTROL NO . CONSTIPATION NO . GENITOURINARY: ANY NEW CHANGE IN BLADDER CONTROL? NO . NEUROLOGY: NEW ONSET DIZZINESS OR NEUROLOGICAL CHANGES NOT MENTIONED NO . NEW NUMBNESS OR PAIN PATTERNS NOT MENTIONED AND PERTINENT TO TODAY'S VISIT NO . CARDIOLOGY: NEW CHEST PRESSURE NO . PATIENT DENIES NO . RESPIRATORY: UNEXPLAINABLE COUGH NO . NEW SHORTNESS OF BREATH NO . VITAL SIGNS WT 169.6 LBS, HT 67.5 IN, BMI 26.17 INDEX, BP 144/67 MM HG, HR 76 /MIN, RR 18 /MIN, TEMP 97.7 F, OXYGEN SAT % 99%, SAFE IN ENV? (Y/N) YES, NA INITIALS MS 14:43, REVIEWED BY: [place] ESPITIA MA. EXAMINATION GENERAL EXAMINATION: GENERALNO ACUTE DISTRESS, WELL NOURISHED AND HYDRATED. PSYCHAPPROPRIATE MOOD AND AFFECT . LUNGS:CLEAR TO AUSCULTATION BILATERALLY, NO WHEEZES, RHONCHI, RALES. HEART:NO MURMURS, REGULAR RATE AND RHYTHM. ASSESSMENTS OTHER CHRONIC PAIN - G89.29 (PRIMARY) INTERVERTEBRAL DISC DISORDER WITH RADICULOPATHY OF LUMBOSACRAL REGION - M51.17 TREATMENT OTHER CHRONIC PAIN PAIN PROCEDURE LOGDATE OF PROCEDURE06/06/20PROCEDURE:LUMBAR EPIDURAL STEROID INJECTIONAMOUNT OF PRE SEDATEVALIUM 2MG, BENADRYL 25MGRESULT:PRE-09/14 POST 05/17 CONTINUES TO HELP TODAY NOTES: 85-YEAR-OLD MALE IN FOR POST LUMBAR EPIDURAL FOLLOW-UP. GIVEN PRESENTING SYMPTOMS RECOMMEND FOLLOW-UP IN 2 MONTHS. PATIENT HAS EXCESS UNDERSTANDING OF AND WAS IN AGREEMENT WITH TREATMENT PLAN. GIVEN TIME TO ASK QUESTIONS AND EXPRESS CONCERNS. . PROCEDURES PN WORKMANS' COMP OPINION IN YOUR OPINION, WAS THE INCIDENT THAT THE PATIENT DESCRIBED THE COMPETENT MEDICAL CAUSE OF THIS INJURY/ILLNESS? YES ARE THE PATIENT'S COMPLAINTS CONSISTENT WITH HIS/HER HISTORY OF THE INJURY/ILLNESS? YES IS THE PATIENT'S HISTORY OF THE INJURY/ILLNESS CONSISTENT WITH YOUR OBJECTIVE FINDING? YES WHAT IS THE PERCENTAGE OF TEMPORARY IMPAIRMENT? MODERATE TO MARKED = 66.7% IS THE PATIENT WORKING? NO DOCTOR ON SITE: LALITA GIRON MD DISPOSITION & COMMUNICATION FOLLOW UP 2 MONTHS (REASON: LOW BACK PAIN ) ELECTRONICALLY SIGNED BY SOFÍA BARRON ON 06/22/2020 AT 09:11 AM EDT DISCLAIMER : THIS IS A VISIT SUMMARY EXTRACTED FROM THE [employer] CHART. IT IS NOT A COPY OF THE [employer] PROGRESS NOTE. AUBREY
== END ==
LOC: M PAIN 14:30
PROVIDERS: ATTEND Family Medicine
DX: G89.29 Other chronic pain (principal); M51.17 Intervertebral disc disorders with radiculopathy, lumbosacral region; E11.22 Type 2 diabetes mellitus with diabetic chronic kidney disease; N18.4 Chronic kidney disease, stage 4 (severe); E78.5 Hyperlipidemia, unspecified; E03.9 Hypothyroidism, unspecified; I12.9 Hypertensive chronic kidney disease with stage 1 through stage 4 chronic kidney disease, or unspecified chronic kidney disease; N40.0 Benign prostatic hyperplasia without lower urinary tract symptoms; N48.6 Induration penis plastica; E55.9 Vitamin D deficiency, unspecified; Z87.891 Personal history of nicotine dependence; Z79.891 Long term (current) use of opiate analgesic; Z79.899 Other long term (current) drug therapy; Z88.0 Allergy status to penicillin; Z88.6 Allergy status to analgesic agent; Z88.8 Allergy status to other drugs, medicaments and biological substances

== ENCOUNTER 2020-07-27 07:25 | Emergency (ER) | payer MEDICARE, OTHER ==
[~2020-07-27] VITALS: Ht 170.2 cm; Wt 79.1 kg
[2020-07-27 08:29] LABS: BASO % 0.4 % (0.0-1.0); EOS # 0.6 10^3/uL (0.0-0.5); EOS % 7.4 % (0.0-3.0); HEMATOCRIT 39.3 % (42.0-52.0); HEMOGLOBIN 13.2 g/dl (13.5-17.5); LYMPH # 1.6 10^3/uL (1.5-5.0); LYMPH % 20.3 % (24.0-44.0); MEAN CORPUSCULAR HEMOGLOBIN 31.7 pg (27.0-33.0); MEAN CORPUSCULAR HGB CONC 33.6 g/dl (32.0-36.5); MEAN CORPUSCULAR VOLUME 94.2 fl (80.0-96.0); MONO # 0.5 10^3/uL (0.0-0.8); MONO % 6.8 % (2.0-8.0); NEUTROPHILS # 5.1 10^3/uL (1.5-8.5); NEUTROPHILS % 64.8 % (36.0-66.0); PLATELET COUNT, AUTOMATED 262 10^3/uL (150-450); RED BLOOD COUNT 4.17 10^6/uL (4.30-6.10); WHITE BLOOD COUNT 7.9 10^3/uL (4.0-10.0)
--- NOTE | 2020-07-27 08:33 | REP ---
INDICATION: Abdominal Pain COMPARISON: 10/20/2019 TECHNIQUE: PA and lateral. FINDINGS: Surgical clips are identified in the right perihilar region and postsurgical changes involving the right hemithorax are again suggested. Calcified hilar lymph nodes remain stable. Cardiac silhouette is normal. A vague subtle area of opacity in the right midlung zone may represent chronic change with variation due to technique. However subtle acute opacity cannot be excluded. No further consolidation, effusion, or pneumothorax. IMPRESSION: Chronic postsurgical changes involving the right hemithorax. Vague subtle opacity in the right midlung zone cannot definitively be excluded. <Electronically signed by Matt Becerra > 07/27/20 0829
[2020-07-27] MEDS ORDERED: LIDOCAINE 2% 5ML JELLY UROJET TOP ONE (08:35)
[2020-07-27 08:57] LABS: ALBUMIN 3.6 GM/DL (3.2-5.2); ALT/SGPT 34 U/L (12-78); BILIRUBIN,DIRECT 0.1 MG/DL (0.0-0.2); BILIRUBIN,TOTAL 0.4 MG/DL (0.2-1.0); BLOOD UREA NITROGEN 52 MG/DL (7-18); CALCIUM LEVEL 9.3 MG/DL (8.8-10.2); CARBON DIOXIDE LEVEL 31 MEQ/L (21-32); CHLORIDE LEVEL 101 MEQ/L (98-107); CK-MB VALUE MASS 2.5 NG/ML (<3.6); CPK CREATINE PHOSPHOKINASE 57 U/L (39-308); CREATININE FOR GFR 2.87 MG/DL (0.70-1.30); GLOMERULAR FILTRATION RATE 22.3 (>35); GLUCOSE, FASTING 160 MG/DL (70-100); LIPASE 120 U/L (73-393); MB/CK RELATIVE INDEX 4.39 (< OR =4); NT-PRO BNP 163 PG/ML (<450); SODIUM LEVEL 138 MEQ/L (136-145); TOTAL PROTEIN 6.8 GM/DL (6.4-8.2); TROPONIN I < 0.02 NG/ML (< 0.10)
--- NOTE | 2020-07-27 09:14 | REP ---
INDICATION: L scrotal/testicular pain COMPARISON: None. TECHNIQUE: Farris scale and color Doppler evaluation using linear and curved array transducer with color Doppler evaluation. FINDINGS: The testicles are both relatively normal in size and parenchymal echogenicity/vascularity without evidence for acute testicular process or mass lesion. There is relatively symmetric chronic bilateral tubular ectasia to the rete testis and the right testicle also demonstrates adjacent 4 mm and 12 mm cysts while the left testicle demonstrates adjacent 4 mm and 3 mm cysts. Two right epididymal head cysts are also identified measuring 6 mm and 4 mm each. No left epididymal head cysts are noted. Small simple bilateral hydroceles are identified and nonspecific. No varicoceles noted. Right testicle measures 4.2 x 2.2 x 3.5 cm. Left testicle measures 4.0 x 2.2 x 3.0 cm. IMPRESSION: Chronic changes to the bilateral testes as described above. No obvious acute process appreciated. <Electronically signed by Matt Becerra > 07/27/20 0915
--- NOTE | 2020-07-27 09:35 | REP ---
INDICATION: lower abd pain, ho kidney stones, difficulty urinating COMPARISON: 10/19/2019 TECHNIQUE: Axial noncontrast images from the lung bases to the pubic symphysis with coronal and sagittal reformations. This CT examination was performed using the following dose reduction techniques: Automated exposure control, adjustment of mA and/or kv according to the patient's size, and use of iterative reconstruction technique. FINDINGS: The kidneys demonstrate chronic appearing perinephric stranding and multiple bilateral intrarenal calculi measuring up to 9 mm in the right kidney and 8 mm in the left kidney. While there is no evidence for hydroureteronephrosis, there is a 4 mm presumed obstructing calculus in the distal left ureter (series 201; images 119-121) just above the ureterovesical junction. Liver and spleen demonstrate parenchymal calcifications consistent with prior granulomatous disease. Pancreas, gallbladder, bilateral adrenal glands are essentially normal for noncontrast evaluation. The enteric system demonstrates moderate to significant lacy colonic fecal stasis. There is no evidence for bowel obstruction. Sigmoid diverticulosis noted without acute diverticulitis. Pelvis demonstrates relatively normal bladder and evidence for prior prostate surgery. No ascites. No free air. No significant adenopathy. Atherosclerotic changes to the aorta noted without aneurysm. Musculoskeletal structures demonstrate degenerative changes without acute osseous abnormality; chronic compression deformity at L5 with heterotopic hypertrophic changes noted. Lung waddell demonstrate chronic changes including very small chronic rim enhancing right pleural effusion. IMPRESSION: 1. 4 mm calculus in the distal left ureter likely related to patient's symptoms. Bilateral nonobstructing renal calculi noted as described above. 2. Stable chronic nonacute findings as described above. <Electronically signed by Matt Becerra > 07/27/20 0985
--- NOTE | 2020-07-27 10:56 | REP ---
INDICATION: r/o opacity r mid lung zone seen on cxr COMPARISON: 01/15/2005 TECHNIQUE: Axial noncontrast images from the thoracic inlet to the upper abdomen with coronal and sagittal reformations. This CT examination was performed using the following dose reduction techniques: Automated exposure control, adjustment of mA and/or kv according to the patient's size, and use of iterative reconstruction technique. FINDINGS: Postsurgical changes involving the right hemithorax noted. There is a somewhat nodular spiculated area in the posterior right upper lobe adjacent to the surgical suture material which measures roughly 2.2 cm maximal diameter. While this is relatively similar to 2005 and likely chronic, active pathology cannot definitively be excluded. Remainder of lung waddell are well aerated and clear. No effusion. No pneumothorax. No obvious significant adenopathy noted. Mediastinum demonstrates atherosclerotic changes to the thoracic aorta and coronary arteries without aortic aneurysm or cardiomegaly. No pericardial effusion. Musculoskeletal structures are intact. IMPRESSION: 1. Nodular spiculated opacity in the right mid lung zone corresponds to the finding on recent x-ray. While this appears similar to prior examination dated 2004 and is likely chronic, postsurgical changes on the current examination are noted and subsequent recurrence or active disease cannot definitively be excluded. No new lesions are identified and there is no evidence for acute adenopathy or effusion. 2. Remainder of the examination is relatively normal. <Electronically signed by Matt Becerra > 07/27/20 [id number]
[2020-07-27] MEDS ORDERED: TORS20TA2 PO (12:25)
[2020-07-27] MEDS ORDERED: CEFD1CAP8 PO (12:25)
[2020-07-27 12:47] VITALS: BP 160/88
--- NOTE | 2020-07-27 18:15 | ECGEPIP ---
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
== END 2020-07-27 12:49 | disposition home or self-care (01) ==
LOC: M ED 07:25
DX: N40.1 Benign prostatic hyperplasia with lower urinary tract symptoms (principal); N39.0 Urinary tract infection, site not specified; N20.2 Calculus of kidney with calculus of ureter; N18.4 Chronic kidney disease, stage 4 (severe); R91.1 Solitary pulmonary nodule; R60.9 Edema, unspecified; E11.9 Type 2 diabetes mellitus without complications; I12.9 Hypertensive chronic kidney disease with stage 1 through stage 4 chronic kidney disease, or unspecified chronic kidney disease; E03.9 Hypothyroidism, unspecified; E55.9 Vitamin D deficiency, unspecified; E78.5 Hyperlipidemia, unspecified; F41.9 Anxiety disorder, unspecified; G62.9 Polyneuropathy, unspecified; M10.9 Gout, unspecified; Z79.899 Other long term (current) drug therapy; Z79.890 Hormone replacement therapy; Z88.0 Allergy status to penicillin; Z88.8 Allergy status to other drugs, medicaments and biological substances; Z87.891 Personal history of nicotine dependence

== ENCOUNTER 2020-07-28 19:18 | Emergency (ER) | payer MEDICARE, OTHER ==
[~2020-07-28] VITALS: Ht 172.7 cm; Wt 78.6 kg
[~2020-07-28 19:18] MED LIST changes: +CEFD1CAP8 PO
[2020-07-28 21:19] VITALS: BP 137/84
--- NOTE | 2020-07-29 09:59 | ED PDOC ---
Post-Departure Follow-Up radiology report faxed to Loren Villeda MD Jul 29, 2020 09:59
== END 2020-07-28 21:47 | disposition home or self-care (01) ==
LOC: M ED 19:18
DX: T83.098A Other mechanical complication of other urinary catheter, initial encounter (principal); X58.XXXA Exposure to other specified factors, initial encounter; Y92.89 Other specified places as the place of occurrence of the external cause; I10 Essential (primary) hypertension; E11.9 Type 2 diabetes mellitus without complications; N28.9 Disorder of kidney and ureter, unspecified; E03.9 Hypothyroidism, unspecified; E78.00 Pure hypercholesterolemia, unspecified; F41.9 Anxiety disorder, unspecified; K21.9 Gastro-esophageal reflux disease without esophagitis; M48.00 Spinal stenosis, site unspecified; Z85.46 Personal history of malignant neoplasm of prostate; Z79.899 Other long term (current) drug therapy; Z79.890 Hormone replacement therapy; Z88.0 Allergy status to penicillin; Z88.8 Allergy status to other drugs, medicaments and biological substances

== ENCOUNTER → 2020-08-18 | Outpatient (CLI) | payer OTHER, MEDICARE ==
--- NOTE | 2020-08-23 06:13 | ECWPNPC ---
PATIENT NAME: FERMIN LEACH : 1935 GENDER: MALE VISIT DATE: 08/18/2020 DISCHARGE DATE: 08/18/20 1140 VISIT LOCKED DATE TIME: PHYSICIAN: HOLLIE PARDO PHYSICIAN PAGER NO: ACTIVE RESOURCE: HOLLIE PARDO REASON FOR APPOINTMENT 1. LOW BACK PAIN HISTORY OF PRESENT ILLNESS DEPRESSION SCREENING: PHQ-2 (2015 EDITION) LITTLE INTEREST OR PLEASURE IN DOING THINGS?DECLINED TO SPECIFY FEELING DOWN, DEPRESSED, OR HOPELESS?SEVERAL DAYS TOTAL SCORE1 GENERAL: HPI 85-YEAR-OLD MALE IN FOR CHRONIC PAIN FOLLOW-UP. HE RATES HIS PAIN CURRENTLY AT A 1 OUT OF 10 AND DESCRIBES IT ACHING, AND INTERMITTENT. DOI: 06/29/1986. -. FALL RISK SCREENING: SCREENING : NO FALLS REPORTED IN THE LAST YEAR. PAIN SCREENING: PATIENT HAS A COMPLAINT OF ACUTE OR CHRONIC PAIN :YES LOCATION OF PAIN:LOW BACK INTENSITY OF PAIN (SCALE OF 1 TO 10):1 WHAT DOES YOUR PAIN FEEL LIKE:ACHING, INTERMITTENT DURATION:INTERMITTENT PAIN IS INCREASED BY:ACTIVITIES, PROLONGED STANDING PAIN IS DECREASED BY:USE OF PAIN MEDICATIONS, SITTING, OTHERS PROCEDURES NURSING NOTE: -. PAIN CENTER INTAKE QUESTIONS: DO YOU HAVE A HISTORY OF MRSA? :NO DO YOU TAKE A BLOOD THINNERS? :NO DO YOU HAVE ANY BLEEDING DISORDERS? :NO ANY NEW NUMBNESS OR WEAKNESS IN YOUR LEGS OR ARMS? :NO ANY PACEMAKER,DEFIBRILLATOR, OR DORSAL COLUMN STIMULATOR? :NO DO YOU HAVE ANY RASHES OR OPEN SORES? :NO ARE YOU ALLERGIC TO IV DYE? :NO ARE YOU DIABETIC? :YES ANY NEW PROBLEMS WITH YOUR MEDICATIONS? :NO HAVE YOU RECEIVED A VACCINE IN THE PAST 30 DAYS? :NO DO YOU PLAN TO RECEIVE A VACCINE IN THE NEXT 21 DAYS? :NO DO YOU NEED ANY PRESCRIPTION? :NO DO YOU TAKE ANY IMMUNOSUPPRESSIVE MEDICATIONS? :NO DO YOU HAVE ANY KIDNEY OR LIVER DISEASE? :YES STAGE 4 KIDNEY DISEASE IS THERE A CHANCE YOU COULD BE ? :NO ARE YOU BREAST FEEDING? :NO CURRENT MEDICATIONS TAKING COREG 3.125MG TABLET ORAL BID TAKING TORSEMIDE 20 MG TABLET 2 TABLET AM AND 1 TAB PM ORALLY TWICE DAILY, NOTES: CAN TAKE A SECOND DOSE IF WEIGHT INCREASSES BY 5 LBS. TAKING CALCITRIOL 0.25 MCG CAPSULE 1 CAPSULE ORALLY ONCE A DAY, M,F, NOTES: TWICE A WEEK TAKING DRISDOL [id number] UNIT CAPSULE 1 CAPSULE ORALLY ONCE A WEEK, NOTES: ONCE A WEEK TAKING ULORIC 40 MG TABLET 1 TABLET ORALLY M-W-F TAKING PROSCAR 5 MG TABLET 1 TABLET ORALLY ONCE A DAY TAKING LORATADINE 10 MG TABLET 1 TABLET ORALLY ONCE A DAY TAKING AREDS OTC AREDS2- 1 CAP ORALLY TWICE A DAY TAKING SYSTANE 0.4-0.3 % SOLUTION DIRECTED OPHTHALMIC TAKING VANICREAM - CREAM DIRECTED EXTERNALLY AFTER SHOWER TAKING ECHINACEA 400 MG CAPSULE 4 CAPSULES ORALLY THREE TIMES A DAY FOR 2-4 DAYS ON ONSET OF COLD SYMPTOMS TAKING TAMSULOSIN HCL 0.4 MG CAPSULE 2 CAPSULE ORALLY ONCE A DAY TAKING LIPITOR 40 MG TABLET TAKE ONE TABLET BY MOUTH DAILY TAKING LANCETS - MISCELLANEOUS DIRECTED ONE TOUCH ULTRA DX. E11.65 , TEST ONCE DAILY TAKING ONE TOUCH ULTRA BLUE STRIPS DIRECTED - ONE TOUCH ULTRA TEST STRIPS, DXE11.65 TEST ONCE DAILY TAKING GLUCOMETER DIRECTED ONE TOUCH ULTRA DX.E11.65, TEST ONCE DAILY TAKING PREVACID 30 MG CAPSULE DELAYED RELEASE TAKE ONE CAPSULE BY MOUTH EVERY DAY BEFORE A MEAL TAKING EFFEXOR XR 75 MGS CAPSULE EXTENDED RELEASE 24 HOUR 1 CAPSULE WITH FOOD ORALLY ONCE A DAY TAKING LEVOTHYROXINE SODIUM 112 MCG TABLET 1 TABLET ON AN EMPTY STOMACH IN THE MORNING ORALLY ONCE A DAY TAKING TRAMADOL HCL 50 MG TABLET 1 TABLET ORALLY, WORKER'S COMPENSATION THREE TIMES A DAY NEEDED, MDD=3, NOTES: 06/06/20 @ 0500 NOT-TAKING CLOBETASOL PROPIONATE 0.05 % CREAM 1 APPLICATION TO AFFECTED AREA EXTERNALLY AFFECTED AREAS ON BODY ECZEMA TWICE A DAY NOT-TAKING PHYSICAL THERAPY EVALUATE AND TREAT PHYSICAL THERAPY MECHANICAL EVAL & TX FOR WEAKNESS IN LEGS AND LOSS OF BALANCE DX=M48.06, R29.898 (TO FIZZICAL THERAPY) 3 X/WK X, NOTES: 08/10/2020 LAST SESSION NOT-TAKING PHYSICAL THERAPY EVALUATE AND TREAT PHYSICAL THERAPY FOR LEG WEAKNESS, LOSS OF BALANCE, R29.898 3 X/WK X NOT-TAKING FLOMAX 0.4 MG CAPSULE 1 CAPSULE ORALLY TWICE DAILY, NOTES: DUPLICATE NOT-TAKING LEVOFLOXACIN 250 MG TABLET TAKE ONE TABLET BY MOUTH EVERY 48 HOURS FOR 7 DAYS ORAL UNKNOWN OMEGA 3 1000 MG CAPSULE 1 CAPSULE ORALLY TWICE A DAY UNKNOWN MAGNESIUM CITRATE - SOLUTION 150 ML ORALLY DAILY NEEDED UNKNOWN CIPROFLOXACIN HCL 250 MG TABLET 1 TABLET ORALLY EVERY 12 HRS X 7 DAYS UNKNOWN BACILLUS COAGULANS-INULIN 1 CAPSULE 1 CAP ORALLY WITH MEALS X 7 DAYS UNKNOWN ASPIRIN 81 MG OTC 1 TABLET ORALLY ONCE A DAY MEDICATION LIST REVIEWED AND RECONCILED WITH THE PATIENT PAST MEDICAL HISTORY 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 HYPERLIPIDEMIA HYPOTHYROIDISM--CENTRAL ( FOLLOW FREE T4, NOT TSH) HYPERTENSION BPH PEYRONIE'S DISEASE ALLERGIES DDD/DJD LOW BACK L/S SPINAL STENOSIS PLASMA CELL GRANULOMA RLL STRESS TEST 2008 VIT D DEFICIENCY ZOSTAVAX 09/17 RT 7TH RIB FX (FALL 06/18, CAT-RELATED) GOUT RT GREAT TOE 11/20 COLOGUARD: NEGATIVE PRE-CANCER LESIONS REMOVED FROM BILAT EARS MEMORY LOSS OR IMPAIRMENT E FACALIS UTI X 3 2019-07/26, ER--> LEG BAG KIDNEY STONES 2020 ALLERGIES ZANTAC: CONSTIPATION - SIDE EFFECTS NSAIDS: ELEV BUN, CREAT - SIDE EFFECTS PENICILLIN: HIVES - ALLERGY SOCIAL HISTORY GENERAL: TOBACCO USE ARE YOU A:FORMER SMOKER FORMER CIGAR SMOKER HOW LONG HAS IT BEEN SINCE YOU LAST SMOKED?1-5 YEARS ADDITIONAL FINDINGS: TOBACCO USERCIGAR SMOKER LATEX QUESTIONNAIRE LATEX ALLERGY : HAVE YOU EVER DEVELOPED ANY TYPE OF REACTION AFTER HANDLING LATEX PRODUCTS SUCH RUBBER GLOVES, CONDOMS, DIAPHRAGMS, BALLOONS, SOCKS, OR UNDERWEAR?YES - PLEASE INDICATE :OTHER (DOCUMENT IN NOTES) PT HAS DEVELOPED REDDENED AREAS WHERE LEG STRAP AND SMALL STRAPS FROM CATHETER SIT ON LOWER LEG LATEX ALLERGY : HAVE YOU EVER DEVELOPED ANY TYPE OF REACTION DURING OR AFTER DENTAL APPOINTMENT, VAGINAL/RECTAL EXAMINATION, SURGICAL PROCEDURE, OR ANY OTHER EXPOSURE?NO LATEX RISK : HAVE YOU EVER HAD ANY DIFFICULTY BREATHING OR HIVES AFTER EATING OR HANDLING ANY FRUITS, OR VEGETABLES; SUCH KIWI, BANANAS, STONE FRUITS, OR CHESTNUTSNO LATEX RISK : DO YOU HAVE A PREVIOUS PERSONAL HISTORY OF MORE THAN NINE SURGERIES, SPINA BIFIDA, OR REPEATED CATHERIZATIONS? YES - PLEASE INDICATE : REPEATED CATHETERIZATIONS LATEX RISK : ARE YOU FREQUENTLY EXPOSED TO LATEX PRODUCTS IN YOUR OCCUPATION?NO DATE ASKED : 08/18/2020 ALCOHOL USE: NO. LUNG CANCER SCREENING SMOKING STATUS:FORMER SMOKER IS THE PATIENT BETWEEN THE AGE OF 54 AND 76?NO ALCOHOL SCREENING DID YOU HAVE A DRINK CONTAINING ALCOHOL IN THE PAST YEAR?NO POINTS0 INTERPRETATIONNEGATIVE RECREATIONAL DRUG USE DRUG USE?NO CAFFEINE CAFFEINE USE?NO SEXUAL HX HAD SEX IN THE LAST 12 MONTHS (VAGINAL, ORAL, OR ANAL)?NO HAVE YOU EVER HAD AN STD?NO HIV / HEP-C SCREENING HIV TEST OFFERED TO PATIENT:YES DATE OFFERED:07/05/2016 TEST ACCEPTED:NO HEP-C TEST OFFERED TO PATIENT:NO REASON:PATIENT DECLINED MORAVIAN [id number] UNITARIAN NO ZOROASTRIANISM BELIEFS THAT WOULD IMPACT HEALTH CARE. 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 DIET: LOW FAT, LOW CHOLESTEROL, LOW SODIUM, LOW POTASSIUM. EXERCISE: NONE. MARITAL STATUS: --ANIL. OTHERS AT HOME: SPOUSE. - HAS THE PATIENT BEEN EDUCATED REGARDING HIS/HER PLAN OF CARE?YES HAS THE PATIENT BEEN EDUCATED REGARDING PAIN, THE RISK FOR PAIN, THE IMPORTANCE OF EFFECTIVE PAIN MANAGEMENT, AND THE PAIN ASSESSMENT PROCESS?YES ADVANCE DIRECTIVE ADVANCE DIRECTIVE DISCUSSED WITH PATIENT:YES HCP IS ANIL LEACH [phone] REVIEW OF SYSTEMS CONSTITUTIONAL: ANY RECENT FEVER NO . CHILLS NO . WEIGHT CHANGE OF UNKNOWN REASONS NO . GASTROENTEROLOGY: NEW UNEXPLAINABLE CHANGES IN BOWEL CONTROL NO . CONSTIPATION NO . GENITOURINARY: ANY NEW CHANGE IN BLADDER CONTROL? NO . NEUROLOGY: NEW ONSET DIZZINESS OR NEUROLOGICAL CHANGES NOT MENTIONED NO . NEW NUMBNESS OR PAIN PATTERNS NOT MENTIONED AND PERTINENT TO TODAY'S VISIT NO . CARDIOLOGY: NEW CHEST PRESSURE NO . PATIENT DENIES NO . RESPIRATORY: UNEXPLAINABLE COUGH NO . NEW SHORTNESS OF BREATH NO . VITAL SIGNS WT 168.4 LBS, HT 67.5 IN, BMI 25.98 INDEX, BP 136/63 MM HG, HR 78 /MIN, RR 18 /MIN, TEMP 97.2 F, OXYGEN SAT % 97%, SAFE IN ENV? (Y/N) YES, NA INITIALS AW 1108, REVIEWED BY: [place] ESPITIA MA. EXAMINATION GENERAL EXAMINATION: GENERALNO ACUTE DISTRESS, WELL NOURISHED AND HYDRATED. PSYCHAPPROPRIATE MOOD AND AFFECT . LUNGS:CLEAR TO AUSCULTATION BILATERALLY, NO WHEEZES, RHONCHI, RALES. HEART:NO MURMURS, REGULAR RATE AND RHYTHM. ASSESSMENTS INTERVERTEBRAL DISC DISORDER WITH RADICULOPATHY OF LUMBOSACRAL REGION - M51.17 (PRIMARY), RISK: (NULL) TREATMENT INTERVERTEBRAL DISC DISORDER WITH RADICULOPATHY OF LUMBOSACRAL REGION NOTES: 85-YEAR-OLD MALE IN FOR CHRONIC PAIN FOLLOW-UP. GIVEN PRESENTING SYMPTOMS RECOMMEND FOLLOW-UP IN 2 MONTHS. PATIENT HAS EXPRESSED UNDERSTANDING OF AND WAS IN AGREEMENT WITH TREATMENT PLAN. GIVEN TIME TO ASK QUESTIONS AND EXPRESS CONCERNS. PROCEDURES PN WORKMANS' COMP OPINION IN YOUR OPINION, WAS THE INCIDENT THAT THE PATIENT DESCRIBED THE COMPETENT MEDICAL CAUSE OF THIS INJURY/ILLNESS? YES ARE THE PATIENT'S COMPLAINTS CONSISTENT WITH HIS/HER HISTORY OF THE INJURY/ILLNESS? YES IS THE PATIENT'S HISTORY OF THE INJURY/ILLNESS CONSISTENT WITH YOUR OBJECTIVE FINDING? YES WHAT IS THE PERCENTAGE OF TEMPORARY IMPAIRMENT? MODERATE TO MARKED = 66.7% IS THE PATIENT WORKING? NO DOCTOR ON SITE: LALITA GIRON MD PROCEDURE CODES FA211 ESTABILISHED PATIENT [facility] CHARGE DISPOSITION & COMMUNICATION FOLLOW UP 2 MONTHS (REASON: LOW BACK PAIN ) ELECTRONICALLY SIGNED BY SOFÍA BARRON ON 08/22/2020 AT 08:45 AM EDT DISCLAIMER : THIS IS A VISIT SUMMARY EXTRACTED FROM THE [employer] CHART. IT IS NOT A COPY OF THE [employer] PROGRESS NOTE. AUBREY
== END ==
LOC: M PAIN 11:00
PROVIDERS: ATTEND Family Medicine
DX: M51.17 Intervertebral disc disorders with radiculopathy, lumbosacral region (principal); G89.29 Other chronic pain; E11.9 Type 2 diabetes mellitus without complications; E03.9 Hypothyroidism, unspecified; E55.9 Vitamin D deficiency, unspecified; Z87.891 Personal history of nicotine dependence; Z88.0 Allergy status to penicillin; Z88.6 Allergy status to analgesic agent; Z88.8 Allergy status to other drugs, medicaments and biological substances; Z79.899 Other long term (current) drug therapy

== ENCOUNTER → 2020-08-21 | Outpatient (CLI) | payer MEDICARE, OTHER ==
[2020-08-21 18:33] LABS: HEMATOCRIT 40.4 % (42.0-52.0); HEMOGLOBIN 13.2 g/dl (13.5-17.5); MEAN CORPUSCULAR HEMOGLOBIN 30.8 pg (27.0-33.0); MEAN CORPUSCULAR HGB CONC 32.7 g/dl (32.0-36.5); MEAN CORPUSCULAR VOLUME 94.4 fl (80.0-96.0); PLATELET COUNT, AUTOMATED 274 10^3/uL (150-450); RED BLOOD COUNT 4.28 10^6/uL (4.30-6.10); WHITE BLOOD COUNT 6.8 10^3/uL (4.0-10.0)
[2020-08-21 18:40] LABS: APPEARANCE, URINE CLEAR (CLEAR); BACTERIA, URINE AUTO NEGATIVE (NEGATIVE); BILIRUBIN, URINE AUTO NEGATIVE (NEGATIVE); BLOOD, URINE BLOOD NEGATIVE (NEGATIVE); COLOR, URINE STRAW (YELLOW); GLUCOSE, URINE (UA) AUTO NEGATIVE (NEGATIVE); KETONE, URINE AUTO NEGATIVE (NEGATIVE); LEUKOCYTE ESTERASE, URINE AUTO 2+ (NEGATIVE); NITRITE, URINE AUTO NEGATIVE (NEGATIVE); PROTEIN, URINE AUTO NEGATIVE (NEGATIVE); RBC, URINE AUTO 3 /HPF (0-3); SPECIFIC GRAVITY URINE AUTO 1.009 (1.002-1.035); SQUAMOUS EPITHELIAL CELL UR AU 0 /HPF (0-6); UROBILINOGEN, URINE AUTO 0.2 mg/dL (0.0-2.0); WBC, URINE AUTO 49 /HPF (0-3)
[2020-08-21 18:43] LABS: INR 0.97; PROTHROMBIN TIME 13.1 SECONDS (12.5-14.3)
[2020-08-21 18:59] LABS: CALCIUM LEVEL 9.2 MG/DL (8.8-10.2); CREATININE FOR GFR 2.7 MG/DL (0.70-1.30); POTASSIUM SERUM 3.9 MEQ/L (3.5-5.1)
== END ==
LOC: M LAB 17:28
PROVIDERS: ATTEND Nurse Practitioner Family
DX: N20.0 Calculus of kidney (principal); Z01.818 Encounter for other preprocedural examination

== ENCOUNTER → 2020-08-23 | Outpatient (CLI) | payer MEDICARE, OTHER | LOC: M LABSMTC 12:10 | PROVIDERS: ATTEND Anesthesiology | DX: Z01.812 Encounter for preprocedural laboratory examination (principal); Z20.822 Contact with and (suspected) exposure to COVID-19 ==

== ENCOUNTER → 2020-09-27 | Outpatient (CLI) | payer MEDICARE, OTHER ==
[~2020-09-27] MED LIST changes: +ERGO500029 PO; -VITA50005 PO
== END ==
LOC: M LABSMTC 11:18
PROVIDERS: ATTEND Anesthesiology
DX: Z01.812 Encounter for preprocedural laboratory examination (principal); Z20.822 Contact with and (suspected) exposure to COVID-19

== ENCOUNTER → 2020-09-28 | Outpatient (REF) | payer MEDICARE, OTHER ==
[~2020-09-28] MED LIST changes: +CIPR250T3 PO; +HYDR-3713 PO; +OXYB5TAB10 PO; +PYRI1TAB5 PO
[2020-09-28 13:46] LABS: APPEARANCE, URINE CLEAR (CLEAR); BACTERIA, URINE AUTO 1+ (NEGATIVE); BILIRUBIN, URINE AUTO NEGATIVE (NEGATIVE); BLOOD, URINE BLOOD NEGATIVE (NEGATIVE); COLOR, URINE STRAW (YELLOW); GLUCOSE, URINE (UA) AUTO 2+ mg/dL (NEGATIVE); KETONE, URINE AUTO NEGATIVE (NEGATIVE); LEUKOCYTE ESTERASE, URINE AUTO 2+ (NEGATIVE); MUCUS, URINE SMALL (NEGATIVE); NITRITE, URINE AUTO NEGATIVE (NEGATIVE); PROTEIN, URINE AUTO NEGATIVE (NEGATIVE); RBC, URINE AUTO 2 /HPF (0-3); SPECIFIC GRAVITY URINE AUTO 1.009 (1.002-1.035); SQUAMOUS EPITHELIAL CELL UR AU 0 /HPF (0-6); UROBILINOGEN, URINE AUTO 0.2 mg/dL (0.0-2.0); WBC, URINE AUTO 68 /HPF (0-3)
== END ==
LOC: M LAB REF 11:57
PROVIDERS: ATTEND Nurse Practitioner Family
DX: Z01.818 Encounter for other preprocedural examination (principal); N20.0 Calculus of kidney

== ENCOUNTER 2020-10-02 06:02 | Day surgery (SDC) | payer MEDICARE, OTHER ==
[~2020-10-02] VITALS: Ht 170.2 cm; Wt 74.4 kg
[~2020-10-02 06:02] MED LIST changes: -CIPR250T3 PO; -HYDR-3713 PO; +LR 1,000 ML IV ONE; +LevoFLOXacin IV 500 MG in IV 1 EA IV ONE; -OXYB5TAB10 PO; -PYRI1TAB5 PO
[2020-10-02] MEDS ORDERED: propofoL 200 MG/20 ML VIAL As Ordered ONE (07:11)
[2020-10-02] MEDS ORDERED: LIDOCAINE 2% 100MG/5ML SDV (FOR ANES.) As Ordered ONE (07:11)
[2020-10-02] MEDS ORDERED: fentaNYL 100 MCG/2 ML INJECTION (J3010) As Ordered ONE (07:11)
[2020-10-02] MEDS ORDERED: ROCURONIUM BROMIDE 50 MG/5 ML VIAL As Ordered ONE (07:11)
[2020-10-02] MEDS ORDERED: CONRAY-60 60% 50ML VIAL (Q9961) As Ordered ONE (07:13)
[2020-10-02] MEDS ORDERED: SUGAMMADEX SODIUM 500 MG/5 ML VIAL (BRIDION) As Ordered ONE (07:45)
[2020-10-02] MEDS ORDERED: ONDANSETRON 4MG/2ML VIAL As Ordered ONE (07:45)
[2020-10-02] MEDS ORDERED: PHENYLephrine 500MCG 5ML (100MCG/ML) SYRINGE As Ordered ONE (07:56)
--- NOTE | 2020-10-02 08:36 | REP ---
INDICATION: CYSTO, BILATERAL STENT. COMPARISON: None. TECHNIQUE: Intraoperative fluoroscopic imaging using C-arm technique FINDINGS: Single image demonstrates bilateral ureteral stents in satisfactory position. Total fluoroscopic time 1 minutes 48 seconds. IMPRESSION: Bilateral ureteral stents in satisfactory position. <Electronically signed by Matt Becerra > 10/02/20 0829
[2020-10-02] MEDS ORDERED: HYDR-3713 PO (08:46)
[2020-10-02] MEDS ORDERED: OXYB5TAB10 PO (08:46)
[2020-10-02] MEDS ORDERED: CIPR250T3 PO (08:46)
[2020-10-02] MEDS ORDERED: PYRI1TAB5 PO (08:46)
[2020-10-02] MEDS ORDERED: MEPERIDINE INJ 25 MG/ML VIAL (J2175) IV PRN (09:05)
[2020-10-02] MEDS ORDERED: fentaNYL 100 MCG/2 ML INJECTION (J3010) IV PRN (09:05)
[2020-10-02] MEDS ORDERED: LR 1,000 ML IV SCH ×2 (09:05)
[2020-10-02] MEDS ORDERED: oxyCODONE 5MG TAB PO PRN (09:05)
[2020-10-02] MEDS ORDERED: ONDANSETRON 4MG/2ML VIAL IV PRN (09:05)
[2020-10-02] MEDS ORDERED: METOCLOPRAMIDE INJ 10MG/2ML VIAL (J2765 PER 1) IV PRN (09:05)
[2020-10-02 10:38] VITALS: BP 160/78
--- NOTE | 2020-10-03 16:15 | ROOPDOC ---
[facility] Report Of Operation Report of Operation DATE OF PROCEDURE: 10/02/20 PREPROCEDURE DIAGNOSES: [Left ureteral stone and bilateral renal stones]. POSTPROCEDURE DIAGNOSES: [Same and possible right ureteral stricture]. PROCEDURE PERFORMED: [Cystoscopy, fluoroscopy, bl retrogrades, left rigid ureteroscopy with laser lithotripsy and basket stone extraction, left stent placement, right flexible ureteroscopy, right ureteral dilatation, right stent placement]. SURGEON: [Terrie Lam, LABELING MACHINE OPERATOR: [None], MD ANESTHESIA: [General]. ESTIMATED BLOOD LOSS: Approximately [minimal] mL. COMPLICATIONS: [None]. REMARKS: [85-year-old white male. Imaging showed bilateral renal stones and a distal left ureteral stone. Surgery was arranged. Informed consent was obtained. Risks were discussed such as infection, bleeding, pain, scarring, failure of surgery, need for more surgery, injury to the urinary tract, risks of anesthesia and others. No guarantees were given. I spoke with the patient and his before surgery.]. FINDINGS: SPECIMENS REMOVED: [Stone] PROCEDURE NOTE: . DESCRIPTION OF PROCEDURE: [I met with the patient and his before surgery in the preop area. Surgery was discussed. Informed consent was obtained. Patient wished to proceed. Patient was brought to the operating room. Surgery was done under antimicrobial coverage. General anesthesia was secured without difficulty. Dorsolithotomy position. Well padded. Prepping and draping in the usual sterile fashion. A timeout was performed. Rigid cystoscopy was performed. Left ureteral orifice was identified. A wire was advanced up the ureter as seen using fluoroscopy. Rigid ureteroscopy was performed. A stone in the distal ureter was encountered. It required laser lithotripsy. Basket stone extraction was performed. A fragment was collected and handed off. Once satisfied a 6 Latvian multilength stent was placed. At one point a retrograde pyelogram was obtained. The initial wire in the ureter fell out. Before the wire fell out I thought perhaps I created a false passage with the basket. I passed up the wire once again. Over the wire was passed a 5 Latvian open-ended ureteral catheter. Contrast was injected. This confirmed that the wire was in the true ureter. I then directed my attention to the right side. The right ureteral orifice was identified and a wire was passed up as seen using fluoroscopy. A second wire was advanced up as well using a dual-lumen catheter. The orifice was dilated by the dual-lumen catheter. I attempted to pass a flexible ureteroscope over a wire into the kidney but was unsuccessful. The ureteroscope would go up only about a third. I attempted to dilate the area in question with a dual-lumen catheter but the dual-lumen catheter itself would go no further than the ureteroscope. I attempted to negotiate the area in question with the flexible ureteroscope under direct vision. I was unsuccessful in doing so. After a while I decided the prudent thing to do was stop and place a stent. The plan was to remove stones from the kidney but the stones themselves were not causing any problems. With this in mind I decided to stop and place a stent. A 6 Latvian multilength stent was placed. Proper positioning was confirmed. The bladder was emptied and the cystoscope was removed. The patient tolerated everything well and left the room in satisfactory condition. Home with antibiotic, pain medication, oxybutynin and Pyridium. Cystoscopy with bilateral stent removal in the office. QUANG LAM MD Oct 03, 2020 16:15
== END 2020-10-02 10:38 | disposition home or self-care (01) ==
LOC: M SDC 06:02
PROVIDERS: ATTEND Urology
DX: N20.2 Calculus of kidney with calculus of ureter (principal); N13.5 Crossing vessel and stricture of ureter without hydronephrosis; I10 Essential (primary) hypertension; E11.40 Type 2 diabetes mellitus with diabetic neuropathy, unspecified; E78.00 Pure hypercholesterolemia, unspecified; E03.9 Hypothyroidism, unspecified; K59.00 Constipation, unspecified; K21.9 Gastro-esophageal reflux disease without esophagitis; M19.90 Unspecified osteoarthritis, unspecified site; M48.00 Spinal stenosis, site unspecified; L30.9 Dermatitis, unspecified; F41.9 Anxiety disorder, unspecified; F32.9 Major depressive disorder, single episode, unspecified; N40.0 Benign prostatic hyperplasia without lower urinary tract symptoms; Z90.2 Acquired absence of lung [part of]; N28.9 Disorder of kidney and ureter, unspecified; Z87.891 Personal history of nicotine dependence; Z91.040 Latex allergy status; Z88.8 Allergy status to other drugs, medicaments and biological substances; Z88.0 Allergy status to penicillin; Z79.899 Other long term (current) drug therapy; Z79.891 Long term (current) use of opiate analgesic
CPT/HCPCS: 52332; 52344; 52356; 74420; 82365; 88300; C1769; C2617; J1956; J2370; J2405; J3010; Q9961

== ENCOUNTER → 2020-10-18 | Outpatient (CLI) | payer OTHER ==
[~2020-10-18] MED LIST changes: +CIPR250T3 PO; +HYDR-3713 PO; -LR 1,000 ML IV ONE; -LevoFLOXacin IV 500 MG in IV 1 EA IV ONE; +OXYB5TAB10 PO; +PYRI1TAB5 PO
--- NOTE | 2020-10-20 06:50 | ECWPNPC ---
PATIENT NAME: FERMIN LEACH : 1935 GENDER: MALE VISIT DATE: 10/18/2020 DISCHARGE DATE: 10/18/20 1207 VISIT LOCKED DATE TIME: PHYSICIAN: HOLLIE PARDO PHYSICIAN PAGER NO: ACTIVE RESOURCE: HOLLIE PARDO REASON FOR APPOINTMENT 1. LOW BACK PAIN HISTORY OF PRESENT ILLNESS GENERAL: HPI 85-YEAR-OLD MALE IN FOR CHRONIC PAIN FOLLOW-UP HE RATES HIS PAIN CURRENTLY AT AN 8 OUT OF 10 AND DESCRIBES IT CONTINUOUS, SHARP, AND STABBING. PATIENT HAS HAD LUMBAR EPIDURAL STEROID INJECTIONS IN THE PAST WITH GOOD RESULTS EVIDENCED BY DECREASED PAIN AND INCREASED FUNCTIONALITY. WE WILL DISCUSS REPEAT PROCEDURES TODAY.. -. FALL RISK SCREENING: SCREENING : NO FALLS REPORTED IN THE LAST YEAR. PAIN SCREENING: PATIENT HAS A COMPLAINT OF ACUTE OR CHRONIC PAIN :YES LOCATION OF PAIN:LOW BACK INTENSITY OF PAIN (SCALE OF 1 TO 10):8 WHAT DOES YOUR PAIN FEEL LIKE:CONTINOUS, SHARP, STABBING DURATION:CONTINOUS, CONSTANT PAIN IS INCREASED BY:ACTIVITIES, PROLONGED STANDING PAIN IS DECREASED BY:USE OF PAIN MEDICATIONS, SITTING REPOSITIONING NURSING NOTE: -. PAIN CENTER INTAKE QUESTIONS: DO YOU HAVE A HISTORY OF MRSA? :NO DO YOU TAKE A BLOOD THINNERS? :NO DO YOU HAVE ANY BLEEDING DISORDERS? :NO ANY NEW NUMBNESS OR WEAKNESS IN YOUR LEGS OR ARMS? :NO ANY PACEMAKER,DEFIBRILLATOR, OR DORSAL COLUMN STIMULATOR? :NO DO YOU HAVE ANY RASHES OR OPEN SORES? :NO ARE YOU ALLERGIC TO IV DYE? :NO ARE YOU DIABETIC? :YES ANY NEW PROBLEMS WITH YOUR MEDICATIONS? :NO HAVE YOU RECEIVED A VACCINE IN THE PAST 30 DAYS? :NO DO YOU PLAN TO RECEIVE A VACCINE IN THE NEXT 21 DAYS? :NO DO YOU NEED ANY PRESCRIPTION? :NO DO YOU TAKE ANY IMMUNOSUPPRESSIVE MEDICATIONS? :NO DO YOU HAVE ANY KIDNEY OR LIVER DISEASE? :YES STAGE 4 KIDNEY DISEASE IS THERE A CHANCE YOU COULD BE ? :NO ARE YOU BREAST FEEDING? :NO CURRENT MEDICATIONS TAKING TRAMADOL HCL 50 MG TABLET 1 TABLET ORALLY, WORKER'S COMPENSATION THREE TIMES A DAY NEEDED, MDD=3, NOTES: 06/06/20 @ 0500 TAKING COREG 3.125MG TABLET ORAL BID TAKING TORSEMIDE 20 MG TABLET 2 TABLET AM AND 1 TAB PM ORALLY TWICE DAILY, NOTES: CAN TAKE A SECOND DOSE IF WEIGHT INCREASSES BY 5 LBS. TAKING LIPITOR 40 MG TABLET 1 TABLET ORALLY ONCE A DAY TAKING LEVOTHYROXINE SODIUM 112 MCG TABLET 1 TABLET ON AN EMPTY STOMACH IN THE MORNING ORALLY ONCE A DAY TAKING PREVACID 30 MG CAPSULE DELAYED RELEASE TAKE ONE CAPSULE BY MOUTH EVERY DAY BEFORE A MEAL TAKING EFFEXOR XR 75 MGS CAPSULE EXTENDED RELEASE 24 HOUR 1 CAPSULE WITH FOOD ORALLY ONCE A DAY TAKING DRISDOL [id number] UNIT CAPSULE 1 CAPSULE ORALLY ONCE A WEEK, NOTES: ONCE A WEEK TAKING CALCITRIOL 0.25 MCG CAPSULE 1 CAPSULE ORALLY ONCE A DAY, M,F, NOTES: TWICE A WEEK TAKING ULORIC 40 MG TABLET 1 TABLET ORALLY -W- TAKING TAMSULOSIN HCL 0.4 MG CAPSULE 2 CAPSULE ORALLY ONCE A DAY TAKING PROSCAR 5 MG TABLET 1 TABLET ORALLY ONCE A DAY TAKING LORATADINE 10 MG TABLET 1 TABLET ORALLY ONCE A DAY TAKING AREDS OTC AREDS2- 1 CAP ORALLY TWICE A DAY TAKING SYSTANE 0.4-0.3 % SOLUTION DIRECTED OPHTHALMIC TAKING VANICREAM - CREAM DIRECTED EXTERNALLY AFTER SHOWER TAKING ECHINACEA 400 MG CAPSULE 4 CAPSULES ORALLY THREE TIMES A DAY FOR 2-4 DAYS ON ONSET OF COLD SYMPTOMS TAKING LANCETS - MISCELLANEOUS DIRECTED ONE TOUCH ULTRA DX. 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 HYPERLIPIDEMIA HYPOTHYROIDISM--CENTRAL ( FOLLOW FREE T4, NOT TSH) HYPERTENSION BPH PEYRONIE'S DISEASE ALLERGIES DDD/DJD LOW BACK L/S SPINAL STENOSIS PLASMA CELL GRANULOMA RLL STRESS TEST 2008 VIT D DEFICIENCY ZOSTAVAX 09/17 RT 7TH RIB FX (FALL 06/18, CAT-RELATED) GOUT RT GREAT TOE 11/20 COLOGUARD: NEGATIVE PRE-CANCER LESIONS REMOVED FROM BILAT EARS MEMORY LOSS OR IMPAIRMENT E FACALIS UTI X 3 2019-07/26, ER--> LEG BAG KIDNEY STONES 2020 ALLERGIES ZANTAC: CONSTIPATION - SIDE EFFECTS NSAIDS: ELEV BUN, CREAT - SIDE EFFECTS PENICILLIN: HIVES - ALLERGY SURGICAL HISTORY T + A 1947 APPENDECTOMY 1949 TURP 2002 RIGHT SHOULDER REPAIR / 1989 RIGHT LOWER LUNG REMOVAL OF ABSCESS/ 2004 BILATERAL BLEPHAROPLASTY/ 2006 EGD/COLONOSCOPY 2007 RIGHT EYE CATARACT SURGERY 11/2012 CYSTOSCOPY 10/21/[address] EYE [address] JOHNSON TOENAIL 04/25 BACK SKIN BX 04/2019 CYSTOSCOPY 01/26/20 URETEROSCOPY 09/2020 CYSTO WITH STENT REMOVAL 10/2020 SOCIAL HISTORY GENERAL: TOBACCO USE ARE YOU A:FORMER SMOKER FORMER CIGAR SMOKER HOW LONG HAS IT BEEN SINCE YOU LAST SMOKED?1-5 YEARS ADDITIONAL FINDINGS: TOBACCO USERCIGAR SMOKER LATEX QUESTIONNAIRE LATEX ALLERGY : HAVE YOU EVER DEVELOPED ANY TYPE OF REACTION AFTER HANDLING LATEX PRODUCTS SUCH RUBBER GLOVES, CONDOMS, DIAPHRAGMS, BALLOONS, SOCKS, OR UNDERWEAR?YES - PLEASE INDICATE :OTHER (DOCUMENT IN NOTES) PT HAS DEVELOPED REDDENED AREAS WHERE LEG STRAP AND SMALL STRAPS FROM CATHETER SIT ON LOWER LEG LATEX ALLERGY : HAVE YOU EVER DEVELOPED ANY TYPE OF REACTION DURING OR AFTER DENTAL APPOINTMENT, VAGINAL/RECTAL EXAMINATION, SURGICAL PROCEDURE, OR ANY OTHER EXPOSURE?NO LATEX RISK : HAVE YOU EVER HAD ANY DIFFICULTY BREATHING OR HIVES AFTER EATING OR HANDLING ANY FRUITS, OR VEGETABLES; SUCH KIWI, BANANAS, STONE FRUITS, OR CHESTNUTSNO LATEX RISK : DO YOU HAVE A PREVIOUS PERSONAL HISTORY OF MORE THAN NINE SURGERIES, SPINA BIFIDA, OR REPEATED CATHERIZATIONS? YES - PLEASE INDICATE : REPEATED CATHETERIZATIONS LATEX RISK : ARE YOU FREQUENTLY EXPOSED TO LATEX PRODUCTS IN YOUR OCCUPATION?NO DATE ASKED : 10/18/2020 ALCOHOL USE: NO. LUNG CANCER SCREENING SMOKING STATUS:FORMER SMOKER IS THE PATIENT BETWEEN THE AGE OF 54 AND 76?NO ALCOHOL SCREENING DID YOU HAVE A DRINK CONTAINING ALCOHOL IN THE PAST YEAR?NO POINTS0 INTERPRETATIONNEGATIVE RECREATIONAL DRUG USE DRUG USE?NO CAFFEINE CAFFEINE USE?NO SEXUAL HX HAD SEX IN THE LAST 12 MONTHS (VAGINAL, ORAL, OR ANAL)?NO HAVE YOU EVER HAD AN STD?NO HIV / HEP-C SCREENING HIV TEST OFFERED TO PATIENT:YES DATE OFFERED:07/05/2016 TEST ACCEPTED:NO HEP-C TEST OFFERED TO PATIENT:NO REASON:PATIENT DECLINED HOLINESS [id number] UNITARIAN NO JAIN BELIEFS THAT WOULD IMPACT HEALTH CARE. 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 DIET: LOW FAT, LOW CHOLESTEROL, LOW SODIUM, LOW POTASSIUM. EXERCISE: NONE. MARITAL STATUS: --ANIL. OTHERS AT HOME: SPOUSE. - HAS THE PATIENT BEEN EDUCATED REGARDING HIS/HER PLAN OF CARE?YES HAS THE PATIENT BEEN EDUCATED REGARDING PAIN, THE RISK FOR PAIN, THE IMPORTANCE OF EFFECTIVE PAIN MANAGEMENT, AND THE PAIN ASSESSMENT PROCESS?YES ADVANCE DIRECTIVE ADVANCE DIRECTIVE DISCUSSED WITH PATIENT:YES HCP IS ANIL LEACH [phone] HOSPITALIZATION/MAJOR DIAGNOSTIC PROCEDURE SURGERY RELATED PNEUMONIA 1974 URINARY TRACT INFECTION 10/2019 REVIEW OF SYSTEMS CONSTITUTIONAL: ANY RECENT FEVER NO . CHILLS NO . WEIGHT CHANGE OF UNKNOWN REASONS NO . GASTROENTEROLOGY: NEW UNEXPLAINABLE CHANGES IN BOWEL CONTROL NO . CONSTIPATION NO . GENITOURINARY: ANY NEW CHANGE IN BLADDER CONTROL? NO . NEUROLOGY: NEW ONSET DIZZINESS OR NEUROLOGICAL CHANGES NOT MENTIONED NO . NEW NUMBNESS OR PAIN PATTERNS NOT MENTIONED AND PERTINENT TO TODAY'S VISIT NO . CARDIOLOGY: NEW CHEST PRESSURE NO . PATIENT DENIES NO . RESPIRATORY: UNEXPLAINABLE COUGH NO . NEW SHORTNESS OF BREATH NO . VITAL SIGNS WT 169 LBS, HT 67.5 IN, BMI 26.08 INDEX, BP 137/65 MM HG, HR 80 /MIN, RR 18 /MIN, TEMP 97.3 F, OXYGEN SAT % 96%, SAFE IN ENV? (Y/N) YES, REVIEWED BY: [place] ESPITIA MA. EXAMINATION GENERAL EXAMINATION: GENERALNO ACUTE DISTRESS, WELL NOURISHED AND HYDRATED. PSYCHAPPROPRIATE MOOD AND AFFECT . LUNGS:CLEAR TO AUSCULTATION BILATERALLY, NO WHEEZES, RHONCHI, RALES. HEART:NO MURMURS, REGULAR RATE AND RHYTHM. BACK:POINT TENDER ALONG LUMBAR SPINE,. MUSCULOSKELETAL:NOTABLE WEAKNESS OF THE LOWER EXTREMITIES BILATERALLY. ASSESSMENTS INTERVERTEBRAL DISC DISORDER WITH RADICULOPATHY OF LUMBOSACRAL REGION - M51.17 (PRIMARY), RISK: (NULL) TREATMENT INTERVERTEBRAL DISC DISORDER WITH RADICULOPATHY OF LUMBOSACRAL REGION MEDICATION: PAIN VALIUM TAB 2MG ORALLY (DIAZEPAM) (ORDERED FOR 10/26/2020) NOTES: 85-YEAR-OLD MALE IN FOR CHRONIC PAIN FOLLOW-UP. GIVEN PRESENTING SYMPTOMS AND RESULTS OF PHYSICAL EXAMINATION RECOMMEND LUMBAR EPIDURAL STEROID INJECTIONS WITH POSTPROCEDURAL FOLLOW-UP. PATIENT HAS EXPRESSED UNDERSTANDING OF AND WAS IN AGREEMENT WITH TREATMENT PLAN. GIVEN TIME TO ASK QUESTIONS AND EXPRESS CONCERNS. CLINICAL NOTES: PREPROCEDURE AND PROCEDURE INFORMATION PRINTED AND PROVIDED TO PATIENT. PATIENT VERBALIZED AN UNDERSTANDING. [employer]IS[employer] ESPITIA MA. PROCEDURE CODES FA211 ESTABILISHED PATIENT [facility] CHARGE DISPOSITION & COMMUNICATION FOLLOW UP POST PROCEDURE (REASON: LUMBAR EPIDURAL STEROID INJECTION ) ELECTRONICALLY SIGNED BY SOFÍA BARRON ON 10/19/2020 AT 09:36 AM EDT DISCLAIMER : THIS IS A VISIT SUMMARY EXTRACTED FROM THE [employer] CHART. IT IS NOT A COPY OF THE [employer] PROGRESS NOTE. AUBREY
== END ==
LOC: M PAIN 11:00
PROVIDERS: ATTEND Family Medicine
DX: M51.17 Intervertebral disc disorders with radiculopathy, lumbosacral region (principal); G89.29 Other chronic pain; E11.9 Type 2 diabetes mellitus without complications; E03.9 Hypothyroidism, unspecified; E55.9 Vitamin D deficiency, unspecified; Z87.891 Personal history of nicotine dependence; Z88.0 Allergy status to penicillin; Z88.6 Allergy status to analgesic agent; Z88.8 Allergy status to other drugs, medicaments and biological substances; Z79.899 Other long term (current) drug therapy

== ENCOUNTER → 2020-11-08 | Outpatient (CLI) | payer OTHER | LOC: M LABSMTC 10:26 | PROVIDERS: ATTEND Anesthesiology | DX: Z01.812 Encounter for preprocedural laboratory examination (principal); Z11.52 Encounter for screening for COVID-19 ==

== ENCOUNTER → 2020-11-13 | Outpatient (CLI) | payer OTHER ==
[~2020-11-13] MED LIST changes: +ISOVUE-M 300 61% 15ML VIAL As Ordered ONE; +LIDOCAINE 1% SDV 30ML VIAL As Ordered ONE; +diazePAM 2 MG TAB As Ordered ONE; +diphenhydrAMINE 25MG CAP As Ordered ONE; +methylPREDNISolone SUSP 40MG/ML 1ML VIAL (DEPO MEDROL) As Ordered ONE
--- NOTE | 2020-11-13 16:56 | REP ---
INDICATION: LUMBAR EPIDURAL STEROID INJECTION. COMPARISON: None. TECHNIQUE: Two views. 9.2 seconds of fluoroscopy time is reported. FINDINGS: A sequence of 2 last image hold fluoroscopically obtained spot radiograph(s) of the lumbar spine document(s) needle position(s) and contrast injection associated with injection procedure. IMPRESSION: Procedural imaging. <Electronically signed by Santiago Kauffman > 11/13/20 [id number]
--- NOTE | 2020-11-16 01:11 | ECWPNPC ---
PATIENT NAME: FERMIN LEACH : 1935 GENDER: MALE VISIT DATE: 11/13/2020 DISCHARGE DATE: 11/13/20 1321 VISIT LOCKED DATE TIME: PHYSICIAN: LALITA MIDDLETON MD PHYSICIAN PAGER NO: ACTIVE RESOURCE: LALITA MIDDLETON MD REASON FOR APPOINTMENT 1. LUMBAR EPIDURAL STEROID INJECTION HISTORY OF PRESENT ILLNESS GENERAL: -. FALL RISK SCREENING: SCREENING : NO FALLS REPORTED IN THE LAST YEAR. PAIN SCREENING: PATIENT HAS A COMPLAINT OF ACUTE OR CHRONIC PAIN :YES LOCATION OF PAIN:LOW BACK INTENSITY OF PAIN (SCALE OF 1 TO 10):4 WHAT DOES YOUR PAIN FEEL LIKE:ACHING, CONTINOUS, STABBING DURATION:CONTINOUS, CONSTANT PAIN IS INCREASED BY:ACTIVITIES PAIN IS DECREASED BY:USE OF PAIN MEDICATIONS NURSING NOTE: -. PAIN CENTER INTAKE QUESTIONS: DO YOU HAVE A HISTORY OF MRSA? :NO DO YOU TAKE A BLOOD THINNERS? :NO DO YOU HAVE ANY BLEEDING DISORDERS? :NO ANY NEW NUMBNESS OR WEAKNESS IN YOUR LEGS OR ARMS? :YES LEGS NUMBNESS ANY PACEMAKER,DEFIBRILLATOR, OR DORSAL COLUMN STIMULATOR? :NO DO YOU HAVE ANY RASHES OR OPEN SORES? :NO ARE YOU ALLERGIC TO IV DYE? :NO ARE YOU DIABETIC? :YES FSBS 197 THIS A.M. ANY NEW PROBLEMS WITH YOUR MEDICATIONS? :NO HAVE YOU RECEIVED A VACCINE IN THE PAST 30 DAYS? :NO DO YOU PLAN TO RECEIVE A VACCINE IN THE NEXT 21 DAYS? :NO DO YOU TAKE ANY IMMUNOSUPPRESSIVE MEDICATIONS? :NO ANY HISTORY OF SEIZURES? :NO ANY HISTORY OF CARDIAC ISSUES OR EVENTS? :NO DO YOU HAVE ANY KIDNEY OR LIVER DISEASE? :YES CKD STAGE IIII DO YOU HAVE SLEEP APNEA? :NO ANY RECENT HEAD INJURY? :NO DO YOU HAVE ANY NEW INFECTIONS? :NO IS THERE A CHANCE YOU COULD BE ? :NO ARE YOU BREAST FEEDING? :NO WHEN DID YOU LAST EAT? : 11/13 429 WHEN DID YOU LAST DRINK? : 11/13 899 WHAT DID YOU LAST DRINK? : WATER NAME OF PERSON DRIVING YOU HOME? : -ANIL DO YOU HAVE ANY OTHER QUESTIONS OR CONCERNS? : NONE CURRENT MEDICATIONS TAKING TRAMADOL HCL 50 MG TABLET 1 TABLET ORALLY, WORKER'S COMPENSATION THREE TIMES A DAY NEEDED, MDD=3, NOTES: 11/13 499 TAKING COREG 3.125MG TABLET ORAL BID, NOTES: 11/13 499 TAKING TORSEMIDE 20 MG TABLET 2 TABLET AM AND 1 TAB PM ORALLY TWICE DAILY, NOTES: 11/13 499 TAKING LIPITOR 40 MG TABLET 1 TABLET ORALLY ONCE A DAY TAKING LEVOTHYROXINE SODIUM 112 MCG TABLET 1 TABLET ON AN EMPTY STOMACH IN THE MORNING ORALLY ONCE A DAY, NOTES: 11/14 399 TAKING PREVACID 30 MG CAPSULE DELAYED RELEASE TAKE ONE CAPSULE BY MOUTH EVERY DAY BEFORE A MEAL TAKING EFFEXOR XR 75 MGS CAPSULE EXTENDED RELEASE 24 HOUR 1 CAPSULE WITH FOOD ORALLY ONCE A DAY TAKING DRISDOL 46693 UNIT CAPSULE 1 CAPSULE ORALLY ONCE A WEEK, NOTES: ONCE A WEEK TAKING CALCITRIOL 0.25 MCG CAPSULE 1 CAPSULE ORALLY ONCE A DAY, M,, NOTES: TWICE A WEEK TAKING ULORIC 40 MG TABLET 1 TABLET ORALLY -- TAKING TAMSULOSIN HCL 0.4 MG CAPSULE 2 CAPSULE ORALLY ONCE A DAY TAKING PROSCAR 5 MG TABLET 1 TABLET ORALLY ONCE A DAY TAKING LORATADINE 10 MG TABLET 1 TABLET ORALLY ONCE A DAY TAKING AREDS OTC AREDS2- 1 CAP ORALLY TWICE A DAY TAKING SYSTANE 0.4-0.3 % SOLUTION DIRECTED OPHTHALMIC TAKING VANICREAM - CREAM DIRECTED EXTERNALLY AFTER SHOWER TAKING ECHINACEA 400 MG CAPSULE 4 CAPSULES ORALLY THREE TIMES A DAY FOR 2-4 DAYS ON ONSET OF COLD SYMPTOMS TAKING LANCETS - MISCELLANEOUS DIRECTED ONE TOUCH ULTRA DX. 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 HYPERLIPIDEMIA HYPOTHYROIDISM--CENTRAL ( FOLLOW FREE T4, NOT TSH) HYPERTENSION BPH PEYRONIE'S DISEASE ALLERGIES DDD/DJD LOW BACK L/S SPINAL STENOSIS PLASMA CELL GRANULOMA RLL STRESS TEST 2008 VIT D DEFICIENCY ZOSTAVAX 09/17 RT 7TH RIB FX (FALL 06/18, CAT-RELATED) GOUT RT GREAT TOE 11/20 COLOGUARD: NEGATIVE PRE-CANCER LESIONS REMOVED FROM BILAT EARS MEMORY LOSS OR IMPAIRMENT E FACALIS UTI X 3 2019-07/26, ER--> LEG BAG KIDNEY STONES 2020 ALLERGIES ZANTAC: CONSTIPATION - SIDE EFFECTS NSAIDS: ELEV BUN, CREAT - SIDE EFFECTS PENICILLIN: HIVES - ALLERGY LATEX: RASH - ALLERGY SOCIAL HISTORY GENERAL: TOBACCO USE ARE YOU A:FORMER SMOKER FORMER CIGAR SMOKER HOW LONG HAS IT BEEN SINCE YOU LAST SMOKED?1-5 YEARS ADDITIONAL FINDINGS: TOBACCO USERCIGAR SMOKER LATEX QUESTIONNAIRE LATEX ALLERGY : HAVE YOU EVER DEVELOPED ANY TYPE OF REACTION AFTER HANDLING LATEX PRODUCTS SUCH RUBBER GLOVES, CONDOMS, DIAPHRAGMS, BALLOONS, SOCKS, OR UNDERWEAR?YES - PLEASE INDICATE :OTHER (DOCUMENT IN NOTES) PT HAS DEVELOPED REDDENED AREAS WHERE LEG STRAP AND SMALL STRAPS FROM CATHETER SIT ON LOWER LEG LATEX ALLERGY : HAVE YOU EVER DEVELOPED ANY TYPE OF REACTION DURING OR AFTER DENTAL APPOINTMENT, VAGINAL/RECTAL EXAMINATION, SURGICAL PROCEDURE, OR ANY OTHER EXPOSURE?NO LATEX RISK : HAVE YOU EVER HAD ANY DIFFICULTY BREATHING OR HIVES AFTER EATING OR HANDLING ANY FRUITS, OR VEGETABLES; SUCH KIWI, BANANAS, STONE FRUITS, OR CHESTNUTSNO LATEX RISK : DO YOU HAVE A PREVIOUS PERSONAL HISTORY OF MORE THAN NINE SURGERIES, SPINA BIFIDA, OR REPEATED CATHERIZATIONS? YES - PLEASE INDICATE : REPEATED CATHETERIZATIONS LATEX RISK : ARE YOU FREQUENTLY EXPOSED TO LATEX PRODUCTS IN YOUR OCCUPATION?NO DATE ASKED : 10/18/2020 ALCOHOL USE: NO. LUNG CANCER SCREENING SMOKING STATUS:FORMER SMOKER IS THE PATIENT BETWEEN THE AGE OF 54 AND 76?NO ALCOHOL SCREENING DID YOU HAVE A DRINK CONTAINING ALCOHOL IN THE PAST YEAR?NO POINTS0 INTERPRETATIONNEGATIVE RECREATIONAL DRUG USE DRUG USE?NO CAFFEINE CAFFEINE USE?NO SEXUAL HX HAD SEX IN THE LAST 12 MONTHS (VAGINAL, ORAL, OR ANAL)?NO HAVE YOU EVER HAD AN STD?NO HIV / HEP-C SCREENING HIV TEST OFFERED TO PATIENT:YES DATE OFFERED:07/05/2016 TEST ACCEPTED:NO REASON:PATIENT DECLINED HEP-C TEST OFFERED TO PATIENT:NO ORTHODOXY [id number] UNITARIAN NO [employer] BELIEFS THAT WOULD IMPACT HEALTH CARE. 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 DIET: LOW FAT, LOW CHOLESTEROL, LOW SODIUM, LOW POTASSIUM. EXERCISE: NONE. MARITAL STATUS: --ANIL. OTHERS AT HOME: SPOUSE. - HAS THE PATIENT BEEN EDUCATED REGARDING HIS/HER PLAN OF CARE?YES HAS THE PATIENT BEEN EDUCATED REGARDING PAIN, THE RISK FOR PAIN, THE IMPORTANCE OF EFFECTIVE PAIN MANAGEMENT, AND THE PAIN ASSESSMENT PROCESS?YES ADVANCE DIRECTIVE ADVANCE DIRECTIVE DISCUSSED WITH PATIENT:YES HCP IS ANIL LEACH [phone] VITAL SIGNS WT 164.0 LBS, WT-KG 74.39 KG, HT 67.5 IN, BMI 25.30 INDEX, BP 128/63 MM HG, HR 79 /MIN, RR 18 /MIN, TEMP 96.8 F, OXYGEN SAT % 98%, SAFE IN ENV? (Y/N) Y, NA INITIALS AW 1107, REVIEWED BY: Kilo NINA RN. EXAMINATION GENERAL: A HISTORY AND PHYSICAL EXAM ON THE PATIENT WAS DONE ON 10/18/2020(DATE OF ORIGINAL ASSESSMENT) IN PREPARATION OF SURGERY/PROCEDURE. I HAVE NOW REASSESSED THIS PATIENT'S HEALTH STATUS AND PERFORMED AN UPDATED EXAM TODAY. ALL CHANGES IN THE PATIENT'S HISTORY, PHYSICAL EXAM, PRE-EXISTING CONDITONS, AND INDICATIONS/CONTRAINDICATIONS TO THE PLANNED PROCEDURE AND ANESTHESIA ARE DOCUMENTED AND EVALUATED BELOW. I ATTEST TO THE ADEQUACY AND APPROPRIATENESS OF MY ASSESSMENT, AND CONFIRM THE NECESSITY FOR THE PLANNED PROCEDURE. THE PATIENT IS ALERT, ORIENTED TIMES THREE AND COOPERATIVE. LUNGS ARE CLEAR TO AUSCULTATION. HEART SHOWS REGULAR RHYTHM, NO MURMURS AND NO GALLOPS. ASSESSMENTS INTERVERTEBRAL DISC DISORDER WITH RADICULOPATHY OF LUMBOSACRAL REGION - M51.17 (PRIMARY) TREATMENT INTERVERTEBRAL DISC DISORDER WITH RADICULOPATHY OF LUMBOSACRAL REGION [facility] FLUORO GUIDE SPINE INJECTION (PAIN)[id number] [facility] SPINE, LUMBOSACRAL W/FLEX-[id number],KRISTAL 11/13/2020 12:40:25 PM > AP AND LATERAL ON FLEXION AND EXTENSION TO CHECK STABILITY OF THE SPINE MEDICATION: PAIN VALIUM TAB 2MG ORALLY (DIAZEPAM)[id number],NICOLE 11/13/2020 11:21:31 AM > VERIFIED SERENA NINA 11/13/2020 11:28:38 AM > ADMINISTERED COMPLETION OF PROCEDURAL VISIT WHEN MEETS [id number],ANITA 11/13/2020 1:30:59 PM > CRITERIA MET 1320 MED: PAIN BENADRYL TAB 25MG ORALLY [id number],NICOLE 11/13/2020 11:46:11 AM > VERIFIED SERENA NINA 11/13/2020 11:47:18 AM > ADMINISTERED OTHERS NOTES: PAT DONE 11/10/2020. EM. PROCEDURES PAIN NURSING RECORD PROCEDURE IN ROOM 1215 VIA STRETCHER, PHYSICIAN IN ROOM 1236, START 1240, FINISH 1246, PHYSICIAN OUT OF ROOM 1247, OUT OF ROOM 1255 VIA STRETCHER, ECG NORMAL SINUS, PATIENT SHIELDED YES, SAFETY STRAP YES, PREP BETADINE Kilo NINA RN, DRESSING TEGADERM DR. MIDDLETON LOC: 1. ALERT, ORIENTED RESP: SERENA NINA 11/13/2020 12:30:34 PM > 1. REGULAR, NO DYSPNEA COLOR: SERENA NINA 11/13/2020 12:30:37 PM > 1. PINK SKIN: SERENA NINA 11/13/2020 12:30:41 PM > 1. WARM, DRY POSITION: KELLE,SERENA 11/13/2020 12:30:47 PM > 1. PRONE VITALS: 1145 P70 0297% BP126/59 R18 AW 1200 P69 0296% R18 BP127/58 AW KELLESERENA 11/13/2020 12:23:39 PM > 178/62,75,16,97% KELLESERENA 11/13/2020 12:38:12 PM > 173/91,74,16,98% KELLESERENA 11/13/2020 12:51:21 PM > 171/83,74,16,97% KELLESERENA 11/13/2020 1:08:00 PM > 159/71,71,18,98% NOTES SERENA NINA 11/13/2020 12:28:57 PM > FINE RASH NOTED ON BACK PRIOR TO CLEANING SKIN WITH BETADINE. DR. MIDDLETON IN TO EXAMINE AND PHOTO TAKEN OF RASH. SERENA NINA 11/13/2020 1:16:22 PM > RASH ALSO NOTED ON CHEST AREA, THE RASH ON HIS BACK IS VERY FAINT. COMPLETION OF PROCEDURE APPOINTMENT: POST PAIN 2, DRESSING SITE DRY AND INTACT, IV N/A, GAIT WHEELCHAIR, TEACHING COMPLETED, PATIENT ACKNOWLEDGES UNDERSTANDING YES, PROCEDURE APPOINTMENT COMPLETED AT 1320 BY: Kilo NINA RN PN WORKMANS' COMP OPINION IN YOUR OPINION, WAS THE INCIDENT THAT THE PATIENT DESCRIBED THE COMPETENT MEDICAL CAUSE OF THIS INJURY/ILLNESS? YES ARE THE PATIENT'S COMPLAINTS CONSISTENT WITH HIS/HER HISTORY OF THE INJURY/ILLNESS? YES IS THE PATIENT'S HISTORY OF THE INJURY/ILLNESS CONSISTENT WITH YOUR OBJECTIVE FINDING? YES WHAT IS THE PERCENTAGE OF TEMPORARY IMPAIRMENT? MODERATE TO MARKED = 66.7% IS THE PATIENT WORKING? NO DOCTOR ON SITE: LALITA GIRON MD PRE PROCEDURE DIAGNOSIS LUMBAR DISC DISORDER WITH RADICULOPATHY POST PROCEDURE DIAGNOSIS LUMBAR DISC DISORDER WITH RADICULOPATHY PROCEDURE LUMBAR EPIDURAL STEROID INJECTION UNDER FLUOROSCOPIC GUIDANCE SURGEON DR. LALITA MIDDLETON ASSOCIATE DOCTOR NONE ANESTHESIA LOCAL PRE PROCEDURE NOTE THE PATIENT HAS A HISTORY OF CHRONIC LOW BACK PAIN. I EVALUATED THE PATIENT AND REVIEWED THE CHART. I WENT OVER THE RISKS, ALTERNATIVES, AND BENEFITS ASSOCIATED WITH THIS PROCEDURE. THE PATIENT WOULD LIKE TO PROCEED AND GIVE CONSENT TO PERFORMED THE PROCEDURE. THE PATIENT DENIES UNEXPLAINABLE WEIGHT LOSS, FEVER, CHILLS, OR NEW CHANGES IN URINARY OR BOWEL CONTROL. THE PATIENT IS COVID-19 NEGATIVE. AFTER THE LAST PROCEUDRE, THE PATIENT DEVELOPED A RASH ON HIS CHEST. I WILL GIVE HIM BENADRYL 25 MG BEFORE STARTING THE PROCEDURE. DESCRIPTION OF PROCEDURE THE PATIENT WAS BROUGHT TO THE PROCEDURE ROOM AND PLACED IN THE PRONE POSITION. THE LUMBOSACRAL AREA WAS CLEANED WITH BETADINE SOLUTION AND DRAPED ASEPTICALLY. THE PROCEDURE WAS DONE UNDER STERILE CONDITIONS. A TIMEOUT WAS PERFORMED WHERE THE CONSENTED SITE WAS VERIFIED WITH EVERYONE IN THE ROOM. UNDER FLUOROSCOPIC GUIDANCE, THE TARGET POINT WAS SELECTED AT THE INTERLAMINAR LEVEL OF L4-L5. I CONFIRMED AGAIN THE SITE OF TARGET. LIDOCAINE WAS USED TO NUMB THE SKIN AND THE SUBCUTANEOUS TISSUE BELOW IT. EPIDURAL TUOHY NEEDLE, 17-GAUGE, WAS ADVANCED UNDER FLUOROSCOPIC GUIDANCE AND FOLLOWING PATIENT FEEDBACK UNTIL THE EPIDURAL SPACE WAS REACHED 6 CM DEEP INTO THE SKIN BY THE LOSS OF RESISTANCE TECHNIQUE. ISOVUE-M DYE 30%, 0.25 ML, WAS INJECTED SHOWING ADEQUATE SPREAD OF THE DYE. THEN, A SOLUTION OF 3 ML OF NORMAL SALINE WITH DEPO-MEDROL 40 MG WAS INJECTED SLOWLY FOLLOWING PATIENT FEEDBACK. THE MEDICATIONS WERE VERIFIED WITH THE NURSE. THERE WAS NO EVIDENCE OF BLOOD, PARESTHESIA OR CEREBROSPINAL FLUID DURING THE PROCEDURE. THE PATIENT WAS SENT TO THE RECOVERY ROOM. THE PATIENT WAS MOVING THE EXTREMITIES AND DOING WELL. THERE WERE NO COMPLICATIONS DURING THE PROCEDURE. ESTIMATED BLOOD LOSS WAS LESS THAN 5 ML. FLUOROSCOPY TIME WAS 9 SECONDS POST PROCEDURE NOTE THE PATIENT SHOULD ALWAYS RECIEVE BENADRYL BEFORE EVERY PROCEDURE. DEPENDING ON THE RESULTS, WE CAN CONSIDER A BILATERAL TRANSFORAMINAL EPIDRUAL L4-L5, L5-S1. THE PATIENT MAY BE A CANDIDATE FOR MILD/VERTIFLEX. I WILL ORDER X-RAY, AP AND LATERAL ON FLEXINO AND EXTENSION, TO CHECK THE STABILITY OF THE SPINE. THE PATIENT WILL BE SEEN IN A FOLLOW UP IN THE NEXT FEW WEEKS. I AM LOOKING FOR LONG LASTING RELIEF FOR THE PATIENT WITH THIS INTERVENTION. INSTRUCTIONS WERE GIVEN, QUESTIONS WERE ANSWERED, AND THE PATIENT EXPRESSED UNDERSTANDING AND AGREES WITH THE PLAN. I, EDGARDO SAMUEL, DOCUMENTED THE ABOVE INFORMATION ACTING A SCRIBE FOR DR. MIDDLETON. I HAVE REVIEWED THE ABOVE DOCUMENT, WRITTEN BY EDGARDO SAMUEL, ELECTRIC SIGN ASSEMBLER, AND I VERIFY THAT IT IS ACCURATE VISIT CODES PROCEDURE CODES 05465 LUMBAR/SACRAL W/ IMAGING DISPOSITION & COMMUNICATION FOLLOW UP FOLLOW UP WITH LINER MACHINE OPERATOR (REASON: POST LUMBAR EPIDURAL STEROID INJECTION) ELECTRONICALLY SIGNED BY LALITA MIDDLETON MD, MD ON 11/15/2020 AT 06:05 PM EDT DISCLAIMER : THIS IS A VISIT SUMMARY EXTRACTED FROM THE [employer] CHART. IT IS NOT A COPY OF THE [employer] PROGRESS NOTE. MTDConstance
== END ==
LOC: M PAIN 11:00
PROVIDERS: ATTEND Anesthesiology
DX: M51.17 Intervertebral disc disorders with radiculopathy, lumbosacral region (principal); N18.4 Chronic kidney disease, stage 4 (severe); E78.5 Hyperlipidemia, unspecified; E03.9 Hypothyroidism, unspecified; I12.9 Hypertensive chronic kidney disease with stage 1 through stage 4 chronic kidney disease, or unspecified chronic kidney disease; N40.0 Benign prostatic hyperplasia without lower urinary tract symptoms; N48.6 Induration penis plastica; E55.9 Vitamin D deficiency, unspecified; Z87.891 Personal history of nicotine dependence; Z79.891 Long term (current) use of opiate analgesic; Z79.899 Other long term (current) drug therapy; Z88.0 Allergy status to penicillin; Z88.6 Allergy status to analgesic agent; Z88.8 Allergy status to other drugs, medicaments and biological substances; Z91.040 Latex allergy status
CPT/HCPCS: 62323; J1030; Q9967

== ENCOUNTER → 2020-11-16 | Outpatient (CLI) | payer OTHER ==
[~2020-11-16] MED LIST changes: -ISOVUE-M 300 61% 15ML VIAL As Ordered ONE; -LIDOCAINE 1% SDV 30ML VIAL As Ordered ONE; -diazePAM 2 MG TAB As Ordered ONE; -diphenhydrAMINE 25MG CAP As Ordered ONE; -methylPREDNISolone SUSP 40MG/ML 1ML VIAL (DEPO MEDROL) As Ordered ONE
--- NOTE | 2020-11-16 14:27 | REP ---
INDICATION: NTVRT DISC DISORDERS W RADICULOPATHY, LUMBOSACRAL REGION. COMPARISON: None. TECHNIQUE: Five views FINDINGS: 10 degree scoliosis lower thoracic lumbar spine convexity to the right. Degenerative changes with disc space narrowing, osteophyte formation and marked facet arthropathy. old 50% L5 compression fracture. 8 mm retrolisthesis L2 on L3, 5 mm retrolisthesis L3 on L4. IMPRESSION: . Facet arthropathy. Spondylosis. Old L5 compression fracture. Multi level listhesis. <Electronically signed by Chase Knutson > 11/16/20 [id number]
== END ==
LOC: M RAD 12:25
PROVIDERS: ATTEND Anesthesiology
DX: M43.16 Spondylolisthesis, lumbar region (principal); Z87.311 Personal history of (healed) other pathological fracture

== ENCOUNTER → 2020-12-28 | Outpatient (CLI) | payer OTHER | LOC: M PAIN 14:45 | PROVIDERS: ATTEND Anesthesiology | DX: G89.29 Other chronic pain (principal); M47.816 Spondylosis without myelopathy or radiculopathy, lumbar region; E11.22 Type 2 diabetes mellitus with diabetic chronic kidney disease; M18.4 Other bilateral secondary osteoarthritis of first carpometacarpal joints; E78.5 Hyperlipidemia, unspecified; E03.9 Hypothyroidism, unspecified; I12.9 Hypertensive chronic kidney disease with stage 1 through stage 4 chronic kidney disease, or unspecified chronic kidney disease; N40.0 Benign prostatic hyperplasia without lower urinary tract symptoms; N48.6 Induration penis plastica; E55.9 Vitamin D deficiency, unspecified; Z87.891 Personal history of nicotine dependence; Z79.891 Long term (current) use of opiate analgesic; Z79.899 Other long term (current) drug therapy; Z88.0 Allergy status to penicillin; Z88.6 Allergy status to analgesic agent; Z88.8 Allergy status to other drugs, medicaments and biological substances; Z91.040 Latex allergy status ==

== ENCOUNTER → 2021-01-02 | Outpatient (REF) | payer MEDICARE ==
[2021-01-02 16:47] LABS: HEMATOCRIT 40.6 % (42.0-52.0); HEMOGLOBIN 13.3 g/dl (13.5-17.5); MEAN CORPUSCULAR HEMOGLOBIN 31.6 pg (27.0-33.0); MEAN CORPUSCULAR HGB CONC 32.8 g/dl (32.0-36.5); MEAN CORPUSCULAR VOLUME 96.4 fl (80.0-96.0); PLATELET COUNT, AUTOMATED 318 10^3/uL (150-450); RED BLOOD COUNT 4.21 10^6/uL (4.30-6.10); WHITE BLOOD COUNT 7.7 10^3/uL (4.0-10.0)
[2021-01-02 17:10] LABS: HEMOGLOBIN A1c 7.9 %
[2021-01-02 17:17] LABS: ALBUMIN 3.4 GM/DL (3.2-5.2); BILIRUBIN,TOTAL 0.4 MG/DL (0.2-1.0); C REACTIVE PROTEIN QUANTITATIV 0.3 MG/DL (0.00-0.30); CALCIUM LEVEL 9.6 MG/DL (8.8-10.2); CHOLESTEROL RISK RATIO 2.161 (<5); CREATININE FOR GFR 3.17 MG/DL (0.70-1.30); FREE T4 1.13 NG/DL (0.76-1.46); GLOMERULAR FILTRATION RATE 19.9 (>35); POTASSIUM SERUM 4.4 MEQ/L (3.5-5.1); THYROID STIMULATING HORMONE 1.09 uIU/ML (0.358-3.740); TOTAL PROTEIN 6.6 GM/DL (6.4-8.2)
== END ==
LOC: M SFHCADAM 11:28
PROVIDERS: ATTEND Family Medicine
DX: R29.898 Other symptoms and signs involving the musculoskeletal system (principal); E11.40 Type 2 diabetes mellitus with diabetic neuropathy, unspecified; E78.2 Mixed hyperlipidemia; E03.8 Other specified hypothyroidism
CPT/HCPCS: 80053; 80061; 83036; 84439; 84443; 85027; 86140; G0463

== ENCOUNTER → 2021-02-05 | Outpatient (REF) | payer MEDICARE ==
[2021-02-05 16:19] LABS: APPEARANCE, URINE HAZY (CLEAR); BACTERIA, URINE AUTO NEGATIVE (NEGATIVE); BILIRUBIN, URINE AUTO NEGATIVE (NEGATIVE); BLOOD, URINE BLOOD NEGATIVE (NEGATIVE); CALCIUM OXALATE CRYSTALS SMALL; COLOR, URINE YELLOW (YELLOW); GLUCOSE, URINE (UA) AUTO 1+ mg/dL (NEGATIVE); KETONE, URINE AUTO NEGATIVE (NEGATIVE); LEUKOCYTE ESTERASE, URINE AUTO 2+ (NEGATIVE); NITRITE, URINE AUTO NEGATIVE (NEGATIVE); PROTEIN, URINE AUTO NEGATIVE (NEGATIVE); RBC, URINE AUTO 2 /HPF (0-3); SQUAMOUS EPITHELIAL CELL UR AU 0 /HPF (0-6); UROBILINOGEN, URINE AUTO 0.2 mg/dL (0.0-2.0); WBC, URINE AUTO 101 /HPF (0-3)
== END ==
LOC: M SMT 13:29
PROVIDERS: ATTEND Nurse Practitioner Women's Health
DX: N40.1 Benign prostatic hyperplasia with lower urinary tract symptoms (principal)
CPT/HCPCS: 51798; 81001; 87086; G0463

== ENCOUNTER → 2021-02-06 | Outpatient (CLI) | payer MEDICARE ==
--- NOTE | 2021-02-06 14:38 | REP ---
INDICATION: MASS RT LUNG. COMPARISON: CT 07/27/2020, 01/15/2005 TECHNIQUE: Noncontrast scanning through the chest with the coronal and sagittal reconstructions provided. FINDINGS: Lung waddell again shows some volume loss of the right hemithorax and postsurgical change with clips at the right hilum. Staple line in the right infrahilar region and a spiculated irregular density adjacent to lung ricardo which have a linear soft tissue component associated. Findings are stable compared to the study of 07/27/2020, not really larger than in the 2004 study. Some underlying COPD is noted. I do not see new lesion in the right lung. Densely no calcified pleural plaques or effusion. Heart size not enlarged. The aorta shows some calcifications but no aneurysm. There are calcified bilateral hilar nodes. No pathologic sized mediastinal, hilar, axillary or supraclavicular adenopathy. Calcified nodule abuts the left diaphragm without definite associated pleural plaque. No pleural effusion, acute infiltrate or other significant finding. The 0 bone windows show sternum, manubrium, visualized portions of clavicles, scapula and humeral heads with some minor degenerative changes and no destructive lesion or fractures. Old postoperative rib changes on the right are noted and stable. Left ribs intact. Spine without acute compression deformity or destructive lesion. There are calcified granulomas in the spleen without splenomegaly or focal lesion. There is no hepatomegaly or adjacent ascites. No biliary dilatation. There is no calcified gallstone. Portion of pancreas and the adrenal glands seen are normal. No hiatal hernia. Upper poles of kidneys show some nonobstructing calcifications in pyramids on the right upper pole with some scarring laterally in the upper pole. No hydronephrosis and 2 smaller calcifications in pyramids on the left. IMPRESSION: 1. Postoperative changes with volume loss in the right hemithorax an spiculated lung lesion with adjacent surgical staple line and soft tissue density in the right infrahilar region. Surgical clips at the hilum in all of this appearance is unchanged since July and largely unchanged since 2004 prior. 2. Old granulomatous disease with left lung, bilateral hilar and splenic calcified granulomas. 3. No other significant or acute finding. <Electronically signed by Lionel You > 02/06/21 0865
== END ==
LOC: M PLAIMG 11:12
PROVIDERS: ATTEND Family Medicine
DX: R91.8 Other nonspecific abnormal finding of lung field (principal)

== ENCOUNTER → 2021-04-02 | Outpatient (CLI) | payer MEDICARE, OTHER ==
[~2021-04-02] MED LIST changes: -CEFD1CAP8 PO; +CEFD300C41 PO
== END ==
LOC: M RAD 15:00
PROVIDERS: ATTEND Urology
DX: N20.0 Calculus of kidney (principal); Z96.0 Presence of urogenital implants

== ENCOUNTER → 2021-09-13 | Outpatient (REF) | payer MEDICARE, OTHER ==
[2021-09-14 12:52] LABS: HEMOGLOBIN 12.4 g/dl (13.5-17.5); MEAN CORPUSCULAR HEMOGLOBIN 31.9 pg (27.0-33.0); MEAN CORPUSCULAR HGB CONC 33.5 g/dl (32.0-36.5); MEAN CORPUSCULAR VOLUME 95.1 fl (80.0-96.0); PLATELET COUNT, AUTOMATED 254 10^3/uL (150-450); RED BLOOD COUNT 3.89 10^6/uL (4.30-6.10); WHITE BLOOD COUNT 7.9 10^3/uL (4.0-10.0)
[2021-09-14 14:37] LABS: ALBUMIN 3.7 GM/DL (3.2-5.2); BILIRUBIN,TOTAL 0.3 MG/DL (0.2-1.0); CALCIUM LEVEL 9.9 MG/DL (8.8-10.2); CHOLESTEROL RISK RATIO 2.423 (<5); CREATININE FOR GFR 3.21 MG/DL (0.70-1.30); FREE T4 1.05 NG/DL (0.76-1.46); GLOMERULAR FILTRATION RATE 19.6 (>35); POTASSIUM SERUM 5.7 MEQ/L (3.5-5.1); THYROID STIMULATING HORMONE 0.367 uIU/ML (0.358-3.740); TOTAL PROTEIN 6.8 GM/DL (6.4-8.2)
[2021-09-14 14:38] LABS: HEMOGLOBIN A1c 6.6 %
== END ==
LOC: M SFHCADAM 15:08
PROVIDERS: ATTEND Family Medicine
DX: N18.4 Chronic kidney disease, stage 4 (severe) (principal); I11.9 Hypertensive heart disease without heart failure; E11.40 Type 2 diabetes mellitus with diabetic neuropathy, unspecified; E03.8 Other specified hypothyroidism; E78.2 Mixed hyperlipidemia

== ENCOUNTER → 2022-03-08 | Outpatient (REF) | payer MEDICARE, OTHER ==
[~2022-03-08] MED LIST changes: +FISH10005 PO; -FISH7.5C PO; -MAGN1.743 PO; +MAGN296S5 PO
[2022-03-08 16:36] LABS: BASO % 0.4 % (0.0-1.0); EOS # 0.3 10^3/uL (0.0-0.5); EOS % 3.4 % (0.0-3.0); HEMATOCRIT 34.6 % (42.0-52.0); HEMOGLOBIN 10.8 g/dl (13.5-17.5); LYMPH # 1.2 10^3/uL (1.5-5.0); LYMPH % 13.2 % (24.0-44.0); MEAN CORPUSCULAR HEMOGLOBIN 32.2 pg (27.0-33.0); MEAN CORPUSCULAR HGB CONC 31.2 g/dl (32.0-36.5); MEAN CORPUSCULAR VOLUME 103.3 fl (80.0-96.0); MONO # 0.7 10^3/uL (0.0-0.8); MONO % 7.5 % (2.0-8.0); NEUTROPHILS # 6.8 10^3/uL (1.5-8.5); NEUTROPHILS % 75.2 % (36.0-66.0); PLATELET COUNT, AUTOMATED 432 10^3/uL (150-450); RED BLOOD COUNT 3.35 10^6/uL (4.30-6.10); WHITE BLOOD COUNT 9.1 10^3/uL (4.0-10.0)
[2022-03-08 17:33] LABS: ALBUMIN 2.8 G/DL (3.2-5.2); BILIRUBIN,TOTAL 0.4 MG/DL (0.3-1.2); CALCIUM LEVEL 9.6 MG/DL (8.3-10.6); CHOLESTEROL RISK RATIO 2.94 (<5); CREATININE FOR GFR 2.62 MG/DL (0.70-1.30); GLOMERULAR FILTRATION RATE 24.8 (>35); LDL CHOLESTEROL 50.4 MG/DL (<100); POTASSIUM SERUM 4.8 MMOL/L (3.5-5.1); THYROID STIMULATING HORMONE 14.743 uIU/ML (0.55-4.78); TOTAL PROTEIN 6.1 G/DL (5.7-8.2)
[2022-03-08 19:26] LABS: HEMOGLOBIN A1c 5.9 % (4.0-6.0)
[2022-03-08 19:53] LABS: FREE T4 1.25 NG/DL (0.89-1.76)
== END ==
LOC: M SFHCADAM 15:01
PROVIDERS: ATTEND Family Medicine
DX: E11.40 Type 2 diabetes mellitus with diabetic neuropathy, unspecified (principal); I25.10 Atherosclerotic heart disease of native coronary artery without angina pectoris; E78.2 Mixed hyperlipidemia; E03.8 Other specified hypothyroidism

== ENCOUNTER 2022-03-18 14:59 | Emergency (ER) | payer MEDICARE, OTHER ==
[~2022-03-18] VITALS: Ht 177.8 cm; Wt 73.6 kg
[2022-03-18 17:59] LABS: BASO % 0.5 % (0.0-1.0); EOS # 0.3 10^3/uL (0.0-0.5); EOS % 3.9 % (0.0-3.0); HEMATOCRIT 38.1 % (42.0-52.0); HEMOGLOBIN 12.7 g/dl (13.5-17.5); LYMPH # 1.5 10^3/uL (1.5-5.0); MEAN CORPUSCULAR HEMOGLOBIN 33.7 pg (27.0-33.0); MEAN CORPUSCULAR HGB CONC 33.3 g/dl (32.0-36.5); MEAN CORPUSCULAR VOLUME 101.1 fl (80.0-96.0); MONO # 0.6 10^3/uL (0.0-0.8); NEUTROPHILS # 5.9 10^3/uL (1.5-8.5); NEUTROPHILS % 70.1 % (36.0-66.0); PLATELET COUNT, AUTOMATED 413 10^3/uL (150-450); RED BLOOD COUNT 3.77 10^6/uL (4.30-6.10); WHITE BLOOD COUNT 8.4 10^3/uL (4.0-10.0)
[2022-03-18 18:35] LABS: BILIRUBIN,DIRECT 0.2 MG/DL (<0.4); BILIRUBIN,TOTAL 0.5 MG/DL (0.3-1.2); CALCIUM LEVEL 9.8 MG/DL (8.3-10.6); CK-MB VALUE MASS 3.1 NG/ML (<3.6); CREATININE FOR GFR 2.82 MG/DL (0.70-1.30); GLOMERULAR FILTRATION RATE 22.7 (>35); POTASSIUM SERUM 4.1 MMOL/L (3.5-5.1); TOTAL PROTEIN 6.9 G/DL (5.7-8.2)
[2022-03-18 18:37] LABS: THYROID STIMULATING HORMONE 11.24 uIU/ML (0.55-4.78)
[2022-03-18 18:38] LABS: MB/CK RELATIVE INDEX 6.2 (< OR =4)
[2022-03-18 19:42] LABS: CK-MB VALUE MASS 3.1 NG/ML (<3.6)
[2022-03-18 19:44] LABS: MB/CK RELATIVE INDEX 7.38 (< OR =4)
[2022-03-18] MEDS ORDERED: AZITHROMYCIN 250MG TABLET PO ONE (20:00)
[2022-03-18] MEDS ORDERED: cefTRIAXone SOD 1 GM in D5W MINI-BAG PLUS 50 ML IV ONE (20:00)
[2022-03-18 20:30] VITALS: BP 128/71
[2022-03-18] MEDS ORDERED: CEFD300C PO (20:52)
[2022-03-18] MEDS ORDERED: ZITHTAB PO (20:52)
== END 2022-03-18 21:18 | disposition home or self-care (01) ==
LOC: M ED 14:59 → EDBD 14:59 → M ED 21:18
DX: J18.1 Lobar pneumonia, unspecified organism (principal); J90 Pleural effusion, not elsewhere classified; N18.6 End stage renal disease; Z99.2 Dependence on renal dialysis; I50.9 Heart failure, unspecified; E11.9 Type 2 diabetes mellitus without complications; I10 Essential (primary) hypertension; E03.9 Hypothyroidism, unspecified; E78.5 Hyperlipidemia, unspecified; F41.9 Anxiety disorder, unspecified; F32.9 Major depressive disorder, single episode, unspecified; Z87.442 Personal history of urinary calculi; Z87.01 Personal history of pneumonia (recurrent); Z86.73 Personal history of transient ischemic attack (TIA), and cerebral infarction without residual deficits; Z95.5 Presence of coronary angioplasty implant and graft; Z98.61 Coronary angioplasty status; Z90.2 Acquired absence of lung [part of]; Z87.891 Personal history of nicotine dependence; Z79.890 Hormone replacement therapy; Z79.899 Other long term (current) drug therapy; Z88.6 Allergy status to analgesic agent; Z88.0 Allergy status to penicillin; Z88.8 Allergy status to other drugs, medicaments and biological substances; Z91.040 Latex allergy status
CPT/HCPCS: 71045; 71250; 80048; 80076; 82550; 82553; 83605; 83880; 84436; 84443; 84484; 85025; 87040; 87486; 87581; 87633; 87798; 93005; 93041; 94760; 96365; 99285; J0696

== ENCOUNTER → 2022-03-27 | Outpatient (CLI) | payer MEDICARE, OTHER ==
[~2022-03-27] MED LIST changes: +CEFD300C PO; +ZITHTAB PO
== END ==
LOC: M ADAMS 14:40
PROVIDERS: ATTEND Family Medicine
DX: J69.0 Pneumonitis due to inhalation of food and vomit (principal); J91.8 Pleural effusion in other conditions classified elsewhere; I50.20 Unspecified systolic (congestive) heart failure

== ENCOUNTER → 2022-04-16 | Outpatient (CLI) | payer MEDICARE, OTHER ==
[~2022-04-16] MED LIST changes: +ACET1TAB55 PO; +INSULANT SC; +KP F1200 PO; +LIDO1PAD13 TOP; +MAGN296S37 PO; -MAGN296S5 PO
[2022-04-16 16:26] LABS: PARTIAL THROMBOPLASTIN TIME 27.1 SECONDS (24.8-34.2); PROTHROMBIN TIME 13.4 SECONDS (12.5-14.5)
== END ==
LOC: M LAB 15:43
PROVIDERS: ATTEND Internal Medicine Cardiovascular Disease
DX: Z01.810 Encounter for preprocedural cardiovascular examination (principal); D69.9 Hemorrhagic condition, unspecified

== ENCOUNTER → 2022-04-17 | Outpatient (CLI) | payer MEDICARE, OTHER | LOC: M IRPRO 10:39 | PROVIDERS: ATTEND Physician Assistant | DX: J90 Pleural effusion, not elsewhere classified (principal); N18.6 End stage renal disease; Z92.3 Personal history of irradiation ==

== ENCOUNTER → 2022-05-03 | Outpatient (CLI) | payer MEDICARE, OTHER | LOC: M RAD 12:33 | PROVIDERS: ATTEND Nurse Practitioner Family | DX: J90 Pleural effusion, not elsewhere classified (principal); J98.11 Atelectasis ==

== ENCOUNTER 2022-06-20 21:10 | Emergency (ER) | payer MEDICARE, OTHER ==
[~2022-06-20 21:10] MED LIST changes: -DOXY-443 PO
[2022-06-20 22:46] LABS: BASO % 0.4 % (0.0-1.0); EOS # 0.3 10^3/uL (0.0-0.5); EOS % 3.7 % (0.0-3.0); HEMATOCRIT 33.3 % (42.0-52.0); HEMOGLOBIN 11.3 g/dl (13.5-17.5); MEAN CORPUSCULAR HEMOGLOBIN 33.5 pg (27.0-33.0); MEAN CORPUSCULAR HGB CONC 33.9 g/dl (32.0-36.5); MEAN CORPUSCULAR VOLUME 98.8 fl (80.0-96.0); MONO # 0.6 10^3/uL (0.0-0.8); MONO % 7.8 % (2.0-8.0); NEUTROPHILS # 5.9 10^3/uL (1.5-8.5); NEUTROPHILS % 74.8 % (36.0-66.0); PLATELET COUNT, AUTOMATED 297 10^3/uL (150-450); RED BLOOD COUNT 3.37 10^6/uL (4.30-6.10); WHITE BLOOD COUNT 7.8 10^3/uL (4.0-10.0)
[2022-06-20 22:59] LABS: ERYTHROCYTE SEDIMENTATION RATE 28 mm/hr (0-20)
[2022-06-21] MEDS ORDERED: DOXYCYCLINE HYCLATE 100MG TABLET PO ONE (01:00)
[2022-06-21] MEDS ORDERED: DOXY-443 PO (01:07)
[2022-06-21 01:21] VITALS: BP 121/60
== END 2022-06-21 01:22 | disposition home or self-care (01) ==
LOC: M ED 21:10
DX: S80.11XA Contusion of right lower leg, initial encounter (principal); X58.XXXA Exposure to other specified factors, initial encounter; Y92.89 Other specified places as the place of occurrence of the external cause; Y93.89 Activity, other specified; Y99.8 Other external cause status; L03.115 Cellulitis of right lower limb; E11.9 Type 2 diabetes mellitus without complications; N18.6 End stage renal disease; E03.9 Hypothyroidism, unspecified; I25.2 Old myocardial infarction; Z79.899 Other long term (current) drug therapy; Z88.6 Allergy status to analgesic agent; Z88.0 Allergy status to penicillin; Z88.8 Allergy status to other drugs, medicaments and biological substances; Z91.040 Latex allergy status; Z79.4 Long term (current) use of insulin; Z79.82 Long term (current) use of aspirin

== ENCOUNTER → 2022-06-20 | Outpatient (CLI) | payer MEDICARE, OTHER ==
[~2022-06-20] MED LIST changes: +DOXY-443 PO
== END ==
LOC: M RAD 12:31
PROVIDERS: ATTEND Internal Medicine Nephrology
DX: N18.6 End stage renal disease (principal)

== ENCOUNTER → 2022-06-26 | Outpatient (CLI) | payer MEDICARE, OTHER ==
[~2022-06-26] MED LIST changes: +DOXY-443 PO
[2022-06-26 18:10] LABS: THYROID STIMULATING HORMONE 7.749 uIU/ML (0.55-4.78)
[2022-06-26 18:11] LABS: FREE T4 1.26 NG/DL (0.89-1.76)
== END ==
LOC: M PLALAB 15:44
PROVIDERS: ATTEND Family Medicine
DX: E03.8 Other specified hypothyroidism (principal)

== ENCOUNTER → 2022-06-26 | Outpatient (REF) | payer MEDICARE, OTHER | LOC: M SFHCADAM 13:57 | PROVIDERS: ATTEND Family Medicine | DX: E03.8 Other specified hypothyroidism (principal) ==

== ENCOUNTER → 2022-06-27 | Outpatient (REF) | payer MEDICARE, OTHER | LOC: M SFHCADAM 13:45 | PROVIDERS: ATTEND Family Medicine | DX: Z53.9 Procedure and treatment not carried out, unspecified reason (principal) ==

== ENCOUNTER 2022-07-18 19:53 | Emergency (ER) | payer MEDICARE, OTHER ==
[2022-07-18] MEDS ORDERED: LEVO150C PO (20:17)
[2022-07-18] MEDS ORDERED: VENL37TA PO (20:20)
[2022-07-18 20:43] LABS: EOS % 2.9 % (0.0-3.0); HEMATOCRIT 37.1 % (42.0-52.0); HEMOGLOBIN 12.3 g/dl (13.5-17.5); LYMPH % 7.2 % (24.0-44.0); MEAN CORPUSCULAR HEMOGLOBIN 33.4 pg (27.0-33.0); MEAN CORPUSCULAR HGB CONC 33.2 g/dl (32.0-36.5); MEAN CORPUSCULAR VOLUME 100.8 fl (80.0-96.0); MONO % 6.5 % (2.0-8.0); NEUTROPHILS % 82.8 % (36.0-66.0); PLATELET COUNT, AUTOMATED 292 10^3/uL (150-450); RED BLOOD COUNT 3.68 10^6/uL (4.30-6.10); WHITE BLOOD COUNT 10.2 10^3/uL (4.0-10.0)
[2022-07-18 20:44] LABS: BASO % 0.2 % (0.0-1.0); EOS # 0.3 10^3/uL (0.0-0.5); LYMPH # 0.7 10^3/uL (1.5-5.0); MONO # 0.7 10^3/uL (0.0-0.8); NEUTROPHILS # 8.4 10^3/uL (1.5-8.5)
[2022-07-18 21:03] LABS: ALBUMIN 3.2 G/DL (3.2-5.2); BILIRUBIN,DIRECT 0.2 MG/DL (<0.4); BILIRUBIN,TOTAL 0.5 MG/DL (0.3-1.2); CALCIUM LEVEL 8.9 MG/DL (8.3-10.6); CREATININE FOR GFR 1.81 MG/DL (0.70-1.30); GLOMERULAR FILTRATION RATE 37.9 (>35); POTASSIUM SERUM 4.1 MMOL/L (3.5-5.1); TOTAL PROTEIN 6.6 G/DL (5.7-8.2)
[2022-07-18 22:30] VITALS: BP 120/68
== END 2022-07-18 22:56 | disposition home or self-care (01) ==
LOC: M ED 19:53 → EDBD 19:53 → M ED 22:56
DX: R07.89 Other chest pain (principal); E11.9 Type 2 diabetes mellitus without complications; I11.9 Hypertensive heart disease without heart failure; N18.6 End stage renal disease; I25.2 Old myocardial infarction; Z87.442 Personal history of urinary calculi; N40.0 Benign prostatic hyperplasia without lower urinary tract symptoms; Z87.891 Personal history of nicotine dependence; Z88.6 Allergy status to analgesic agent; Z88.0 Allergy status to penicillin; Z91.040 Latex allergy status; Z88.8 Allergy status to other drugs, medicaments and biological substances; Z79.82 Long term (current) use of aspirin; Z79.899 Other long term (current) drug therapy; Z79.4 Long term (current) use of insulin

== ENCOUNTER → 2022-10-09 | Outpatient (REF) | payer MEDICARE, OTHER ==
[~2022-10-09] MED LIST changes: +LEVO150C PO; +VENL37TA PO
[2022-10-09 17:38] LABS: HEMATOCRIT 37.7 % (42.0-52.0); HEMOGLOBIN 12.2 g/dl (13.5-17.5); MEAN CORPUSCULAR HGB CONC 32.4 g/dl (32.0-36.5); MEAN CORPUSCULAR VOLUME 101.9 fl (80.0-96.0); PLATELET COUNT, AUTOMATED 277 10^3/uL (150-450); WHITE BLOOD COUNT 7.8 10^3/uL (4.0-10.0)
[2022-10-09 17:56] LABS: HEMOGLOBIN A1c 6.2 % (4.0-6.0)
[2022-10-09 18:00] LABS: ALBUMIN 3.4 G/DL (3.2-5.2); BILIRUBIN,TOTAL 0.6 MG/DL (0.3-1.2); CALCIUM LEVEL 9.3 MG/DL (8.3-10.6); CHOLESTEROL RISK RATIO 2.59 (<5); CREATININE FOR GFR 2.42 MG/DL (0.70-1.30); GLOMERULAR FILTRATION RATE 27.1 (>35); HDL CHOLESTEROL 45.9 MG/DL (>40); LDL CHOLESTEROL 61.1 MG/DL (<100); NON-HDL-C 73.1 MG/DL; POTASSIUM SERUM 4.2 MMOL/L (3.5-5.1); TOTAL PROTEIN 6.6 G/DL (5.7-8.2)
[2022-10-09 18:02] LABS: FREE T4 1.42 NG/DL (0.89-1.76); THYROID STIMULATING HORMONE 7.503 uIU/ML (0.55-4.78)
== END ==
LOC: M SFHCADAM 11:34
PROVIDERS: ATTEND Family Medicine
DX: I50.20 Unspecified systolic (congestive) heart failure (principal); Z99.2 Dependence on renal dialysis; E11.40 Type 2 diabetes mellitus with diabetic neuropathy, unspecified; E03.8 Other specified hypothyroidism; E78.2 Mixed hyperlipidemia

== ENCOUNTER 2022-10-17 01:48 | Emergency (ER) | payer MEDICARE, OTHER ==
[~2022-10-17] VITALS: Ht 167.6 cm; Wt 62.7 kg
[2022-10-17 03:03] VITALS: TEMP 98
[2022-10-17 03:07] LABS: BASO % 0.4 % (0.0-1.0); EOS # 0.4 10^3/uL (0.0-0.5); EOS % 3.7 % (0.0-3.0); HEMATOCRIT 38.4 % (42.0-52.0); HEMOGLOBIN 13.1 g/dl (13.5-17.5); LYMPH # 0.8 10^3/uL (1.5-5.0); LYMPH % 8.4 % (24.0-44.0); MEAN CORPUSCULAR HEMOGLOBIN 33.6 pg (27.0-33.0); MEAN CORPUSCULAR HGB CONC 34.1 g/dl (32.0-36.5); MEAN CORPUSCULAR VOLUME 98.5 fl (80.0-96.0); MONO # 0.7 10^3/uL (0.0-0.8); MONO % 7.5 % (2.0-8.0); NEUTROPHILS # 7.8 10^3/uL (1.5-8.5); NEUTROPHILS % 79.6 % (36.0-66.0); PLATELET COUNT, AUTOMATED 247 10^3/uL (150-450); WHITE BLOOD COUNT 9.8 10^3/uL (4.0-10.0)
[2022-10-17 03:16] LABS: INR 1.05; PROTHROMBIN TIME 13.9 SECONDS (12.5-14.5)
[2022-10-17 03:17] LABS: PARTIAL THROMBOPLASTIN TIME 28.6 SECONDS (24.8-34.2)
[2022-10-17 03:22] LABS: CALCIUM LEVEL 9.5 MG/DL (8.3-10.6); CREATININE FOR GFR 2.77 MG/DL (0.70-1.30); GLOMERULAR FILTRATION RATE 23.2 (>35)
[2022-10-17 03:41] VITALS: BP 141/95
[2022-10-17 03:48] VITALS: O2SAT 98
== END 2022-10-17 04:14 | disposition home or self-care (01) ==
LOC: M ED 01:48
DX: L76.22 Postprocedural hemorrhage of skin and subcutaneous tissue following other procedure (principal); I11.9 Hypertensive heart disease without heart failure; I25.10 Atherosclerotic heart disease of native coronary artery without angina pectoris; I50.20 Unspecified systolic (congestive) heart failure; E11.9 Type 2 diabetes mellitus without complications; N18.6 End stage renal disease; N40.0 Benign prostatic hyperplasia without lower urinary tract symptoms; M48.00 Spinal stenosis, site unspecified; Z87.891 Personal history of nicotine dependence; Z88.0 Allergy status to penicillin; Z88.6 Allergy status to analgesic agent; Z88.8 Allergy status to other drugs, medicaments and biological substances; Z91.040 Latex allergy status; Z79.899 Other long term (current) drug therapy; Z79.4 Long term (current) use of insulin; Z79.82 Long term (current) use of aspirin

== ENCOUNTER → 2022-11-15 | Outpatient (CLI) | payer MEDICARE, OTHER ==
[~2022-11-15] MED LIST changes: +ISOVUE-370 76% 100ML VIAL As Ordered ONE
== END ==
LOC: M RAD 10:52
PROVIDERS: ATTEND Internal Medicine Nephrology
DX: J90 Pleural effusion, not elsewhere classified (principal); R63.4 Abnormal weight loss; R10.817 Generalized abdominal tenderness
CPT/HCPCS: 71260; 74178; Q9967

== ENCOUNTER → 2022-12-16 | Outpatient (CLI) | payer MEDICARE, OTHER ==
[~2022-12-16] VITALS: Ht 167.6 cm; Wt 61.4 kg
[~2022-12-16] MED LIST changes: +BRIL90TA PO; -ISOVUE-370 76% 100ML VIAL As Ordered ONE; +MIDO2.5T PO
[2022-12-16 13:05] VITALS: TEMP 96.7
[2022-12-16 13:42] LABS: HEMATOCRIT 41.8 % (42.0-52.0); MEAN CORPUSCULAR HEMOGLOBIN 33.3 pg (27.0-33.0); MEAN CORPUSCULAR HGB CONC 33.5 g/dl (32.0-36.5); MEAN CORPUSCULAR VOLUME 99.5 fl (80.0-96.0); PLATELET COUNT, AUTOMATED 340 10^3/uL (150-450)
[2022-12-16 14:14] LABS: CALCIUM LEVEL 9.3 MG/DL (8.3-10.6); CREATININE FOR GFR 3.03 MG/DL (0.70-1.30); GLOMERULAR FILTRATION RATE 20.9 (>35); POTASSIUM SERUM 3.5 MMOL/L (3.5-5.1)
[2022-12-16 16:48] VITALS: BP 112/70; O2SAT 98
== END ==
LOC: M IRPRO 12:48
PROVIDERS: ATTEND Internal Medicine Nephrology
DX: J90 Pleural effusion, not elsewhere classified (principal)